=== PATIENT | female | born 2000 | race Caucasian/White ===

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

== ENCOUNTER → 2021-04-08 06:54 | Outpatient (CLI) | payer BC, SELFPAY ==
[2021-04-08 17:52] LABS: SARS-CoV-2 RNA PCR Negative
== END ==
PROVIDERS: PCP Nurse Practitioner; Visit Provider Nurse Practitioner
DX: R68.89 Other general symptoms and signs (principal); Z20.822 Contact with and (suspected) exposure to COVID-19
CPT/HCPCS: C9803; U0003; U0005

== ENCOUNTER → 2022-06-05 12:32 | Outpatient (CLI) | payer OTHER, BC, SELFPAY ==
--- NOTE | ~2022-06-05 | US_ITS ---
EXAMINATION:US venous doppler LE LT INDICATION:Right leg pain TECHNIQUE: Multiple grayscale, color flow and Doppler images of the right lower extremity deep venous systems were obtained and reviewed. COMPARISON:No prior studies for comparison. FINDINGS: The common femoral, superficial femoral and popliteal veins demonstrate normal respiratory variation, augmentation and compressibility. Color flow is also seen within the posterior tibial, pe roneal, greater saphenous and profunda veins. Limited visualization of the distal femoral and calf ve ins. IMPRESSION: 1: No lower extremity deep venous thrombosis. Reviewed, dictated and finalized at location A.
== END ==
PROVIDERS: PCP Nurse Practitioner Family; Visit Provider Nurse Practitioner Family
DX: I82.402 Acute embolism and thrombosis of unspecified deep veins of left lower extremity (principal)
CPT/HCPCS: 93971

== ENCOUNTER → 2022-07-01 08:40 | Outpatient (CLI) | payer OTHER, SELFPAY ==
--- NOTE | ~2022-07-01 | MR_ITS ---
EXAMINATION: MR knee LT wo con DATE: 07/01/2022 09:49 INDICATION: Anterior left knee pain. No history of trauma. TECHNIQUE: Magnetic resonance imaging (MRI) of the left knee was performed without intravenous contra st. Sequences included axial PD-weighted FS FSE, coronal PD-weighted FSE and PD-weighted FS FSE, sagi ttal PD-weighted FSE, and sagittal T2-weighted FS FSE. COMPARISON: X-ray 06/13/2022, images only. FINDINGS: Medial compartment: Mild diffuse thinning of cartilage. Intact meniscus Lateral compartment: Intact meniscus and cartilage. Patellofemoral compartment: Intact cartilage and retinacula. Ligaments and tendons: Intact. Fluid: No abnormal fluid collection. Osseous/other: No suspicious focal or diffuse marrow signal IMPRESSION: Mild diffuse cartilage thinning in the medial compartment. Otherwise normal left knee MR findings. Reviewed, dictated and finalized at location K. IMPRESSION: Mild diffuse cartilage thinning in the medial compartment. Otherwise normal lef t knee MR findings.
== END ==
PROVIDERS: PCP Family Medicine; Visit Provider Nurse Practitioner Family
DX: M25.562 Pain in left knee (principal)
CPT/HCPCS: 73721

== ENCOUNTER 2022-08-03 06:36 | Outpatient (RCR) | payer OTHER, BC, SELFPAY | END 2022-10-17 13:04 | disposition home or self-care (01) | LOC: ANHPT 06:36 | PROVIDERS: PCP Family Medicine; Visit Provider Nurse Practitioner Family | DX: M25.562 Pain in left knee (principal) | CPT/HCPCS: 99199 ==

== ENCOUNTER 2022-11-01 13:34 | Emergency (ER) | payer OTHER, BC, SELFPAY ==
--- NOTE | ~2022-11-01 | US_ITS ---
EXAMINATION: US OB <=14 wk fetus w TV INDICATION: left adnexal pain TECHNIQUE: Sonography of the pelvis was performed by transabdominal and transvaginal techniques. COMPARISON: None. RESULT: Uterus: Orientation: Anteverted. 7.8 x 4.1 x 5.4 cm. Myometrium: homogeneous echogenicity. Gestation: - Intrauterine gestational sac: Single present. - Yolk sac: Present, not directly measured. - Embryo: Single present. - [place] rump length: 0.5 cm, corresponding gestational age 6 weeks, 1 days. -Gestational heart rate: present 130 bpm. -Subgestational hematoma: Absent . Right ovary: 2.7 x 2.2 x 2.3 cm. Normal sonographic appearance with physiologic follicles. . . Left ovary: 2.0 x 1.5 x 1.0 cm. Normal sonographic appearance with physiologic follicles. . . Pelvis free fluid: None. IMPRESSION: Single, live intrauterine gestation. Estimated Gestational Age: 6 weeks, 1 days by crown rump length. OSCAR by ultrasound 06/26/2023. Reviewed, dictated and finalized at location K. ANALYST IMPRESSION: Single, live intrauterine gestation. Estimated Gestational Age: 6 weeks, 1 days by crown rump length. OSCAR by ultras ound 06/26/2023.
[2022-11-01 13:37] VITALS: BP 135/61; PULSE 90; RESP 14; TEMP 36.8; O2SAT 100
[2022-11-01 14:13] LABS: Basophils Absolute Auto 0.1 K/mm3 (0.0-0.1); Basophils Percent Auto 0.7 % (0.2-1.2); Eosinophils Absolute Auto 0.1 K/mm3 (0-0.3); Eosinophils Percent Auto 1.2 % (0-4.4); Hematocrit 44.4 % (37.0-47.0); Hemoglobin 14.7 g/dL (12.0-15.0); Immature Granulocyte Absolute 0.04 K/mm3 (0.00-0.031); Immature Granulocyte Percent A 0.4 % (0-0.5); Lymphocytes Percent Auto 21.8 % (18.3-44.2); Mean Corpuscular HGB Conc 33.1 g/dl (32-36); Mean Corpuscular Hemoglobin 30.3 pg (26-34); Mean Corpuscular Volume 91.5 fl (80-100); Mean Platelet Volume 10.4 fl (7.4-10.4); Monocytes Absolute Auto 0.6 K/mm3 (0.1-0.6); Monocytes Percent Auto 6.7 % (2.6-8.5); Neutrophils Absolute Auto 6.4 K/mm3 (1.3-6.7); Neutrophils Percent Auto 69.2 % (45.5-73.1); Platelet Count Result 291 k/mm3 (150-375); Red Blood Count 4.85 M/mm3 (4.2-5.4); Red Cell Distribution Width 12.7 % (11.5-14.5); White Blood Count 9.2 K/mm3 (4.5-10.0)
[2022-11-01 14:23] LABS: Alanine Aminotransferase 37 U/L (6-35); Albumin Level 4.9 g/dL (3.5-5.1); Alkaline Phosphatase 98 U/L (38-126); Anion Gap 11 mmol/L (8-16); Aspartate Amino Transferase 37 U/L (14-36); Bilirubin,Total 0.8 mg/dL (0.2-1.3); Blood Urea Nitrogen 6 mg/dL (7-17); Calcium 9.7 mg/dL (8.4-10.2); Carbon Dioxide 23 mmol/L (22-30); Chloride 103 mmol/L (98-107); Estimated CRCL calculation 146 ml/min; Estimated Glomerular Filt Rate > 60; Glucose 94 mg/dL (65-110); Lipase 41 U/L (23-300); Potassium 3.8 mmol/L (3.4-5.0); Sodium 137 mmol/L (137-145)
[2022-11-01 14:34] LABS: Appearance Urine Clear (Clear); Bilirubin Urine 1+ (Negative); Blood Urine Trace-lysed (Negative); Color Urine Yellow (Yellow); Glucose Urine UA Negative (Negative); Ketones Urine 3+ mg/dL (Negative); Leukocyte Esterase Ur 1+ LEU/UL (Negative); Nitrate Urine Negative (Negative); Protein Urine Negative (Negative); Specific Grav Ur >= 1.030 (1.001-1.035); Urobilinogen Urine 0.2 mg/dL (<2.0)
[2022-11-01 14:44] LABS: Mucus Urine Few /lpf; Squamous Epithelial Cell Urine Moderate /hpf (Few)
[2022-11-01 14:46] LABS: Add Urine Microscopic? YES
[2022-11-01 16:23] VITALS: BP 138/69; PULSE 67; RESP 15; O2SAT 100
[2022-11-01] MEDS: ONDANSETRON INJ 4 MG/2 ML VIAL IV PUSH (16:40)
[2022-11-01] MEDS: SODIUM CHLORIDE 0.9% IV 1,000 ML 999 ML IV CONT (16:40)
[2022-11-01] MEDS: MORPHINE SULFATE (*CRX) 4 MG/ML INJ IV PUSH (16:41)
[2022-11-01 17:20] VITALS: BP 144/83; PULSE 65; RESP 15; O2SAT 100
--- NOTE | 2022-11-01 18:54 | ED.GENADULT ---
HPI - General Adult General Chief complaint: Nausea/Vomiting/Diarrhea Stated complaint: 5 weeks , vomitting Time Seen by Provider: 11/01/22 16:07 History of Present Illness HPI narrative: Patient is a 22-year-old female who presents ER with nausea and vomiting as well as lower abdominal cramping. Has been trying to quell her vomiting with Unisom and vitamin B without success. No urinary frequency urgency or dysuria. No vaginal bleeding or vaginal discharge. LMP 09/28/2022. She has not had her first visit with her OB yet. She is a G1, P0. Related Data Home Medications Medication Instructions Recorded Confirmed norelgestromin 150 mcg-e.estradiol 1 patch transdermal WEEKLY 12/15/20 06/05/22 35 mcg/24 hr weekly transderm patch (Xulanpriyank) Allergies Allergy/AdvReac Type Severity Reaction Status Date / Time No Known Allergies Allergy Unknown Verified 06/14/22 08:13 Review of Systems Review of Systems: All systems reviewed & are unremarkable except as noted in HPI and below Constitutional: Constitutional: Denies chills, Denies fatigue and Denies fever(s) Respiratory: Respiratory: Denies cough, Denies dyspnea and Denies wheezing Gastrointestinal: Gastrointestinal: Reports abdominal pain, Denies nausea and Denies vomiting Genitourinary: Genitourinary: Denies abnormal vaginal bleeding and Denies flank pain PMFSH Past Medical History Medical History Anxiety Fracture lt ankle Left knee pain Medial meniscus tear Surgical History Surgical History History of orthopedic surgery lt ankle History of tonsillectomy History of wisdom tooth extraction Family History Family History Mother Skin cancer Thyroid disease Father Depression Anxiety Hypertension Sibling Anxiety Depression Grandparent Lung cancer Brain cancer Social History Social History Smoking status: Current every day smoker Tobacco type: e-cigarettes/vaping Alcohol intake: current Drinks per week: 2 Substance use: never Substance use type: does not use Living arrangements: with family Occupation/Education: occupation 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 HEAD: Normocephalic, atraumatic. ENT: Mucous membranes moist. NECK: Supple. CHEST: Clear to auscultation. No respiratory distress. HEART: Regular rate and rhythm. Normal peripheral pulses. ABDOMEN: Soft, nontender, nondistended. EXTREMITIES: Normal range of motion. No edema. SKIN: Warm, dry, no rash. NEURO: Alert and oriented x3. PSYCH: Normal mood and affect. Course Course Emergency Course: Patient resting comfortably. Improved with IV fluid and Zofran. Discussed results and need for follow-up with her primary OB. Patient verbalized understanding. We will treat for possible UTI that could be causing lower abdominal cramping given abnormal UA. Vital Signs Vital signs: Vital Signs Temperature 98.2 F 11/01/22 13:37 Pulse Rate 90 11/01/22 13:37 Respiratory Rate 14 11/01/22 13:37 Blood Pressure 135/61 11/01/22 13:37 Pulse Oximetry 100 11/01/22 13:37 Oxygen Delivery Room Air 11/01/22 13:37 Temperature 98.2 F 11/01/22 13:37 Pulse Rate 65 11/01/22 17:20 Respiratory Rate 15 11/01/22 17:20 Blood Pressure 144/83 H 11/01/22 17:20 Pulse Oximetry 100 11/01/22 17:20 Oxygen Delivery Room Air 11/01/22 13:37 Medical Decision Making Vital Signs Vital Signs: Vital Signs Temperature 98.2 F 11/01/22 13:37 Pulse Rate 90 11/01/22 13:37 Respiratory Rate 14 11/01/22 13:37 Blood Pressure 135/61 11/01/22 13:37 Puls
[2022-11-01 18:55] VITALS: BP 111/70; PULSE 61; RESP 15; O2SAT 100
== END 2022-11-01 19:31 | disposition home or self-care (01) ==
PROVIDERS: Emergency Provider Emergency Medicine; PCP Family Medicine
DX: O21.0 Mild hyperemesis gravidarum (principal); Z3A.01 Less than 8 weeks gestation of pregnancy; O23.41 Unspecified infection of urinary tract in pregnancy, first trimester; N39.0 Urinary tract infection, site not specified
CPT/HCPCS: 36415; 76801; 76817; 80053; 81001; 81025; 83690; 85025; 96361; 96374; 96375; 99284; J2270; J2405; J7030

== ENCOUNTER 2025-01-21 10:00 | Emergency (ER) | payer BC, SELFPAY ==
--- NOTE | ~2025-01-21 | US_ITS ---
Pelvic ultrasound. Clinical History: First trimester , pain Technique: Realtime transabdominal and transvaginal scanning of the pelvis was performed. Color flow Doppler and Doppler spectral analysis were performed. Findings: The uterus is anteverted, and contains an intrauterine gestational sac. [place]-rump length o f 1.2 cm corresponds to an estimated gestational age of 7 weeks 3 days. heart rate is 165 bpm. The right ovary measures 3.4 x 2.1 x 2.8 cm. No significant right ovarian or adnexal mass is seen. The left ovary measures 1.7 x 1.9 x 1.0 cm. No significant left ovarian or adnexal mass is seen. There is no evidence of free fluid in the cul de sac. Impression: Live intrauterine gestation, with estimated gestational age of 7 weeks 3 days. heart rate is 16 5 bpm. Reviewed, dictated and finalized at [facility]. Impression: Live intrauterine gestation, with estimated gestational age of 7 weeks 3 days. heart rate is 165 bpm.
[2025-01-21 10:01] VITALS: BP 126/90; PULSE 62; RESP 18; TEMP 36.6; O2SAT 100
--- OUTSIDE RECORDS SUMMARY | 2025-01-21 10:43 | XMS_ITS | Clinical Summary ---
Author Organization [facility] [employer] Address [address] [place] [id number] Care Team Providers Care Dump Attendant Name Role Phone Unavailable Primary Care Provider Unavailabl e Allergies No known active allergies Medications No known medications Active Problems Problem Noted Date Diagnosed Date Retained orthopedic hardware 08/03/2015 Resolved Problems Problem Noted Date Diagnosed Date Resolved Date Bimalleolar ankle fracture 03/01/2015 0 04/08/2020 Closed left ankle fracture 02/19/2015 0 04/08/2020 Family History Medical History Relation Name Comments No Known Problems Father Cancer Maternal Grandfather Cancer Maternal Grandmother Skin Cancer Mother Cancer Paternal Grandfather Cancer Paternal Grandmother Healthy Sister Relation Name Status Comments Father Alive Maternal Grandfather Maternal Grandmother Mother Alive Paternal Grandfather Paternal Grandmother Sister Alive Social History Tobacco Use Types Packs/Day Years Used Date Smoking Tobacco: Never Alcohol Use Standard Drinks/Week Comments Not Currently 0 (1 standard drink = 0.6 oz pur e alcohol) Comments Unknown Sex and Gender Information Value Date Recorded Sex Assigned at Not on file Legal Sex Female 2:16 PM CDT Gender Identity Not on file Sexual Orientation Not on file Plan of Treatment Health Maintenance Due Date Last Done Comments CHLAMYDIA SCREENING (ANNUAL) 11-24 YEARS 2012 HPV VACCINES (1 - 3-dose series) 2016 DTAP/TDAP/TD VACCINES (1 - Tdap) 2020 HEPATITIS B VACCINES (1 of 3 - 19+ 3-dose series) 08/18 CERVICAL CANCER SCREENING 2022 HPV/Cotest (21-29) 2022 PAP SMEAR 2022 INFLUENZA VACCINE (#1) 2024 06/01/2020 [place] [id number]
--- OUTSIDE RECORDS SUMMARY | 2025-01-21 10:43 | XMS_ITS | Data Portability ---
Author Organization [facility] Address [address] [place] [address] [place] [address] Care Team Providers Care Filtrose Crusher Name Role Phone HA VELASQUEZ Primary Care Provider Assessment No assessment recorded. Plan of Treatment Reminders Order Date Submit Date Provider Last Modified By Organization Details Last Modified Time Details Appointments U/S OB SNEAK PEAK 2024 08:30A M ULTRASOUND Not available Not available Not available OB SCREEN 2024 09:00A M Allyssa BOYCE MD Not available Not available Not available Lab pregnan cy test, urine [address] [facility], [address], [address], [place], [address], 07/11/2023 17:51:13 pregnan cy test, urine 2022 023 [email or web address] [facility], [address], [place], [address], 11/28/2022 17:02:22 Referral None recorde d. Procedures None recorde d. Surgeries None recorde d. Imaging US, breast, unilate ral - right 2022 023 GABRIEL [facility], [address], [place], [address], 01/20/2024 05:01:15 US, obstetr ic, transva ginal 2022 023 [email or web address] [facility], [address], [place], [address], 11/28/2022 22:03:47 Medication Orders Vienva 0.1 mg-20 mcg tablet 2022 023 [id number], [address], [place], [place], [id number], 07/11/2023 17:51:12 Xulane 150 mcg-35 mcg/24 hr transde rmal patch 2019 020 [email or web address] [facility] #[id number], [address], [place], [place], [id number], 11/28/2022 16:43:32 Patient TargetsNo targets recorded. Patient InstructionsNo instructions recorded. Reason for Referral None Reported. Results Created Date Observation Date Name Description Value Unit Range Abnormal Flag Note LastModifiedBy Organization Detail LastModifiedTime 11/29/1911/28/2022 BHCG, QUANT ITATI VE B-HCG 25.4 mIU/m L This assay was perfo rmed using [employer] n reage nts and test kits. Value s obtai tiffany with other assay metho ds or kits canno t be used inter castañeda eably . Refer ence Range s: Non-p regna nt, preme nopau sanket women : 0.0-5 .3 mIU/m L Postm enopa usal women : 0.0-7 .0 mIU/m L Tracie l Pregn jason: Gesta griffin l Age bHCG Conc. - mIU/m L 3 Weeks 5.8 - 71.7 4 Weeks 9.5 - 750 5 Weeks 217-7 138 6 Weeks 158 - 31,79 5 7 Weeks 3,697 - 162,5 63 8 Weeks 32,06 5 - 149,5 71 9 Weeks 63,80 3 - 151,4 10 10 Weeks 46,50 9 - 186,9 77 12 Weeks 27,83 2 - 210,6 12 14 Weeks 13,95 0 - 62,53 0 15 Weeks 12,03 9 - 70,97 1 16 Weeks 9,040 - 56,45 1 17 Weeks 8,175 - 55,86 8 18 Weeks 8,099 - 58,17 6 Not Available [facility] (Lab) [address] , [place], [address], 11/29/2022 03:40:28 11/29/19 23 11/28/2022 pregn jason test, urine HCG positi ve Not Available [facility] [address], [place], [address], 11/28/2022 17:01:53 12/01/19 23 11/30/2022 BHCG, QUANT ITATI VE B-HCG 22.3 mIU/m L This assay was perfo rmed using [employer] reage nts and test kits. Value s obtai tiffany with other assay metho ds or kits canno t be used inter castañeda eably . Refer ence Range s: Non-p regna nt, preme nopau sanket women : 0.0-5 .3 mIU/m L Postm enopa usal women : 0.0-7 .0 mIU/m L Tracie l Pregn jason: Gesta griffin l Age bHCG Conc. - mIU/m L 3 Weeks 5.8 - 71.7 4 Weeks 9.5 - 750 5 Weeks 217-7 138 6 Weeks 158 - 31,79 5 7 Weeks 3,697 - 162,5 63 8 Weeks 32,06 5 - 149,5 71 9 Weeks 63,80 3 - 151,4 10 10 Weeks 46,50 9 - 186,9 77 12 Weeks 27,83 2 - 210,6 12 14 Weeks 13,95 0 - 62,53 0 15 Weeks 12,03 9 - 70,97 1 16 Weeks 9,040 - 56,45 1 17 Weeks 8,175 - 55,86 8 18 Weeks 8,099 - 58,17 6 Not Available [facility] (Lab) [address] , [place], [address], 12/01/2022 03:24:59 12/05/19 23 12/04/2022 BHCG, QUANT ITATI VE B-HCG 15.7 mIU/m L This assay was perfo rmed using [employer] reage nts and test kits. Value s obtai tiffany with other assay metho ds or kits canno t be used inter [facility] . Refer ence Range s: Non-p regna nt, preme nopau sanket women : 0.0-5 .3 mIU/m L Postm enopa usal women : 0.0-7 .0 mIU/m L Tracie l Pregn jason: Gesta griffin l Age bHCG Conc. - mIU/m L 3 Weeks 5.8 - 71.7 4 Weeks 9.5 - 750 5 Weeks 217-7 138 6 Weeks 158 - 31,79 5 7 Weeks 3,697 - 162,5 63 8 Weeks 32,06 5 - 149,5 71 9 Weeks 63,80 3 - 151,4 10 10 Weeks 46,50 9 - 186,9 77 12 Weeks 27,83 2 - 210,6 12 14 Weeks 13,95 0 - 62,53 0 15 Weeks 12,03 9 - 70,97 1 16 Weeks 9,040 - 56,45 1 17 Weeks 8,175 - 55,86 8 18 Weeks 8,099 - 58,17 6 Not Available [facility] (Lab) [address] [facility], [place], [address], 12/05/2022 03:38:11 12/15/19 23 12/14/2022 BHCG, QUANT ITATI VE B-HCG 5.8 mIU/m L This assay was perfo rmed using [employer] reage nts and test kits. Value s obtai tiffany with other assay metho ds or kits canno t be used inter [facility] . Refer ence Range s: Non-p regna nt, preme nopau sanket women : 0.0-5 .3 mIU/m L Postm enopa usal women : 0.0-7 .0 mIU/m L Tracie l Pregn jason: Gesta griffin l Age bHCG Conc. - mIU/m L 3 Weeks 5.8 - 71.7 4 Weeks 9.5 - 750 5 Weeks 217-7 138 6 Weeks 158 - 31,79 5 7 Weeks 3,697 - 162,5 63 8 Weeks 32,06 5 - 149,5 71 9 Weeks 63,80 3 - 151,4 10 10 Weeks 46,50 9 - 186,9 77 12 Weeks 27,83 2 - 210,6 12 14 Weeks 13,95 0 - 62,53 0 15 Weeks 12,03 9 - 70,97 1 16 Weeks 9,040 - 56,45 1 17 Weeks 8,175 - 55,86 8 18 Weeks 8,099 - 58,17 6 Not Available [facility] (Lab) [address], [place], [address], 12/15/2022 02:39:32 07/11/20 23 07/11/2023 IMAGE GUIDE D PAP, REFLE X HPV IF ASCUS ONLY image guided Pap, reflex HPV ASCUS only SEE RESULT S BELOW CASE REPOR T: Cytol ogy Gynec ologi june Repor t Case: [id number] Autho suniat g Provi germaine: Shwetha Hensley NP Colle cted: 07/11 1648 Order ing Locat ion: [place] [facility] Recei best: 07/12 0856 First Scree n: Selene Dunn, CT Speci men: Scree eddie Pap - Image d, Cervi x STATE MENT OF ADEQU ACY: Satis facto ry for evalu ation Trans forma tion zone compo nent prese nt FINAL DIAGN OSIS: Negat myesha for Intra epith elial Lesio n or Erik vargas (NIL) . Shift in salvador sugge stive of bacte rial vagin osis. Elect ivana gilman d by Selene Dunn, CT on 07/17 at 10:13 AM ----- ----- ----- ----- ----- ----- ----- ----- ----- ----- ----- ----- ----- ----- ----- ----- ----- ---- COMME NT: This speci men was revie wed by a Cytot echno logis t and/o r Patho logis t (as indic ated in this repor t) after evalu ation using the Thinp rep Imagi ng Syste m. CLINI JUNE INFOR MATIO N: Menst rual Statu s: LMP (if appli cable ): Clini june Histo ry/Pr eviou s Pap: Type of Neopl paul (if appli cable ): Signi fican t Clini june Findi ngs: Other Histo ry: Hormo sudhakar (if appli cable ): PAP EDUCA GRIFFIN L NOTE: The Pap Test is a scree eddie test with an inher ent false negat myesha rate. Liqui d-bas ed sampl ing may decre ase, but will not elimi ronald, false negat myesha resul ts. A negat myesha resul t does not precl ude the prese nce and/o r devel opmen t of disea se, since the prese nce of abnor mal cells in the sampl e depen ds on the locat ion of the lesio n and sampl ing techn ique. Josephine nued regul ar scree eddie is the best metho d of cance r preve ntion . If repor dada cytol ogic findi ng do not corre late with physi june and/o r histo rical findi ngs, furth er inves tigat ion is recom yasmeen d, as clini allison warra nted. Not Available [facility] (Lab) [address], [place], [address], 07/17/2023 11:15:53 07/11/20 23 07/11/2023 pregn jasno test, urine HCG negati ve Not Available [facility] [address], [place], [address], 07/11/2023 17:50:03 11/29/19 23 11/28/2022 US, obste tric, trans vagin al No observ ation record ed. [email or web address] [facility] [address], [place], [address], 11/28/2022 17:58:25 11/29/1911/28/2022 US, obste tric, trans vagin al No observ ation record ed. [email or web address] Manuela [address], [place], [address], 11/30/2022 11:10:30 Result Notes None recorded. Problems Name Problem SNOMED Code Status Onset Date Resolution Date Notes Provider Name and Address Organization Details Recorded Time SNOMED CT Concept Completed 201703/15/2021 Encntr for routine child health exam w/o abnormal findings ;Recorde d Elsewher e: No Locat ion: [facility] S ource: EHR Fingerprint Technician juan: N Practi ce ID: 0001 Pradeep lable Time: 02:15:00 PM Melissa grier [facility] 16:33:31 Educatio n Completed 201803/15/2021 Encounte r for other general counseli ng and advice on contrace ption;Re corded Elsewher e: No Locat ion: [facility] S ource: EHR Fingerprint Technician juan: N Practi ce ID: 0001 Pradeep lable Time: 02:30:00 PM Melissa grier [facility] 16:33:33 Uses combined oral contrace ption [id number] Completed 201803/15/2021 Encounte r for surveill ance of contrace ptive pills;Re corded Elsewher e: No Locat ion: [facility] S ource: EHR Fingerprint Technician juan: N Practi ce ID: 0001 Pradeep lable Time: 09:00:00 AM Melissa grier [facility] 16:33:[address] Concept Completed 201703/15/2021 Encntr for leak patcher exam (general ) (routine ) w/o abn findings ;Practic e ID: [id number] Melissa Roy [facility] 16:33:32 Problem Notes None recorded. Procedures Surgical History Date Name Laterality Status Provider Name and Address Organization Details Recorded Time 07/11/20 23 Date of Last Pap Smear completed Dahlai Arauz [facility] 07/11/2024 11:54:49 11/03/19 23 termination of completed [facility] 11/28/2022 16:45:49 09/17/19 21 extraction of wisdom tooth completed [facility] 11/28/2022 16:45:26 09/17/19 15 procedure on foot completed [facility] 11/28/2022 16:45:14 09/17/19 10 Tonsillectomy completed [facility] 11/28/2022 16:45:37 Imaging Results Imaging Date Name Status LastModified by Organization Details LastModified Time 11/28/2022 US, obstetric, transvaginal completed [email or web address] [facility] [address], [place], [address], 11/28/2022 17:58:25 11/28/2022 US, obstetric, transvaginal completed [email or web address] Manuela [address] [facility], [place], [address], 11/30/2022 11:10:30 Procedure Notes None recorded. Medical Equipment None Reported. Allergies No known drug allergies Medications Name Sig Start Date Stop Date Status Note LastModified by Organization Details LastModified Time Prescript ion - New 11/28 completed Not Available Not Available Not Available amoxicill in 500 mg capsule TAKE 1 CAPSULE BY MOUTH EVERY 8 HOURS UNTIL ALL TAKEN 03/15 completed Not Available Not Available Not Available promethaz ine-DM 6.25 mg-15 mg/5 mL oral syrup TAKE 5 ML BY MOUTH EVERY 4 HOURS NEEDED 07/11 completed Not Available Not Available Not Available ibuprofen 800 mg tablet TAKE 1 TABLET BY MOUTH EVERY 6 HOURS NEEDED FOR PAIN 03/16 completed Not Available Not Available Not Available Loestrin Fe 10/06 (28-Day) 1 mg-20 mcg (21)/75 mg (7) tablet take 1 tablet by oral route every day 09/22 completed Prescrib marilin Hernandez e: No Locat ion: Nicholas yost [facility] toussaint By: funmilayo Estrada er DateTime : 09/15/20 19 03:20:25 PM Not Available Not Available Not Available topiramat e 25 mg tablet TK 1 T PO Q MOOKIE AT DINNER 11/28 completed Not Available Not Available Not Available phentermi ne 37.5 mg tablet TAKE 1 TABLET BY MOUTH EVERY DAY active Not Available Not Available No t Available oxycodone -acetamin ophen 5 mg-325 mg tablet TAKE 1 TABLET BY MOUTH EVERY 4 TO 6 HOURS NEEDED FOR PAIN 11/28 completed Not Available Not Available Not Available cephalexi n 500 mg capsule TAKE 1 CAPSULE BY MOUTH EVERY 12 HOURS 11/28 completed Not Available Not Available Not Available fluoromet holone 0.1 % eye drops,jeanie pension SHAKE LIQUID AND INSTILL 1 DROP IN RIGHT EYE FOUR TIMES DAILY FOR 10 DAYS active Not Available Not Available No t Available sertralin e 25 mg tablet TAKE 1 TABLET BY MOUTH DAILY 07/11 completed Not Available Not Available Not Available methylpre dnisolone 4 mg tablets in a dose pack TAKE 6 TABLETS BY MOUTH THE FIRST DAY AND THE REMAININ G DIRECTED 07/11 completed Not Available Not Available Not Available fluticaso ne propionat e 50 mcg/actua tion nasal spray,jeanie pension SHAKE LIQUID AND USE 1 SPRAY IN EACH NOSTRIL DAILY 03/16 completed Not Available Not Available Not Available sertralin e 50 mg tablet TAKE 1 TABLET BY MOUTH DAILY active Not Available Not Available No t Available naproxen 500 mg tablet TAKE 1 TABLET BY MOUTH TWICE DAILY 11/28 completed Not Available Not Available Not Available amoxicill in 875 mg-potass ium clavulana te 125 mg tablet TAKE 1 TABLET BY MOUTH TWICE DAILY 11/28 completed Not Available Not Available Not Available Reglan 5 mg tablet Take 1 tablet 4 times a day by oral route as needed. 2024 active Not Available Not Available Not Avai lable oxycodone 5 mg tablet TAKE 1 TABLET BY MOUTH EVERY 4 HOURS NEEDED FOR PAIN active Not Available Not Available No t Available neomycin 3.5 mg/g-poly myxin B 10,000 unit/g-de xameth 0.1 % eye oint APPLY THIN LAYER TO BOTH EYELIDS AT BEDTIME FOR 1 WEEK 07/11 completed Not Available Not Available Not Available Vyvanse 50 mg capsule 03/16 completed Not Available Not Available Not Available cholecalc iferol (vitamin D3) 1,250 mcg (50,000 unit) capsule TAKE ONE CAPSULE BY MOUTH EVERY WEEK 11/28 completed Not Available Not Available Not Available Dialyvite Vitamin D3 Max 1,250 mcg (50,000 unit) tablet TAKE 1 TABLET BY MOUTH EVERY WEEK active Not Available Not Available No t Available Vienva 0.1 mg-20 mcg tablet TAKE 1 TABLET BY MOUTH DAILY active Not Available Not Available No t Available Zafemy 150 mcg-35 mcg/24 hr transderm al patch apply 1 patch by transder mal route every week changing every 7 days for 3 weeks, then 1 week patch free 11/28 completed Not Available Not Available Not Available Paxlovid 300 mg (150 mg x 2)-100 mg tablets in a dose pack TAKE 3 TABLETS (ONE PACKET) BY MOUTH TWICE A DAY FOR 5 DAYS 07/11 completed Not Available Not Available Not Available Vitals Date Recorded Body height Body mass index (BMI) [Percentile] Per age and sex Body mass index (BMI) Body weight Systolic blood pressure Diastolic blood pressure Provider Name and Address Organization Details Last Updated DateTime 1 170.18 cm 1 % 1.4 kg/m2 4082.33 g 109 mm[Hg] 69 mm[Hg] Melissa Roy [facility] 1 10:13:11 Date Recorded Body height Body mass index (BMI) Body mass index (BMI) [Percentile] Per age and sex Body weight Systolic blood pressure Diastolic blood pressure Provider Name and Address Organization Details Last Updated DateTime 0 170.18 cm 33.7 kg/m2 97 % 65215.3 6 g 121 mm[Hg] 80 mm[Hg] Annabel Figueroa [facility] 0 12:00:37 Date Recorded Body height Body mass index (BMI) Body weight Systolic blood pressure Diastolic blood pressure Provider Name and Address Organization Details Last Updated DateTime 11/28/2022 170.18 cm 32.6 kg/m2 71200.21 g 133 mm[Hg] 83 mm[Hg] Carina Torres [facility] 3 16:42:54 Date Recorded Body height Body mass index (BMI) Body weight Systolic blood pressure Diastolic blood pressure Provider Name and Address Organization Details Last Updated DateTime 07/11/2023 170.18 cm 34.2 kg/m2 93034.86 g 112 mm[Hg] 76 mm[Hg] Joana Makenna [facility] 3 17:20:16 Social History Question Answer Notes LastModified by Organizat ion Details LastModified Time Tobacco Smoking Status Never Smoker Melissa grier, [facility] 03/16/2021 10:13:21 Do You Have An Advance Directive? No [email or web address] Information n ot available 03/16/2021 What Is Your Level Of Alcohol Consumption? Occasional Information not available 03/16/2021 How Many Years Have You Consumed Alcohol? 2 [email or web address] Information not available 03/16/2021 Are You Blind Or Do You Have Difficulty Seeing? No [email or web address] Information n ot available 03/16/2021 What Is Your Level Of Caffeine Consumption? Moderate [email or web address] Information not available 03/16/2021 In The 14 Days Before Symptom Onset, Have You Had Close Contact With A Laboratory-confirm ed COVID-19 While That Case Was Ill? No [email or web address] Information n ot available 03/16/2021 In The 14 Days Before Symptom Onset, Have You Had Close Contact With A Person Who Is Under Investigation For COVID-19 While That Person Was Ill? No Information not available 03/16/2021 Have You Been To An Area Known To Be High Risk For COVID-19? No Information not available 03/16/2021 Are You Deaf Or Do You Have Serious Difficulty Hearing? Yes [email or web address] Information not available 03/16/2021 What Type Of Diet Are You Following? REGULAR Information n ot available 03/16/2021 What Is The Highest Grade Or Level Of School You Have Completed Or The Highest Degree You Have Received? 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 Yes [email or web address] Information not available 03/16/2021 Do You Use Protection During Sex? Usually [email or web address] Information not available 03/16/2021 Do You Use Your Seat Belt Or Car Seat Routinely? Yes [email or web address] Information not available 03/16/2021 Do You Have Smoke And Carbon Monoxide Detectors In Your Home? Yes [email or web address] Information not available 03/16/2021 How Much Tobacco Do You Smoke? No Information not available 03/16/2021 Do You Feel Stressed (tense, Restless, Nervous, Or Anxious, Or Unable To Sleep At Night)? [id number] [email or web address] Information not available 03/16/2021 Do You Use Any Illicit Or Recreational Drugs? No [email or web address] Information not available 03/16/2021 Do You Use Sunscreen Routinely? No [email or web address] Information not available 03/16/2021 Have You Used IV Drugs? No Information not available 03/16/2021 Sex: Unknown Functional Status Question Answer Note LastModified by Organizat ion Details LastModified Time Are you able to walk? YESWOREST [email or web address] Information not available 03/16/2021 What is your exercise level? Occasional Information not available 03/16/2021 Mental Status None recorded. Family History Relationship Description Onset Age of this Age Resolved Age Notes LastModified by Organization Details LastModified Time Father Hypercholest erolemia [email or web address] Not available 2019 11:57:59 Father Hypertensive disorder [email or web address] Not available 2019 11:58:19 Maternal Grandmother Hypercholest erolemia [email or web address] Not available 2019 11:57:59 Maternal Grandmother Hypertensive disorder [email or web address] Not available 2019 11:58:19 Maternal Grandfather Malignant tumor of colon [email or web address] Not available 2019 11:58:40 Maternal Grandfather Family history of malignant neoplasm of lung [email or web address] Not available 2020 10:04:25 Paternal Aunt Malignant tumor of colon [email or web address] Not available 2019 11:58:40 Medical History Condition Response Allergies (Food, seasonal, environmental ) N Other N Breast Cancer N Drug/Latex Allergies/Reactions N Blood Transfusion N Dermatologic Disorders N Lung Disease N Defects or Inherited Disease N Breast Problem N Gestational Diabetes N Hematologic disorders N Anesthesia Complications N History of STI N Deep Vein Thrombosis N Polycystic ovary syndrome N Anxiety Disorder N Autoimmune disease N Arthritis N Infertility N Polyps N Acid Reflux (GERD) N History of abnormal pap N Cancer N Stroke N Varicosities N Neurologic/Epilepsy N Endometriosis N High Cholesterol N Headaches Y Fibromyalgia N Kidney Disease N Heart Problems N Kidney or Bladder Problems N Thyroid Problems N GI Problems N Eating Disorder N Anemia N Art (IVF or FET) N Psychiatric Illness N Ovarian Cancer N Diabetes N Pulmonary (TB, Asthma) N Hepatitis/Liver Disease N No Past Medical History N Eczema N Urinary Tract Infection N Abuse/Domestic Violence N Asthma N Trauma/Violence N Depression/ depression N Heart Disease N Pre-Eclampsia N Hypertension N Osteoporosis N Thrombophilias N Gynecological History Statement/Question Response Date of LMP 05/23/2023 On BCP's at Conception? N N Was last menstrual period normal Y STIs/STDs N HPV Vaccine Y Duration of Flow (days) 4 Current Control Method BCPs Date of control 06/27/2018 Frequency of Cycle (Q days) 4 Sexually Active? Y BCPs Age of first menstrual cycle 15 Date of Last Pap Smear 07/11/2023 Sexual Problems? N LMP Approximate N Obstetrics History GPAL:G 1 P 0 0 1 0 Type Value Induced 1 Living 0 Total 1 Past Encounters Encounter ID Performer Location Encounter Start Date Encounter Closed Date Diagnosis/Indication Diagnosis SNOMED-CT Code Diagnosis ICD10 Code Diagnosis Note [id number] Simona Uribe CNM [place] [address] [place] [address] 02/23/2020 17:41:01 03/10/2020 10:57:26 [id number] GLEN Rizo [address] [address] 03/09/2020 11:54:11 03/09/2020 12:51:44 Contraception care management 090209081 Z30.9 Pt happy with patch. Cycles regular and light. We did discuss risks of increased BMI with the use of the patch including increased risk of clots and stroke alont with increased risk of unplanned preganncy. Pt verbalized understand ing. [id number] Simona Uribe CNM [facility] [address],[facility] [place] [address] 03/16/2021 10:03:59 03/16/2021 10:51:05 Contraception care management 831973623 Z30.9 Pt happy with patch. She is trying to get coverage sorted out with insurance. Samples given. Gynecologi c examination [id number] Z01.419 Take Calcium with Vitamin D 1200mg daily if not receiving in daily diet. It is strongly advised to have an annual flu shot and up can obtain at most pharmacies . If you have not had a TDap shot in the last 10 years you should obtain one as well. Discussed with patient & provided with informatio n regarding Gardisil vaccine to prevent the 4 strains for HPV that cause cervical cancer. Encourage safe sexual practices, to use condoms and limit partners if not already in a monogamous relationsh ip. Do monthly self breast exams. BRCA testing is now available for patients with strong genetic history of female cancer. If interested contact the office. Engage in daily exercise of low impact aerobic exercise 45-60 minutes 4-5 times weekly. Avoid tobacco, illicit drugs, and alcohol. This lifestyle behavior pattern will lead to less health conditions and longer life span. If BMI greater than 25 weight watchers or dietary consult advised. Pap smear is not recommende d prior to the age of 21. If you have any concerns, pelvic, or vaginal problems we can discuss testing. Patient received above instructio ns, and questions have been answered. If you have any questions please call or respond to this email. Patient was made aware of the patient portal and may obtain a paper copy of today's plan if desired. [id number] Simona Uribe CNM [place] [address] [address] 11/28/2022 16:14:33 11/29/2022 18:03:52 Elective termination of 07211924 Z33.2 EAB. UPT still positive. HCG to be drawn. Will await results. Pt will continue ocp. Bleeding precaution s given. Emotional support given. [id number] Chin Boyce MD [place] [address] [address] 11/28/2022 17:11:48 11/28/2022 17:48:57 Retained products of conception following induced termination of [id number] O04.89 Z3A.01 [id number] BRYAN Freed [place] [facility] [address],[facility] [place] [address] 07/11/2023 17:03:47 07/11/2023 18:05:08 Gynecologic examination [id number] Z01.419 WWEBC - OCPhappy with this method and would like to continuere commended taking at same time daily, not missing doses to help prevent BTB as well as prevention refills sent x 12 months, r/b/a reviewedpr imary pap collectedS TI testing declinedri t breast u/s order given, encouraged to decrease caffeineUT D with PCP for routine labsRTC in 1 yr or sooner if needed Take Calcium with Vitamin D daily if not receiving in daily diet.It is strongly advised to have an annual flu shot and up can obtain at most pharmacies . If you have not had a TDap shot in the last 10 years you should obtain one as well.Discu ssed with patient & provided with informatio n regarding Gardisil vaccine to prevent the 4 strains for HPV that cause cervical cancer if under age 26.Encoura ge safe sexual practices, to use condoms and limit partners if not already in a monogamous relationsh ip.Do monthly self breast exams.Enga ge in daily exercise of low impact aerobic exercise 45-60 minutes 4-5 times weekly. Avoid tobacco and illicit drugs as well as using moderation with alcohol intake less than 1-2 8 oz beverages daily. This lifestyle behavior pattern will lead to less health conditions and longer life span. If BMI greater than 25 dietary consult advised.Tio pacheco received above instructio ns, and questions have been answered. If you have any questions please call or respond to this email.Keily leon was made aware of the patient portal and may obtain a paper copy of today's plan if desired. Contracept ion care management [id number] Z30.9 Break-thro ugh bleeding [id number] N92.1 Tenderness of breast 552 88256 N64.4 Irregular periods [id number] N92.6 Health Concerns Section Related Observation LastModified by Organization Detai ls LastModified Time None Recorded Concern Status LastModified by Organization Details LastModified Time None Recorded Advance Directives Directive N: Payers Encounter Date Sequence Insurance Name Policy Number Policy Meehan Covered Member ID Meehan Member ID Guarantor Name 03/09/2020 1 [place] [id number] V Viktor Dunn [id number] Ev Jones 03/16/2021 1 [place] [id number] E Ev Dunn [id number] Ev Dunn 11/28/2022 1 [place] [id number] E Ev Dunn [id number] Ev Dunn 11/28/2022 1 [place] [id number] E Ev Dunn [id number] Ev Dunn 07/11/2023 1 [place] [id number] E Ev Dunn [id number] Ev Dunn Notes Date Note Type Note Provider Name and Address Organization Details Recorded Time 03/16/2021 text/html Annual GYNReport ed bypatient.Menstrual cycle:Normal menses Urinary symptoms:No hematuria; No incontinence Vulva:No genital lesion Vagina:Normal vaginal discharge Breast:No breast pain; No breast lump; No nipple discharge Sexual complaints:No sexual complaints; No pain during intercourse; Normal libido Menopausal Symptoms:No menopausal symptoms; Normal vaginal lubrication Psychological symptoms:No depression; No anxiety; No PMDD Simona grier [facility] 03/16/2021 10:48:54 11/28/2022 text/html Medication abort ion on 11-03. Heavy bleeding with clots x 10 days.Started ocp on the day started bleeding again.UPT still positive. Simona grier [facility] 12/15/2022 10:57:07 07/11/2023 text/html Annual GYNReport ed bypatient.Menstrual cycle:Normal menses Urinary symptoms:No hematuria; No incontinence Vulva:No genital lesion Vagina:Normal vaginal discharge Breast:No breast lump; No nipple discharge;Breast pain; right breast tenderness, comes and goes. Drinks caffeine daily Current Contraception:Satisf ied with current contraception; Oral contraceptives Sexual complaints:No sexual complaints; No pain during intercourse; Normal libido Menopausal Symptoms:No menopausal symptoms; Normal vaginal lubrication Psychological symptoms:No depression; No anxiety; No PMDD Preventive measures:Encourage self breast examination; Encourage regular exercise; Encourage no tobacco use; Encourage regular mammograms starting age 40Notes:Has had a few episodes of BTB in the past month, has missed a few pills denies hx of DVT/PE, HTN, Stroke/FL, cancer, liver disease, or migraine with aura BRYAN Freed [address], [place], [address], [facility] 07/11/2023 17:52:07 OBGyn Episode Ob Episode Information Episode Created Date Number of Fetuses Patient Bloodtype Patient rh Status Prepregnancy Weight lbs Domestic Partner Domestic Partner Phone Father Name Wiring Mechanic Status 11/29/19 23 1 CLOSED Fetus Data First Name Last Name Admitted to NICU Weight (g) Sex Living Outcome Pediatric Complications Fetus ID Race Codes Race Delivery Type , Induced [id number] Kolton Calculation Initial Kolton Date Initial Exam Date Initial Exam Provider Initial Ultrasound Date Last Menstrual Period Date Ultra Sound Weeks Gestation 0 Eighteen To Twenty Week Kolton Update Ultra Sound Date Fundal Height At Umbil Quickening Date Ultra Sound Latest Weeks Gestation Final Kolton Confirmed By Final Kolton Confirmed Date Final Kolton Date Ultra Sound Latest Days Gestation 0 0 Menstrual History Last Menstrual Date Menses Monthly On Bcp Conception Prior Menses Frequency Hcg Plus Date Menarche Onset Age Delivery Information Delivery Date Delivery Type Labor Anesthesia Weeks Gestation Incision Type Labor Labor Length Hrs Delivered By Post Complications Tubal Sterilization Discharge Date Comments 3 Discharge Information Feeding Method Contraceptive Method Maternal HG B and HCT Levels
--- OUTSIDE RECORDS SUMMARY | 2025-01-21 10:43 | XMS_ITS | Clinical Summary ---
Author Organization [facility] Address [address] [place] [address] Care Team Providers Care Bareback Rider Name Role Phone Krista Cheney MD Primary Care Provider Source Comments [facility],non-owned Affiliates and Associated Physician Practices is amultiple site organization consisting of ambulatory clinics and hospital sitesin [place], [place], [place] and [place]. This disclosure is being madepursuant to the Care Everywhere program and may not contain all information available regarding this patient. Last updated 18.[employer] Allergies No known active allergies Medications * Be aware that medications may not be up to date on this document. Alwaysverify current medications with the patient. naproxen (NAPROSYN) 500 MG tablet Take 1 Tab by mouth 2 times daily 60 Tab 0 03/02/2015 Active naproxen (NAPROSYN) 500 MG tablet Take 1 Tab by mouth 2 times daily 60 Tab 1 10/22/2015 Active Active Problems Problem Noted Date Diagnosed Date Retained orthopedic hardware 08/03/2015 Bimalleolar ankle fracture 03/01/2015 Closed left ankle fracture 02/19/2015 Resolved Problems Problem Noted Date Diagnosed Date Resolved Date Dislocation of left ankle joint 02/19/2015 02/19/2015 Immunizations Immunization Administration Dates Next Due INFLUENZA VACCINE, QUADR. (F LUZONE; FLULAVAL; FLUARIX; AFLURIA QUADRIVALENT; 6MO+), 0.5 ML (IIV4) 06/01/2020 Family History Medical History Relation Name Comments Anesthesia Reaction Mother difficul t intubation Relation Name Status Comments Mother Social History Tobacco Use Types Packs/Day Years Used Date Smoking Tobacco: Never Smokeless Tobacco: Never Comments No Sex and Gender Information Value Date Recorded Sex Assigned at Not on file Legal Sex Female 6:56 AM SLURRY MAN Gender Identity Not on file Sexual Orientation Not on file Last Filed Vital Signs Vital Sign Reading Time Taken Comments Blood Pressure 98/60 11/04/2015 8:24 AM SLURRY MAN Pulse 68 11/04/2015 8:24 AM SLURRY MAN Temperature 36.2 C (97.2 F) 11/04/2015 8:24 AM SLURRY MAN Respiratory Rate 18 11/04/2015 8:24 AM SLURRY MAN Oxygen Saturation 97% 10/22/2015 9:00 AM SLURRY MAN Inhaled Oxygen Concentration 100% 10/22/2015 8 :15 AM SLURRY MAN Weight 72.3 kg (159 lb 6.3 oz) 11/04/2015 8:24 A M SLURRY MAN Height 163.7 cm (5' 4.45 ) 11/04/2015 8:24 AM CS T Body Mass Index 26.98 11/04/2015 8:24 AM SLURRY MAN Plan of Treatment Health Maintenance Due Date Last Done Comments PAP SMEAR 2001 HIV SCREENING 2016 HPV VACCINE (1 - 3-dose series) 2016 CHLAMYDIA/GONORRHEA SCREENING 2017 MENINGOCOCCAL (Group B) VACCINE SHARED DECISION-MAKING (1 of 2 - Standard) 2017 HEPATITIS C SCREENING 09/02/2019 DTAP/TDAP/TD VACCINES (1 - Tdap) 2020 HEPATITIS B VACCINE (1 of 3 - 19+ 3-dose series) 2020 COVID-19 VACCINE (3 - 2023-2 5 season) 2024 08/07/2021, 07/15/2021 DEPRESSION SCREENING 09/17/2024 INFLUENZA VACCINE (Season Ended) 2025 06/01/2020, 11/03/2013 ZOSTER VACCINE (1 of 2) 2051 HIB VACCINE Aged Out No longer eligi ble based on patient's age to complete this topic MENINGOCOCCAL GROUPS A/C/Y/W VACCINE Aged Out No longer eligible b ased on patient's age to complete this topic PNEUMOCOCCAL VACCINE Aged Out No long er eligible based on patient's age to complete this topic Medical Devices Explanted Type Area Greeter Device Identifier Shelf Expiration Date Model / Serial / Lot Scrw Trip Canc 4.0mm X 40mm Implanted:Qty : 1 on 03/02/2015 by Nancy Lloyd MD at [facility] Explanted:Qty : 1 on 10/22/2015 by Nancy Lloyd MD at [facility] Left: Ankle [employer] [id number] / / Kwire W/Trcr Pt 1.25mm X 150mm Explanted:Qty : 1 on 10/22/2015 by Nancy Lloyd MD at [facility] Left: Ankle [employer] [id number] / / Insurance ANTHEM * Guarantor: PRIYANKA MCKEON Account Type Relation to Patient Date of Phone Billing Address Personal/Family [address] [place] [address] Care Teams Bareback Rider Relationship Specialty Start Date End Date Krista Cheney MD [address] [place] [address] PCP - General 01/16/22
--- OUTSIDE RECORDS SUMMARY | 2025-01-21 10:43 | XMS_ITS | Clinical Summary ---
Author Organization [facility] Children[facility] Address [address] [place] [address] Care Team Providers Care Rate Marker Name Role Phone Sal Neil MD Primary Care Provider Allergies No known active allergies Medications sertraline (ZOLOFT) 25 mg tablet Take 1 tablet (25 mg total) by mouth nightly 4 Active UNKNOWN TO PATIENT Take 1 tablet by mouth nightly control Active neomycin-polymy kira B-dexAMETHasone (MAXITROL) 3.5 mg/g-10,000 unit/g-0.1 % ointment Apply 1/2 in bead to operated eye(s) twice daily for 1 week. 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 Strabismus surgery to be scheduled. 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 Strabismus surgery to be scheduled. Diplopia 09/26/2023 Hyperopia of both eyes 09/26/2023 Assessment & Plan (10/05/2023 3:34 PM RELIGIOUS ASSISTANT): Over minus in current new spectacles. Discontinue glasses. 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 Never 02/08/2024 Q2: How many drinks containi ng alcohol do you have on a typical day when you are drinking? Patient does not drink Q3: How often do you have si x or more drinks on one occasion? Never 02/08/2024 Personal Safety Answer Date Recorded Have you ever been in or are you currently in a harmful physical or emotional relationship or is someone making you feel afraid or unsafe? Denies 07/17/2024 Comments No Sex and Gender Information Value Date Recorded Sex Assigned at Not on file Legal Sex Female 3:27 AM RELIGIOUS ASSISTANT Gender Identity Not on file Sexual Orientation Not on file Obstetrics History Last Filed Vital Signs Vital Sign Reading Time Taken Comments Blood Pressure 110/73 07/17/2024 2:05 PM CDT Pulse 75 07/17/2024 2:05 PM CDT Temperature 35.3 C (95.5 F) 07/17/2024 12:50 PM CDT Respiratory Rate 16 07/17/2024 2:05 PM CDT Oxygen Saturation 98% 07/17/2024 2:05 PM CDT Inhaled Oxygen Concentration - - Weight 91 kg (200 lb 9.9 oz) 07/17/2024 11:05 AM CDT Height 169 cm (5' 6.54 ) 07/17/2024 11:05 AM CDT Body Mass Index 31.86 07/17/2024 11:05 AM CDT Plan of Treatment Health Maintenance Due Date Last Done Comments Cervical Cancer Screening 2001 Depression Screening 2001 Hepatitis C Screening 2001 HPV Vaccines (2 - 2-dose series) 10/26/2013 04/25/2013 Meningococcal B Vaccine (1 of 2 - Standard) 2017 Regular Well Visit/Exam 18-64 2019 DTaP/Tdap/Td Vaccine (7 - Td or Tdap) 04/25/2023 04/25/2013, 06/21/2007, 07/23/2003, Additional history exists Covid-19 Vaccine ( season) 2024 08/07/2021, 07/15/2021 Influenza Vaccine (Season Ended) 2025 06/01/2020, 11/03/2013 Hepatitis B Screening Completed 08/11/2002 , 2001, 2001 Pneumococcal vaccine <65 Aged Out 002, 04/28/2002, 02/24/2002, Additional history exists No longer eligible based on patient's age to complete this topic Varicella Vaccines Completed 06/21/2007, 12/12/2002 Insurance [employer] [place] Advance Directives For more information, please contact: [phone] Documents on File Type Date Recorded Patient Trumpet Teacher Expl anation ADVANCE DIRECTIVE 07/17/2024 10:52 AM Pow er of Glassware Engraver-Medical Care Teams Rate Marker Relationship Specialty Start Date End Date Sal Neil MD [address] [place] [address] PCP - General Family Practice 02/08/24
--- OUTSIDE RECORDS SUMMARY | 2025-01-21 10:43 | XMS_ITS | Referral Summary ---
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 Strabismus surgery to be scheduled. 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 Strabismus surgery to be scheduled. Diplopia 09/26/2023 Hyperopia of both eyes 09/26/2023 Assessment & Plan (10/05/2023 3:34 PM ELECTRICAL TRANSMISSION ENGINEER): Over minus in current new spectacles. Discontinue glasses. Monofixation 09/26/2023 Family history of strabismus 09/26/2023 Social History Tobacco Use Types Packs/Day Years [...] on file Legal Sex Female 3:27 AM ELECTRICAL TRANSMISSION ENGINEER Gender Identity Not on file Sexual Orientation [...] 07/17/2024 11:05 AM CDT Plan of Treatment Not on file Insurance SSN Funding ID SSN Funding ID Advance Directives For more information, please contact: [phone] Documents on File Type Date Recorded Patient Junior Analyst Expl anation ADVANCE DIRECTIVE 07/17/2024 10:52 AM [facility] er of Leg Breaker-Medical Care Teams Database Support Relationship Specialty Start Date End Date Sal Neil MD [address] [place] [address] PCP - General Family Practice 02/08/24
[2025-01-21 10:44] VITALS: BP 110/50; PULSE 58; RESP 16; O2SAT 100
[2025-01-21 11:18] LABS: BEDSIDEPREGUCG Negative (Negative)
--- OUTSIDE RECORDS SUMMARY | 2025-01-21 11:53 | XMS_ITS | Referral Summary ---
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 Strabismus surgery to be scheduled. 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 Strabismus surgery to be scheduled. Diplopia 09/26/2023 Hyperopia of both eyes 09/26/2023 Assessment & Plan (10/05/2023 3:34 PM PRINCIPAL GIFTS OFFICER): Over minus in current new spectacles. Discontinue [...] on file Legal Sex Female 3:27 AM PRINCIPAL GIFTS OFFICER Gender Identity Not on file Sexual Orientation [...] Plan of Treatment Not on file [place] [employer] [place] Advance Directives For more information, please contact: [phone] Documents on File Type Date Recorded Patient Jack Spooler Tender Expl anation ADVANCE DIRECTIVE 07/17/2024 10:52 AM [facility] er of Information Security Risk Analyst-Medical Care Teams Debone Processing Supervisor Relationship Specialty Start Date End Date Sal Neil MD [address] [place] [address] PCP - General Family Practice 02/08/24
--- OUTSIDE RECORDS SUMMARY | 2025-01-21 11:53 | XMS_ITS | Clinical Summary ---
Author Organization [facility] Address [address] [place] [address] Care Team Providers Care Supervisor Wall Mirror Department Name Role Phone Krista Cheney MD Primary Care Provider [phone] Source Comments [facility],non-owned Affiliates and Associated Physician Practices is amultiple site organization consisting of ambulatory clinics and hospital sitesin [place], [place], [place] and [place]. This disclosure is being madepursuant to the Care Everywhere program and may not contain all information available regarding this patient. Last updated 18.[employer] Allergies No known active allergies Medications * [...] on file Legal Sex Female 6:56 AM COMPENSATION AND BENEFITS ADMINISTRATOR Gender Identity Not on file Sexual Orientation Not on file Last Filed Vital Signs Vital Sign Reading Time Taken Comments Blood Pressure 98/60 11/04/2015 8:24 AM COMPENSATION AND BENEFITS ADMINISTRATOR Pulse 68 11/04/2015 8:24 AM COMPENSATION AND BENEFITS ADMINISTRATOR Temperature 36.2 C (97.2 F) 11/04/2015 8:24 AM COMPENSATION AND BENEFITS ADMINISTRATOR Respiratory Rate 18 11/04/2015 8:24 AM COMPENSATION AND BENEFITS ADMINISTRATOR Oxygen Saturation 97% 10/22/2015 9:00 AM COMPENSATION AND BENEFITS ADMINISTRATOR Inhaled Oxygen Concentration 100% 10/22/2015 8 :15 AM COMPENSATION AND BENEFITS ADMINISTRATOR Weight 72.3 kg (159 lb 6.3 oz) 11/04/2015 8:24 A M COMPENSATION AND BENEFITS ADMINISTRATOR Height 163.7 cm (5' 4.45 ) 11/04/2015 8:24 AM CS T Body Mass Index 26.98 11/04/2015 8:24 AM COMPENSATION AND BENEFITS ADMINISTRATOR Plan of Treatment Health Maintenance Due Date [...] this topic Medical Devices Explanted Type Area Film Critic Device Identifier Shelf Expiration Date Model / Serial / Lot Scrw Trip Canc 4.0mm X 40mm Implanted:Qty : 1 on 03/02/2015 by Nancy Lloyd MD at [facility] Explanted:Qty : 1 on 10/22/2015 by Nancy Lloyd MD at [facility] Left: Ankle [employer] [id number] / / Kwire W/Trcr Pt 1.25mm X 150mm Explanted:Qty : 1 on 10/22/2015 by Nancy Lloyd MD at [facility] Left: Ankle [employer] [id number] / / Insurance ANTHEM * Guarantor: PRIYANKA MCKEON Account Type Relation to Patient Date of Phone Billing Address Personal/Family [address] [place] [address] Care Teams Supervisor Wall Mirror Department Relationship Specialty Start Date End Date Krista Cheney MD [address] [place] [address] PCP - General 01/16/22
--- OUTSIDE RECORDS SUMMARY | 2025-01-21 11:53 | XMS_ITS | Clinical Summary ---
Author Organization [facility] Children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 Strabismus surgery to be scheduled. 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 Strabismus surgery to be scheduled. Diplopia 09/26/2023 Hyperopia of both eyes 09/26/2023 Assessment & Plan (10/05/2023 3:34 PM DRILL PRESS HAND): Over minus in current new spectacles. Discontinue [...] on file Legal Sex Female 3:27 AM DRILL PRESS HAND Gender Identity Not on file Sexual Orientation [...] topic Varicella Vaccines Completed 06/21/2007, 12/12/2002 [place] [employer] [place] Advance Directives For more information, please contact: [phone] Documents on File Type Date Recorded Patient Flat Folding Machine Operator Expl anation ADVANCE DIRECTIVE 07/17/2024 10:52 AM Pow er of Candy Maker Helper-Medical Care Teams Automatic Beading Lathe Operator Relationship Specialty Start Date End Date Sal Neil MD [address] [place] [address] PCP - General Family Practice 02/08/24
--- OUTSIDE RECORDS SUMMARY | 2025-01-21 11:53 | XMS_ITS | Clinical Summary ---
Author Organization [facility] Address [address] [place] [address] Care Team Providers Care Wood Dowel Machine Operator Name Role Phone Unavailable Primary Care Provider [...] (#1) 2024 06/01/2020 [id number]
[2025-01-21] MEDS: ONDANSETRON INJ 4 MG/2 ML VIAL IV PUSH (12:04)
[2025-01-21] MEDS: DEXTROSE 5%/LACTATED RINGERS 1,000 ML 999 ML IV CONT (12:04)
[2025-01-21 12:10] LABS: Basophils Absolute Auto 0.1 K/mm3 (0.0-0.1); Basophils Percent Auto 0.5 % (0.2-1.2); Eosinophils Absolute Auto 0.1 K/mm3 (0-0.3); Eosinophils Percent Auto 0.8 % (0-4.4); Hematocrit 41.4 % (37.0-47.0); Hemoglobin 13.2 g/dL (12.0-15.0); Immature Granulocyte Absolute 0.06 K/mm3 (0.00-0.031); Immature Granulocyte Percent A 0.5 % (0-0.5); Lymphocytes Absolute Auto 2.68 K/mm3 (0.9-3.2); Lymphocytes Percent Auto 22.2 % (18.3-44.2); Mean Corpuscular HGB Conc 31.9 g/dl (32-36); Mean Corpuscular Hemoglobin 29.9 pg (26-34); Mean Corpuscular Volume 93.9 fl (80-100); Mean Platelet Volume 10.3 fl (7.4-10.4); Monocytes Absolute Auto 0.8 K/mm3 (0.1-0.6); Monocytes Percent Auto 6.5 % (2.6-8.5); Neutrophils Absolute Auto 8.4 K/mm3 (1.3-6.7); Neutrophils Percent Auto 69.5 % (45.5-73.1); Platelet Count Result 261 k/mm3 (150-375); Red Blood Count 4.41 M/mm3 (4.2-5.4); Red Cell Distribution Width 12.8 % (11.5-14.5); White Blood Count 12.1 K/mm3 (4.5-10.0)
[2025-01-21 12:21] LABS: Alanine Aminotransferase 17 U/L (6-35); Albumin Level 4.5 g/dL (3.5-5.1); Alkaline Phosphatase 92 U/L (38-126); Anion Gap 13 mmol/L (4-12); Aspartate Amino Transferase 21 U/L (14-36); Bilirubin,Total 0.8 mg/dL (0.2-1.3); Blood Urea Nitrogen 5 mg/dL (7-17); Calcium 9.6 mg/dL (8.4-10.2); Carbon Dioxide 23 mmol/L (22-30); Chloride 102 mmol/L (98-107); Estimated CRCL calculation 164 ml/min; Estimated Glomerular Filt Rate > 60; Glucose 92 mg/dL (65-110); Potassium 3.7 mmol/L (3.4-5.0); Sodium 138 mmol/L (137-145)
[2025-01-21 12:25] VITALS: BP 121/68; PULSE 71; RESP 16; O2SAT 100
[2025-01-21 12:26] LABS: Add Urine Microscopic? YES; Appearance Urine Clear (Clear); Bacteria Urine None Seen /hpf; Bilirubin Urine Negative (Negative); Blood Urine Negative (Negative); Color Urine Yellow (Yellow); Glucose Urine UA Negative (Negative); Ketones Urine 1+ mg/dL (Negative); Leukocyte Esterase Ur 1+ LEU/UL (Negative); Need Manual Microscopic Reviewed; Nitrate Urine Negative (Negative); Non Pathogenic Casts 0-2; Protein Urine Negative (Negative); RBC Urine 0-2 /hpf (0-2); Squamous Epithelial Cell Urine Occasional /hpf (Few); Urobilinogen Urine 0.2 mg/dL (<2.0); WBC Urine 0-5 /hpf (0-3); pH Urine 6.5 (5.0-9.0)
[2025-01-21 12:26] LABS: Prothrombin Time 13.8 Seconds (11.1-14.7)
[2025-01-21 12:27] LABS: Partial Thromboplastin Time 24.6 Seconds (22.3-36.8)
[2025-01-21 13:07] VITALS: BP 110/68; PULSE 65; RESP 18; O2SAT 100
--- NOTE | 2025-01-21 13:26 | ED_ITS ---
HPI - Abdominal Pain General Chief Complaint: Abdominal Pain Stated Complaint: 8 weeks , abd pain vomiting Time Seen by Provider: 01/21/25 10:57 History of Present Illness HPI narrative: 24-year-old female at approximately 8 weeks based on last menstrual period. This is her 1st . Patient is complaining of nausea vomiting for last several days and was given Reglan for this but has not been working. She states [employer] usually works for her. She has an OBGYN appointment tomorrow morning. Denies any vaginal bleeding or leakage of fluids. Endorses some occasional cramping sensations and her lower pelvis and taking Tylenol for this. No fever chills. No shortness of breath. Vomited today this morning but has not been nauseous or vomiting in the ER. Related Data Home Medications ?Medication ?Instructions ?Recorded ?Confirmed ?Last Taken ?Type levonorgestrel-ethinyl estradiol 1 tablet PO DAILY 10/18/23 10/18/23 Unknown History 0.1 mg-20 mcg tablet Allergies Allergy/AdvReac Type Severity Reaction Status Date / Time No Known Allergies Allergy Unknown Verified 03/13/24 15:56 Review of Systems 2 Review of Systems: As reviewed above in HPI [facility] Past Medical History Medical History Strabismus Vitamin D deficiency Depression Medial meniscus tear Anxiety Fracture lt ankle Surgical History Surgical History History of wisdom tooth extraction History of tonsillectomy History of orthopedic surgery lt ankle Family History Family History Mother Skin cancer Thyroid disease Father Depression Anxiety Hypertension Sibling Anxiety Depression Grandparent Lung cancer Brain cancer Social History Social History Smoking status: Current every day smoker Tobacco type: e-cigarettes/vaping Alcohol intake: current Drinks per week: 2 Substance use: never Substance use type: does not use Do You Feel Safe in your Home?: Yes Lack of Transportation: No Lack of Food: Never True Current Housing: I Have Housing Concerned About Future Housing: No Difficulty Paying Gas/Electric Bills: No Difficulty Paying for Meds: No Currently Unemployed: No Difficulty w/ Childcare or Family Care: No Living arrangements: with family Occupation/Education: occupation 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 Gender identity (if verbalized by the patient): Female Agree to blood products: Yes Exam 2 Narrative: GENERAL: [Well-appearing, well-nourished, and in no acute distress.] HEAD: [Normocephalic, atraumatic.] EYES: [PERRLA and EOMI.] ENT: Nares clear, no rhinorrhea or epistaxis. Mucous membranes moist. NECK: Supple. CHEST: [Clear to auscultation. No respiratory distress.] HEART: [Regular rate and rhythm]. No murmur heard. [Normal peripheral pulses.] ABDOMEN: [Soft, nondistended], [nontender], [No rigidity or guarding] EXTREMITIES: Normal range of motion. [No edema.] SKIN: Warm, dry, no rash. NEURO: [No focal deficits]. Alert and oriented [x3.] PSYCH: [Normal mood and affect.] Course Vital Signs Vital signs: Vital Signs Temperature 36.6 C 01/21/25 10:01 Pulse Rate 62 01/21/25 10:01 Respiratory Rate 18 01/21/25 10:01 Blood Pressure 126/90 01/21/25 10:01 Pulse Oximetry 100 01/21/25 10:01 Oxygen Delivery Room Air 01/21/25 10:01 Temperature 36.6 C 01/21/25 10:01 Pulse Rate 65 01/21/25 13:07 Respiratory Rate 18 01/21/25 13:07 Blood Pressure 110/68 01/21/25 13:07 Pulse Oximetry 100 01/21/25 13:07 Oxygen Delivery Room Air 01/21/25 10:01 MDM - Abdominal Pain MDM Narrative Medical decision making narrative: 24-year-old otherwise healthy female approximately 8 weeks based on last menstrual period presenting to the ER for evaluation of lower pelvic pain and vomiting. She has normal vital signs, this is her 1st , established with OBBETH Boyce with 1st appointment tomorrow morning. No ultrasound to confirm thus far. She states she got Reglan which did not help her nauseousness but states that [employer] usually works for her. IV was established she got blood work including CBC, CMP, urinalysis. Ultrasound of the pelvis with OB protocol was ordered to rule out ectopic or any other anomalies. She was given IV fluids and Zofran and re-evaluated. Patient is not nauseous and had and has not vomited since her arrival to the emergency department. She states she feels significantly better after fluids and Zofran. Her ultrasound shows a live 7 week 3 day , laboratory studies show a slight leukocytosis likely from vomiting, no other lab anomalies. Urine without infection. Given her improvement and close outpatient OBGYN follow-up she can be safely discharged with a prescription for Zofran at this time. Patient was encouraged to return with any emergent concerns. Medical Records Attestation: I reviewed the patient's medical records. Lab Data Attestation: I reviewed the patient's lab results. 01/21/25 12:00 01/21/25 12:00 Labs: Lab Results 01/21/25 01/21/25 01/21/25 Range/Units 11:16 11:58 12:00 WBC 12.1 H (4.5-10.0) K/mm3 RBC 4.41 (4.2-5.4) M/mm3 Hgb 13.2 (12.0-15.0) g/dL Hct 41.4 (37.0-47.0) % MCV 93.9 (80-100) fl MCH 29.9 (26-34) pg MCHC 31.9 L (32-36) g/dl RDW 12.8 (11.5-14.5) % Plt Count 261 (150-375) k/mm3 MPV 10.3 (7.4-10.4) fl Immature Gran % (Auto) 0.5 (0-0.5) % Neut % (Auto) 69.5 (45.5-73.1) % Lymph % (Auto) 22.2 (18.3-44.2) % [place] % (Auto) 6.5 (2.6-8.5) % Eos % (Auto) 0.8 (0-4.4) % Baso % (Auto) 0.5 (0.2-1.2) % Lymph # (Auto) 2.68 (0.9-3.2) K/mm3 [place] # (Auto) 0.8 H (0.1-0.6) K/mm3 Eos # (Auto) 0.1 (0-0.3) K/mm3 Baso # (Auto) 0.1 (0.0-0.1) K/mm3 Abs Immat Gran (auto) 0.06 H (0.00-0.031) K/mm3 Absolute Neuts (auto) 8.4 H (1.3-6.7) K/mm3 Absolute Nucleated RBC 0.000 (0.0-0.012) K/mm3 Nucleated RBC % 0.0 (0.0-0.2) % PT 13.8 (11.1-14.7) Seconds INR 1.0 APTT 24.6 (22.3-36.8) Seconds Sodium 138 (137-145) mmol/L Potassium 3.7 (3.4-5.0) mmol/L Chloride 102 (98-107) mmol/L Carbon Dioxide 23 (22-30) mmol/L Anion Gap 13 H (4-12) mmol/L BUN 5 L (7-17) mg/dL Creatinine 0.52 L (0.7-1.0) mg/dL Estim Creat Clear Calc 164 ml/min Estimated GFR > 60 (59 - ) Glucose 92 (65-110) mg/dL Calcium 9.6 (8.4-10.2) mg/dL Total Bilirubin 0.8 (0.2-1.3) mg/dL AST 21 (14-36) U/L ALT 17 (6-35) U/L Alkaline Phosphatase 92 (38-126) U/L Total Protein 7.0 (6.3-8.2) g/dL Albumin 4.5 (3.5-5.1) g/dL Beta HCG, Quant 229309.00 mIU/ML Urine Color Yellow (Yellow) Urine Appearance Clear (Clear) Urine pH 6.5 (5.0-9.0) Ur Specific [place] 1.010 (1.001-1.035) Urine Protein Negative (Negative) mg/dL Urine Glucose (UA) Negative (Negative) mg/dL Urine Ketones 1+ H (Negative) mg/dL Ur Blood (Man) Negative (Negative) Urine Nitrate Negative (Negative) Urine Bilirubin Negative (Negative) Urine Urobilinogen 0.2 (<2.0) mg/dL Add Ur Microanalysis Reviewed Leukocyte Esterase Rfl 1+ H (Negative) CASSANDRA/UL Urine RBC 0-2 (0-2) /hpf Urine WBC 0-5 (0-3) /hpf Ur Squamous Epith Cells Occasional (Few) /hpf Urine Bacteria None seen /hpf Urine Casts 0-2 POC Urine HCG, Qual Negative (Negative) Imaging Data Attestation: I personally reviewed and interpreted this imaging study as follows: My impression: Impressions Obstetrics Ultrasound 01/21/25 12:13 Impression: Live intrauterine gestation, with estimated gestational age of 7 weeks 3 days. heart rate is 165 bpm. Radiologist's impression: ITS Impressions Obstetrics Ultrasound 01/21/25 12:13 Impression: Live intrauterine gestation, with estimated gestational age of 7 weeks 3 days. heart rate is 165 bpm. Discharge Plan Discharge Clinical Impression: Nausea and vomiting during Patient Disposition: Home Condition: Stable Instructions: Antibiotic Form, Nausea and Vomiting in (ED) Additional Instructions: Your ultrasound laboratory studies are all reassuring. We will send you home with Zofran as needed for nausea control. Take Tylenol for any aches and pains follow-up with your OBGYN tomorrow. Return with any emergent concerns. Patient Language: Kittitian Prescriptions: New ondansetron 4 mg tablet,disintegrating 4 mg PO Q8H PRN (Reason: nausea and vomiting) Qty: 10 0RF No Action levonorgestrel-ethinyl estrad 0.1-20 mg-mcg tablet 1 tablet PO DAILY cholecalciferol (vitamin D3) 1,250 mcg (50,000 unit) tablet 1,250 mcg PO WEEKLY Qty: 12 1RF sertraline 50 mg tablet 50 mg PO DAILY Qty: 90 3RF Follow-up/Referrals: Sabra Neil MD [Primary Care Provider] - Time of Disposition: 13:21
[2025-01-21 13:30] VITALS: BP 110/68; PULSE 78; RESP 16; O2SAT 100
== END 2025-01-21 13:31 | disposition home or self-care (01) ==
PROVIDERS: Emergency Provider Student in an Organized Health Care Education/Training Program; PCP Family Medicine
DX: O21.9 Vomiting of pregnancy, unspecified (principal); O99.281 Endocrine, nutritional and metabolic diseases complicating pregnancy, first trimester; E55.9 Vitamin D deficiency, unspecified; O99.341 Other mental disorders complicating pregnancy, first trimester; F41.9 Anxiety disorder, unspecified; F32.A Depression, unspecified; O99.331 Smoking (tobacco) complicating pregnancy, first trimester; F17.290 Nicotine dependence, other tobacco product, uncomplicated; Z3A.01 Less than 8 weeks gestation of pregnancy
CPT/HCPCS: 36415; 76801; 76817; 80053; 81001; 81025; 84702; 85025; 85610; 85730; 87086; 96374; 99284; J2405; J7121

== ENCOUNTER 2025-06-11 07:59 | Outpatient (RCR) | payer BC, SELFPAY ==
[2025-06-11 09:21] VITALS: BP 114/63; PULSE 93
== END 2025-09-05 11:37 | disposition other institution (70) ==
LOC: ANHOBOP 07:59
PROVIDERS: PCP Family Medicine; Visit Provider Obstetrics & Gynecology
DX: O36.8120 Decreased fetal movements, second trimester, not applicable or unspecified (principal); Z3A.27 27 weeks gestation of pregnancy
CPT/HCPCS: 59025

== ENCOUNTER 2025-06-19 20:22 | Observation (INO) | payer BC, SELFPAY ==
[2025-06-19 20:29] VITALS: TEMP 36.7
[2025-06-19 20:46] VITALS: BP 117/62; PULSE 116
[2025-06-19 21:01] VITALS: BP 126/63; PULSE 104
[2025-06-19 21:15] VITALS: BMI 35.1
--- NOTE | 2025-06-19 21:15 | OBADM ---
This patient, Priyanka Dunn, admitted to the OB room Labor/Delivery/Recovery 118 for observation. Patient/family oriented to hospital policies and general routines including ID bracelet, bed and alarms, visiting hours, pain management, procedures, bathroom and other care routines, personal items, smoking policy, room service/diet, and visiting hours. Patient/Family are encouraged to report perceived risks to care and to ask questions if they do not understand what they are told or what they should do.
[2025-06-19 21:16] VITALS: BP 114/64; PULSE 117
--- NOTE | 2025-06-19 21:34 | PC.NURSE ---
Pt discharged home undelivered in stable condition per order from Dr. Boyce. Discharge instructions explained and given to pt, pt instructed to follow up early this coming week with Dr. Boyce, pt stated understanding, all questions and concerns answered. Pt ambulated out of department with all belongings, Family and S.O @ pt side.
--- NOTE | 2025-07-15 21:41 | PM.OBTRLD ---
OB - Triage/Final Diagnosis Visit Information Comments/Additional reasons for admission: I have assessed the risk for this patient, Priyanka Dunn, and determined that she would benefit from observation care. Final Diagnosis (1) Nausea and vomiting: Code(s): R11.2 - Nausea with vomiting, unspecified Status: Acute
== END 2025-06-19 21:35 | disposition home or self-care (01) ==
PROVIDERS: Admitting Provider Obstetrics & Gynecology; PCP Family Medicine; Visit Provider Obstetrics & Gynecology
DX: O21.9 Vomiting of pregnancy, unspecified (principal)
CPT/HCPCS: G0378; G0379

== ENCOUNTER 2025-06-22 09:12 | Observation (INO) | payer BC, SELFPAY ==
--- NOTE | ~2025-06-22 | US_ITS ---
EXAMINATION: US OB limited DATE: 06/22/2025 10:52 INDICATION: Spotting during early third trimester . TECHNIQUE: Real-time ultrasound of the pelvis was performed. The interpreting radiologist was not present for the study. COMPARISON: None. FINDINGS: There is a single living fetus in vertex presentation. The placenta is posterior and not low-lying. No evident subchorionic hematoma. heart rate is 130 beats per minute (bpm). The amniotic fluid volume is subjectively normal. IMPRESSION: 1. Single living fetus in vertex presentation with heart rate of 130 bpm. 2. Normal appearing posterior placenta which is not low-lying. Reviewed, dictated and finalized at location A. IMPRESSION: 1. Single living fetus in vertex presentation with heart rate of 130 bpm . 2. Normal appearing posterior placenta which is not low-lying.
[2025-06-22 09:30] VITALS: BP 110/67; PULSE 89
--- NOTE | 2025-06-22 09:57 | PC.NURSE ---
Dr Boyce notified of Bleeding after intercourse, rare contraction, and reassuring FHt's at 29 weeks. Orders received.
--- OUTSIDE RECORDS SUMMARY | 2025-06-22 10:00 | XMS_ITS | Clinical Summary ---
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 Strabismus surgery to be scheduled. 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 Strabismus surgery to be scheduled. Diplopia 09/26/2023 Hyperopia of both eyes 09/26/2023 Assessment & Plan (10/05/2023 3:34 PM HOSPITAL NURSE): Over minus in current new spectacles. Discontinue [...] on file Legal Sex Female 3:27 AM HOSPITAL NURSE Gender Identity Not on file Sexual Orientation [...] 11:05 AM CDT Height 169 cm (5' 6.54) 07/17/2024 11:05 AM CDT Body Mass Index [...] Additional history exists Covid-19 Vaccine ( season) 2025 08/07/2021, 07/15/2021 Influenza Vaccine (#1) 2025 06/01/2020, 2013 Hepatitis B Screening Completed 08/11/2002 , 2001, 2001 Pneumococcal vaccine <65 Aged Out 002, 04/28/2002, 02/24/2002, Additional history exists No longer eligible based on patient's age to complete this topic Varicella Vaccines Completed 06/21/2007, 12/12/2002 Insurance [place] BLUE ACCESS CHOICE IN Advance Directives For more information, please contact: [phone] Documents on File Type Date Recorded Patient Bread Stacker Expl anation ADVANCE DIRECTIVE 07/17/2024 10:52 AM Pow er of 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
--- OUTSIDE RECORDS SUMMARY | 2025-06-22 10:00 | XMS_ITS | Clinical Summary ---
Author Organization [facility] Address [address] [place] [address] Care Team Providers Care Automatic Screwmaker Name Role Phone Krista Cheney MD Primary Care Provider Source Comments [facility],non-owned Affiliates and Associated Physician Practices is amultiple site organization consisting of ambulatory clinics and hospital sitesin [place], [place], [place] and [place]. This disclosure is being madepursuant to the Care Everywhere program and may not contain all information available regarding this patient. Last updated [email or web address] Allergies No known active allergies Medications * [...] on file Legal Sex Female 6:56 AM [employer]GRAM[employer] INTER[employer] Gender Identity Not on file Sexual Orientation Not on file Last Filed Vital Signs Vital Sign Reading Time Taken Comments Blood Pressure 98/60 11/04/2015 8:24 AM [employer] Pulse 68 11/04/2015 8:24 AM [employer] Temperature 36.2 C (97.2 F) 11/04/2015 8:24 AM [employer] Respiratory Rate 18 11/04/2015 8:24 AM [employer] Oxygen Saturation 97% 10/22/2015 9:00 AM [employer] Inhaled Oxygen Concentration 100% 10/22/2015 8 :15 AM [employer] Weight 72.3 kg (159 lb 6.3 oz) 11/04/2015 8:24 A M [employer] Height 163.7 cm (5' 4.45) 11/04/2015 8:24 AM CS T Body Mass Index 26.98 11/04/2015 8:24 AM [employer] Plan of Treatment Health Maintenance Due Date Last Done Comments HIV SCREENING 2016 HPV VACCINE (1 - 3-dose series) 2016 CHLAMYDIA/GONORRHEA SCREENING 2017 MENINGOCOCCAL (Group B) VACCINE SHARED DECISION-MAKING (1 of 2 - Standard) 2017 HEPATITIS C SCREENING 09/02/2019 DTAP/TDAP/TD VACCINES (1 - Tdap) 2020 HEPATITIS B VACCINE (1 of 3 - 19+ 3-dose series) 2020 DEPRESSION SCREENING 09/17/2024 COVID-19 VACCINE (3 - 2024-2 6 season) 2025 08/07/2021, 07/15/2021 INFLUENZA VACCINE (#1) 2025 0, 11/03/2013 ZOSTER VACCINE (1 of 2) 2051 HIB VACCINE Aged Out No longer eligi ble based on patient's age to complete this topic MENINGOCOCCAL GROUPS A/C/Y/W VACCINE Aged Out No longer eligible b ased on patient's age to complete this topic PNEUMOCOCCAL VACCINE Aged Out No long er eligible based on patient's age to complete this topic Medical Devices Explanted Type Area Planner Intern Device Identifier Shelf Expiration Date Model / Serial / Lot Scrw Trip Canc 4.0mm X 40mm Implanted:Qty : 1 on 03/02/2015 by Nancy Lloyd MD at [facility] Explanted:Qty : 1 on 10/22/2015 by Nancy Lloyd MD at [facility] Left: Ankle [employer] [id number] / / Kwire W/Trcr Pt 1.25mm X 150mm Explanted:Qty : 1 on 10/22/2015 by Nancy Lloyd MD at [facility] Left: Ankle [employer] [id number] / / Insurance ANTHEM * Guarantor: PRIYANKA MCKEON Account Type Relation to Patient Date of Phone Billing Address Personal/Family [address] [place] [address] Care Teams Automatic Screwmaker Relationship Specialty Start Date End Date Krista Cheney MD [address] [place] [address] PCP - General 01/16/22
--- OUTSIDE RECORDS SUMMARY | 2025-06-22 10:00 | XMS_ITS | Clinical Summary ---
Author Organization [facility] Address [address] [place] [id number] Care Team Providers Care Laboratory Secretary Name Role Phone Unavailable Primary Care Provider [...] 2022 PAP SMEAR 2022 INFLUENZA VACCINE (#1) 2025 06/01/2020 Insurance [employer] OPEN ACCESS
[2025-06-22 10:03] LABS: Add Urine Microscopic? YES; Appearance Urine Turbid (Clear); Glucose Urine UA Negative (Negative); Leukocyte Esterase Ur 2+ LEU/UL (Negative); Nitrate Urine Negative (Negative); Specific Grav Ur 1.018 (1.001-1.035)
[2025-06-22 11:13] VITALS: BMI 35.1
--- NOTE | 2025-06-22 11:13 | OBADM ---
This patient, Priyanka Dunn, admitted to the OB room OB Post 116 for observation. Patient/family oriented to hospital policies and general routines including ID bracelet, bed and alarms, visiting hours, pain management, procedures, bathroom and other care routines, personal items, smoking policy, room service/diet, and visiting hours. Patient/Family are encouraged to report perceived risks to care and to ask questions if they do not understand what they are told or what they should do.
--- NOTE | 2025-06-22 12:07 | PC.NURSE ---
Dr Boyce notified of US results, UA results and reassuring tracing. Orders received.
--- NOTE | 2025-07-15 21:53 | PM.OBTRLD ---
OB - Triage/Final Diagnosis Visit Information Comments/Additional reasons for admission: I have assessed the risk for this patient, Priyanka Dunn, and determined that she would benefit from observation care. Evaluation Laboratory results: Laboratory Tests 06/22/25 09:44 Urine Color Yellow Urine Appearance Turbid H Urine pH 6.0 Ur Specific [place] 1.018 Urine Protein Trace Urine Glucose (UA) Negative Urine Ketones Trace H Ur Blood (Man) 3+ H Urine Nitrate Negative Urine Bilirubin Negative Urine Urobilinogen 1.0 Ur Leukocyte Esterase 2+ H Urine RBC 0-2 Urine WBC 21-50 H Ur Squamous Epith Cells Moderate Urine Bacteria 4+ H Urine Casts 3-5 Final Diagnosis (1) Vaginal bleeding during : Code(s): O46.90 - Antepartum hemorrhage, unspecified, unspecified trimester Status: Acute
== END 2025-06-22 12:28 | disposition home or self-care (01) ==
PROVIDERS: Admitting Provider Obstetrics & Gynecology; PCP Family Medicine; Visit Provider Obstetrics & Gynecology
DX: O46.90 Antepartum hemorrhage, unspecified, unspecified trimester (principal)
CPT/HCPCS: 76815; 81001; G0378; G0379

== ENCOUNTER 2025-07-13 19:29 | Observation (INO) | payer BC, SELFPAY ==
[2025-07-13] VITALS (43 sets, daily range): BP systolic 96–126; BP diastolic 59–93; PULSE 64–99; TEMP 36.7–36.8; O2SAT 97–100; BMI 34.1
--- NOTE | ~2025-07-13 | US_ITS ---
EXAMINATION: US OB BPP wo non-stress DATE: 07/14/2025 07:17 CDT INDICATION: Lower abdomen pain. Decreased movements. TECHNIQUE: Real-time transabdominal obstetric ultrasound. FINDINGS: No prior studies for comparison. There is a single living fetus in vertex presentation. The placenta is posterior left without placenta previa. cardiac activity and movement is noted with a heart rate of 131 beats per minute. Biophysical profile: breathin of 2 movement: 2 of 2 tone: 2 of 2 Amniotic flud pocket: 2 of 2 Total score: 8 of 8 IMPRESSION: 1. Single living intrauterine in vertex presentation. 2: Total biophysical profile score of 8/8. Reviewed, dictated and finalized at location B.
--- NOTE | ~2025-07-13 | US_ITS ---
US renal BI 07/13/2025 21:46 Procedure: Realtime transabdominal ultrasound of the kidneys and bladder. Indication: Pelvic pain Comparison: No prior studies for comparison. Findings: Renal echotexture is normal bilaterally without hydronephrosis, contour deforming mass or renal calculus. The right kidney measures 13.1 cm and left kidney measures 11.5 cm. Bladder within normal limits. Impression: 1: Unremarkable renal ultrasound. No stones, masses or hydronephrosis. Reviewed, dictated and finalized at location B. Impression: 1: Unremarkable renal ultrasound. No stones, masses or hydronephrosis.
--- NOTE | 2025-07-13 19:29 | PC.NURSE ---
Pt arrives to unit with lower pelvic pain 10 out of 10.
[2025-07-13 20:02] LABS: Add Urine Microscopic? YES; Appearance Urine Turbid (Clear); Glucose Urine UA Trace mg/dL (Negative); Leukocyte Esterase Ur 2+ LEU/UL (Negative); Nitrate Urine Negative (Negative); Non Pathogenic Casts 0-2; Specific Grav Ur 1.030 (1.001-1.035)
--- NOTE | 2025-07-13 20:22 | PC.NURSE ---
Called Dr. Boyce, update on pt, pelvic pain 10 out of 10, history of UTI, decreased movement, and tracing. Orders received for BPP, renal ultrasound of kidneys and ureters, norco 10 mg, rocephin 1 gram, and D5 1/2NS at 150 ml/hr.
[2025-07-13] MEDS: HYDROcodone/acetaminophen (*CRX) 10-325 MG TABLET 1 TAB PO (20:45)
[2025-07-13] MEDS: DEXTROSE 5%/0.45% SOD CHL 1,000 ML 150 ML IV CONT (21:33)
[2025-07-13] MEDS: cefTRIAXone 1 GM in SODIUM CHLORIDE 0.9% IV 50 ML 100 ML IVPB (21:35)
[2025-07-13] MEDS: CALCIUM CARBONATE (TUMS) 500 MG (200 MG ELEMENTAL) PO (22:07)
--- NOTE | 2025-07-13 23:09 | PC.NURSE ---
Called Dr. Boyce, update on pt, pelvic pain 3 out of 10, ultrasound and BPP results, pt feeling movement, and pt preference to discharge home. Orders received to discharge pt with prescription for macrobid 100 mg twice a day for seven days, instructions to keep next scheduled appointment, and when to return to the unit.
--- NOTE | 2025-07-13 23:37 | PC.NURSE ---
Pt discharged with prescription for macrobid 100 mg twice a day for seven days, instructions to keep next scheduled appointment, and when to return to the unit, pt verbalizes understanding.
--- NOTE | 2025-08-06 07:50 | P.PNOB_ITS ---
OB - Triage/Final Diagnosis Visit Information Comments/Additional reasons for admission: I have assessed the risk for this patient, Priyanka Dunn, and determined that she would benefit from observation care. Evaluation Laboratory results: Laboratory Tests 07/13/25 19:45 Urine Color Dark yellow Urine Appearance Turbid H Urine pH 5.5 Ur Specific Temple 1.030 Urine Protein 1+ H Urine Glucose (UA) Trace H Urine Ketones Trace H Ur Blood (Man) 3+ H Urine Nitrate Negative Urine Bilirubin Negative Urine Urobilinogen 1.0 Leukocyte Esterase Rfl 2+ H Urine RBC >100 H Urine WBC 51-100 H Ur Squamous Epith Cells Many H Calcium Oxalate Crystal Present Urine Bacteria 4+ H Urine Casts 0-2 Final Diagnosis (1) Abdominal pain: Code(s): R10.9 - Unspecified abdominal pain Status: Acute
== END 2025-07-13 23:37 | disposition home or self-care (01) ==
PROVIDERS: Admitting Provider Obstetrics & Gynecology; PCP Family Medicine; Visit Provider Obstetrics & Gynecology
DX: O26.893 Other specified pregnancy related conditions, third trimester (principal); R10.9 Unspecified abdominal pain; Z3A.32 32 weeks gestation of pregnancy
CPT/HCPCS: 76770; 76819; 81001; 96361; 96365; A9270; G0378; G0379; J0696

== ENCOUNTER 2025-08-05 11:37 | Observation (INO) | payer BC, SELFPAY ==
[2025-08-05] VITALS (15 sets, daily range): BP systolic 104–108; BP diastolic 57–70; PULSE 73–109; TEMP 36.9; O2SAT 98–100; BMI 35.9
--- NOTE | ~2025-08-05 | US_ITS ---
EXAM/PROCEDURE: US OB BPP wo non-stress HISTORY: placenta check, bleeding COMPARISON: None available. TECHNIQUE: Directed biophysical profile score performed FINDINGS: A single viable intrauterine gestation is present with heart rate of 137 bpm Presentation: Vertex Placenta: Maternal left with inferior tip not well seen. Amniotic fluid volume subjectively normal. Single pocket measurement 8.7 cm. EGA by dates 35 weeks 5 days EDC by dates: September 04, 2025 BIOPHYSICAL PROFILE SCORE 8/8. IMPRESSION: Directed exam demonstrating a single viable intrauterine gestation with biophysical profile score of 8/8 and heart rate of 137 bpm. Reviewed, dictated and finalized at location A. [employer]
--- NOTE | ~2025-08-05 | US_ITS ---
EXAM/PROCEDURE: US OB transvaginal HISTORY: PLACENTA CHECK COMPARISON: Directed ultrasound performed earlier same day. TECHNIQUE: Directed exam performed for evaluating placental position. FINDINGS: Single intrauterine gestation again identified. Presentation: Vertex. The placenta is positioned maternal left with no gross previa or abruption. Visualized portions of the cervix appears closed. The cervix measures approximately 2.4 cm in length. The inferior tip of the placenta is not confidently visualized but no placental tissue is seen in close proximity to the internal os. IMPRESSION: No evidence of placenta previa; the inferior tip of the placenta is well removed from the internal os. The cervix is closed and measures approximately 2.4 centers in length. Reviewed, dictated and finalized at location A. [employer] IMPRESSION: No evidence of placenta previa; the inferior tip of the placenta is well remove d from the internal os. The cervix is closed and measures approximately 2.4 rambo ters in length.
--- NOTE | 2025-08-05 11:37 | OBADM ---
This patient, Priyanka Dunn, admitted to the OB room OB Post 115 for observation. Patient/family oriented to hospital policies and general routines including ID bracelet, bed and alarms, visiting hours, pain management, procedures, bathroom and other care routines, personal items, smoking policy, room service/diet, and visiting hours. Patient/Family are encouraged to report perceived risks to care and to ask questions if they do not understand what they are told or what they should do.
--- NOTE | 2025-08-05 12:00 | PC.NURSE ---
Pt reports having 2 small clots yesterday the size of rice according to the pt. Today has been mostly just pink when she wipes. Pt also states that she has been leaking and its clear in color.
[2025-08-05 12:38] LABS: OBXCEM ROM Plus Negative (Negative)
--- NOTE | 2025-08-05 14:14 | PC.NURSE ---
Dr. Boyce called for ultrasound requesting transvaginal ultrasound to see the rest of the placenta. Order received from Dr. Boyce with the okay to do transvaginal.
--- NOTE | 2025-08-05 15:15 | PC.NURSE ---
Dr. Boyce on the unit. reviewing report and tracing. MD to the room to speak with the pt. okay with pt being discharged and following up in the office tomorrow or Sunday.
--- OUTSIDE RECORDS SUMMARY | 2025-08-05 17:04 | XMS_ITS | Continuity of Care Document ---
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 Discussed plan. Not available 06/18/2025 15:51:24 Plan of Treatment Reminders Order Date Submit Date Provider Last Modified By Organization Details Last Modified Time Details Appointments OB ROUTINE 2024 04:30P Fritz BOYCE MD Not available Not available Not available Lab None recorded . Referral None recorded . Procedures None recorded . Surgeries None recorded . Imaging None recorded . Medication Orders None recorded . Patient TargetsNo targets recorded. Patient InstructionsNo instructions recorded. Reason for Referral None Reported. Results Created Date Observation Date Name Description Value Unit Range Abnormal Flag Note LastModifiedBy Organization Detail LastModifiedTime 03/05/2003/05/2025 [UNIT Y] ANEUP LOIDY NIPT fraction 13.1% normal Not Available [facility] [address], [place], [address], 03/05/2025 13:46:16 03/05/20 25 03/05/2025 [UNIT Y] ANEUP LOIDY NIPT 22Q11.2 microdeletio n LOW RISK <1 in 10,000 normal Not Available [facility] [address], [place], [address], 03/05/2025 13:46:16 03/05/20 25 03/05/2025 [UNIT Y] ANEUP LOIDY NIPT sex chromosome aneuploidy NOT DETECT ED normal Not Available [facility] [address], [place], [address], 03/05/2025 13:46:16 03/05/20 25 03/05/2025 [UNIT Y] ANEUP LOIDY NIPT monosomy X LOW RISK <1 in 10,000 normal Not Available [facility] [address], [place], [address], 03/05/2025 13:46:16 03/05/20 25 03/05/2025 [UNIT Y] ANEUP LOIDY NIPT trisomy 13 LOW RISK <1 in 10,000 normal Not Available [facility] [address], [place], [address], 03/05/2025 13:46:16 03/05/20 25 03/05/2025 [UNIT Y] ANEUP LOIDY NIPT trisomy 18 LOW RISK <1 in 10,000 normal Not Available [facility] [address], [place], [address], 03/05/2025 13:46:16 03/05/20 25 03/05/2025 [UNIT Y] ANEUP LOIDY NIPT trisomy 21 LOW RISK <1 in 10,000 normal Not Available [facility] [address], [place], [address], 03/05/2025 13:46:16 03/05/20 25 03/05/2025 [UNIT Y] ANEUP LOIDY NIPT sex MALE normal Not Available [facility] [address], [place], [address], 03/05/2025 13:46:16 03/05/20 25 03/05/2025 [UNIT Y] ANEUP LOIDY NIPT gestation SINGLE TON normal Not Available [facility] [address], [place], [address], 03/05/2025 13:46:16 03/05/20 25 03/05/2025 [UNIT Y] JO FALUKNERRamiro for detailed report, see pdf See PDF normal Not Available [facility] [address], [place], [address], 03/05/2025 13:46:16 03/06/20 25 03/06/2025 [UNIT Y] SHIKHA Cheung sickle cell disease/beta -thalassemia /hemoglobino pathies carrier screen NEGATI VE normal Not Available [facility] [address], [place], [address], 03/06/2025 20:16:21 03/06/20 25 03/06/2025 [UNIT Y] SHIKHA Cheung alpha-thalas semia carrier screen NEGATI VE normal Not Available [facility] [address], [place], [address], 03/06/2025 20:16:21 03/06/20 25 03/06/2025 [UNIT Y] SHIKHA Cheung cystic fibrosis carrier screen NEGATI VE normal Not Available [facility] [address], [place], [address], 03/06/2025 20:16:21 03/06/20 25 03/06/2025 [UNIT Y] SHIKHA Cheung spinal muscular atrophy carrier screen NEGATI VE 2 SMN1 copies , SNP not presen t normal Not Available [facility] [address], [place], [address], 03/06/2025 20:16:21 03/06/20 25 03/06/2025 [UNIT Y] SHIKHA Cheung for detailed report, see pdf See PDF normal Not Available [facility] [address], [place], [address], 03/06/2025 20:16:21 02/26/2002/25/2025 CBC W/DIF F WBC 13.3 10'3/ uL 3.5-10 .5 high Not Available [facility] (Lab) [address] [facility], [place], [address], 02/26/2025 10:19:46 02/26/20 25 02/25/2025 CBC W/DIF F RBC 4.33 10'6/ uL (based on docume nted legal sex) 3.80-5 .20 Not Available [facility] (Lab) [address] [facility], [place], [address], 02/26/2025 10:19:46 02/26/2002/25/2025 CBC W/DIF F HGB 13.5 g/dL (based on docume nted legal sex) 11.6-1 5.4 Not Available [facility] (Lab) [address] [facility] [address] [facility], [place], [address], 02/26/2025 10:19:46 02/26/2002/25/2025 CBC W/DIF F HCT 41.0 % (based on docume nted legal sex) 34.0-4 5.0 Not Available [facility] (Lab) [address] [facility] [address] [facility], [place], [address], 02/26/2025 10:19:46 02/26/2002/25/2025 CBC W/DIF F MCV 94.7 fL 80.0-9 9.0 Not Available [facility] (Lab) [address] [facility] [address] [facility], [place], [address], 02/26/2025 10:19:46 02/26/2002/25/2025 CBC W/DIF F MCH 31.2 pg 27.0-3 4.0 Not Available [facility] (Lab) [address] [facility] [address] [facility], [place], [address], 02/26/2025 10:19:46 02/26/2002/25/2025 CBC W/DIF F MCHC 32.9 g/dL 32.0-3 5.5 Not Available [facility] (Lab) [address] [facility] [address], [place], [address], 02/26/2025 10:19:46 02/26/2002/25/2025 CBC W/DIF F RDW 13.2 % 11.0-1 5.0 Not Available [facility] (Lab) [address] [facility] [address], [place], [address], 02/26/2025 10:19:46 02/26/20 25 02/25/2025 CBC W/DIF F plt 295 10'3/ uL 150-40 0 Not Available [facility] (Lab) [address] [facility] [address] [facility], [place], [address], 02/26/2025 10:19:46 02/26/20 25 02/25/2025 CBC W/DIF F MPV 11.2 fL 8.8-12 .1 Not Available [facility] (Lab) [address] [facility], [place], [address], 02/26/2025 10:19:46 02/26/20 25 02/25/2025 CBC W/DIF F NRBC's 0.0 % 0.0 Not Available [facility] (Lab) [address] [facility] [address], [place], [address], 02/26/2025 10:19:46 02/26/2002/25/2025 CBC W/DIF F absolute NRBCs 0.0 10'3/ uL no refere nce range establ ished Not Available [facility] (Lab) [address] [facility] [address] [facility], [place], [address], 02/26/2025 10:19:46 02/26/2002/25/2025 CBC W/DIF F neutrophils 68.0 % 34.0-7 3.0 Not Available [facility] (Lab) [address] [facility] [address], [place], [address], 02/26/2025 10:19:46 02/26/20 25 02/25/2025 CBC W/DIF F lymphocytes 21.2 % 15.0-5 0.0 Not Available [facility] (Lab) [address] [facility] [address], [place], [address], 02/26/2025 10:19:46 02/26/20 25 02/25/2025 CBC W/DIF F monocytes 7.4 % 1.0-15 .0 Not Available [facility] (Lab) [address] [facility] [address], [place], [address], 02/26/2025 10:19:46 02/26/20 25 02/25/2025 CBC W/DIF F eosinophils 2.1 % 0.0-8. 0 Not Available [facility] (Lab) [address] [facility] [address], [place], [address], 02/26/2025 10:19:46 02/26/20 25 02/25/2025 CBC W/DIF F basophils 0.6 % 0.0-2. 0 Not Available [facility] (Lab) [address] [facility], [place], [address], 02/26/2025 10:19:46 02/26/2002/25/2025 CBC W/DIF F immature granulocytes 0.7 % no define d refere nce range Immat ure Granu locyt es (IG) repre sents autom ated enume ratio n of Metam yeloc ytes, Myelo cytes and Promy elocy asmina when IG is < 5%. Blast s are not inclu ded in IG and repor dada separ ately if prese nt. Not Available [facility] (Lab) [address] [facility], [place], [address], 02/26/2025 10:19:46 02/26/20 25 02/25/2025 CBC W/DIF F absolute neutrophils 9.1 10'3/ uL 1.5-8. 0 high Not Available [facility] (Lab) [address] [facility], [place], [address], 02/26/2025 10:19:46 02/26/20 25 02/25/2025 CBC W/DIF F absolute lymphocytes 2.8 10'3/ uL 1.0-4. 0 Not Available [facility] (Lab) [address] [facility] [address], [place], [address], 02/26/2025 10:19:46 02/26/20 25 02/25/2025 CBC W/DIF F absolute monocytes 1.0 10'3/ uL 0.2-1. 0 Not Available [facility] (Lab) [address] [facility] [address], [place], [address], 02/26/2025 10:19:46 02/26/20 25 02/25/2025 CBC W/DIF F absolute eosinophils 0.3 10'3/ uL 0.0-0. 6 Not Available [facility] (Lab) [address] [facility] [address], [place], [address], 02/26/2025 10:19:46 02/26/2002/25/2025 CBC W/DIF F absolute basophils 0.1 10'3/ uL 0.0-0. 3 Not Available [facility] (Lab) [address] [facility], [place], [address], 02/26/2025 10:19:46 02/26/20 25 02/25/2025 CBC W/DIF F absolute immature granulocytes 0.1 10'3/ uL 0.00-0 .10 Refer ence range s for nonbi nary/ inter sex or unspe cifie d gende r patie nts have not been estab lishe d. Pleas e refer to the follo wing table for range s estab lishe d for cisge nder patie nts and evalu ate in the clini june craig xt of the indiv idual patie nt: https ://brenda beaulieu book. nm.or g/gen derx Not Available [facility] (Lab) [address] [facility], [place], [address], 02/26/2025 10:19:46 02/26/2002/25/2025 HEPAT ITIS C ANTIB WESLEY SCREE N, REFLE X TO CONFI RMATI ON hepatitis C antibody Non-re active non-re active Antib odies to HCV Not Detec dada, does not exclu de the possi bilit y of expos ure to HCV. Not Available [facility] (Lab) [address] [facility] [address] [facility], [place], [address], 02/26/2025 10:19:46 02/26/2002/25/2025 HIV 1/2 ANTIG EN/AN TIBOD Y, REFLE X CONFI RMATI ON HIV antigen/anti body Nonrea ctive nonrea ctive HIV-1 antig en and HIV-1 /HIV- 2 antib odies were not detec dada. No labor atory evide nce of HIV infec tion. Not Available [facility] (Lab) [address] [facility], [place], [address], 02/26/2025 10:19:47 02/26/2002/25/2025 HEPAT ITIS B SURFA CE ANTIG EN hepatitis B surface antigen Non-re active non-re active This assay was perfo rmed using [employer] ratio n reage nts and test kits. Value s obtai tiffany with other assay metho ds or kits canno t be used inter castañeda eably . Not Available [facility] (Lab) [address] [facility], [place], [address], 02/26/2025 10:19:47 02/26/2002/25/2025 TYPE/ RH/SC REEN ABO/Rh type O POS Not Available [facility] (Lab) [address], [place], [address], 02/26/2025 10:19:47 02/26/2002/25/2025 TYPE/ RH/SC REEN antibody screen NEG Not Available [facility] (Lab) [address], [place], [address], 02/26/2025 10:19:47 02/26/2002/25/2025 TYPE/ RH/SC REEN exp date 2024 23:59 Not Available [facility] (Lab) [address] [facility], [place], [address], 02/26/2025 10:19:47 02/26/20 25 02/25/2025 RUBEL LA IGG ANTIB WESLEY, QUANT rubella antibodies, IgG Non-Re active reacti ve abnormal Not Available [facility] (Lab) [address] [facility], [place], [address], 02/26/2025 10:19:48 02/26/20 25 02/25/2025 RUBEL LA IGG ANTIB WES[place], QUANT rubella antibodies, IgG quant <10.0 IU/mL >=10 low Non-r eacti ve (Non- Immun e) <10 IU/mL React myesha (Immu ne) > or = 10 IU/mL Not Available [facility] (Lab) [address] [facility], [place], [address], 02/26/2025 10:19:48 02/26/2002/25/2025 HEMOG LOBIN A1C hemoglobin A1C 5.1 % 4.0-5. 6 The Ameri can [employer] samina [employer] iatio n recom mends that a prima ry goal of thera py shoul d be a HBA1C of < 7% and that physi cians shoul d reeva luate the treat ment regim en in patie nts with HBA1C value s consi stent ly > 8%. <5.7% Tracie l 5.7 - 6.4% Incre ased risk for diabe samina >=6.5 % Diagn ostic of diabe samina <7.0% Goal of thera py >8.0% Actio n sugge sted Not Available [facility] (Lab) [address], [place], [address], 02/26/2025 10:19:48 02/26/20 25 02/25/2025 RPR SCREE N, REFLE X TITER /CONF IRMAT ION RPR qualitative Nonrea ctive nonrea ctive Not Available [facility] (Lab) [address] [place], [address], 02/26/2025 10:19:48 02/26/2002/25/2025 CULTU RE: URINE result report SEE RESULT S BELOW Test: Cultu re: Urine Speci men Sourc e: Urine Voide d Speci men Type: Urine Speci men Date: 2024 1743 Resul t Date: 20245 Resul t Statu s: Final resul t Abnor mal: No Resul ting Lab: [facility] [address] [facility] [address] Tel: CULTU RE ----- ----- ----- --- Cultu re resul t (>=3 organ isms prese nt) indic ates possi ble conta minat ion. Repea t cultu re if sympt oms indic ate. Not Available [facility] (Lab) [address] [facility] [address], [place], [address], 02/27/2025 00:29:16 06/18/20 25 06/18/2025 HEMAT OCRIT (HCT) HCT 33.7 % (based on docume nted legal sex) 34.0-4 5.0 low Not Available [facility] (Lab) [address] [place], [address], 06/19/2025 10:20:54 06/18/20 25 06/18/2025 HEMOG LOBIN (HGB) HGB 10.6 g/dL (based on docume nted legal sex) 11.6-1 5.4 low Not Available [facility] (Lab) [address] [place], [address], 06/19/2025 10:20:55 06/18/20 25 06/18/2025 GTT - GESTA GRIFFIN Flor Cheung, ACOG OB glucose, 1 hour screen 91 mg/dL 70-135 Not Available [facility] (Lab) [address] [place], [address], 06/19/2025 10:20:55 06/18/20 25 06/18/2025 HIV 1/2 ANTIG EN/AN TIBOD Y, REFLE X CONFI RMATI ON HIV antigen/anti body Nonrea ctive nonrea ctive HIV-1 antig en and HIV-1 /HIV- 2 antib odies were not detec dada. No labor atory evide nce of HIV infec tion. Not Available [facility] (Lab) [address] [facility] [address], [place], [address], 06/19/2025 10:20:56 06/18/20 25 06/18/2025 RPR SCREE N, REFLE X TITER /CONF IRMAT ION RPR qualitative Nonrea ctive nonrea ctive Not Available [facility] (Lab) [address] [facility] [address], [place], [address], 06/19/2025 10:20:57 02/26/20 25 02/25/2025 US, obste tric, nucha l trans lucen cy No observ ation record ed. [email or web address] [place] [address], [place], [address], 02/25/2025 18:30:50 02/26/20 25 02/25/2025 US, obste tric, nucha l trans lucen cy No observ ation record ed. [email or web address] Manuel[address], [place], [address], 02/28/2025 22:26:06 04/23/20 25 04/23/2025 US, obste tric, 2nd or 3rd trime ster No observ ation record ed. [email or web address] [place] [address], [place], [address], 04/23/2025 18:34:49 04/23/20 25 04/23/2025 US, obste tric, follo w-up No observ ation record ed. GABRIEL [address], [place], [address], 04/27/2025 11:09:16 06/11/2006/11/2025 non-s tress test No observ ation record ed. [address] [facility], [place], [address], 06/18/2025 09:08:39 06/19/2006/19/2025 non-s tress test No observ ation record ed. [address] [facility], [place], [address], 06/23/2025 12:42:23 06/22/2006/22/2025 US, obste tric, limit ed No observ ation record ed. [address] [address], [place], [address], 06/23/2025 12:42:00 07/14/2007/13/2025 US, renal No observ ation record ed. [address] [facility], [place], [address], 07/15/2025 15:49:07 07/14/2007/13/2025 US, obste tric, bioph ysica l profi le No observ ation record ed. [address] [address], [place], [address], 07/15/2025 15:49:28 07/20/2007/20/2025 US, obste tric, follo w-up No observ ation record ed. [email or web address] [place] [address], [place], [address], 07/20/2025 18:49:37 07/20/20 25 07/20/2025 US, obste tric, follo w-up No observ ation record ed. madeleine Roy [address], [place], [address], 07/21/2025 09:57:43 11/19/20 25 08/05/2025 imagi ng/di agnos tic resul t No observ ation record ed. [address], [place], [address], 08/05/2025 14:21:36 08/05/20 25 08/05/2025 imagi ng/di agnos tic resul t No observ ation record ed. [address], [place], [address], 08/05/2025 15:57:31 08/05/20 25 10/05/2024 imagi ng/di agnos tic resul t No observ ation record ed. [address], [place], [address], 08/05/2025 17:19:53 Result Notes None recorded. Problems Name Problem SNOMED Code Status Onset Date Resolution Date Notes Provider Name and Address Organization Details Recorded Time SNOMED CT Concept Completed 201703/15/2021 Encntr for routine child health exam w/o abnormal findings ;Recorde d Elsewher e: No Locat ion: [facility] S ource: EHR Pharmacy Aide juan: Jonatan Schafer ce ID: [id number] Pradeep lable Time: 02:15:00 PM Melissa grier [facility] 16:33:[address] Concept Completed 201703/15/2021 Encntr for medical management specialist exam (general ) (routine ) w/o abn findings ;Practic e ID: [id number] Melissa grier [facility] 16:33:32 Uses combined oral contrace ption [id number] Completed 201803/15/2021 Encounte r for surveill ance of contrace ptive pills;Re corded Elsewher e: No [facility]: E[facility] Pharm[facility] Aide juan: Jonatan Schafer ce ID: [email or web address] Pradeep lable Time: 09:00:00 AM Melissa grier [facility] 16:33:29 Procedur e by method Completed 201803/15/2021 Encounbenjamín r for other general counseli ng and advice on contrace ption;Re corded Elsewher e: No Locat ion: Nicholas yost [facility] S ource: EHR Pharmacy Aide juan: N Practi ce ID: 0001 Pradeep lable Time: 02:30:00 PM Melissa Roy null, [facility] 16:33:33 Pregnanc y [id number] Active 2024 Linn Uriah grier, [facility] 5 16:32:48 Mixed anxiety and depressi ve disorder [id number] Active 2024 sertrali ne changed to 100mg Chin Boyce MD [address], [place], [address], [facility] 5 16:52:38 Rubella non-immu ne [id number] Active 2024 PP MMR Liz Hardin [facility], [facility] 5 15:19:23 Problem Notes None recorded. Procedures Surgical History Date Name Laterality Status Provider Name and Address Organization Details Recorded Time 07/11/20 23 Date of Last Pap Smear completed Dahlia Arauz [facility] 07/11/2024 11:54:49 11/03/19 23 termination of completed Carina Torres [facility] 11/28/2022 16:45:49 09/17/19 21 extraction of wisdom tooth completed Carina Torres [facility] 11/28/2022 16:45:26 09/17/19 15 procedure on foot completed Carina Torres [facility] 11/28/2022 16:45:14 09/17/19 10 Tonsillectomy completed Carina Torres [facility] 11/28/2022 16:45:37 Imaging Results None recorded. Procedure Notes None recorded. Medical Equipment None [...] oral route every day 09/22 completed Prescrib ed Elsewher e: No Locat ion: [facility] M odify By: funmilayo martinez DateTime : 09/15/20 03:20:25 PM Not Available Not Available Not Available ondansetr on HCl 4 mg tablet TAKE 1 TABLET BY MOUTH EVERY 4 TO 6 HOURS NEEDED 04/23 completed Not Available Not Available Not Available sertralin e 100 mg tablet TAKE 1 TABLET BY MOUTH EVERY DAY active Not Available Not Available No t Available topiramat e 25 mg tablet TK 1 T PO Q MOOKIE AT DINNER 11/28 completed Not Available Not Available Not Available phentermi ne 37.5 mg tablet TAKE 1 TABLET BY MOUTH EVERY DAY 01/22 completed Not Available Not Available Not Available oxycodone -acetamin ophen 5 mg-325 mg tablet TAKE 1 TABLET BY MOUTH EVERY 4 TO 6 HOURS NEEDED FOR PAIN 11/28 completed Not Available Not Available Not Available metoclopr amide 5 mg tablet TAKE 1 TABLET BY MOUTH FOUR TIMES DAILY NEEDED 01/22 completed Not Available Not Available Not Available cephalexi n 500 mg capsule TAKE 1 CAPSULE BY MOUTH EVERY 12 HOURS 11/28 completed Not Available Not Available Not Available fluoromet holone 0.1 % eye drops,jeanie pension SHAKE LIQUID AND INSTILL 1 DROP IN RIGHT EYE FOUR TIMES DAILY FOR 10 DAYS 01/22 completed Not Available Not Available Not Available promethaz ine 25 mg tablet TAKE 1 TABLET BY MOUTH EVERY 4 HOURS 05/21 completed Not Available Not Available Not Available sertralin e 25 mg tablet TAKE 1 TABLET BY MOUTH DAILY 07/11 completed Not Available Not Available Not Available methylpre dnisolone 4 mg tablets in a dose pack TAKE 6 TABLETS BY MOUTH THE FIRST DAY AND THE REMAININ G DIRECTED 07/11 completed Not Available Not Available Not Available ondansetr on 4 mg disintegr ating tablet DISSOLVE 1 TABLET ON THE TONGUE EVERY 6 TO 8 HOURS NEEDED 07/03 completed Not Available Not Available Not Available fluticaso ne propionat e 50 mcg/actua tion nasal spray,jeanie pension SHAKE LIQUID AND USE 1 SPRAY IN EACH NOSTRIL DAILY 03/16 completed Not Available Not Available Not Available sertralin e 50 mg tablet TAKE 1 TABLET BY MOUTH DAILY 04/23 completed Not Available Not Available Not Available naproxen 500 mg tablet TAKE 1 TABLET BY MOUTH TWICE DAILY 11/28 completed Not Available Not Available Not Available amoxicill in 875 mg-potass ium clavulana te 125 mg tablet TAKE 1 TABLET BY MOUTH TWICE DAILY 11/28 completed Not Available Not Available Not Available oxycodone 5 mg tablet TAKE 1 TABLET BY MOUTH EVERY 4 HOURS NEEDED FOR PAIN 01/22 completed Not Available Not Available Not Available neomycin 3.5 mg/g-poly myxin B 10,000 unit/g-de xameth 0.1 % eye oint APPLY THIN LAYER TO BOTH EYELIDS AT BEDTIME FOR 1 WEEK 07/11 completed Not Available Not Available Not Available nitrofura ntoin monohydra te/macroc rystals 100 mg capsule TAKE 1 CAPSULE BY MOUTH EVERY 12 HOURS FOR 7 DAYS active Not Available Not Available No t Available active Not Available Not Avai lable Not Available Vyvanse 50 mg capsule 03/16 completed Not Available Not Available Not Available cholecalc iferol (vitamin D3) 1,250 mcg (50,000 unit) capsule TAKE ONE CAPSULE BY MOUTH EVERY WEEK 11/28 completed Not Available Not Available Not Available Dialyvite Vitamin D3 Max 1,250 mcg (50,000 unit) tablet TAKE 1 TABLET BY MOUTH EVERY WEEK 01/22 completed Not Available Not Available Not Available Vienva 0.1 mg-20 mcg tablet TAKE 1 TABLET BY MOUTH DAILY 01/22 completed Not Available Not Available Not Available Zafemy 150 mcg-35 mcg/24 hr transderm [...] Available Not Available Vitals Date Recorded Body weight Systolic And Diastolic Provider Name and Address Organization Details Last Updated DateTime 06/18/2025 58026.50922 g 104/71 mm[Hg] Linn Kruse [facility] 06/18/2025 15:57:10 Social History Question Answer Notes LastModified by Organizat ion Details LastModified Time Tobacco Smoking Status Never Smoker Melissa grier, [facility] 03/16/2021 10:13:21 Do You Have An Advance Directive? No [email or web address] Information n ot available 03/16/2021 How Many Years Have You Consumed Alcohol? 2 [email or web address] Information not available 03/16/2021 Are You Blind Or Do You Have Difficulty Seeing? No Information n ot available 03/16/2021 What Is Your Level Of Caffeine Consumption? Moderate Information not available 03/16/2021 How Much Tobacco Do You Chew? None Information not available 01/22/2025 In The 14 Days Before Symptom Onset, Have You Had Close Contact With A Laboratory-confirm ed COVID-19 While That Case Was Ill? No [email or web address] Information n ot available 03/16/2021 In The [...] Do You Have Serious Difficulty Hearing? Yes [email or web address] Information not available 03/16/2021 What Type Of Diet Are You Following? REGULAR [email or web address] Information n ot available 03/16/2021 What Is The Highest Grade Or Level Of School You Have Completed Or The Highest Degree You Have Received? KL01476-5 [email or web address] Information not available 03/16/2021 Are There Any Guns Present In Your Home? Yes [email or web address] Information not available 03/16/2021 Do You Use Protection During Sex? No Information not available 01/22/2025 Do You Use Your Seat Belt Or Car Seat Routinely? Yes [email or web address] Information not available 03/16/2021 Do You Have Smoke And Carbon Monoxide Detectors In Your Home? Yes [email or web address] Information not available 03/16/2021 At What Age Did You Start Smoking Tobacco? 21 Information not available 01/22/2025 How Much Tobacco Do You Smoke? No [email or web address] Information not available 03/16/2021 Do You Use Sunscreen Routinely? No [email or web address] Information not available 03/16/2021 How Many Years Have You Smoked Tobacco? 2 Information not available 01/22/2025 Have You Used IV Drugs? No [email or web address] Information not available 03/16/2021 Sex: Unknown Functional Status Question Answer Note LastModified by Organizat ion Details LastModified Time Do you use any illicit or recreational drugs? No [email or web address] Information not available 03/16/2021 What is your level of alcohol consumption? None Information not available 01/22/2025 Are you able to walk independently without assistance or assistive devices? 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 Occasional Information not available 03/16/2021 Mental Status Question Answer Note LastModified by Organization D etails LastModified Time Do you feel stressed (tense, restless, nervous, or anxious, or unable to sleep at night)? [id number] Information not available 01/22/2025 Family History Relationship Description Onset Age of this Age Resolved Age Notes LastModified by Organization Details LastModified Time Father Hypercholest juanolemia [email or web address] Not available 2019 11:57:59 Father Hypertensive disorder [email or web address] Not available 2019 11:58:19 Maternal Grandmother Hypercholest erolemia [email or web address] Not available 2019 11:57:59 Maternal Grandmother Hypertensive disorder jgumber Not available 2019 11:58:19 Maternal Grandfather Malignant neoplasm of colon jgumber Not available 2019 11:58:40 Maternal Grandfather Family history of malignant neoplasm of lung [email or web address] Not available 11/2024 16:54:24 Paternal Aunt Malignant neoplasm of colon jgumber Not available 2019 11:58:40 [...] N Thrombophilias N Gynecological History Statement/Question Response Flow Moderate Date of LMP 11/21/2024 On BCP's at Conception? N N Was last menstrual period normal Y STIs/STDs N HPV Vaccine Y Duration of Flow (days) 4 Current Control Method Date of control 06/27/2018 Are cycles usually normal Y Frequency of Cycle (Q days) 28 Sexually Active? Y BCPs Menses Monthly Y Age of first menstrual cycle 15 Date of Last Pap Smear 07/11/2023 Sexual Problems? N LMP Definite N Obstetrics History GPAL:G 2 P 0 0 1 0 Type Value Induced 1 Living 0 Total 2 Past Encounters Encounter ID Performer Location Encounter Start Date Encounter Closed Date Diagnosis/Indication Diagnosis SNOMED-CT Code Diagnosis ICD10 Code Diagnosis IMO Codes Diagnosis Note [id number] Chin Boyce MD [facility] [address] [address] 05/21/2025 15:25:35 05/21/2025 17:17:01 care status 505916617 Z34.82 [id number] Chin Boyce MD [facility] [address],[facility] [place] [address] 06/18/2025 14:04:18 06/18/2025 16:17:06 care status 817832892 Z34.83 [id number] Health Concerns Section Related Observation LastModified by Organization Detai ls LastModified Time None Recorded Concern Status LastModified by Organization Details LastModified Time None Recorded Payers Encounter Date Sequence Insurance Name Policy Number Policy Meehan Covered Member ID Meehan Member ID Guarantor Name 06/18/2025 1 [place] [id number] Ev Dunn [id number] Ev Dunn Notes Date Note Type Note Provider Name and Address Organization Details Recorded Time 06/18/2025 text/html Generic HPI TemplateReported by Patient Chin Boyce MD [address], [place], [address], [facility] 06/18/2025 16:16:23 OBGyn Episode Ob Episode Information Episode Created Date Number of Fetuses Patient Bloodtype Patient rh Status Prepregnancy Weight lbs Domestic Partner Domestic Partner Phone Father Name Urban Anthropologist Status 02/26/20 25 1 O Positive [address] OPEN Fetus Data First Name Last Name Admitted to NICU Weight (g) Sex Living Outcome Pediatric Complications Fetus ID Race Codes Race Delivery Type [id number] Problems Problem Notes Problem Name Start Date End Date Resolution Snomed Code Not e Mixed anxiety and depressive disorder 02/25/2025 [id number] sertrali ne changed to 100mg Rubella non-immune 03/03/2025 [id number] PP MMR Kolton Calculation Initial Kolton Date Initial Exam Date Initial Exam Provider Initial Ultrasound Date Last Menstrual Period Date Ultra Sound Weeks Gestation 02/25/2025 01/22/2025 11/21/2024 7 Eighteen To Twenty Week Kolton Update Ultra Sound Date Fundal Height At Umbil Quickening Date Ultra Sound Latest Weeks Gestation Final Kolton Confirmed By Final Kolton Confirmed Date Final Kolton Date Ultra Sound Latest Days Gestation 04/23/20 25 20 [email or web address] 02/25/2025 09/04/20 25 5 Pre- Flowsheet Flowsheet Date 02/25/2025 Craven Score Blood Edema Fundus Height Fundus Units Glucose Ketones Leukocytes Nitrite Labor Signs Protein Cervic Dilation Cervic Effacement Cervic Station Type Weight in lbs Pre/Post Dialysis Refused Weight 197.968858914339 BP Diastolic BP Location Tested BP Systolic BP Type 81 L arm 125 sitting Fetus Heart Rate Present Fetus Movement A No Comments this patient is a 24year-old pirmiparous female at 12 weeks' gestation who presents for initial care. She has a history of term vaginal births. Her medical, surgical, obstetric history is unremarkable. She is vaccinated. She was given precautions recommendations for . We talked about vaccines in . Talked about care in detail. She is having genetic testing. She had a normal 12 week ultrasound. To begin routine care. Flowsheet Date 03/26/2025 Craven Score Blood Edema Fundus Height Fundus Units Glucose Ketones Leukocytes Nitrite Labor Signs Protein Cervic Dilation Cervic Effacement Cervic Station Type Weight in lbs Pre/Post Dialysis Refused 198.990132814294 BP Diastolic BP Location Tested BP Systolic BP Type 70 L arm 104 Fetus Heart Rate Present A 144 Present Fetus Movement Comments no complaints, no problems, routine care, no contractions, no vaginal bleeding, no loss of fluid, no cramping Flowsheet Date 04/23/2025 Craven Score Blood Edema Fundus Height Fundus Units Glucose Ketones Leukocytes Nitrite Labor Signs Protein Cervic Dilation Cervic Effacement Cervic Station Type Weight in lbs Pre/Post Dialysis Refused BP Diastolic BP Location Tested BP Systolic BP Type Fetus Heart Rate Present Fetus Movement Comments Flowsheet Date 04/23/2025 Craven Score Blood Edema Fundus Height Fundus Units Glucose Ketones Leukocytes Nitrite Labor Signs Protein Cervic Dilation Cervic Effacement Cervic Station Type Weight in lbs Pre/Post Dialysis Refused 204.166564391552 BP Diastolic BP Location Tested BP Systolic BP Type 71 L arm 106 sitting Fetus Heart Rate Present A 143 Fetus Movement A No Comments no complaints, no problems, routine care, no contractions, no vaginal bleeding, no loss of fluid, no cramping Flowsheet Date 05/21/2025 Craven Score Blood Edema Fundus Height Fundus Units Glucose Ketones Leukocytes Nitrite Labor Signs Protein Cervic Dilation Cervic Effacement Cervic Station Type Weight in lbs Pre/Post Dialysis Refused 210.473806757813 BP Diastolic BP Location Tested BP Systolic BP Type 74 L arm 112 sitting Fetus Heart Rate Present A 145 Present Fetus Movement A Yes Comments no complaints, no problems, routine care, no contractions, no vaginal bleeding, no loss of fluid, no cramping Flowsheet Date 06/18/2025 Craven Score Blood Edema Fundus Height Fundus Units Glucose Ketones Leukocytes Nitrite Labor Signs Protein Cervic Dilation Cervic Effacement Cervic Station Type Weight in lbs Pre/Post Dialysis Refused 217.678840267378 BP Diastolic BP Location Tested BP Systolic BP Type 71 L arm 104 sitting Fetus Heart Rate Present A 139 Present Fetus Movement A Yes Comments no complaints, no problems, routine care, no contractions, no vaginal bleeding, no loss of fluid, no cramping Flowsheet Date 07/03/2025 Craven Score Blood Edema Fundus Height Fundus Units Glucose Ketones Leukocytes Nitrite Labor Signs Protein Cervic Dilation Cervic Effacement Cervic Station 33 cm Type Weight in lbs Pre/Post Dialysis Refused Weight 223.413209591584 BP Diastolic BP Location Tested BP Systolic BP Type 67 L arm 108 sitting Fetus Heart Rate Present A 140 Fetus Movement A Yes Comments dr vidhya whittington, plan epid ural, circumcision +FM, reviewed kick counts rx for tdap flu and rsv precautions and education f/u 2 week Flowsheet Date 07/20/2025 Craven Score Blood Edema Fundus Height Fundus Units Glucose Ketones Leukocytes Nitrite Labor Signs Protein Cervic Dilation Cervic Effacement Cervic Station Type Weight in lbs Pre/Post Dialysis Refused BP Diastolic BP Location Tested BP Systolic BP Type Fetus Heart Rate Present Fetus Movement Comments Flowsheet Date 07/20/2025 Craven Score Blood Edema Fundus Height Fundus Units Glucose Ketones Leukocytes Nitrite Labor Signs Protein Cervic Dilation Cervic Effacement Cervic Station Type Weight in lbs Pre/Post Dialysis Refused 226.608088229249 BP Diastolic BP Location Tested BP Systolic BP Type 83 L arm 132 sitting Fetus Heart Rate Present A 145 Fetus Movement A Yes Comments no complaints, no problems, routine care, no contractions, no vaginal bleeding, no loss of fluid, no cramping Menstrual History Last Menstrual Date Menses Monthly On Bcp Conception Prior Menses Frequency Hcg Plus Date Menarche Onset Age 0311/21/2024 Delivery Information Delivery Date Delivery Type Labor Anesthesia Weeks Gestation Incision Type Labor Labor Length Hrs Delivered By Post Complications Tubal Sterilization Discharge Date Comments Discharge Information Feeding Method Contraceptive Method Maternal HG B and HCT Levels
--- OUTSIDE RECORDS SUMMARY | 2025-08-05 17:04 | XMS_ITS | Continuity of Care Document ---
Author Organization [facility] [place] Address [address] [place] [address] Care Team Providers Care Hosiery Bagger Name Role Phone HA VELASQUEZ Primary Care Provider [phone] Assessment Encounter Date Assessment Date Assessment LastModified by Organization Details LastModified Time 05/21/2025 05/21/2025 Patient is ___weeks . Discussed plan. Not available 05/21/2025 15:55:41 Plan of Treatment Reminders Order Date Submit [...] [facility] [address], [place], [address], 03/05/2025 13:46:16 03/05/20 25 03/05/2025 [UNIT Y] ANEUP LOIDY NIPT 22Q11.2 microdeletio n LOW RISK <1 in 10,000 normal Not Available [facility] [address], [place], [address], 03/05/2025 13:46:16 03/05/20 25 03/05/2025 [UNIT Y] ANEUP LOIDY NIPT sex chromosome aneuploidy NOT DETECT ED normal Not Available [facility] [address], [place], [address], 03/05/2025 13:46:16 03/05/20 25 03/05/2025 [UNIT Y] ANEUP LOIDY NIPT monosomy X LOW RISK <1 in 10,000 normal Not Available [facility] [address], [place], [address], 03/05/2025 13:46:16 03/05/20 25 03/05/2025 [UNIT Y] ANEUP LOIDY NIPT trisomy 13 LOW RISK <1 in 10,000 normal Not Available [facility] [address], [place], [address], 03/05/2025 13:46:16 03/05/20 25 03/05/2025 [UNIT Y] ANEUP LOIDY NIPT trisomy 18 LOW RISK <1 in 10,000 normal Not Available [facility] [address], [place], [address], 03/05/2025 13:46:16 03/05/20 25 03/05/2025 [UNIT Y] ANEUP LOIDY NIPT trisomy 21 LOW RISK <1 in 10,000 normal Not Available [facility] [address], [place], [address], 03/05/2025 13:46:16 03/05/20 25 03/05/2025 [UNIT Y] ANEUP LOIDY NIPT sex MALE normal Not Available [facility] [address], [place], [address], 03/05/2025 13:46:16 03/05/20 25 03/05/2025 [UNIT Y] ANEUP LOIDY NIPT gestation SINGLE TON normal Not Available [facility] [address], [place], [address], 03/05/2025 13:46:16 03/05/20 25 03/05/2025 [UNIT Y] JO FAULKNERRamiro for detailed report, see pdf See PDF normal Not Available [facility] [address], [place], [address], 03/05/2025 13:46:16 03/06/20 25 03/06/2025 [UNIT Y] SHIKHA Cheung sickle cell disease/beta -thalassemia /hemoglobino pathies carrier screen NEGATI VE normal Not Available [facility] [address], [place], [address], 03/06/2025 20:16:21 03/06/20 25 03/06/2025 [UNIT Y] SHIKHA Cheung alpha-thalas semia carrier screen NEGATI VE normal Not Available [facility] [address], [place], [address], 03/06/2025 20:16:21 03/06/20 25 03/06/2025 [UNIT Y] SHIKHA Cheung cystic fibrosis carrier screen NEGATI VE normal Not Available [facility] [address], [place], [address], 03/06/2025 20:16:21 03/06/20 25 03/06/2025 [UNIT Y] SHIKHA Cheung spinal muscular atrophy carrier screen NEGATI VE 2 SMN1 copies , SNP not presen t normal Not Available [facility] [address], [place], [address], 03/06/2025 20:16:21 03/06/20 25 03/06/2025 [UNIT Y] SHIKHA Cheung for detailed report, see pdf See PDF normal Not Available [facility] [address], [place], [address], 03/06/2025 20:16:21 02/26/2002/25/2025 CBC W/DIF F WBC 13.3 10'3/ uL 3.5-10 .5 high Not Available [facility] (Lab) [address], [place], [address], 02/26/2025 10:19:46 02/26/20 25 02/25/2025 CBC W/DIF F RBC 4.33 10'6/ uL (based on docume nted legal sex) 3.80-5 .20 Not Available [facility] (Lab) [address], [place], [address], 02/26/2025 10:19:46 02/26/2002/25/2025 CBC W/DIF F HGB 13.5 g/dL (based on docume nted legal sex) 11.6-1 5.4 Not Available [facility] (Lab) [address], [place], [address], 02/26/2025 10:19:46 02/26/2002/25/2025 CBC W/DIF F HCT 41.0 % (based on docume nted legal sex) 34.0-4 5.0 Not Available [facility] (Lab) [address], [place], [address], 02/26/2025 10:19:46 02/26/2002/25/2025 CBC W/DIF F MCV 94.7 fL 80.0-9 9.0 Not Available [facility] (Lab) [address], [place], [address], 02/26/2025 10:19:46 02/26/2002/25/2025 CBC W/DIF F MCH 31.2 pg 27.0-3 4.0 Not Available [facility] (Lab) [address], [place], [address], 02/26/2025 10:19:46 02/26/2002/25/2025 CBC W/DIF F MCHC 32.9 g/dL 32.0-3 5.5 Not Available [facility] (Lab) [address] [facility], [place], [address], 02/26/2025 10:19:46 02/26/2002/25/2025 CBC W/DIF F RDW 13.2 % 11.0-1 5.0 Not Available [facility] (Lab) [address], [place], [address], 02/26/2025 10:19:46 02/26/20 25 02/25/2025 CBC W/DIF F plt 295 10'3/ uL 150-40 0 Not Available [facility] (Lab) [address], [place], [address], 02/26/2025 10:19:46 02/26/20 25 02/25/2025 CBC W/DIF F MPV 11.2 fL 8.8-12 .1 Not Available [facility] (Lab) [address], [place], [address], 02/26/2025 10:19:46 02/26/20 25 02/25/2025 CBC W/DIF F NRBC's 0.0 % 0.0 Not Available [facility] (Lab) [address], [place], [address], 02/26/2025 10:19:46 02/26/2002/25/2025 CBC W/DIF F absolute NRBCs 0.0 10'3/ uL no refere nce range establ ished Not Available [facility] (Lab) [address], [place], [address], 02/26/2025 10:19:46 02/26/2002/25/2025 CBC W/DIF F neutrophils 68.0 % 34.0-7 3.0 Not Available [facility] (Lab) [address], [place], [address], 02/26/2025 10:19:46 02/26/20 25 02/25/2025 CBC W/DIF F lymphocytes 21.2 % 15.0-5 0.0 Not Available [facility] (Lab) [address], [place], [address], 02/26/2025 10:19:46 02/26/20 25 02/25/2025 CBC W/DIF F monocytes 7.4 % 1.0-15 .0 Not Available [facility] (Lab) [address], [place], [address], 02/26/2025 10:19:46 02/26/20 25 02/25/2025 CBC W/DIF F eosinophils 2.1 % 0.0-8. 0 Not Available [facility] (Lab) [address], [place], [address], 02/26/2025 10:19:46 02/26/20 25 02/25/2025 CBC W/DIF F basophils 0.6 % 0.0-2. 0 Not Available [facility] (Lab) [address], [place], [address], 02/26/2025 10:19:46 02/26/2002/25/2025 CBC W/DIF F immature granulocytes 0.7 % no define d refere nce range Immat ure Granu locyt es (IG) repre sents autom ated enume ratio n of Metam yeloc ytes, Myelo cytes and Promy elocy samina when IG is < 5%. Blast s are not inclu ded in IG and repor dada separ ately if prese nt. Not Available [facility] (Lab) [address], [place], [address], 02/26/2025 10:19:46 02/26/20 25 02/25/2025 CBC W/DIF F absolute neutrophils 9.1 10'3/ uL 1.5-8. 0 high Not Available [facility] (Lab) [address], [place], [address], 02/26/2025 10:19:46 02/26/20 25 02/25/2025 CBC W/DIF F absolute lymphocytes 2.8 10'3/ uL 1.0-4. 0 Not Available [facility] (Lab) [address] [facility], [place], [address], 02/26/2025 10:19:46 02/26/20 25 02/25/2025 CBC W/DIF F absolute monocytes 1.0 10'3/ uL 0.2-1. 0 Not Available [facility] (Lab) [address] [facility], [place], [address], 02/26/2025 10:19:46 02/26/20 25 02/25/2025 CBC W/DIF F absolute eosinophils 0.3 10'3/ uL 0.0-0. 6 Not Available [facility] (Lab) [address] [facility], [place], [address], 02/26/2025 10:19:46 02/26/2002/25/2025 CBC W/DIF F absolute basophils 0.1 10'3/ uL 0.0-0. 3 Not Available [facility] (Lab) [address], [place], [address], 02/26/2025 10:19:46 02/26/20 25 02/25/2025 CBC W/DIF [...] beaulieu book. nm.or g/gen derx Not Available [facility] (Lab) [address], [place], [address], 02/26/2025 10:19:46 02/26/2002/25/2025 HEPAT ITIS C ANTIB WESLEY SCREE N, REFLE X TO CONFI RMATI ON hepatitis C antibody Non-re active non-re active Antib odies to HCV Not Detec dada, does not exclu de the possi bilit y of expos ure to HCV. Not Available [facility] (Lab) [address], [place], [address], 02/26/2025 10:19:46 02/26/2002/25/2025 HIV 1/2 ANTIG EN/AN TIBOD Y, REFLE X CONFI RMATI ON HIV antigen/anti body Nonrea ctive nonrea ctive HIV-1 antig en and HIV-1 /HIV- 2 antib odies were not detec dada. No labor atory evide nce of HIV infec tion. Not Available [facility] (Lab) [address], [place], [address], 02/26/2025 10:19:47 02/26/2002/25/2025 HEPAT ITIS B SURFA CE ANTIG EN hepatitis B surface antigen Non-re active non-re active This assay was perfo rmed using [employer] ratio n reage nts and test kits. Value s obtai tiffany with other assay metho ds or kits canno t be used inter castañeda eably . Not Available [facility] (Lab) [address], [place], [address], 02/26/2025 10:19:47 02/26/2002/25/2025 TYPE/ RH/SC REEN ABO/Rh type O POS Not Available [facility] (Lab) [address], [place], [address], 02/26/2025 10:19:47 02/26/2002/25/2025 TYPE/ RH/SC REEN antibody screen NEG Not Available [facility] (Lab) [address], [place], [address], 02/26/2025 10:19:47 02/26/2002/25/2025 TYPE/ RH/SC REEN exp date 2024 23:59 Not Available [facility] (Lab) [address], [place], [address], 02/26/2025 10:19:47 02/26/20 25 02/25/2025 RUBEL LA IGG ANTIB WESLEY, QUANT rubella antibodies, IgG Non-Re active reacti ve abnormal Not Available [facility] (Lab) [address], [place], [address], 02/26/2025 10:19:48 02/26/20 25 02/25/2025 RUBEL LA IGG ANTIB WESLEY, QUANT rubella antibodies, IgG quant <10.0 IU/mL >=10 low Non-r eacti ve (Non- Immun e) <10 IU/mL React myesha (Immu ne) > or = 10 IU/mL Not Available [facility] (Lab) [address], [place], [address], 02/26/2025 10:19:48 02/26/2002/25/2025 HEMOG LOBIN A1C hemoglobin [...] >8.0% Actio n sugge sted Not Available [facility] (Lab) [address], [place], [address], 02/26/2025 10:19:48 02/26/20 25 02/25/2025 RPR SCREE N, REFLE X TITER /CONF IRMAT ION RPR qualitative Nonrea ctive nonrea ctive Not Available [facility] (Lab) [address] [facility], [place], [address], 02/26/2025 10:19:48 02/26/2002/25/2025 CULTU RE: URINE result report SEE RESULT S BELOW Test: Cultu re: Urine Speci men Sourc e: Urine Voide d Speci men Type: Urine Speci men Date: 2024 1743 Resul t Date: 2024 2325 Resul t Statu s: Final resul t Abnor mal: No Resul ting Lab: [facility] [address] [facility] [address] Tel: CULTU RE ----- ----- ----- --- Cultu re resul t (>=3 organ isms prese nt) indic ates possi ble conta minat ion. Repea t cultu re if sympt oms indic ate. Not Available [facility] (Lab) [address] [facility], [place], [address], 02/27/2025 00:29:16 02/26/20 25 02/25/2025 US, obste tric, nucha l trans lucen cy No observ ation record ed. [email or web address] [place] [address] [address], [place], [address], 02/25/2025 18:30:50 02/26/20 25 02/25/2025 US, obste tric, nucha l trans lucen cy No observ ation record ed. [email or web address] Manuela [address], [place], [address], 02/28/2025 22:26:06 04/23/20 25 04/23/2025 US, obste tric, 2nd or 3rd trime ster No observ ation record ed. [facility] [address], [place], [address], 04/23/2025 18:34:49 04/23/20 25 04/23/2025 US, obste tric, follo w-up No observ ation record ed. GABRIEL [address], [place], [address], 04/27/2025 11:09:16 06/11/2006/11/2025 non-s tress test No observ ation record ed. [email or web address] [facility], [place], [address], 06/18/2025 09:08:39 06/19/2006/19/2025 non-s tress test No observ ation record ed. [address] [address], [place], [address], 06/23/2025 12:42:23 06/22/2006/22/2025 US, obste tric, limit ed No observ ation record ed. [address] [address], [place], [address], 06/23/2025 12:42:00 07/14/2007/13/2025 US, renal No observ ation record ed. [address] [address], [place], [address], 07/15/2025 15:49:07 07/14/2007/13/2025 US, obste tric, bioph ysica l profi le No observ ation record ed. [address] [address], [place], [address], 07/15/2025 15:49:28 07/20/20 25 07/20/2025 US, obste tric, follo w-up No observ ation record ed. [email or web address] [place] [address], [place], [address], 07/20/2025 18:49:37 07/20/20 25 07/20/2025 US, obste tric, follo w-up No observ ation record ed. [email or web address] [address], [place], [address], 07/21/2025 09:57:43 08/05/20 25 08/05/2025 imagi ng/di agnos tic resul t No observ ation record ed. [address], [place], [address], 08/05/2025 14:21:36 08/05/20 25 08/05/2025 imagi ng/di agnos tic resul t No observ ation record ed. [address], [place], [address], 08/05/2025 15:57:31 08/05/20 25 10/05/2024 imagi ng/di agnos tic resul t No observ ation record ed. [address] [facility], [place], [address], 08/05/2025 17:19:53 Result Notes None recorded. 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 16:33:[address] Concept Completed 201703/15/2021 Encntr for hydrographic surveyor exam (general ) (routine ) w/o abn findings ;Practic e ID: 0001 Melissa grier [facility] 16:33:32 Uses combined oral contrace ption [id number] Completed 201803/15/2021 Encounte r for surveill ance of contrace ptive pills;Re corded Elsewher e: No Locat ion: [facility] S ource: EHR Payroll And Benefits Assistant juan: N Sebastianti ce ID: 0001 Pradeep lable Time: 09:00:00 AM Melissa Roy marvel, [facility] 16:33:29 Procedur e by method Completed 201803/15/2021 Encounte r for other general counseli ng and advice on contrace ption;Re corded Elsewher e: No Locat ion: Laynethongmary yost [facility] S ource: EHR Payroll And Benefits Assistant juan: N Sebastianti ce ID: 0001 Pradeep lable Time: 02:30:00 PM Melissa grier, [facility] 16:33:33 Pregnanc y 62654402 Active 2024 Linn Kruse [facility], [facility] 5 16:32:48 Mixed anxiety and depressi ve disorder 644245935 Active 2024 sertrali ne changed to 100mg Chin Boyce MD [address], [place], [address], [facility] 5 16:52:38 Rubella non-immu ne 516925556 Active 2024 PP MMR Liz Hardin [facility], [facility] 5 15:19:23 Problem Notes None recorded. Procedures Surgical History Date Name Laterality Status Provider Name and Address Organization Details Recorded Time 07/11/20 23 Date of Last Pap Smear completed Dahlia Arauz [facility] 07/11/2024 11:54:49 11/03/19 23 termination of completed Carina Torres [facility] 11/28/2022 16:45:49 09/17/19 21 extraction of wisdom tooth completed Carina Torres [facility] 11/28/2022 16:45:26 09/17/19 15 procedure on foot completed Carina Torres [facility] 11/28/2022 16:45:14 09/17/19 10 Tonsillectomy completed Carina [facility] 11/28/2022 16:45:37 Imaging Results None recorded. [...] Prescrib ed Elsewher e: No Locat ion: [facility] M odify By: funmilayo martinez DateTime : [...] Available Vitals Date Recorded Body height Body weight Systolic And Diastolic Provider Name and Address Organization Details Last Updated DateTime 05/21/2025 170.18 cm 87906.3977 g 112/74 mm[Hg] Linn Kruse [facility] 05/21/2025 15:56:14 Social History Question Answer Notes LastModified by Organizat ion Details LastModified Time Tobacco Smoking Status Never Smoker Melissa Melendezmayda grier, [facility] 03/16/2021 10:13:21 Do You Have An Advance Directive? No Information n ot available 03/16/2021 How Many Years Have You Consumed Alcohol? 2 Information not available 03/16/2021 Are You Blind Or Do You Have Difficulty Seeing? No [email or web address] Information n ot available 03/16/2021 What Is Your Level Of Caffeine Consumption? Moderate [email or web address] Information not available 03/16/2021 How Much Tobacco Do You Chew? None Information not available 01/22/2025 In The 14 Days Before Symptom Onset, Have You Had Close Contact With A Laboratory-confirm ed COVID-19 While That Case Was Ill? No [email or web address] Information n ot available 03/16/2021 In The 14 Days Before Symptom Onset, Have You Had Close Contact With A Person Who Is Under Investigation For COVID-19 While That Person Was Ill? No Information not available 03/16/2021 Have You Been To An Area Known To Be High Risk For COVID-19? No [email or web address] Information not available 03/16/2021 Are You Deaf Or Do You Have Serious Difficulty Hearing? Yes [email or web address] Information not available 03/16/2021 What Type Of Diet Are You Following? REGULAR [email or web address] Information n ot available 03/16/2021 What Is The Highest Grade Or Level Of School You Have Completed Or The Highest Degree You Have Received? [id number] [email or web address] Information not available 03/16/2021 Are There Any Guns Present In Your Home? Yes [email or web address] Information not available 03/16/2021 Do You Use Protection During Sex? No Information not available 01/22/2025 Do You Use Your Seat Belt Or Car Seat Routinely? Yes [email or web address] Information not available 03/16/2021 Do You Have Smoke And Carbon Monoxide Detectors In Your Home? Yes [email or web address] Information not available 03/16/2021 At What Age Did You Start Smoking Tobacco? 21 Information not available 01/22/2025 How Much Tobacco Do You Smoke? No [email or web address] Information not available 03/16/2021 Do You Use Sunscreen Routinely? No Information not available 03/16/2021 How Many Years Have You Smoked Tobacco? 2 Information not available 01/22/2025 Have You Used IV Drugs? No Information not available 03/16/2021 Sex: Unknown Functional Status Question Answer Note LastModified by Organizat ion Details LastModified Time Do you use any illicit or recreational drugs? No [email or web address] Information not available 03/16/2021 What is your level of alcohol consumption? None Information not available 01/22/2025 Are you able to walk independently without assistance or assistive devices? 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 Occasional [email or web address] Information not available 03/16/2021 Mental Status Question Answer Note LastModified by Organization D etails LastModified Time Do you feel stressed (tense, restless, nervous, or anxious, or unable to sleep at night)? [id number] Information not available 01/22/2025 Family History Relationship Description Onset Age of this Age Resolved Age Notes LastModified by Organization Details LastModified Time Father Hyperchdonna [email or web address] Not available 2019 11:57:59 Father Hypertensive disorder [...] N Drug/Latex Allergies/Reactions N Blood Transfusion N Lung Disease N Dermatologic Disorders N Defects or Inherited Disease N Breast Problem N Gestational Diabetes N Hematologic disorders N Anesthesia Complications N History of STI N Deep Vein Thrombosis N Polycystic ovary syndrome N Anxiety Disorder N Autoimmune disease N Arthritis N Polyps N Infertility N History of abnormal pap N Acid Reflux (GERD) N Cancer N Varicosities N Stroke N Neurologic/Epilepsy N Endometriosis N High Cholesterol N Fibromyalgia N Headaches Y Kidney Disease N Heart Problems N Kidney [...] ICD10 Code Diagnosis IMO Codes Diagnosis Note [id number] Chin Boyce MD [place] [address] [address] 04/23/2025 15:08:03 04/23/2025 17:04:07 Ultrasound scan - obstetric 571254996 Z36.3 Z3A.20 36048 [id number] Chin Boyce MD [place] [address],[place] [address] 04/23/2025 15:08:47 04/23/2025 17:29:12 care status 358062787 Z34.82 [id number] Chin Boyce MD [place] [address],[place] [address] 05/21/2025 15:25:35 05/21/2025 17:17:01 care status 387848841 Z34.82 [id number] Health Concerns Section Related Observation LastModified by Organization Detai ls LastModified Time None Recorded Concern Status LastModified by Organization Details LastModified Time None Recorded Payers Encounter Date Sequence Insurance Name Policy Number Policy Meehan Covered Member ID Meehan Member ID Guarantor Name 05/21/2025 1 [place] [id number] Ev Dunn [id number] Ev Dunn Notes Date Note Type Note Provider Name and Address Organization Details Recorded Time 05/21/2025 text/html Generic HPI TemplateReported by Patient Chin Boyce MD [address], [place], [address], [facility] 05/21/2025 16:32:43 OBGyn Episode Ob Episode Information Episode Created Date Number of Fetuses Patient Bloodtype Patient rh Status Prepregnancy Weight lbs Domestic Partner Domestic Partner Phone Father Name Mining Engineer Status 02/26/20 25 1 O Positive [address] OPEN Fetus Data First Name Last Name Admitted to NICU Weight (g) Sex Living Outcome Pediatric Complications Fetus ID Race Codes Race Delivery Type [id number] Problems Problem Notes Problem Name Start Date End Date Resolution Snomed Code Not e Mixed anxiety and depressive disorder 02/25/2025 [id number] sertrali ne changed to 100mg Rubella non-immune 03/03/2025 430006650 PP MMR [place] Calculation Initial [place] Date [...] Weight in lbs Pre/Post Dialysis Refused Weight 197.601270625254 BP Diastolic BP Location Tested BP Systolic [...] Type Weight in lbs Pre/Post Dialysis Refused 198.841244947328 BP Diastolic BP Location Tested BP Systolic [...] Type Weight in lbs Pre/Post Dialysis Refused 204.970854819287 BP Diastolic BP Location Tested BP Systolic [...] Type Weight in lbs Pre/Post Dialysis Refused 210.356386986891 BP Diastolic BP Location Tested BP Systolic [...] Type Weight in lbs Pre/Post Dialysis Refused 217.718579728975 BP Diastolic BP Location Tested BP Systolic [...] Weight in lbs Pre/Post Dialysis Refused Weight 223.876107343409 BP Diastolic BP Location Tested BP Systolic BP Type 67 L arm 108 sitting Fetus Heart Rate Present A 140 Fetus Movement A Yes Comments dr kee as pedi, plan epid ural, circumcision +FM, reviewed kick [...] Type Weight in lbs Pre/Post Dialysis Refused 226.641290004096 BP Diastolic BP Location Tested BP Systolic [...]
--- OUTSIDE RECORDS SUMMARY | 2025-08-05 17:04 | XMS_ITS | Data Portability ---
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 Discussed plan. Not available 05/21/2025 15:55:41 06/18/2025 06/18/2025 Patient is ___weeks . Discussed plan. Not available 06/18/2025 15:51:24 07/03/2025 07/03/2025 Patient is __33_weeks . Discussed plan. [email or web address] Not available 07/03/2025 16:45:07 07/20/2025 07/20/2025 Patient is ___weeks . Discussed plan. Not available 07/20/2025 18:04:39 Plan of Treatment Reminders Order Date Submit Date Provider Last Modified By Organization Details Last Modified Time Details Appointments OB ROUTINE 2024 04:30P Fritz BOYCE MD Not available Not available Not available Lab None recorded . Referral None recorded . Procedures None recorded . Surgeries None recorded . Imaging US, obstetri c, follow-u p 2024 025 [email or web address] [address], [address], [place], [address], 07/21/2025 08:21:14 Medication Orders None recorded . Patient TargetsNo targets recorded. Patient InstructionsNo instructions recorded. Reason for Referral None Reported. Results Created Date Observation Date Name Description Value Unit Range Abnormal Flag Note LastModifiedBy Organization Detail LastModifiedTime 06/18/2006/18/2025 HEMAT OCRIT (HCT) HCT 33.7 % (based on docume nted legal sex) 34.0-4 5.0 low Not Available [facility] (Lab) [address], [place], [address], 06/19/2025 10:20:54 06/18/20 25 06/18/2025 HEMOG LOBIN (HGB) HGB 10.6 g/dL (based on docume nted legal sex) 11.6-1 5.4 low Not Available [facility] (Lab) [address] [place], [address], 06/19/2025 10:20:55 06/18/20 25 06/18/2025 GTT - GESTA GRIFFIN L FRANCIS Cheung, ACOG OB glucose, 1 hour screen 91 mg/dL 70-135 Not Available [facility] (Lab) [address] [place], [address], 06/19/2025 10:20:55 06/18/20 25 06/18/2025 HIV 1/2 ANTIG EN/AN TIBOD Y, REFLE X CONFI RMATI ON HIV antigen/anti body Nonrea ctive nonrea ctive HIV-1 antig en and HIV-1 /HIV- 2 antib odies were not detec dada. No labor atory evide nce of HIV infec tion. Not Available [facility] (Lab) [address] [place], [address], 06/19/2025 10:20:56 06/18/20 25 06/18/2025 RPR SCREE N, REFLE X TITER /CONF IRMAT ION RPR qualitative Nonrea ctive nonrea ctive Not Available [facility] (Lab) [address] [place], [address], 06/19/2025 10:20:57 04/23/20 25 04/23/2025 US, obste tric, 2nd or 3rd trime ster No observ ation record ed. [facility] [address], [place], [address], 04/23/2025 18:34:49 04/23/2004/23/2025 US, obste tric, follo w-up No observ ation record ed. GABRIEL Manuela [address], [place], [address], 04/27/2025 11:09:16 06/11/2006/11/2025 non-s tress test No observ ation record ed. [address] [facility], [place], [address], 06/18/2025 09:08:39 06/19/2006/19/2025 non-s tress test No observ ation record ed. [address] [facility], [place], [address], 06/23/2025 12:42:23 06/22/2006/22/2025 US, obste tric, limit ed No observ ation record ed. [address] [facility], [place], [address], 06/23/2025 12:42:00 07/14/2007/13/2025 US, renal No observ ation record ed. [address], [place], [address], 07/15/2025 15:49:07 07/14/2007/13/2025 US, obste tric, bioph ysica l profi le No observ ation record ed. [address], [place], [address], 07/15/2025 15:49:28 07/20/20 25 07/20/2025 US, obste tric, follo w-up No observ ation record ed. [email or web address] [facility] [address], [place], [address], 07/20/2025 18:49:37 07/20/20 25 07/20/2025 US, obste tric, follo w-up No observ ation record ed. [email or web address] Manuela [address], [place], [address], 07/21/2025 09:57:43 08/05/20 25 08/05/2025 imagi ng/di agnos tic resul t No observ ation record ed. [address], [place], [address], 08/05/2025 14:21:36 08/05/20 25 08/05/2025 imagi ng/di agnos tic resul t No observ ation record ed. [address], [place], [address], 08/05/2025 15:57:31 08/05/20 25 10/05/2024 imagi ng/di agnos tic resul t No observ ation record ed. [address] [facility], [place], [address], 08/05/2025 17:19:53 Result Notes None recorded. Problems Name Problem SNOMED Code Status Onset Date Resolution Date Notes Provider Name and Address Organization Details Recorded Time SNOMED CT Concept Completed 201703/15/2021 Encntr for routine child health exam w/o abnormal findings ;Recorde d Elsewher e: No [facility] S ource: EHR Stapler Hand juan: N Practi ce ID: 0001 Pradeep lable Time: 02:15:00 PM Melissa Roy [facility] [place] - [facility] 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 16:33:32 Uses combined oral contrace ption [id number] Completed 201803/15/2021 Encounte r for surveill ance of contrace ptive pills;Re corded Elsewher e: No Locat ion: [facility] S ource: EHR Stapler Hand juan: N Practi ce ID: 0001 Pradeep lable Time: 09:00:00 AM Melissa grier, [facility] 16:33:29 Procedur e by method Completed 201803/15/2021 Encounte r for other general counseli ng and advice on contrace ption;Re corded Elsewher e: No Locat ion: [facility] S ource: EHR Stapler Hand juan: N Sebastianti ce ID: 0001 Pradeep lable Time: 02:30:00 PM Melissa grier, [facility] 1 16:33:33 Pregnanc y 32560931 Active 2024 Linn Kruse [facility], [facility] 5 16:32:48 Mixed anxiety and depressi ve disorder 054611058 Active 2024 sertrali ne changed to 100mg Chin Boyce MD [address], [place], [address], [facility] 5 16:52:38 Rubella non-immu ne 646886230 Active 2024 PP MMR Liz Hardin [facility], [facility] 5 15:19:23 Problem Notes None recorded. Procedures Surgical History Date Name Laterality Status Provider Name and Address Organization Details Recorded Time 07/11/20 Date of Last Pap Smear completed Dahlia Arauz [facility] 07/11/2024 11:54:49 02/17/20 23 termination of completed [facility] 11/28/2022 16:45:49 09/17/19 21 extraction of wisdom tooth completed [facility] 11/28/2022 16:45:26 09/17/19 15 procedure on foot completed [facility] 11/28/2022 16:45:14 09/17/19 10 Tonsillectomy completed [facility] 11/28/2022 16:45:37 Imaging Results None recorded. [...] ed Elsewher e: No Locat ion: [facility] M odify By: funmilayo martinez DateTime : [...] Details Last Updated DateTime 05/21/2025 170.18 cm 57983.3977 g 112/74 mm[Hg] Linn [facility] 05/21/2025 15:56:14 Date Recorded Body weight Systolic And Diastolic Provider Name and Address Organization Details Last Updated DateTime 06/18/2025 28132.05418 g 104/71 mm[Hg] Linn [facility] 06/18/2025 15:57:10 Date Recorded Body height Body mass index (BMI) Body weight Systolic And Diastolic Provider Name and Address Organization Details Last Updated DateTime 07/03/2025 170.18 cm 34.9 kg/m2 703790.1 g 108/67 mm[Hg] Linn Kruse [facility] 07/03/2025 16:32:49 Date Recorded Body weight Systolic And Diastolic Provider Name and Address Organization Details Last Updated DateTime 07/20/2025 631043.22371 g 132/83 mm[Hg] Linn Kruse [facility] 07/20/2025 18:05:06 Social History Question Answer Notes LastModified by Organizat ion Details LastModified Time Tobacco Smoking Status Never Smoker Melissa Roy marvel, [facility] 03/16/2021 10:13:21 Do You Have An Advance Directive? No [email or web address] Information n ot available 03/16/2021 How Many Years Have You Consumed Alcohol? 2 [email or web address] Information not available 03/16/2021 Are You Blind Or Do You Have Difficulty Seeing? No [email or web address] Information n ot available 03/16/2021 What Is Your Level Of Caffeine Consumption? Moderate [email or web address] Information not available 03/16/2021 How Much Tobacco Do You Chew? None Information not available 01/22/2025 In The 14 Days Before Symptom Onset, Have You Had Close Contact With A Laboratory-confirm ed COVID-19 While That Case Was Ill? No Information n ot available 03/16/2021 In The 14 Days Before Symptom Onset, Have You Had Close Contact With A Person Who Is Under Investigation For COVID-19 While That Person Was Ill? No Information not available 03/16/2021 Have You Been To An Area Known To Be High Risk For COVID-19? No [email or web address] Information not available 03/16/2021 Are You Deaf Or Do You Have Serious Difficulty Hearing? Yes [email or web address] Information not available 03/16/2021 What Type Of Diet Are You Following? REGULAR [email or web address] Information n ot available 03/16/2021 What Is The Highest Grade Or Level Of School You Have Completed Or The Highest Degree You Have Received? TT24349-2 [email or web address] Information not available 03/16/2021 Are There Any Guns Present In Your Home? Yes [email or web address] Information not available 03/16/2021 Do You Use Protection During Sex? No Information not available 01/22/2025 Do You Use Your Seat Belt Or Car Seat Routinely? Yes [email or web address] Information not available 03/16/2021 Do You Have Smoke And Carbon Monoxide Detectors In Your Home? Yes [email or web address] Information not available 03/16/2021 At What Age Did You Start Smoking Tobacco? 21 Information not available 01/22/2025 How Much Tobacco Do You Smoke? No [email or web address] Information not available 03/16/2021 Do You Use Sunscreen Routinely? No [email or web address] Information not available 03/16/2021 How Many Years Have You Smoked Tobacco? 2 Information not available 01/22/2025 Have You Used IV Drugs? No [email or web address] Information not available 03/16/2021 Sex: Unknown Functional Status Question Answer Note LastModified by Organizat ion Details LastModified Time Do you use any illicit or recreational drugs? No Information not available 03/16/2021 What is your level of alcohol consumption? None Information not available 01/22/2025 Are you able to walk independently without assistance or assistive devices? 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 Occasional [email or web address] Information not available 03/16/2021 Mental Status Question Answer Note LastModified by Organization D etails LastModified Time Do you feel stressed (tense, restless, nervous, or anxious, or unable to sleep at night)? [id number] Information not available 01/22/2025 Family History Relationship [...] ICD10 Code Diagnosis IMO Codes Diagnosis Note [id number] GLEN Rizo [address],[facility] [place] [address] 02/23/2020 17:41:01 03/10/2020 10:57:26 9120 GLEN Rizo [address],[facility] [place] [address] 03/09/2020 11:54:11 03/09/2020 12:51:44 Contraception care management 104272877 Z30.9 Pt happy with patch. Cycles regular and light. We did discuss risks of increased BMI with the use of the patch including increased risk of clots and stroke alont with increased risk of unplanned preganncy. Pt verbalized understand ing. [id number] Simona Uribe CNM [facility] [address] [address] 03/16/2021 10:03:59 03/16/2021 10:51:05 Contraception care management 992199152 Z30.9 Pt happy with patch. She is trying to get coverage sorted out with insurance. Samples given. Gynecologi c examination 33424845 Z01.419 Take Calcium with Vitamin D 1200mg [...] paper copy of today's plan if desired. [id number] Simona Uribe CNM [facility] [address] [address] 11/28/2022 16:14:33 11/29/2022 18:03:52 Elective termination of 72916870 Z33.2 EAB. UPT still positive. HCG to be drawn. Will await results. Pt will continue ocp. Bleeding precaution s given. Emotional support given. [id number] Chin Boyce MD [facility] [address] [address] 11/28/2022 17:11:48 11/28/2022 17:48:57 Retained products of conception following induced termination of 387969180 O04.89 Z3A.01 [id number] BRYAN Freed [facility] [address] [address] 07/11/2023 17:03:47 07/11/2023 18:05:08 Gynecologic examination 45202263 Z01.419 WWEBC - OCPhappy with this method and would like to continuere commended taking at same time daily, not missing doses to help prevent BTB as well as prevention refills sent x 12 months, r/b/a reviewedpr imary pap collectedS TI testing declinedri ght breast u/s order given, encouraged to decrease [...] plan if desired. Contracept ion care management 059705742 Z30.9 Break-thro ugh bleeding 62815906 N92.1 Tenderness of breast 552 09049 N64.4 Irregular periods 042132 07 N92.6 [id number] MD Jacquelyn Sapp [address],[place] [address] 01/22/2025 09:21:03 01/22/2025 09:59:29 Uterine size for dates discrepancy 533629363 O26.841 Z3A.01 5372298 [id number] MD Jacquelyn Sapp [address] [address] 01/22/2025 09:21:26 01/22/2025 10:57:42 Amenorrhea 31743649 N91.2 62092 this patient is an 24-year-ol d female with amenorrhea . She has a positive test and ultrasound shows a viable intrauteri ne . We talked about early care. Talked about precaution s in that included comments about diet, exercise, over-the-c ounter medication s.. We talked about vaccines. Talked about genetic screening. Talked about her ultrasound today and your ultrasound at 12 weeks. She will begin routine care. We spent 20 minutes face-to-fa ce. More than 50% was counseling . [id number] MD Jacquelyn Sapp [address],[place] [address] 02/25/2025 15:06:33 02/25/2025 16:17:01 screening 737186316 Z36.82 Z3A.12 846320 [id number] MD Jacquelyn Sapp [address],[place] [address] 02/25/2025 15:08:08 02/25/2025 17:02:59 Nausea 225443162 R11.0 42317 Mixed anxi ety and depressive disorder 103555604 F41.9 F32.A 392481 care status 24 9375918 Z34.82 34265528 [id number] MD Jacquelyn Sapp [address],[place] [address] 03/26/2025 16:54:21 03/26/2025 17:54:15 care status 872579009 Z34.82 59659754 [id number] MD Jacquelyn Sapp [address],[place] [address] 04/23/2025 15:08:03 04/23/2025 17:04:07 Ultrasound scan - obstetric 020354915 Z36.3 Z3A.20 19537 [id number] MD Jacquelyn Sapp [address],[place] [address] 04/23/2025 15:08:47 04/23/2025 17:29:12 care status 934479866 Z34.82 08781372 [id number] MD Jacquelyn Sapp [address],[place] [address] 05/21/2025 15:25:35 05/21/2025 17:17:01 care status 394407964 Z34.82 18943814 [id number] MD Jacquelyn Sapp [address],[place] [address] 06/18/2025 14:04:18 06/18/2025 16:17:06 care status 642787742 Z34.83 41922886 [id number] Audrey Matamoros [facility] [address],[place] [address] 07/03/2025 16:18:57 07/03/2025 16:46:16 Gestation period, 33 weeks 68082394 Z3A.33 1231468 [id number] MD Jacquelyn Sapp [address],[place] [address] 07/20/2025 16:53:33 07/21/2025 08:21:13 Uterine size for dates discrepancy 500959333 O26.843 Z3A.33 1619572 [id number] MD Jacquelyn Sapp [address],[place] [address] 07/20/2025 16:54:47 07/21/2025 08:19:34 Health Concerns Section Related Observation LastModified by Organization Detai ls LastModified Time None Recorded Concern Status LastModified by Organization Details LastModified Time None Recorded Advance Directives Directive N: Payers Insurance Date Sequence Insurance Name Policy Number Policy Meehan Covered Member ID Meehan Member ID Guarantor Name 07/03/2025 PAYMENT PLAN Ev Dunn 07/01/2025 PAYMENT PLAN Ev Dunn 07/03/2023 1 [place] Viktor Dunn [id number] Evernestine Dunn 07/03/2023 1 [place] [id number] Viktor Dunn [id number] Ev Dunn 11/09/2023 1 [place] [facility] - DOS PRIOR TO 2025 (MEDICAID REPLACEMENT - HMO) [id number] E Ev Dunn [id number] Ev Dunn 07/11/2024 1 [place] [id number] E Ev Dunn [id number] Ev Dunn 08/05/2025 1 [place] [id number] Ev Dunn [id number] Ev Dunn Notes Date Note Type Note Provider Name and Address Organization Details Recorded Time 05/21/2025 text/html Generic HPI TemplateReported by Patient Chin Boyce MD [address], [place], [address], [facility] 05/21/2025 16:32:43 06/18/2025 text/html Generic HPI TemplateReported by Patient Chin Boyce MD [address], [place], [address], [facility] 06/18/2025 16:16:23 07/03/2025 text/html Generic HPI TemplateReported by Patient Audrey Matamoros CNM [address], [place], [address], [facility] 07/03/2025 16:45:22 07/20/2025 text/html Generic HPI TemplateReported by Patient Chin Boyce MD [address], [place], [address], [facility] 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 Apprentice Status 11/29/19 23 1 CLOSED Fetus Data First Name Last Name Admitted to NICU Weight (g) Sex Living Outcome Pediatric Complications Fetus ID Race Codes Race Delivery Type , Induced 22115 Kolton Calculation Initial Kolton Date Initial Exam [...] Method Maternal HG B and HCT Levels Ob Episode Information Episode Created Date Number of Fetuses Patient Bloodtype Patient rh Status Prepregnancy Weight lbs Domestic Partner Domestic Partner Phone Father Name Elevator Repairer Apprentice Status 02/26/20 25 1 O Positive [address] [place] OPEN Fetus Data First Name Last Name Admitted to NICU Weight (g) Sex Living Outcome Pediatric Complications Fetus ID Race Codes Race Delivery Type [id number] Problems Problem Notes Problem Name Start Date End Date Resolution Snomed Code Not e Mixed anxiety and depressive disorder 02/25/2025 494505121 sertrali ne changed to 100mg Rubella non-immune 03/03/2025 264729594 PP MMR Kolton Calculation Initial Kolton Date [...] Weight in lbs Pre/Post Dialysis Refused Weight 197.510722027192 BP Diastolic BP Location Tested BP Systolic [...] Type Weight in lbs Pre/Post Dialysis Refused 198.362716122405 BP Diastolic BP Location Tested BP Systolic [...] Type Weight in lbs Pre/Post Dialysis Refused 204.766639023940 BP Diastolic BP Location Tested BP Systolic [...] Type Weight in lbs Pre/Post Dialysis Refused 210.307095136674 BP Diastolic BP Location Tested BP Systolic [...] Type Weight in lbs Pre/Post Dialysis Refused 217.483043163680 BP Diastolic BP Location Tested BP Systolic [...] Weight in lbs Pre/Post Dialysis Refused Weight 223.275557767580 BP Diastolic BP Location Tested BP Systolic [...] Type Weight in lbs Pre/Post Dialysis Refused 226.497505594847 BP Diastolic BP Location Tested BP Systolic [...]
--- OUTSIDE RECORDS SUMMARY | 2025-08-05 17:04 | XMS_ITS | Continuity of Care Document ---
Author Organization [facility] [place] Address [address] [place] [address] Care Team Providers Care Operations Supervisor 2Nd Shift Name Role Phone HA VELASQUEZ Primary Care Provider Assessment Encounter Date Assessment Date Assessment LastModified by Organization Details LastModified Time 07/03/2025 07/03/2025 Patient is __33_weeks . Discussed plan. Not available 07/03/2025 16:45:07 Plan of Treatment Reminders Order Date Submit Date Provider Last Modified By Organization Details Last Modified Time Details Appointments OB ROUTINE 2024 04:30P Firtz BOYCE MD Not available Not available Not [...] [facility] [address], [place], [address], 03/05/2025 13:46:16 03/05/20 25 03/05/2025 [UNIT Y] ANEUP LOIDY NIPT 22Q11.2 microdeletio n LOW RISK <1 in 10,000 normal Not Available [facility] [address], [place], [address], 03/05/2025 13:46:16 03/05/20 25 03/05/2025 [UNIT Y] ANEUP LOIDY NIPT sex chromosome aneuploidy NOT DETECT ED normal Not Available [facility] [address], [place], [address], 03/05/2025 13:46:16 03/05/20 25 03/05/2025 [UNIT Y] ANEUP LOIDY NIPT monosomy X LOW RISK <1 in 10,000 normal Not Available [facility] [address], [place], [address], 03/05/2025 13:46:16 03/05/20 25 03/05/2025 [UNIT Y] ANEUP LOIDY NIPT trisomy 13 LOW RISK <1 in 10,000 normal Not Available [facility] [address], [place], [address], 03/05/2025 13:46:16 03/05/20 25 03/05/2025 [UNIT Y] ANEUP LOIDY NIPT trisomy 18 LOW RISK <1 in 10,000 normal Not Available [facility] [address], [place], [address], 03/05/2025 13:46:16 03/05/20 25 03/05/2025 [UNIT Y] ANEUP LOIDY NIPT trisomy 21 LOW RISK <1 in 10,000 normal Not Available [facility] [address], [place], [address], 03/05/2025 13:46:16 03/05/20 25 03/05/2025 [UNIT Y] ANEUP LOIDY NIPT sex MALE normal Not Available [facility] [address], [place], [address], 03/05/2025 13:46:16 03/05/20 25 03/05/2025 [UNIT Y] ANEUP LOIDY NIPT gestation SINGLE TON normal Not Available [facility] [address], [place], [address], 03/05/2025 13:46:16 03/05/20 25 03/05/2025 [UNIT Y] OJ FAULKNERT for detailed report, see pdf See PDF normal Not Available [facility] [address], [place], [address], 03/05/2025 13:46:16 03/06/20 25 03/06/2025 [UNIT Y] SHIKHA Cheung sickle cell disease/beta -thalassemia /hemoglobino pathies carrier screen NEGATI VE normal Not Available [facility] [address], [place], [address], 03/06/2025 20:16:21 03/06/20 25 03/06/2025 [UNIT Y] SHIKHA Cheung alpha-thalas semia carrier screen NEGATI VE normal Not Available [facility] [address], [place], [address], 03/06/2025 20:16:21 03/06/20 25 03/06/2025 [UNIT Y] SHIKHA Cheung cystic fibrosis carrier screen NEGATI VE normal Not Available [facility] [address], [place], [address], 03/06/2025 20:16:21 03/06/20 25 03/06/2025 [UNIT Y] SHIKHA Cheung spinal muscular atrophy carrier screen NEGATI VE 2 SMN1 copies , SNP not presen t normal Not Available [facility] [address], [place], [address], 03/06/2025 20:16:21 03/06/20 25 03/06/2025 [UNIT Y] SHIKHA Cheung for detailed report, see pdf See PDF normal Not Available [facility] [address], [place], [address], 03/06/2025 20:16:21 02/26/2002/25/2025 CBC W/DIF F WBC 13.3 10'3/ uL 3.5-10 .5 high Not Available [facility] (Lab) [address], [place], [address], 02/26/2025 10:19:46 02/26/20 25 02/25/2025 CBC W/DIF F RBC 4.33 10'6/ uL (based on docume nted legal sex) 3.80-5 .20 Not Available [facility] (Lab) [address] [facility], [place], [address], 02/26/2025 10:19:46 02/26/20 25 02/25/2025 CBC W/DIF F HGB 13.5 g/dL (based on docume nted legal sex) 11.6-1 5.4 Not Available [facility] (Lab) [address] [facility], [place], [address], 02/26/2025 10:19:46 02/26/20 25 02/25/2025 CBC W/DIF F HCT 41.0 % (based on docume nted legal sex) 34.0-4 5.0 Not Available [facility] (Lab) [address], [place], [address], 02/26/2025 10:19:46 02/26/2002/25/2025 CBC W/DIF F MCV 94.7 fL 80.0-9 9.0 Not Available [facility] (Lab) [address] [facility], [place], [address], 02/26/2025 10:19:46 02/26/20 25 02/25/2025 CBC W/DIF F MCH 31.2 pg 27.0-3 4.0 Not Available [facility] (Lab) [address] [facility], [place], [address], 02/26/2025 10:19:46 02/26/20 25 02/25/2025 CBC W/DIF F MCHC 32.9 g/dL 32.0-3 5.5 Not Available [facility] (Lab) [address] [facility], [place], [address], 02/26/2025 10:19:46 02/26/2002/25/2025 CBC W/DIF F RDW 13.2 % 11.0-1 5.0 Not Available [facility] (Lab) [address] [facility], [place], [address], 02/26/2025 10:19:46 02/26/20 25 02/25/2025 CBC W/DIF F plt 295 10'3/ uL 150-40 0 Not Available [facility] (Lab) [address] [facility], [place], [address], 02/26/2025 10:19:46 02/26/20 25 02/25/2025 CBC W/DIF F MPV 11.2 fL 8.8-12 .1 Not Available [facility] (Lab) [address] [facility], [place], [address], 02/26/2025 10:19:46 02/26/20 25 02/25/2025 CBC W/DIF F NRBC's 0.0 % 0.0 Not Available [facility] (Lab) [address] [facility], [place], [address], 02/26/2025 10:19:46 02/26/2002/25/2025 CBC W/DIF F absolute NRBCs 0.0 10'3/ uL no refere nce range establ ished Not Available [facility] (Lab) [address] [facility], [place], [address], 02/26/2025 10:19:46 02/26/20 25 02/25/2025 CBC W/DIF F neutrophils 68.0 % 34.0-7 3.0 Not Available [facility] (Lab) [address] [facility], [place], [address], 02/26/2025 10:19:46 02/26/20 25 02/25/2025 CBC W/DIF F lymphocytes 21.2 % 15.0-5 0.0 Not Available [facility] ([facility]) [address] [facility], [place], [address], 02/26/2025 10:19:46 02/26/20 25 02/25/2025 CBC W/DIF F monocytes 7.4 % 1.0-15 .0 Not Available [facility] (Lab) [address] [facility], [place], [address], 02/26/2025 10:19:46 02/26/20 25 02/25/2025 CBC W/DIF F eosinophils 2.1 % 0.0-8. 0 Not Available [facility] (Lab) [address] [facility], [place], [address], 02/26/2025 10:19:46 02/26/20 25 02/25/2025 CBC W/DIF F basophils 0.6 % 0.0-2. 0 Not Available [facility] (Lab) [address] [facility], [place], [address], 02/26/2025 10:19:46 02/26/2002/25/2025 CBC W/DIF F immature granulocytes 0.7 % no define d refere nce range Immat ure Granu locyt es (IG) repre sents autom ated enume ratio n of Metam yeloc ytes, Myelo cytes and Promy elocy samina when IG is < 5%. Blast s are not inclu ded in IG and repor dada separ ately if prese nt. Not Available [facility] (Lab) [address] [facility], [place], [address], 02/26/2025 10:19:46 02/26/20 25 02/25/2025 CBC W/DIF F absolute neutrophils 9.1 10'3/ uL 1.5-8. 0 high Not Available [facility] ([facility]) [address] [facility], [place], [address], 02/26/2025 10:19:46 02/26/20 25 02/25/2025 CBC W/DIF F absolute lymphocytes 2.8 10'3/ uL 1.0-4. 0 Not Available [facility] ([facility]) [address] [facility], [place], [address], 02/26/2025 10:19:46 02/26/20 25 02/25/2025 CBC W/DIF F absolute monocytes 1.0 10'3/ uL 0.2-1. 0 Not Available [facility] ([facility]) [address] [facility], [place], [address], 02/26/2025 10:19:46 02/26/20 25 02/25/2025 CBC W/DIF F absolute eosinophils 0.3 10'3/ uL 0.0-0. 6 Not Available [facility] ([facility]) [address] [facility], [place], [address], 02/26/2025 10:19:46 02/26/20 25 02/25/2025 CBC W/DIF F absolute basophils 0.1 10'3/ uL 0.0-0. 3 Not Available [facility] ([facility]) [address] [facility], [place], [address], 02/26/2025 10:19:46 02/26/20 25 02/25/2025 CBC W/DIF [...] beaulieu book. nm.or g/gen derx Not Available [facility] ([facility]) [address] [facility], [place], [address], 02/26/2025 10:19:46 02/26/2002/25/2025 HEPAT ITIS C ANTIB WESLEY SCREE N, REFLE X TO CONFI RMATI ON hepatitis C antibody Non-re active non-re active Antib odies to HCV Not Detec dada, does not exclu de the possi bilit y of expos ure to HCV. Not Available [facility] (Lab) [address] [facility], [place], [address], 02/26/2025 10:19:46 02/26/2002/25/2025 HIV 1/2 ANTIG EN/AN TIBOD Y, REFLE X CONFI RMATI ON HIV antigen/anti body Nonrea ctive nonrea ctive HIV-1 antig en and HIV-1 /HIV- 2 antib odies were not detec dada. No labor atory evide nce of HIV infec tion. Not Available [facility] (Lab) [address] [facility], [place], [address], 02/26/2025 10:19:47 02/26/2002/25/2025 HEPAT ITIS B SURFA CE ANTIG EN hepatitis B surface antigen Non-re active non-re active This assay was perfo rmed using [employer] ratio n reage nts and test kits. Value s obtai tiffany with other assay metho ds or kits canno t be used inter castañeda eably . Not Available [facility] (Lab) [address] [facility], [place], [address], 02/26/2025 10:19:47 02/26/2002/25/2025 TYPE/ RH/SC REEN ABO/Rh type O POS Not Available [facility] (Lab) [address] [facility], [place], [address], 02/26/2025 10:19:47 02/26/2002/25/2025 TYPE/ RH/SC REEN antibody screen NEG Not Available [facility] (Lab) [address] [facility], [place], [address], 02/26/2025 10:19:47 02/26/2002/25/2025 TYPE/ RH/SC REEN exp date 2024 23:59 Not Available [facility] (Lab) [address] [facility], [place], [address], 02/26/2025 10:19:47 02/26/20 25 02/25/2025 RUBEL LA IGG ANTIB WESLEY, QUANT rubella antibodies, IgG Non-Re active reacti ve abnormal Not Available [facility] (Lab) [address], [place], [address], 02/26/2025 10:19:48 02/26/20 25 02/25/2025 RUBEL LA IGG ANTIB WESLEY, QUANT rubella antibodies, IgG quant <10.0 IU/mL >=10 low Non-r eacti ve (Non- Immun e) <10 IU/mL React myesha (Immu ne) > or = 10 IU/mL Not Available [facility] (Lab) [address] [facility], [place], [address], 02/26/2025 10:19:48 02/26/20 25 02/25/2025 HEMOG LOBIN A1C hemoglobin A1C 5.1 % 4.0-5. 6 The [employer]i can [employer] i[employer] n recom mends that a [...] >8.0% Actio n sugge sted Not Available [facility] (Lab) [address], [place], [address], 02/26/2025 10:19:48 02/26/20 25 02/25/2025 RPR SCREE N, REFLE X TITER /CONF IRMAT ION RPR qualitative Nonrea ctive nonrea ctive Not Available [facility] (Lab) [address] [place], [address], 02/26/2025 10:19:48 02/26/2002/25/2025 CULTU RE: URINE result report SEE RESULT S BELOW Test: Cultu re: Urine Speci men Sourc e: Urine Voide d Speci men Type: Urine Speci men Date: 2024 1743 Resul t Date: 20245 Resul t Statu s: Final resul t Abnor mal: No Resul ting Lab: [facility] [address] [facility] [address] Tel: CULTU RE ----- ----- ----- --- Cultu re resul t (>=3 organ isms prese nt) indic ates possi ble conta minat ion. Repea t cultu re if sympt oms indic ate. Not Available [facility] ([facility]) [address] [facility], [place], [address], 02/27/2025 00:29:16 06/18/20 25 06/18/2025 HEMAT OCRIT (HCT) HCT 33.7 % (based on docume nted legal sex) 34.0-4 5.0 low Not Available [facility] ([facility]) [address] [facility], [place], [address], 06/19/2025 10:20:54 06/18/20 25 06/18/2025 HEMOG LOBIN (HGB) HGB 10.6 g/dL (based on docume nted legal sex) 11.6-1 5.4 low Not Available [facility] (Lab) [address] [place], [address], 06/19/2025 10:20:55 06/18/20 25 06/18/2025 GTT - GESTA GRIFFIN Flor Cheung, ACOG OB glucose, 1 hour screen 91 mg/dL 70-135 Not Available [facility] (Lab) [address] [place], [address], 06/19/2025 10:20:55 06/18/20 25 06/18/2025 HIV 1/2 ANTIG EN/AN TIBOD Y, REFLE X CONFI RMATI ON HIV antigen/anti body Nonrea ctive nonrea ctive HIV-1 antig en and HIV-1 /HIV- 2 antib odies were not detec dada. No labor atory evide nce of HIV infec tion. Not Available [facility] ([facility]) [address] [facility], [place], [address], 06/19/2025 10:20:56 06/18/20 25 06/18/2025 RPR SCREE N, REFLE X TITER /CONF IRMAT ION RPR qualitative Nonrea ctive nonrea ctive Not Available [facility] ([facility]) [address] [facility], [place], [address], 06/19/2025 10:20:57 02/26/20 25 02/25/2025 US, obste tric, nucha l trans lucen cy No observ ation record ed. [email or web address] [place] [address], [place], [address], 02/25/2025 18:30:50 02/26/20 25 02/25/2025 US, obste tric, nucha l trans lucen cy No observ ation record ed. [email or web address] Manuela [address], [place], [address], 02/28/2025 22:26:06 04/23/20 25 04/23/2025 US, obste tric, 2nd or 3rd trime ster No observ ation record ed. [email or web address] [place] [address], [place], [address], 04/23/2025 18:34:49 04/23/20 25 04/23/2025 US, obste tric, follo w-up No observ ation record ed. GABRIEL Manuela [address], [place], [address], 04/27/2025 11:09:16 06/11/2006/11/2025 non-s tress test No observ ation record ed. [address], [place], [address], 06/18/2025 09:08:39 06/19/2006/19/2025 non-s tress test No observ ation record ed. [address] [facility], [place], [address], 06/23/2025 12:42:23 06/22/2006/22/2025 US, obste tric, limit ed No observ ation record ed. [address] [facility], [place], [address], 06/23/2025 12:42:00 07/14/2007/13/2025 US, renal No observ ation record ed. [address] [facility], [place], [address], 07/15/2025 15:49:07 07/14/2007/13/2025 US, obste tric, bioph ysica l profi le No observ ation record ed. [address] [address], [place], [address], 07/15/2025 15:49:28 07/20/2007/20/2025 US, obste tric, follo w-up No observ ation record ed. [email or web address] [place] [address], [place], [address], 07/20/2025 18:49:37 07/20/20 25 07/20/2025 US, obste tric, follo w-up No observ ation record ed. madeleine Roy [address], [place], [address], 07/21/2025 09:57:43 08/05/20 25 08/05/2025 imagi ng/di agnos tic resul t No observ ation record ed. [address], [place], [address], 08/05/2025 14:21:36 08/05/20 25 08/05/2025 imagi ng/di agnos tic resul t No observ ation record ed. [address], [place], [address], 08/05/2025 15:57:31 08/05/20 25 10/05/2024 imagi ng/di agnos tic resul t No observ ation record ed. [address], [place], [address], 08/05/2025 17:19:53 Result Notes None recorded. Problems Name Problem SNOMED Code Status Onset Date Resolution Date Notes Provider Name and Address Organization Details Recorded Time SNOMED CT Concept Completed 201703/15/2021 Encntr for routine child health exam w/o abnormal findings ;Recorde d Elsewher e: No Locat ion: [facility] S ource: [employer] Manager juan: Jonatan Schafer ce ID: 0001 Pradeep lable Time: 02:15:00 PM Melissa grier [facility] 16:33:[address] Concept Completed 201703/15/2021 Encntr for finished metal repairer exam (general ) (routine ) w/o abn findings ;Practic e ID: 0001 Melissa grier [facility] 16:33:32 Uses combined oral contrace ption 316083550 Completed 201803/15/2021 Encounte r for surveill ance of contrace ptive pills;Re corded Elsewher e: No [facility]: [employer] Manager juan: Jonatan Schafer ce ID: 0001 Pradeep lable Time: 09:00:00 AM Melissa grier [facility] 16:33:29 Procedur e by method Completed 201803/15/2021 Nicolasa r for other general counseli ng and advice on contrace ption;Re corded Elsewher e: No Locat ion: [facility] S ource: [employer] Outlets Manager juan: N Practi ce ID: 0001 Pradeep lable Time: 02:30:00 PM Melissa Roy marvel, [facility] 16:33:33 Pregnanc y 52288762 Active 2024 [facility], [facility] 5 16:32:48 Mixed anxiety and depressi ve disorder 994411457 Active 2024 sertrali ne changed to 100mg Chin Boyce MD [address], [place], [address], [facility] 5 16:52:38 Rubella non-immu ne 750382623 Active 2024 PP MMR [facility], [facility] 5 15:19:23 Problem Notes None recorded. Procedures Surgical History Date Name Laterality Status Provider Name and Address Organization Details Recorded Time 07/11/20 23 Date of Last Pap Smear completed Dahlia Arauz [facility] 07/11/2024 11:54:49 11/03/19 23 termination of completed Carina Torres [facility] 11/28/2022 16:45:49 09/17/19 21 extraction of wisdom tooth completed Carina Torres [facility] 11/28/2022 16:45:26 09/17/19 15 procedure on foot completed Carina Torres [facility] 11/28/2022 16:45:14 09/17/19 10 Tonsillectomy completed Carina Torres [facility] 11/28/2022 16:45:37 Imaging Results None recorded. [...] Prescrib ed Elsewher e: No Locat ion: [facility] M odify By: funmilayo martinez DateTime : [...] Updated DateTime 07/03/2025 170.18 cm 34.9 kg/m2 202050.1 g 108/67 mm[Hg] Linn Kruse [facility] 07/03/2025 16:32:49 Social History Question Answer Notes LastModified by Organizat ion Details LastModified Time Tobacco Smoking Status Never Smoker Melissa grier, [facility] 03/16/2021 10:13:21 Do You Have An Advance Directive? No [email or web address] Information n ot available 03/16/2021 How Many Years Have You Consumed Alcohol? 2 Information not available 03/16/2021 Are You Blind Or Do You Have Difficulty Seeing? No [email or web address] Information n ot available 03/16/2021 What Is Your Level Of Caffeine Consumption? Moderate Information not available 03/16/2021 How Much Tobacco Do You Chew? None Information not available 01/22/2025 In The 14 Days Before Symptom Onset, Have You Had Close Contact With A Laboratory-confirm ed COVID-19 While That Case Was Ill? No [email or web address] Information n ot available 03/16/2021 In The 14 Days Before Symptom Onset, Have You Had Close Contact With A Person Who Is Under Investigation For COVID-19 While That Person Was Ill? No [email or web address] Information not available 03/16/2021 Have You Been To An Area Known To Be High Risk For COVID-19? No Information not available 03/16/2021 Are You Deaf Or Do You Have Serious Difficulty Hearing? Yes Information not available 03/16/2021 What Type Of Diet Are You Following? REGULAR [email or web address] Information n ot available 03/16/2021 What Is The Highest Grade Or Level Of School You Have Completed Or The Highest Degree You Have Received? [id number] [email or web address] Information not available 03/16/2021 Are There Any Guns Present In Your Home? Yes [email or web address] Information not available 03/16/2021 Do You Use Protection During Sex? No Information not available 01/22/2025 Do You Use Your Seat Belt Or Car Seat Routinely? Yes Information not available 03/16/2021 Do You Have Smoke And Carbon Monoxide Detectors In Your Home? Yes Information not available 03/16/2021 At What Age Did You Start Smoking Tobacco? 21 Information not available 01/22/2025 How Much Tobacco Do You Smoke? No [email or web address] Information not available 03/16/2021 Do You Use Sunscreen Routinely? No [email or web address] Information not available 03/16/2021 How Many Years Have You Smoked Tobacco? 2 Information not available 01/22/2025 Have You Used IV Drugs? No [email or web address] Information not available 03/16/2021 Sex: Unknown Functional Status Question Answer Note LastModified by Organizat ion Details LastModified Time Do you use any illicit or recreational drugs? No [email or web address] Information not available 03/16/2021 What is your level of alcohol consumption? None Information not available 01/22/2025 Are you able to walk independently without assistance or assistive devices? 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 Occasional [email or web address] Information not available 03/16/2021 Mental Status Question Answer Note LastModified by Organization D etails LastModified Time Do you feel stressed (tense, restless, nervous, or anxious, or unable to sleep at night)? [id number] Information not available 01/22/2025 Family History Relationship Description Onset Age of this Age Resolved Age Notes LastModified by Organization Details LastModified Time Father Luis [email or web address] Not available 2019 11:57:59 Father Hypertensive disorder [email or web address] Not available 2019 11:58:19 Maternal Grandmother Hyperchdonna [email or web address] Not available 2019 11:57:59 Maternal Grandmother Hypertensive [...] ICD10 Code Diagnosis IMO Codes Diagnosis Note [id number] Chin Boyce MD [place] [address],[facility] [place] [address] 06/18/2025 14:04:18 06/18/2025 16:17:06 care status [id number] Z34.83 [id number] Audrey Matamoros CNM [place] [address],[facility] [place] [address] 07/03/2025 16:18:57 07/03/2025 16:46:16 Gestation period, 33 weeks [id number] Z3A.33 [id number] Health Concerns Section Related Observation LastModified by Organization Detai ls LastModified Time None Recorded Concern Status LastModified by Organization Details LastModified Time None Recorded Payers Encounter Date Sequence Insurance Name Policy Number Policy Meehan Covered Member ID Meehan Member ID Guarantor Name 07/03/2025 1 [place] [id number] Ev Dunn [id number] Ev Dunn Notes Date Note Type Note Provider Name and Address Organization Details Recorded Time 07/03/2025 text/html Generic HPI TemplateReported by Patient Audrey Matamoros CNM [address], [place], [address], [facility] 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 Status 02/26/20 25 1 O Positive [address] OPEN Fetus Data First Name Last Name Admitted to NICU Weight (g) Sex Living Outcome Pediatric Complications Fetus ID Race Codes Race Delivery Type [id number] Problems Problem Notes Problem Name Start Date End Date Resolution Snomed Code Not e Mixed anxiety and depressive disorder 02/25/2025 [id number] sertrali ne changed to 100mg Rubella non-immune 03/03/2025 423319208 PP MMR [place] Calculation Initial [place] Date [...] Weight in lbs Pre/Post Dialysis Refused Weight 197.530371872990 BP Diastolic BP Location Tested BP Systolic [...] Type Weight in lbs Pre/Post Dialysis Refused 198.286332772161 BP Diastolic BP Location Tested BP Systolic [...] Type Weight in lbs Pre/Post Dialysis Refused 204.848789843646 BP Diastolic BP Location Tested BP Systolic [...] Type Weight in lbs Pre/Post Dialysis Refused 210.589409900611 BP Diastolic BP Location Tested BP Systolic [...] Type Weight in lbs Pre/Post Dialysis Refused 217.184929040666 BP Diastolic BP Location Tested BP Systolic [...] Weight in lbs Pre/Post Dialysis Refused Weight 223.413872791747 BP Diastolic BP Location Tested BP Systolic [...] Type Weight in lbs Pre/Post Dialysis Refused 226.731432410941 BP Diastolic BP Location Tested BP Systolic [...]
--- OUTSIDE RECORDS SUMMARY | 2025-08-05 17:05 | XMS_ITS | Continuity of Care Document ---
Author Organization [facility] Louise Address [address] [place] [address] [place] [address] Care Team Providers Care Lining Folder Name Role Phone HA VELASQUEZ Primary Care [...] US, obstetri c, follow-u p 2024 025 [id number] Louise, [address], [address], [place], [address], 07/21/2025 08:21:14 Medication Orders None recorded . Patient TargetsNo targets recorded. Patient InstructionsNo instructions recorded. Reason for Referral None Reported. Results Created Date Observation Date Name Description Value Unit Range Abnormal Flag Note LastModifiedBy Organization Detail LastModifiedTime 03/05/2003/05/2025 [UNIT Y] ANEUP LOIDY NIPT fraction 13.1% normal Not Available [address], [place], [address], 03/05/2025 13:46:16 03/05/20 25 03/05/2025 [UNIT Y] ANEUP LOIDY NIPT 22Q11.2 microdeletio n LOW RISK <1 in 10,000 normal Not Available [address], [place], [address], 03/05/2025 13:46:16 03/05/20 25 03/05/2025 [UNIT Y] ANEUP LOIDY NIPT sex chromosome aneuploidy NOT DETECT ED normal Not Available [facility] [address], [place], [address], 03/05/2025 13:46:16 03/05/20 25 03/05/2025 [UNIT Y] ANEUP LOIDY NIPT monosomy X LOW RISK <1 in 10,000 normal Not Available [facility] [address], [place], [address], 03/05/2025 13:46:16 03/05/20 25 03/05/2025 [UNIT Y] ANEUP LOIDY NIPT trisomy 13 LOW RISK <1 in 10,000 normal Not Available [facility] [address], [place], [address], 03/05/2025 13:46:16 03/05/20 25 03/05/2025 [UNIT Y] ANEUP LOIDY NIPT trisomy 18 LOW RISK <1 in 10,000 normal Not Available [facility] [address], [place], [address], 03/05/2025 13:46:16 03/05/20 25 03/05/2025 [UNIT Y] ANEUP LOIDY NIPT trisomy 21 LOW RISK <1 in 10,000 normal Not Available [facility] [address], [place], [address], 03/05/2025 13:46:16 03/05/20 25 03/05/2025 [UNIT Y] ANEUP LOIDY NIPT sex MALE normal Not Available [facility] [address], [place], [address], 03/05/2025 13:46:16 03/05/20 25 03/05/2025 [UNIT Y] ANEUP LOIDY NIPT gestation SINGLE TON normal Not Available [facility] [address], [place], [address], 03/05/2025 13:46:16 03/05/20 25 03/05/2025 [UNIT Y] ANEUP LOIDY NIPT for detailed report, see pdf See PDF normal Not Available [facility] [address], [place], [address], 03/05/2025 13:46:16 03/06/20 25 03/06/2025 [UNIT Y] SHIKHA Cheung sickle cell disease/beta -thalassemia /hemoglobino pathies carrier screen NEGATI VE normal Not Available [facility] [address], [place], [address], 03/06/2025 20:16:21 03/06/20 25 03/06/2025 [UNIT Y] SHIKHA Cheung alpha-thalas semia carrier screen NEGATI VE normal Not Available [facility] [address], [place], [address], 03/06/2025 20:16:21 03/06/20 25 03/06/2025 [UNIT Y] SHIKHA Cheung cystic fibrosis carrier screen NEGATI VE normal Not Available [facility] [address], [place], [address], 03/06/2025 20:16:21 03/06/20 25 03/06/2025 [UNIT Y] SHIKHA Cheung spinal muscular atrophy carrier screen NEGATI VE 2 SMN1 copies , SNP not presen t normal Not Available [facility] [address], [place], [address], 03/06/2025 20:16:21 03/06/20 25 03/06/2025 [UNIT Y] SHIKHA Cheung for detailed report, see pdf See PDF normal Not Available [facility] [address], [place], [address], 03/06/2025 20:16:21 02/26/20 25 02/25/2025 CBC W/DIF F WBC 13.3 10'3/ uL 3.5-10 .5 high Not Available [facility] (Lab) [address] [facility], [place], [address], 02/26/2025 10:19:46 02/26/20 25 02/25/2025 CBC W/DIF F RBC 4.33 10'6/ uL (based on docume nted legal sex) 3.80-5 .20 Not Available [facility] (Lab) [address] [facility], [place], [address], 02/26/2025 10:19:46 02/26/20 25 02/25/2025 CBC W/DIF F HGB 13.5 g/dL (based on docume nted legal sex) 11.6-1 5.4 Not Available [facility] (Lab) [address] [facility], [place], [address], 02/26/2025 10:19:46 02/26/20 25 02/25/2025 CBC W/DIF F HCT 41.0 % (based on docume nted legal sex) 34.0-4 5.0 Not Available [facility] (Lab) [address] [facility], [place], [address], 02/26/2025 10:19:46 02/26/2002/25/2025 CBC W/DIF F MCV 94.7 fL 80.0-9 9.0 Not Available [facility] (Lab) [address] [facility], [place], [address], 02/26/2025 10:19:46 02/26/20 25 02/25/2025 CBC W/DIF F MCH 31.2 pg 27.0-3 4.0 Not Available [facility] (Lab) [address] [facility], [place], [address], 02/26/2025 10:19:46 02/26/20 25 02/25/2025 CBC W/DIF F MCHC 32.9 g/dL 32.0-3 5.5 Not Available [facility] (Lab) [address], [place], [address], 02/26/2025 10:19:46 02/26/20 25 02/25/2025 CBC W/DIF F RDW 13.2 % 11.0-1 5.0 Not Available [facility] (Lab) [address], [place], [address], 02/26/2025 10:19:46 02/26/20 25 02/25/2025 CBC W/DIF F plt 295 10'3/ uL 150-40 0 Not Available [facility] (Lab) [address], [place], [address], 02/26/2025 10:19:46 02/26/20 25 02/25/2025 CBC W/DIF F MPV 11.2 fL 8.8-12 .1 Not Available [facility] (Lab) [address], [place], [address], 02/26/2025 10:19:46 02/26/20 25 02/25/2025 CBC W/DIF F NRBC's 0.0 % 0.0 Not Available [facility] (Lab) [address], [place], [address], 02/26/2025 10:19:46 02/26/20 25 02/25/2025 CBC W/DIF F absolute NRBCs 0.0 10'3/ uL no refere nce range establ ished Not Available [facility] (Lab) [address], [place], [address], 02/26/2025 10:19:46 02/26/20 25 02/25/2025 CBC W/DIF F neutrophils 68.0 % 34.0-7 3.0 Not Available [facility] (Lab) [address], [place], [address], 02/26/2025 10:19:46 02/26/20 25 02/25/2025 CBC W/DIF F lymphocytes 21.2 % 15.0-5 0.0 Not Available [facility] (Lab) [address] [facility], [place], [address], 02/26/2025 10:19:46 02/26/20 25 02/25/2025 CBC W/DIF F monocytes 7.4 % 1.0-15 .0 Not Available [facility] (Lab) [address], [place], [address], 02/26/2025 10:19:46 02/26/20 25 02/25/2025 CBC W/DIF F eosinophils 2.1 % 0.0-8. 0 Not Available [facility] (Lab) [address], [place], [address], 02/26/2025 10:19:46 02/26/20 25 02/25/2025 CBC W/DIF F basophils 0.6 % 0.0-2. 0 Not Available [facility] (Lab) [address], [place], [address], 02/26/2025 10:19:46 02/26/20 25 02/25/2025 CBC W/DIF F immature granulocytes 0.7 % no define d refere nce range Immat ure Granu locyt es (IG) repre sents autom ated enume ratio n of Metam yeloc ytes, Myelo cytes and Promy elocy samina when IG is < 5%. Blast s are not inclu ded in IG and repor dada separ ately if prese nt. Not Available [facility] (Lab) [address], [place], [address], 02/26/2025 10:19:46 02/26/20 25 02/25/2025 CBC W/DIF F absolute neutrophils 9.1 10'3/ uL 1.5-8. 0 high Not Available [facility] (Lab) [address], [place], [address], 02/26/2025 10:19:46 02/26/20 25 02/25/2025 CBC W/DIF F absolute lymphocytes 2.8 10'3/ uL 1.0-4. 0 Not Available [facility] (Lab) [address], [place], [address], 02/26/2025 10:19:46 02/26/20 25 02/25/2025 CBC W/DIF F absolute monocytes 1.0 10'3/ uL 0.2-1. 0 Not Available [facility] (Lab) [address] [facility], [place], [address], 02/26/2025 10:19:46 02/26/20 25 02/25/2025 CBC W/DIF F absolute eosinophils 0.3 10'3/ uL 0.0-0. 6 Not Available [facility] (Lab) [address] [facility], [place], [address], 02/26/2025 10:19:46 02/26/20 25 02/25/2025 CBC W/DIF F absolute basophils 0.1 10'3/ uL 0.0-0. 3 Not Available [facility] (Lab) [address] [facility], [place], [address], 02/26/2025 10:19:46 02/26/20 25 02/25/2025 CBC W/DIF [...] beaulieu book. nm.or g/gen derx Not Available [facility] (Lab) [address], [place], [address], 02/26/2025 10:19:46 02/26/20 25 02/25/2025 HEPAT ITIS C ANTIB WESLEY SCREE N, REFLE X TO CONFI RMATI ON hepatitis C antibody Non-re active non-re active Antib odies to HCV Not Detec dada, does not exclu de the possi bilit y of expos ure to HCV. Not Available [facility] (Lab) [address], [place], [address], 02/26/2025 10:19:46 02/26/2002/25/2025 HIV 1/2 ANTIG EN/AN TIBOD Y, REFLE X CONFI RMATI ON HIV antigen/anti body Nonrea ctive nonrea ctive HIV-1 antig en and HIV-1 /HIV- 2 antib odies were not detec dada. No labor atory evide nce of HIV infec tion. Not Available [facility] (Lab) [address], [place], [address], 02/26/2025 10:19:47 02/26/2002/25/2025 HEPAT ITIS B SURFA CE ANTIG EN hepatitis B surface antigen Non-re active non-re active This assay was perfo rmed using [employer] ratio n reage nts and test kits. Value s obtai tiffany with other assay metho ds or kits canno t be used inter castañeda eably . Not Available [facility] (Lab) [address], [place], [address], 02/26/2025 10:19:47 02/26/2002/25/2025 TYPE/ RH/SC REEN ABO/Rh type O POS Not Available [facility] (Lab) [address], [place], [address], 02/26/2025 10:19:47 02/26/20 25 02/25/2025 TYPE/ RH/SC REEN antibody screen NEG Not Available [facility] (Lab) [address], [place], [address], 02/26/2025 10:19:47 02/26/20 25 02/25/2025 TYPE/ RH/SC REEN exp date 2024 23:59 Not Available [facility] (Lab) [address] [facility], [place], [address], 02/26/2025 10:19:47 02/26/20 25 02/25/2025 RUBEL LA IGG ANTIB WESLEY, QUANT rubella antibodies, IgG Non-Re active reacti ve abnormal Not Available [facility] (Lab) [address] [facility], [place], [address], 02/26/2025 10:19:48 02/26/20 25 02/25/2025 RUBEL LA IGG ANTIB WESLEY, QUANT rubella antibodies, IgG quant <10.0 IU/mL >=10 low Non-r eacti ve (Non- Immun e) <10 IU/mL React myesha (Immu ne) > or = 10 IU/mL Not Available [facility] (Lab) [address] [facility], [place], [address], 02/26/2025 10:19:48 02/26/20 25 02/25/2025 HEMOG LOBIN A1C hemoglobin A1C 5.1 % 4.0-5. 6 The Ameri can Diabe samina [employer] iatio n recom mends that a prima ry goal of thera py esthelaul d be a HBA1C of < 7% and that physi cians shoul d reeva luate the treat ment regim en in patie nts with HBA1C value s consi stent ly > 8%. <5.7% Tracie l 5.7 - 6.4% Incre ased risk for diabe samina >=6.5 % Diagn ostic of diabe samina <7.0% Goal of thera py >8.0% Actio n sugge sted Not Available [facility] (Lab) [address], [place], [address], 02/26/2025 10:19:48 02/26/20 25 02/25/2025 RPR SCREE N, REFLE X TITER /CONF IRMAT ION RPR qualitative Nonrea ctive nonrea ctive Not Available [facility] (Lab) [address] [place], [address], 02/26/2025 10:19:48 02/26/2002/25/2025 CULTU RE: URINE result report SEE RESULT S BELOW Test: Cultu re: Urine Speci men Sourc e: Urine Voide d Speci men Type: Urine Speci men Date: 2024 1743 Resul t Date: 20245 Resul t Statu s: Final resul t Abnor mal: No Resul ting Lab: [facility] [address] [facility] [address] Tel: CULTU RE ----- ----- ----- --- Cultu re resul t (>=3 organ isms prese nt) indic ates possi ble conta minat ion. Repea t cultu re if sympt oms indic ate. Not Available [facility] (Lab) [address] [facility], [place], [address], 02/27/2025 00:29:16 06/18/20 25 06/18/2025 HEMAT OCRIT (HCT) HCT 33.7 % (based on docume nted legal sex) 34.0-4 5.0 low Not Available [facility] (Lab) [address] [place], [address], 06/19/2025 10:20:54 06/18/20 25 06/18/2025 HEMOG LOBIN (HGB) HGB 10.6 g/dL (based on docume nted legal sex) 11.6-1 5.4 low Not Available [facility] (Lab) [address] [place], [address], 06/19/2025 10:20:55 06/18/20 25 06/18/2025 GTT - GESTA GRIFFIN L SCREE N, ACOG OB glucose, 1 hour screen 91 mg/dL 70-135 Not Available [facility] (Lab) [address] [facility] [place], [address], 06/19/2025 10:20:55 06/18/20 25 06/18/2025 HIV 1/2 ANTIG EN/AN TIBOD Y, REFLE X CONFI RMATI ON HIV antigen/anti body Nonrea ctive nonrea ctive HIV-1 antig en and HIV-1 /HIV- 2 antib odies were not detec dada. No labor atory evide nce of HIV infec tion. Not Available [facility] (Lab) [address] [facility] [facility], [place], [address], 06/19/2025 10:20:56 06/18/20 25 06/18/2025 RPR SCREE N, REFLE X TITER /CONF IRMAT ION RPR qualitative Nonrea ctive nonrea ctive Not Available [facility] (Lab) [address] [facility] [facility], [place], [address], 06/19/2025 10:20:57 02/26/20 25 02/25/2025 US, obste tric, nucha l trans lucen cy No observ ation record ed. [email or web address], [place], [address], 02/25/2025 18:30:50 02/26/20 25 02/25/2025 US, obste tric, nucha l trans lucen cy No observ ation record ed. [email or web address] Manuela [address], [place], [address], 02/28/2025 22:26:06 04/23/20 25 04/23/2025 US, obste tric, 2nd or 3rd trime ster No observ ation record ed. [facility] [address], [place], [address], 04/23/2025 18:34:49 04/23/20 25 04/23/2025 US, obste tric, follo w-up No observ ation record ed. GABRIEL Manuela [address], [place], [address], 04/27/2025 11:09:16 06/11/2006/11/2025 non-s tress test No observ ation record ed. [address] [facility], [place], [address], 06/18/2025 09:08:39 06/19/2006/19/2025 non-s tress test No observ ation record ed. [address] [facility], [place], [address], 06/23/2025 12:42:23 06/22/2006/22/2025 US, obste tric, limit ed No observ ation record ed. [address] [facility], [place], [address], 06/23/2025 12:42:00 07/14/2007/13/2025 US, renal No observ ation record ed. [address] [facility], [place], [address], 07/15/2025 15:49:07 07/14/2007/13/2025 US, obste tric, bioph ysica l profi le No observ ation record ed. [address] [facility], [place], [address], 07/15/2025 15:49:28 07/20/2007/20/2025 US, obste tric, follo w-up No observ ation record ed. [email or web address] Louise [address], [place], [address], 07/20/2025 18:49:37 07/20/20 25 07/20/2025 US, obste tric, follo w-up No observ ation record ed. [email or web address] Manuela [address], [place], [address], 07/21/2025 09:57:43 08/05/20 25 08/05/2025 imagi ng/di agnos tic resul t No observ ation record ed. [address] [facility], [place], [address], 08/05/2025 14:21:36 08/05/20 25 08/05/2025 imagi ng/di agnos tic resul t No observ ation record ed. [address], [place], [address], 08/05/2025 15:57:31 08/05/20 25 10/05/2024 imagi ng/di agnos tic resul t No observ ation record ed. [address] [facility], [place], [address], 08/05/2025 17:19:53 Result Notes None recorded. Problems Name Problem SNOMED Code Status Onset Date Resolution Date Notes Provider Name and Address Organization Details Recorded Time SNOMED CT Concept Completed 201703/15/2021 Encntr for routine child health exam w/o abnormal findings ;Recorde d Elsewher e: No Locat ion: [facility] S ource: EHR Wash Driller Helper juan: N Sebastianti ce ID: 0001 Pradeep lable Time: 02:15:00 PM Melissa grier [facility] 16:33:[address] Concept Completed 201703/15/2021 Encntr for wood type finisher exam (general ) (routine ) w/o abn findings ;Practic e ID: 0001 Melissa grier [facility] 16:33:32 Uses combined oral contrace ption [id number] Completed 201803/15/2021 Encounte r for surveill ance of contrace ptive pills;Re corded Elsewher e: No Locat ion: [facility] S ource: EHR Wash Driller Helper juan: N Practi ce ID: 0001 Pradeep lable Time: 09:00:00 AM Melissa grier, [facility] 16:33:29 Procedur e by method Completed 201803/15/2021 Encounbenjamín r for other general counseli ng and advice on contrace ption;Re corded Elsewher e: No Locat ion: [facility] S ource: EHR Wash Driller Helper juan: N Practi ce ID: 0001 Pradeep lable Time: 02:30:00 PM Melissa Roy null, [facility] 16:33:33 Pregnanc y [id number] Active 2024 Linn Kruse [facility], [facility] 5 16:32:48 Mixed anxiety and depressi ve disorder 539313547 Active 2024 sertrali ne changed to 100mg Chin Boyce MD [address], [place], [address], [facility] 5 16:52:38 Rubella non-immu ne 623894534 Active 2024 PP MMR Liz Hardin [facility], [facility] 5 15:19:23 Problem Notes None recorded. Procedures Surgical History Date Name Laterality Status Provider Name and Address Organization Details Recorded Time 07/11/20 23 Date of Last Pap Smear completed Dahlia Arauz [facility] 07/11/2024 11:54:49 11/03/19 23 termination of completed Carina Torres [facility] 11/28/2022 16:45:49 09/17/19 21 extraction of wisdom tooth completed Carinamateo Torres [facility] 11/28/2022 16:45:26 09/17/19 15 procedure on foot completed Carina Torres [facility] 11/28/2022 16:45:14 09/17/19 10 Tonsillectomy completed Carina Torres [facility] 11/28/2022 16:45:37 Imaging Results None recorded. [...] Prescrib ed Elsewher e: No Locat ion: [facility] M odify By: funmilayo martinez DateTime : [...] Address Organization Details Last Updated DateTime 07/20/2025 388957.15403 g 132/83 mm[Hg] Linn Kruse [facility] 07/20/2025 18:05:06 Social History Question Answer Notes LastModified by Organizat ion Details LastModified Time Tobacco Smoking Status Never Smoker Melissa grier, [facility] 03/16/2021 10:13:21 Do You Have An Advance Directive? No [email or web address] Information n ot available 03/16/2021 How Many Years Have You Consumed Alcohol? 2 Information not available 03/16/2021 Are You Blind Or Do You Have Difficulty Seeing? No [email or web address] Information n ot available 03/16/2021 What Is Your Level Of Caffeine Consumption? Moderate [email or web address] Information not available 03/16/2021 How Much Tobacco [...] COVID-19 While That Person Was Ill? No [email or web address] Information not available 03/16/2021 Have You Been To An Area Known To Be High Risk For COVID-19? No [email or web address] Information not available 03/16/2021 Are You Deaf Or Do You Have Serious Difficulty Hearing? Yes [email or web address] Information not available 03/16/2021 What Type Of Diet Are You Following? REGULAR [email or web address] Information n ot available 03/16/2021 What Is The Highest Grade Or Level Of School You Have Completed Or The Highest Degree You Have Received? [id number] Information not available 03/16/2021 Are There Any Guns Present In Your Home? Yes [email or web address] Information not available 03/16/2021 Do You Use Protection During Sex? No Information not available 01/22/2025 Do You Use Your Seat Belt Or Car Seat Routinely? Yes [email or web address] Information not available 03/16/2021 Do You Have Smoke And Carbon Monoxide Detectors In Your Home? Yes [email or web address] Information not available 03/16/2021 At What Age Did You Start Smoking Tobacco? 21 Information not available 01/22/2025 How Much Tobacco Do You Smoke? No [email or web address] Information not available 03/16/2021 Do You Use Sunscreen Routinely? No Information not available 03/16/2021 How Many Years Have You Smoked Tobacco? 2 Information not available 01/22/2025 Have You Used IV Drugs? No [email or web address] Information not available 03/16/2021 Sex: Unknown Functional Status Question Answer Note LastModified by Organizat ion Details LastModified Time Do you use any illicit or recreational drugs? No [email or web address] Information not available 03/16/2021 What is your level of alcohol consumption? None Information not available 01/22/2025 Are you able to walk independently without assistance or assistive devices? 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 Occasional Information not available 03/16/2021 Mental Status Question Answer Note LastModified by Organization D etails LastModified Time Do you feel stressed (tense, restless, nervous, or anxious, or unable to sleep at night)? [id number] Information not available 01/22/2025 Family History Relationship Description Onset Age of this Age Resolved Age Notes LastModified by Organization Details LastModified Time Father Luis [email or web address] Not available 2019 11:57:59 Father Hypertensive disorder [email or web address] Not available 2019 11:58:19 Maternal Grandmother Hypercholest laura [email or web address] Not available 2019 11:57:59 Maternal Grandmother Hypertensive disorder [email or web address] Not available 2019 11:58:19 Maternal Grandfather Malignant neoplasm of colon [email or web address] Not available 2019 11:58:40 Maternal Grandfather Family history of malignant neoplasm of lung [email or web address] Not available 11/2024 16:54:24 Paternal Aunt Malignant neoplasm of colon [email or web address] Not available 2019 11:58:40 Medical History Condition Response Allergies (Food, seasonal, environmental ) N Other N Drug/Latex Allergies/Reactions N Breast Cancer N Blood Transfusion N Lung Disease N [...] N Kidney Disease N Heart Problems N Thyroid Problems N Kidney or Bladder Problems N GI Problems N Eating Disorder [...] ICD10 Code Diagnosis IMO Codes Diagnosis Note [id number] Audrey Matamoros CNM Louise [address],[place] [address] 07/03/2025 16:18:57 07/03/2025 16:46:16 Gestation period, 33 weeks [id number] Z3A.33 [id number] Chin Boyce MD Louise [address],[place] [address] 07/20/2025 16:53:33 07/21/2025 08:21:13 Uterine size for dates discrepancy [id number] O26.843 Z3A.33 [id number] Chin Boyce MD Louise [address],[place] [address] 07/20/2025 16:54:47 07/21/2025 08:19:34 Health Concerns Section Related Observation LastModified by Organization Detai ls LastModified Time None Recorded Concern Status LastModified by Organization Details LastModified Time None Recorded Payers Encounter Date Sequence Insurance Name Policy Number Policy Meehan Covered Member ID Meehan Member ID Guarantor Name 07/20/2025 1 [employer] [id number] Ev Dunn [id number] Ev Dunn Notes Date Note Type Note Provider Name and Address Organization Details Recorded Time 07/20/2025 text/html Generic HPI TemplateReported by Patient Chin Boyce MD [address], [place], [address], [facility] 07/20/2025 18:13:09 OBGyn Episode Ob Episode Information Episode Created Date Number of Fetuses Patient Bloodtype Patient rh Status Prepregnancy Weight lbs Domestic Partner Domestic Partner Phone Father Name Seamer Operator Status 02/26/20 25 1 O Positive [address] OPEN Fetus Data First Name Last Name Admitted to NICU Weight (g) Sex Living Outcome Pediatric Complications Fetus ID Race Codes Race Delivery Type [id number] Problems Problem Notes Problem Name Start Date End Date Resolution [place] Code Not e Mixed anxiety and depressive disorder 02/25/2025 [id number] sertrali ne changed to 100mg Rubella non-immune 03/03/2025 [id number] PP MMR [place] Calculation Initial [place] Date [...] Weight in lbs Pre/Post Dialysis Refused Weight 197.492798232130 BP Diastolic BP Location Tested BP Systolic [...] Type Weight in lbs Pre/Post Dialysis Refused 198.976711245297 BP Diastolic BP Location Tested BP Systolic [...] Type Weight in lbs Pre/Post Dialysis Refused 204.642190515976 BP Diastolic BP Location Tested BP Systolic [...] Type Weight in lbs Pre/Post Dialysis Refused 210.066817010322 BP Diastolic BP Location Tested BP Systolic [...] Type Weight in lbs Pre/Post Dialysis Refused 217.517448195967 BP Diastolic BP Location Tested BP Systolic [...] Weight in lbs Pre/Post Dialysis Refused Weight 223.683622250397 BP Diastolic BP Location Tested BP Systolic [...] Type Weight in lbs Pre/Post Dialysis Refused 226.270888595456 BP Diastolic BP Location Tested BP Systolic [...]
--- NOTE | 2025-08-26 10:40 | PM.OBTRLD ---
OB - Triage/Final Diagnosis Visit Information Comments/Additional reasons for admission: I have assessed the risk for this patient, Priyanka Dunn, and determined that she would benefit from observation care. Evaluation Laboratory results: Laboratory Tests 08/05/25 12:36 Membranes Rupture Rom plus negative Final Diagnosis (1) Antepartum hemorrhage from placenta previa in third trimester: Code(s): O44.13 - Complete placenta previa with hemorrhage, third trimester Status: Acute
== END 2025-08-05 15:24 | disposition home or self-care (01) ==
PROVIDERS: Admitting Provider Obstetrics & Gynecology; PCP Family Medicine; Visit Provider Obstetrics & Gynecology
DX: O44.13 Complete placenta previa with hemorrhage, third trimester (principal); Z3A.35 35 weeks gestation of pregnancy
CPT/HCPCS: 59025; 76817; 76819; 84112; G0378; G0379

== ENCOUNTER 2025-08-07 21:52 | Outpatient (CLI) | payer BC, MEDICAID, SELFPAY ==
--- NOTE | 2025-08-07 21:52 | PC.NURSE ---
Pt arrives to OB unit with c/o leaking. Pt denied feeling contractions or additional leaking fluid.
--- NOTE | 2025-08-07 22:28 | PC.NURSE ---
ROM plus, SVE 2/thick/-3
--- NOTE | 2025-08-07 22:38 | PC.NURSE ---
Dr. Boyce notified of pts reactive heart tracing, negative ROM plus results. Discharge orders received.
[2025-08-07 22:40] VITALS: PULSE 97
--- OUTSIDE RECORDS SUMMARY | 2025-08-07 22:43 | XMS_ITS | Continuity of Care Document ---
Author Organization [facility] [place] Address [address] [place] [address] Care Team Providers Care Forest Technology Professor Name Role Phone HA VELASQUEZ Primary Care Provider [phone] Assessment Encounter Date Assessment Date Assessment LastModified by Organization Details LastModified Time 07/20/2025 07/20/2025 Patient is ___weeks . Discussed plan. Not available 07/20/2025 18:04:39 Plan of Treatment Reminders Order Date Submit Date Provider Last Modified By Organization Details Last Modified Time Details Appointments OB ROUTINE 2024 03:15P Fritz BOYCE MD Not available Not available Not available OB ROUTINE 2024 03:15P Fritz BOYCE MD Not available Not available Not available OB ROUTINE 2024 03:15P Fritz BOYCE MD Not available Not available [...] NIPT fraction 13.1% normal Not Available [facility] [address], [place], [address], 03/05/2025 13:46:16 03/05/20 25 03/05/2025 [UNIT Y] ANEUP LOIDY NIPT 22Q11.2 microdeletio n LOW RISK <1 in 10,000 normal Not Available [facility] [address], [place], [address], 03/05/2025 13:46:16 03/05/20 25 03/05/2025 [UNIT Y] ANEUP LOIDY NIPT sex chromosome aneuploidy NOT DETECT ED normal Not Available [facility] [address], [place], [address], 03/05/2025 13:46:16 03/05/20 25 03/05/2025 [UNIT Y] ANEUP LOIDY NIPT monosomy X LOW RISK <1 in 10,000 normal Not Available [facility] [address], [place], [address], 03/05/2025 13:46:16 03/05/20 25 03/05/2025 [UNIT Y] ANEUP LOIDY NIPT trisomy 13 LOW RISK <1 in 10,000 normal Not Available [facility] [address], [place], [address], 03/05/2025 13:46:16 03/05/20 25 03/05/2025 [UNIT Y] ANEUP LOIDY NIPT trisomy 18 LOW RISK <1 in 10,000 normal Not Available [facility] [address], [place], [address], 03/05/2025 13:46:16 03/05/20 25 03/05/2025 [UNIT Y] ANEUP LOIDY NIPT trisomy 21 LOW RISK <1 in 10,000 normal Not Available [facility] [address], [place], [address], 03/05/2025 13:46:16 03/05/20 25 03/05/2025 [UNIT Y] ANEUP LOIDY NIPT sex MALE normal Not Available [facility] [address], [place], [address], 03/05/2025 13:46:16 03/05/20 25 03/05/2025 [UNIT Y] ANEUP LOIDY NIPT gestation SINGLE TON normal Not Available [facility] [address], [place], [address], 03/05/2025 13:46:16 03/05/20 25 03/05/2025 [UNIT Y] ANEUP LOIDY NIPT for detailed report, see pdf See PDF normal Not Available [facility] [address], [place], [address], 03/05/2025 13:46:16 03/06/20 25 03/06/2025 [UNIT Y] SHIKHA Cheung sickle cell disease/beta -thalassemia /hemoglobino pathies carrier screen NEGATI VE normal Not Available [facility] [address], [place], [address], 03/06/2025 20:16:21 03/06/20 25 03/06/2025 [UNIT Y] SHIKHA Cheung alpha-thalas semia carrier screen NEGATI VE normal Not Available [facility] [address], [place], [address], 03/06/2025 20:16:21 03/06/20 25 03/06/2025 [UNIT Y] SHIKHA Cheung cystic fibrosis carrier screen NEGATI VE normal Not Available [facility] [address], [place], [address], 03/06/2025 20:16:21 03/06/20 25 03/06/2025 [UNIT Y] SHIKHA Cheung spinal muscular atrophy carrier screen NEGATI VE 2 SMN1 copies , SNP not presen t normal Not Available [facility] [address], [place], [address], 03/06/2025 20:16:21 03/06/20 25 03/06/2025 [UNIT Y] SHIKHA Cheung for detailed report, see pdf See PDF normal Not Available [facility] [address], [place], [address], 03/06/2025 20:16:21 02/26/20 25 02/25/2025 CBC W/DIF F WBC 13.3 10'3/ uL 3.5-10 .5 high Not Available [facility] (Lab) [address], [place], [address], 02/26/2025 10:19:46 02/26/20 25 02/25/2025 CBC W/DIF F RBC 4.33 10'6/ uL (based on docume nted legal sex) 3.80-5 .20 Not Available [facility] (Lab) [address], [place], [address], 02/26/2025 10:19:46 02/26/20 25 02/25/2025 CBC W/DIF F HGB 13.5 g/dL (based on docume nted legal sex) 11.6-1 5.4 Not Available [facility] (Lab) [address], [place], [address], 02/26/2025 10:19:46 02/26/20 25 02/25/2025 CBC W/DIF F HCT 41.0 % (based on docume nted legal sex) 34.0-4 5.0 Not Available [facility] (Lab) [address], [place], [address], 02/26/2025 10:19:46 02/26/20 25 02/25/2025 CBC W/DIF F MCV 94.7 fL 80.0-9 9.0 Not Available [facility] (Lab) [address] [place], [address], 02/26/2025 10:19:46 02/26/20 25 02/25/2025 CBC W/DIF F MCH 31.2 pg 27.0-3 4.0 Not Available [facility] (Lab) [address] [place], [address], 02/26/2025 10:19:46 02/26/20 25 02/25/2025 CBC W/DIF F MCHC 32.9 g/dL 32.0-3 5.5 Not Available [facility] (Lab) [address] [facility], [place], [address], 02/26/2025 10:19:46 02/26/20 25 02/25/2025 CBC W/DIF F RDW 13.2 % 11.0-1 5.0 Not Available [facility] (Lab) [address] [facility], [place], [address], 02/26/2025 10:19:46 02/26/20 25 02/25/2025 CBC W/DIF F plt 295 10'3/ uL 150-40 0 Not Available [facility] (Lab) [address] [facility], [place], [address], 02/26/2025 10:19:46 02/26/20 25 02/25/2025 CBC W/DIF F MPV 11.2 fL 8.8-12 .1 Not Available [facility] (Lab) [address] [facility], [place], [address], 02/26/2025 10:19:46 02/26/20 25 02/25/2025 CBC W/DIF F NRBC's 0.0 % 0.0 Not Available [facility] (Lab) [address] [facility], [place], [address], 02/26/2025 10:19:46 02/26/20 25 02/25/2025 CBC W/DIF F absolute NRBCs 0.0 10'3/ uL no refere nce range establ ished Not Available [facility] (Lab) [address] [facility], [place], [address], 02/26/2025 10:19:46 02/26/20 25 02/25/2025 CBC W/DIF F neutrophils 68.0 % 34.0-7 3.0 Not Available [facility] (Lab) [address] [facility], [place], [address], 02/26/2025 10:19:46 02/26/20 25 02/25/2025 CBC W/DIF F lymphocytes 21.2 % 15.0-5 0.0 Not Available [facility] (Lab) [address] [facility], [place], [address], 02/26/2025 10:19:46 02/26/20 25 02/25/2025 CBC W/DIF F monocytes 7.4 % 1.0-15 .0 Not Available [facility] (Lab) [address] [facility], [place], [address], 02/26/2025 10:19:46 02/26/20 25 02/25/2025 CBC W/DIF F eosinophils 2.1 % 0.0-8. 0 Not Available [facility] (Lab) [address] [facility], [place], [address], 02/26/2025 10:19:46 02/26/20 25 02/25/2025 CBC W/DIF F basophils 0.6 % 0.0-2. 0 Not Available [facility] (Lab) [address] [facility], [place], [address], 02/26/2025 10:19:46 02/26/2002/25/2025 CBC W/DIF F immature granulocytes 0.7 % no define d refere nce range Immat ure Granu locyt es (IG) repre sents autom ated enume ratio n of Metam yeloc ytes, Myelo cytes and Promy elocy samina when IG is < 5%. Blast s are not inclu ded in IG and repor dada separ ately if prese nt. Not Available [facility] (Lab) [address] [facility], [place], [address], 02/26/2025 10:19:46 02/26/20 25 02/25/2025 CBC W/DIF F absolute neutrophils 9.1 10'3/ uL 1.5-8. 0 high Not Available [facility] (Lab) [address] [facility], [place], [address], 02/26/2025 10:19:46 02/26/2002/25/2025 CBC W/DIF F absolute lymphocytes 2.8 10'3/ uL 1.0-4. 0 Not Available [facility] (Lab) [address] [facility], [place], [address], 02/26/2025 10:19:46 02/26/2002/25/2025 CBC W/DIF F absolute monocytes 1.0 10'3/ uL 0.2-1. 0 Not Available [facility] (Lab) [address] [facility], [place], [address], 02/26/2025 10:19:46 02/26/2002/25/2025 CBC W/DIF F absolute eosinophils 0.3 10'3/ uL 0.0-0. 6 Not Available [facility] (Lab) [address] [facility], [place], [address], 02/26/2025 10:19:46 02/26/2002/25/2025 CBC W/DIF F absolute basophils 0.1 10'3/ uL 0.0-0. 3 Not Available [facility] (Lab) [address] [place], [address], 02/26/2025 10:19:46 02/26/2002/25/2025 CBC W/DIF F absolute immature granulocytes 0.1 10'3/ uL 0.00-0 .10 Refer ence range s for nonbi nary/ inter sex or unspe cifie d gende r patie nts have not been estab lishe d. Pleas e refer to the [facility] table for range s estab lishe d for cisge nder patie nts and evalu ate in the clini june craig xt of the indiv idual patie nt: https ://brenda beaulieu book. nm.or g/gen derx Not Available [facility] (Lab) [address] [facility], [place], [address], 02/26/2025 10:19:46 02/26/20 25 02/25/2025 HEPAT ITIS C ANTIB WESLEY SCREE N, REFLE X TO CONFI RMATI ON hepatitis C antibody Non-re active non-re active Antib odies to HCV Not Detec dada, does not exclu de the possi bilit y of expos ure to HCV. Not Available [facility] (Lab) [address] [facility], [place], [address], 02/26/2025 10:19:46 02/26/20 25 02/25/2025 HIV 1/2 ANTIG EN/AN TIBOD Y, REFLE X CONFI RMATI ON HIV antigen/anti body Nonrea ctive nonrea ctive HIV-1 antig en and HIV-1 /HIV- 2 antib odies were not detec dada. No labor atory evide nce of HIV infec tion. Not Available [facility] (Lab) [address] [facility], [place], [address], 02/26/2025 10:19:47 02/26/20 25 02/25/2025 HEPAT ITIS B SURFA CE ANTIG EN hepatitis B surface antigen Non-re active non-re active This assay was perfo rmed using [employer] ratio n reage nts and test kits. Value s obtai tiffany with other assay metho ds or kits canno t be used inter castañeda eably . Not Available [facility] (Lab) [address] [facility], [place], [address], 02/26/2025 10:19:47 02/26/20 25 02/25/2025 TYPE/ RH/SC REEN ABO/Rh type O POS Not Available [facility] (Lab) [address] [facility], [place], [address], 02/26/2025 10:19:47 02/26/20 25 02/25/2025 TYPE/ RH/SC REEN antibody screen NEG Not Available [facility] (Lab) [address] [facility], [place], [address], 02/26/2025 10:19:47 02/26/2002/25/2025 TYPE/ RH/SC REEN exp date 2024 23:59 Not Available [facility] (Lab) [address] [facility], [place], [address], 02/26/2025 10:19:47 02/26/20 25 02/25/2025 RUBEL LA IGG ANTIB WESLEY, QUANT rubella antibodies, IgG Non-Re active reacti ve abnormal Not Available [facility] (Lab) [address] [facility], [place], [address], 02/26/2025 10:19:48 02/26/20 25 02/25/2025 RUBEL LA IGG ANTIB WESLEY, QUANT rubella antibodies, IgG quant <10.0 IU/mL >=10 low Non-r eacti ve (Non- Immun e) <10 IU/mL React myesha (Immu ne) > or = 10 IU/mL Not Available [facility] (Lab) [address] [facility], [place], [address], 02/26/2025 10:19:48 02/26/2002/25/2025 HEMOG LOBIN A1C hemoglobin A1C 5.1 % 4.0-5. 6 The Ameri can Diabe samina [employer] iatio n recom mends that a prima ry goal of thera py dirk angel be a HBA1C of < 7% and that physi cians shoul d reeva luate the treat ment regim en in patie nts with HBA1C value s consi stent ly > 8%. <5.7% Tracie l 5.7 - 6.4% Incre ased risk for diabe samina >=6.5 % Diagn ostic of diabe samina <7.0% Goal of thera py >8.0% Actio n sugge sted Not Available [facility] (Lab) [address] [facility], [place], [address], 02/26/2025 10:19:48 02/26/20 25 02/25/2025 RPR SCREE N, REFLE X TITER /CONF IRMAT ION RPR qualitative Nonrea ctive nonrea ctive Not Available [facility] (Lab) [address] [facility], [place], [address], 02/26/2025 10:19:48 02/26/20 25 02/25/2025 CULTU RE: URINE result report SEE RESULT S BELOW Test: Cultu re: Urine Speci men Sourc e: Urine Voide d Speci men Type: Urine Speci men Date: 2024 1743 Resul t Date: 2024 2325 Resul t Statu s: Final resul t Abnor mal: No Resul ting Lab: [facility] [address] [facility] [address] Tel: CULTU RE ----- ----- ----- --- Cultu re resul t (>=3 organ isms prese nt) indic ates possi ble conta minat ion. Repea t cultu re if sympt oms indic ate. Not Available [facility] (Lab) [address] [facility], [place], [address], 02/27/2025 00:29:16 06/18/20 25 06/18/2025 HEMAT OCRIT (HCT) HCT 33.7 % (based on docume nted legal sex) 34.0-4 5.0 low Not Available [facility] (Lab) [address] [facility], [place], [address], 06/19/2025 10:20:54 06/18/20 25 06/18/2025 HEMOG LOBIN (HGB) HGB 10.6 g/dL (based on docume nted legal sex) 11.6-1 5.4 low Not Available [facility] (Lab) [address] [facility], [place], [address], 06/19/2025 10:20:55 06/18/20 25 06/18/2025 GTT - GESTA GRIFFIN L SCREE N, ACOG OB glucose, 1 hour screen 91 mg/dL 70-[address] [facility] (Lab) [address] [facility], [place], [address], 06/19/2025 10:20:55 06/18/20 25 06/18/2025 HIV 1/2 ANTIG EN/AN TIBOD Y, REFLE X CONFI RMATI ON HIV antigen/anti body Nonrea ctive nonrea ctive HIV-1 antig en and HIV-1 /HIV- 2 antib odies were not detec dada. No labor atory evide nce of HIV infec tion. Not Available [facility] (Lab) [address] [facility], [place], [address], 06/19/2025 10:20:56 06/18/20 25 06/18/2025 RPR SCREE N, REFLE X TITER /CONF IRMAT ION RPR qualitative Nonrea ctive nonrea ctive Not Available [facility] (Lab) [address] [facility], [place], [address], 06/19/2025 10:20:57 02/26/20 25 02/25/2025 US, obste tric, nucha l trans lucen cy No observ ation record ed. [email or web address] [place] [address], [place], [address], 02/25/2025 18:30:50 02/26/20 25 02/25/2025 US, obste tric, nucha l trans lucen cy No observ ation record ed. [email or web address] Manuela [address], [place], [address], 02/28/2025 22:26:06 04/23/20 25 04/23/2025 US, obste tric, 2nd or 3rd trime ster No observ ation record ed. [facility] [address], [place], [address], 04/23/2025 18:34:49 04/23/20 25 04/23/2025 US, obste tric, follo w-up No observ ation record ed. GABRIEL Manuela [address], [place], [address], 04/27/2025 11:09:16 06/11/20 25 06/11/2025 non-s tress test No observ ation record ed. [address] [facility], [place], [address], 06/18/2025 09:08:39 06/19/2006/19/2025 non-s tress test No observ ation record ed. [address] [address], [place], [address], 06/23/2025 12:42:23 06/22/20 25 06/22/2025 US, obste tric, limit ed No observ ation record ed. [address] [address], [place], [address], 06/23/2025 12:42:00 07/14/2007/13/2025 US, renal No observ ation record ed. [address] [address], [place], [address], 07/15/2025 15:49:07 07/14/20 25 07/13/2025 US, obste tric, bioph ysica l profi le No observ ation record ed. [address] [address], [place], [address], 07/15/2025 15:49:28 07/20/20 25 07/20/2025 US, obste tric, follo w-up No observ ation record ed. [email or web address] [place] [address], [place], [address], 07/20/2025 18:49:37 07/20/20 25 07/20/2025 US, obste tric, follo w-up No observ ation record ed. [email or web address] [address], [place], [address], 07/21/2025 09:57:43 08/05/20 25 08/05/2025 US, obste tric, follo w-up No observ ation record ed. [id number] [facility] [address], [place], [address], 08/06/2025 13:11:50 08/05/20 25 08/05/2025 US, obste tric, trans vagin al No observ ation record ed. [email or web address] [facility] [address] [facility] [address], [place], [address], 08/06/2025 14:04:51 08/05/20 25 10/05/2024 non-s tress test No observ ation record ed. [email or web address] [id number] [facility] [address], [place], [address], 08/07/2025 11:33:13 Result Notes None recorded. Problems Name Problem SNOMED Code Status Onset Date Resolution Date Notes Provider Name and Address Organization Details Recorded Time SNOMED CT Concept Completed 201703/15/2021 Encntr for routine child health exam w/o abnormal findings ;Recorde d Elsewher e: No Locat ion: [facility] S ource: EHR Electrostatic Powder Coating Technician juan: N Practi ce ID: [id number] Pradeep lable Time: 02:15:00 PM Melissa grier [facility] 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 16:33:32 Uses combined oral contrace ption [id number] Completed 201803/15/2021 Encounte r for surveill ance of contrace ptive pills;Re corded Elsewher e: No Locat ion: [facility] S ource: EHR Electrostatic Powder Coating Technician juan: N Practi ce ID: [id number] Pradeep lable Time: 09:00:00 AM Melissa grier, [facility] 16:33:29 Procedur e by method Completed 201803/15/2021 Encounte r for other general counseli ng and advice on contrace ption;Re corded Elsewher e: No Locat ion: [facility] S ource: EHR Electrostatic Powder Coating Technician juan: N Practi ce ID: 0001 Pradeep lable Time: 02:30:00 PM Melissa grier, [facility] 16:33:33 Pregnanc y [id number] Active 2024 Linn Kruse [facility], [facility] 5 16:32:48 Mixed anxiety and depressi ve disorder 826441971 Active 2024 sertrali ne changed to 100mg Chin Boyce MD [address], [place], [address], [facility] 5 16:52:38 Rubella non-immu ne 570448418 Active 2024 PP MMR Liz Hardin [facility], [facility] 5 15:19:23 Problem Notes None recorded. Procedures Surgical History Date Name Laterality Status Provider Name and Address Organization Details Recorded Time 07/11/20 23 Date of Last Pap Smear completed Dahlia Arauz [facility] 07/11/2024 11:54:49 11/03/19 23 termination of completed Carina Torres [facility] 11/28/2022 16:45:49 09/17/19 21 extraction of wisdom tooth completed Carina Torres [facility] 11/28/2022 16:45:26 09/17/19 15 procedure on foot completed Carina Torres [facility] 11/28/2022 16:45:14 09/17/19 10 Tonsillectomy completed Carina Torres [facility] 11/28/2022 16:45:37 Imaging Results None recorded. [...] route every day 09/22 completed Prescrib ed Pablitoher e: No Locat ion: [facility] M odify By: funmilayo martinez DateTime [...] Address Organization Details Last Updated DateTime 07/20/2025 286361.41640 g 132/83 mm[Hg] Linn Kruse [facility] 07/20/2025 18:05:06 Social History Question Answer Notes LastModified by Organizat ion Details LastModified Time Tobacco Smoking Status Never Smoker Melissa grier, [facility] 03/16/2021 10:13:21 Do You Have An Advance Directive? No [email or web address] Information n ot available 03/16/2021 How Many Years Have You Consumed Alcohol? 2 [email or web address] Information not available 03/16/2021 Are You Blind Or Do You Have Difficulty Seeing? No [email or web address] Information n ot available 03/16/2021 What Is Your Level Of Caffeine Consumption? Moderate [email or web address] Information not available 03/16/2021 How Much Tobacco Do You Chew? None Information not available 01/22/2025 In The 14 Days Before Symptom Onset, Have You Had Close Contact With A Laboratory-confirm ed COVID-19 While That Case Was Ill? No [email or web address] Information n ot available 03/16/2021 In The 14 Days Before Symptom Onset, Have You Had Close Contact With A Person Who Is Under Investigation For COVID-19 While That Person Was Ill? No [email or web address] Information not available 03/16/2021 Have You Been To An Area Known To Be High Risk For COVID-19? No Information not available 03/16/2021 Are You Deaf Or Do You Have Serious Difficulty Hearing? Yes Information not available 03/16/2021 What Type Of Diet Are You Following? REGULAR [email or web address] Information n ot available 03/16/2021 What Is The Highest Grade Or Level Of School You Have Completed Or The Highest Degree You Have Received? [id number] [email or web address] Information not available 03/16/2021 Are There Any Guns Present In Your Home? Yes [email or web address] Information not available 03/16/2021 Do You Use Protection During Sex? No Information not available 01/22/2025 Do You Use Your Seat Belt Or Car Seat Routinely? Yes [email or web address] Information not available 03/16/2021 Do You Have Smoke And Carbon Monoxide Detectors In Your Home? Yes Information not available 03/16/2021 At What Age Did You Start Smoking Tobacco? 21 Information not available 01/22/2025 How Much Tobacco Do You Smoke? No [email or web address] Information not available 03/16/2021 Do You Use Sunscreen Routinely? No [email or web address] Information not available 03/16/2021 How Many Years Have You Smoked Tobacco? 2 Information not available 01/22/2025 Have You Used IV Drugs? No [email or web address] Information not available 03/16/2021 Sex: Unknown Functional Status Question Answer Note LastModified by Organizat ion Details LastModified Time Do you use any illicit or recreational drugs? No Information not available 03/16/2021 What is your level of alcohol consumption? None Information not available 01/22/2025 Are you able to walk independently without assistance or assistive devices? 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 Occasional [email or web address] Information not available 03/16/2021 Mental Status Question Answer Note LastModified by Organization D etails LastModified Time Do you feel stressed (tense, restless, nervous, or anxious, or unable to sleep at night)? [id number] Information not available 01/22/2025 Family History Relationship [...] ) N Other N Drug/Latex Allergies/Reactions N Blood Transfusion N Breast Cancer N Dermatologic Disorders N Lung Disease N Defects or Inherited Disease N Breast Problem N Gestational Diabetes N Hematologic disorders N Anesthesia Complications N History of STI N Deep Vein Thrombosis N Polycystic ovary syndrome N Anxiety Disorder N Autoimmune disease N Arthritis N Polyps N Infertility N Acid Reflux (GERD) N History of abnormal pap N Cancer N Varicosities N Stroke N Neurologic/Epilepsy N Endometriosis N High Cholesterol N Fibromyalgia N Headaches Y Kidney Disease N Heart Problems N Thyroid [...] ICD10 Code Diagnosis IMO Codes Diagnosis Note [id number] [facility] [address] [address] 07/03/2025 16:18:57 07/03/2025 16:46:16 Gestation period, 33 weeks [id number] Z3A.33 [id number] Chin Boyce MD [place] [address],[place] [address] 07/20/2025 16:53:33 07/21/2025 08:21:13 Uterine size for dates discrepancy [id number] O26.843 Z3A.33 [id number] Chin Boyce MD [facility] [address],[place] [address] 07/20/2025 16:54:47 07/21/2025 08:19:34 Health Concerns Section Related Observation LastModified by Organization Detai ls LastModified Time None Recorded Concern Status LastModified by Organization Details LastModified Time None Recorded Payers Encounter Date Sequence Insurance Name Policy Number Policy Meehan Covered Member ID Meehan Member ID Guarantor Name 07/20/2025 1 [employer] [id number] Ev Dunn [id number] Ev Dunn Notes Date Note Type Note Provider Name and Address Organization Details Recorded Time 07/20/2025 text/html Generic HPI TemplateReported by Patient Chin Boyce MD [address], [place], [address], [facility] 07/20/2025 18:13:09 OBGyn Episode Ob Episode Information Episode Created Date Number of Fetuses Patient Bloodtype Patient rh Status Prepregnancy Weight lbs Domestic Partner Domestic Partner Phone Father Name Facilities Engineer Status 02/26/20 25 1 O Positive [address] OPEN Fetus Data First Name Last Name Admitted to NICU Weight (g) Sex Living Outcome Pediatric Complications Fetus ID Race Codes Race Delivery Type [id number] Problems Problem Notes Problem Name Start Date End Date Resolution Snomed Code Not e Mixed anxiety and depressive disorder 02/25/2025 [id number] sertrali ne changed to 100mg Rubella non-immune 03/03/2025 [id number] PP MMR [place] Calculation Initial [place] Date Initial Exam Date Initial Exam Provider Initial Ultrasound Date Last Menstrual Period Date Ultra Sound Weeks Gestation 02/25/2025 01/22/2025 11/21/2024 7 Eighteen To Twenty Week Kloton Update Ultra Sound Date Fundal Height At Umbil Quickening Date Ultra Sound Latest Weeks Gestation Final [place] Confirmed By Final [place] Confirmed Date Final [place] Date Ultra Sound Latest Days Gestation 04/23/20 25 20 [email or web address] 02/25/2025 09/04/20 25 5 Pre-jamin Flowsheet Flowsheet Date 02/25/2025 Craven Score Blood Edema Fundus Height Fundus Units Glucose Ketones Leukocytes Nitrite Labor Signs Protein Cervic Dilation Cervic Effacement Cervic Station Type Weight in lbs Pre/Post Dialysis Refused Weight 197.906054971733 BP Diastolic BP Location Tested BP Systolic [...] Type Weight in lbs Pre/Post Dialysis Refused 198.571003768948 BP Diastolic BP Location Tested BP Systolic [...] Type Weight in lbs Pre/Post Dialysis Refused 204.563294994052 BP Diastolic BP Location Tested BP Systolic [...] Type Weight in lbs Pre/Post Dialysis Refused 210.000643118747 BP Diastolic BP Location Tested BP Systolic [...] Type Weight in lbs Pre/Post Dialysis Refused 217.067867737886 BP Diastolic BP Location Tested BP Systolic [...] Weight in lbs Pre/Post Dialysis Refused Weight 223.838618809493 BP Diastolic BP Location Tested BP Systolic [...] Type Weight in lbs Pre/Post Dialysis Refused 226.776905709931 BP Diastolic BP Location Tested BP Systolic BP Type 83 L arm 132 sitting Fetus Heart Rate Present A 145 Fetus Movement A Yes Comments no complaints, no problems, routine care, no contractions, no vaginal bleeding, no loss of fluid, no cramping Flowsheet Date 08/06/2025 Craven Score Blood Edema Fundus Height Fundus Units Glucose Ketones Leukocytes Nitrite Labor Signs Protein Cervic Dilation Cervic Effacement Cervic Station Type Weight in lbs Pre/Post Dialysis Refused 230.216246844330 BP Diastolic BP Location Tested BP Systolic BP Type 78 L arm 117 sitting Fetus Heart Rate Present A 154 Present Fetus Movement A Yes Comments no [...]
--- OUTSIDE RECORDS SUMMARY | 2025-08-07 22:43 | XMS_ITS | Continuity of Care Document ---
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 Name Role Phone VELASQUEZ HA Primary Care Provider [phone] Assessment Encounter Date Assessment Date Assessment LastModified [...] Not Available [facility] [address], [place], [address], 03/05/2025 13:46:16 03/05/20 25 03/05/2025 [UNIT Y] ANEUP LOIDY NIPT 22Q11.2 microdeletio n LOW RISK <1 in 10,000 normal Not Available [facility] [address], [place], [address], 03/05/2025 13:46:16 03/05/20 25 03/05/2025 [UNIT Y] ANEUP LOIDY NIPT sex chromosome aneuploidy NOT DETECT ED normal Not Available [facility] [address], [place], [address], 03/05/2025 13:46:16 03/05/20 25 03/05/2025 [UNIT Y] ANEUP LOIDY NIPT monosomy X LOW RISK <1 in 10,000 normal Not Available [facility] [address], [place], [address], 03/05/2025 13:46:16 03/05/20 25 03/05/2025 [UNIT Y] ANEUP LOIDY NIPT trisomy 13 LOW RISK <1 in 10,000 normal Not Available [facility] [address], [place], [address], 03/05/2025 13:46:16 03/05/20 25 03/05/2025 [UNIT Y] ANEUP LOIDY NIPT trisomy 18 LOW RISK <1 in 10,000 normal Not Available [facility] [address], [place], [address], 03/05/2025 13:46:16 03/05/20 25 03/05/2025 [UNIT Y] ANEUP LOIDY NIPT trisomy 21 LOW RISK <1 in 10,000 normal Not Available [facility] [address], [place], [address], 03/05/2025 13:46:16 03/05/20 25 03/05/2025 [UNIT Y] ANEUP LOIDY NIPT sex MALE normal Not Available [facility] [address], [place], [address], 03/05/2025 13:46:16 03/05/20 25 03/05/2025 [UNIT Y] ANEUP LOIDY NIPT gestation SINGLE TON normal Not Available [facility] [address], [place], [address], 03/05/2025 13:46:16 03/05/20 25 03/05/2025 [UNIT Y] ANEUP LOIDY NIPT for detailed report, see pdf See PDF normal Not Available [facility] [address], [place], [address], 03/05/2025 13:46:16 03/06/20 25 03/06/2025 [UNIT Y] SHIKHA Cheung sickle cell disease/beta -thalassemia /hemoglobino pathies carrier screen NEGATI VE normal Not Available [facility] [address], [place], [address], 03/06/2025 20:16:21 03/06/20 25 03/06/2025 [UNIT Y] SHIKHA Cheung alpha-thalas semia carrier screen NEGATI VE normal Not Available [facility] [address], [place], [address], 03/06/2025 20:16:21 03/06/20 25 03/06/2025 [UNIT Y] SHIKHA Cheung cystic fibrosis carrier screen NEGATI VE normal Not Available [facility] [address], [place], [address], 03/06/2025 20:16:21 03/06/20 25 03/06/2025 [UNIT Y] SHIKHA Cheung spinal muscular atrophy carrier screen NEGATI VE 2 SMN1 copies , SNP not presen t normal Not Available [facility] [address], [place], [address], 03/06/2025 20:16:21 03/06/20 25 03/06/2025 [UNIT Y] SHIKHA Cheung for detailed report, see pdf See PDF normal Not Available [facility] [address], [place], [address], 03/06/2025 20:16:21 02/26/20 25 02/25/2025 CBC W/DIF F WBC 13.3 10'3/ uL 3.5-10 .5 high Not Available [facility] (Lab) [address], [place], [address], 02/26/2025 10:19:46 02/26/20 25 02/25/2025 CBC W/DIF F RBC 4.33 10'6/ uL (based on docume nted legal sex) 3.80-5 .20 Not Available [facility] (Lab) [address], [place], [address], 02/26/2025 10:19:46 02/26/20 25 02/25/2025 CBC W/DIF F HGB 13.5 g/dL (based on docume nted legal sex) 11.6-1 5.4 Not Available [facility] (Lab) [address], [place], [address], 02/26/2025 10:19:46 02/26/20 25 02/25/2025 CBC W/DIF F HCT 41.0 % (based on docume nted legal sex) 34.0-4 5.0 Not Available [facility] (Lab) [address], [place], [address], 02/26/2025 10:19:46 02/26/20 25 02/25/2025 CBC W/DIF F MCV 94.7 fL 80.0-9 9.0 Not Available [facility] (Lab) [address] [place], [address], 02/26/2025 10:19:46 02/26/20 25 02/25/2025 CBC W/DIF F MCH 31.2 pg 27.0-3 4.0 Not Available [facility] (Lab) [address] [place], [address], 02/26/2025 10:19:46 02/26/20 25 02/25/2025 CBC W/DIF F MCHC 32.9 g/dL 32.0-3 5.5 Not Available [facility] (Lab) [address] [facility], [place], [address], 02/26/2025 10:19:46 02/26/20 25 02/25/2025 CBC W/DIF F RDW 13.2 % 11.0-1 5.0 Not Available [facility] (Lab) [address] [facility], [place], [address], 02/26/2025 10:19:46 02/26/20 25 02/25/2025 CBC W/DIF F plt 295 10'3/ uL 150-40 0 Not Available [facility] (Lab) [address] [facility], [place], [address], 02/26/2025 10:19:46 02/26/20 25 02/25/2025 CBC W/DIF F MPV 11.2 fL 8.8-12 .1 Not Available [facility] (Lab) [address] [facility], [place], [address], 02/26/2025 10:19:46 02/26/20 25 02/25/2025 CBC W/DIF F NRBC's 0.0 % 0.0 Not Available [facility] (Lab) [address] [facility], [place], [address], 02/26/2025 10:19:46 02/26/20 25 02/25/2025 CBC W/DIF F absolute NRBCs 0.0 10'3/ uL no refere nce range establ ished Not Available [facility] (Lab) [address] [facility] [address], [place], [address], 02/26/2025 10:19:46 02/26/20 25 02/25/2025 CBC W/DIF F neutrophils 68.0 % 34.0-7 3.0 Not Available [facility] (Lab) [address] [facility], [place], [address], 02/26/2025 10:19:46 02/26/20 25 02/25/2025 CBC W/DIF F lymphocytes 21.2 % 15.0-5 0.0 Not Available [facility] (Lab) [address] [facility], [place], [address], 02/26/2025 10:19:46 02/26/20 25 02/25/2025 CBC W/DIF F monocytes 7.4 % 1.0-15 .0 Not Available [facility] (Lab) [address] [facility], [place], [address], 02/26/2025 10:19:46 02/26/20 25 02/25/2025 CBC W/DIF F eosinophils 2.1 % 0.0-8. 0 Not Available [facility] (Lab) [address] [facility], [place], [address], 02/26/2025 10:19:46 02/26/20 25 02/25/2025 CBC W/DIF F basophils 0.6 % 0.0-2. 0 Not Available [facility] (Lab) [address] [facility], [place], [address], 02/26/2025 10:19:46 02/26/20 25 02/25/2025 CBC W/DIF [...] separ ately if prese nt. Not Available [facility] (Lab) [address] [facility], [place], [address], 02/26/2025 10:19:46 02/26/20 25 02/25/2025 CBC W/DIF F absolute neutrophils 9.1 10'3/ uL 1.5-8. 0 high Not Available [facility] (Lab) [address] [facility], [place], [address], 02/26/2025 10:19:46 02/26/2002/25/2025 CBC W/DIF F absolute lymphocytes 2.8 10'3/ uL 1.0-4. 0 Not Available [facility] (Lab) [address] [facility], [place], [address], 02/26/2025 10:19:46 02/26/2002/25/2025 CBC W/DIF F absolute monocytes 1.0 10'3/ uL 0.2-1. 0 Not Available [facility] (Lab) [address] [facility], [place], [address], 02/26/2025 10:19:46 02/26/20 25 02/25/2025 CBC W/DIF F absolute eosinophils 0.3 10'3/ uL 0.0-0. 6 Not Available [facility] (Lab) [address] [facility], [place], [address], 02/26/2025 10:19:46 02/26/2002/25/2025 CBC W/DIF F absolute basophils 0.1 10'3/ uL 0.0-0. 3 Not Available [facility] (Lab) [address] [place], [address], 02/26/2025 10:19:46 02/26/2002/25/2025 CBC W/DIF F absolute immature granulocytes 0.1 10'3/ uL 0.00-0 .10 Refer ence range s for nonbi nary/ inter sex or unspe cifie d gende r patie nts have not been estab lishe d. Pleas e [facility] for range s estab lishe d for cisge nder patie nts and evalu ate in the clini june craig xt of the indiv idual patie nt: https ://bernda beaulieu book. nm.or g/gen derx Not Available [facility] (Lab) [address] [facility], [place], [address], 02/26/2025 10:19:46 02/26/20 25 02/25/2025 HEPAT ITIS C ANTIB WESLEY SCREE N, REFLE X TO CONFI RMATI ON hepatitis C antibody Non-re active non-re active Antib odies to HCV Not Detec dada, does not exclu de the possi bilit y of expos ure to HCV. Not Available [facility] (Lab) [address] [facility], [place], [address], 02/26/2025 10:19:46 02/26/20 25 02/25/2025 HIV 1/2 ANTIG EN/AN TIBOD Y, REFLE X CONFI RMATI ON HIV antigen/anti body Nonrea ctive nonrea ctive HIV-1 antig en and HIV-1 /HIV- 2 antib odies were not detec dada. No labor atory evide nce of HIV infec tion. Not Available [facility] (Lab) [address] [facility] [address], [place], [address], 02/26/2025 10:19:47 02/26/2002/25/2025 HEPAT ITIS B SURFA CE ANTIG EN hepatitis B surface antigen Non-re active non-re active This assay was perfo rmed using [employer] ratio n reage nts and test kits. Value s obtai tiffany with other assay metho ds or kits canno t be used inter castañeda eably . Not Available [facility] (Lab) [address] [facility] [address], [place], [address], 02/26/2025 10:19:47 02/26/20 25 02/25/2025 TYPE/ RH/SC REEN ABO/Rh type O POS Not Available [facility] (Lab) [address], [place], [address], 02/26/2025 10:19:47 02/26/20 25 02/25/2025 TYPE/ RH/SC REEN antibody screen NEG Not Available [facility] (Lab) [address], [place], [address], 02/26/2025 10:19:47 02/26/2002/25/2025 TYPE/ RH/SC REEN exp date 2024 23:59 Not Available [facility] (Lab) [address] [facility], [place], [address], 02/26/2025 10:19:47 02/26/2002/25/2025 RUBEL LA IGG ANTIB WESLEY, QUANT rubella antibodies, IgG Non-Re active reacti ve abnormal Not Available [facility] (Lab) [address] [facility], [place], [address], 02/26/2025 10:19:48 02/26/20 25 02/25/2025 RUBEL LA IGG ANTIB WESLEY, QUANT rubella antibodies, IgG quant <10.0 IU/mL >=10 low Non-r eacti ve (Non- Immun e) <10 IU/mL React myesha (Immu ne) > or = 10 IU/mL Not Available [facility] (Lab) [address] [facility] [address], [place], [address], 02/26/2025 10:19:48 02/26/2002/25/2025 HEMOG LOBIN A1C hemoglobin [...] >8.0% Actio n sugge sted Not Available [facility] (Lab) [address] [facility] [address], [place], [address], 02/26/2025 10:19:48 06/11/20 25 02/25/2025 RPR SCREE N, REFLE X TITER /CONF IRMAT ION RPR qualitative Nonrea ctive nonrea ctive Not Available [facility] (Lab) [address] [facility] [address] [facility], [place], [address], 02/26/2025 10:19:48 02/26/20 25 02/25/2025 CULTU RE: URINE result report SEE RESULT S BELOW Test: Cultu re: Urine Speci men Sourc e: Urine Voide d Speci men Type: Urine Speci men Date: 2024 1743 Resul t Date: 2024 2325 Resul t Statu s: Final resul t Abnor mal: No Resul ting Lab: [facility] [address] [facility] [address] Tel: CULTU RE ----- ----- ----- --- Cultu re resul t (>=3 organ isms prese nt) indic ates possi ble conta minat ion. Repea t cultu re if sympt oms indic ate. Not Available [facility] (Lab) [address] [facility] [address] [facility], [place], [address], 02/27/2025 00:29:16 06/18/20 25 06/18/2025 HEMAT OCRIT (HCT) HCT 33.7 % (based on docume nted legal sex) 34.0-4 5.0 low Not Available [facility] (Lab) [address] [facility] [address] [facility], [place], [address], 06/19/2025 10:20:54 06/18/20 25 06/18/2025 HEMOG LOBIN (HGB) HGB 10.6 g/dL (based on docume nted legal sex) 11.6-1 5.4 low Not Available [facility] (Lab) [address] [facility], [place], [address], 06/19/2025 10:20:55 06/18/20 25 06/18/2025 GTT - GESTA GRIFFIN L SCREE N, ACOG OB glucose, 1 hour screen 91 mg/dL 70-135 Not Available [facility] (Lab) [address], [place], [address], 06/19/2025 10:20:55 06/18/20 25 06/18/2025 HIV 1/2 ANTIG EN/AN TIBOD Y, REFLE X CONFI RMATI ON HIV antigen/anti body Nonrea ctive nonrea ctive HIV-1 antig en and HIV-1 /HIV- 2 antib odies were not detec dada. No labor atory evide nce of HIV infec tion. Not Available [facility] (Lab) [address] [facility], [place], [address], 06/19/2025 10:20:56 06/18/20 25 06/18/2025 RPR SCREE N, REFLE X TITER /CONF IRMAT ION RPR qualitative Nonrea ctive nonrea ctive Not Available [facility] (Lab) [address] [facility], [place], [address], 06/19/2025 10:20:57 02/26/20 25 02/25/2025 US, obste tric, nucha l trans lucen cy No observ ation record ed. [email or web address] [place] [address], [place], [address], 02/25/2025 18:30:50 02/26/20 25 02/25/2025 US, obste tric, nucha l trans lucen cy No observ ation record ed. [email or web address] [place] [address], [place], [address], 02/28/2025 22:26:06 04/23/20 25 04/23/2025 US, obste tric, 2nd or 3rd trime ster No observ ation record ed. [facility] [address], [place], [address], 04/23/2025 18:34:49 04/23/2004/23/2025 US, obste tric, follo w-up No observ ation record ed. GABRIEL [place] [address], [place], [address], 04/27/2025 11:09:16 06/11/2006/11/2025 non-s tress test No observ ation record ed. [address] [facility], [place], [address], 06/18/2025 09:08:39 06/19/2006/19/2025 non-s tress test No observ ation record ed. [address] [address], [place], [address], 06/23/2025 12:42:23 06/22/20 25 06/22/2025 US, obste tric, limit ed No observ ation record ed. [address] [address], [place], [address], 06/23/2025 12:42:00 07/14/2007/13/2025 US, renal No observ ation record ed. [address] [address], [place], [address], 07/15/2025 15:49:07 07/14/2007/13/2025 US, jair hayden, bioph ysica l profi le No observ ation record ed. [address] [facility], [place], [address], 07/15/2025 15:49:28 07/20/20 25 07/20/2025 US, obste tric, follo w-up No observ ation record ed. [email or web address] [place] [address], [place], [address], 07/20/2025 18:49:37 07/20/20 25 07/20/2025 US, obste tric, follo w-up No observ ation record ed. [email or web address] [place] [address], [place], [address], 07/21/2025 09:57:43 08/05/20 25 08/05/2025 US, obste tric, follo w-up No observ ation record ed. [email or web address] [place] [id number] [facility] [address], [place], [address], 08/06/2025 13:11:50 08/05/20 25 08/05/2025 US, obste tric, trans vagin al No observ ation record ed. [email or web address] [id number] [facility] [address], [place], [address], 08/06/2025 14:04:51 08/05/20 25 10/05/2024 non-s tress test No observ ation record ed. [email or web address] [address], [place], [address], 08/07/2025 11:33:13 Result Notes None recorded. Problems Name Problem SNOMED Code Status Onset Date Resolution Date Notes Provider Name and Address Organization Details Recorded Time SNOMED CT Concept Completed 201703/15/2021 Encntr for routine child health exam w/o abnormal findings ;Recorde d Elsewher e: No Locat ion: [facility] S ource: EHR Top Distribution Executive juan: N Practi ce ID: [email or web address] Pradeep lable Time: 02:15:00 PM Melissa grier [facility] 16:33:[address] Concept Completed 201703/15/[address] of [address] appraiser exam (general ) (routine ) w/o abn findings ;Practic e ID: [id number] Melissa grier [facility] 16:33:32 Uses combined oral contrace ption [id number] Completed 201803/15/2021 Encounte r for surveill ance of contrace ptive pills;Re corded Elsewher e: No Locat ion: [facility] S ource: [employer] Executive juan: N Practi ce ID: 0001 Pradeep lable Time: 09:00:00 AM Melissa grier, [facility] 16:33:29 Procedur e by method Completed 201803/15/2021 Encounte r for other general counseli ng and advice on contrace ption;Re corded Elsewher e: No Locat ion: [facility] S ource: [employer] Distribution Executive juan: N Practi ce ID: 0001 Pradeep lable Time: 02:30:00 PM Melissa grier, [facility] 16:33:33 Pregnanc y 68466843 Active 2024 Linn Kruse [facility], [facility] 5 16:32:48 Mixed anxiety and depressi ve disorder 084210804 Active 2024 sertrali ne changed to 100mg Chin Boyce MD [address], [place], [address], [facility] 5 16:52:38 Rubella non-immu ne 708456011 Active 2024 PP MMR Liz Hardin [facility], [facility] 5 15:19:23 Problem Notes None recorded. Procedures Surgical History Date Name Laterality Status Provider Name and Address Organization Details Recorded Time 07/11/20 23 Date of Last Pap Smear completed Dahlia Arauz [facility] 07/11/2024 11:54:49 11/03/19 23 termination of completed Carina Torres [facility] 11/28/2022 16:45:49 09/17/19 21 extraction of wisdom tooth completed Carina Torres [facility] 11/28/2022 16:45:26 09/17/19 15 procedure on foot completed Carina Torres [facility] 11/28/2022 16:45:14 09/17/19 10 Tonsillectomy completed Carina Torres [facility] 11/28/2022 16:45:37 Imaging Results None recorded. [...] Prescrib ed Elsewher e: No Locat ion: [facility] M odify By: [email or web address] martinez DateTime [...] Updated DateTime 07/03/2025 170.18 cm 34.9 kg/m2 898758.1 g 108/67 mm[Hg] Linn Kruse [facility] 07/03/2025 16:32:49 Social History Question Answer Notes LastModified by Organizat ion Details LastModified Time Tobacco Smoking Status Never Smoker Melissa grier, [facility] 03/16/2021 10:13:21 Do You Have An Advance Directive? No Information n ot available 03/16/2021 How Many Years Have You Consumed Alcohol? 2 [email or web address] Information not available 03/16/2021 Are You Blind Or Do You Have Difficulty Seeing? No [email or web address] Information n ot available 03/16/2021 What Is Your Level Of Caffeine Consumption? Moderate [email or web address] Information not available 03/16/2021 How Much Tobacco Do You Chew? None Information not available 01/22/2025 In The 14 Days Before Symptom Onset, Have You Had Close Contact With A Laboratory-confirm ed COVID-19 While That Case Was Ill? No [email or web address] Information n ot available 03/16/2021 In The 14 Days Before Symptom Onset, Have You Had Close Contact With A Person Who Is Under Investigation For COVID-19 While That Person Was Ill? No [email or web address] Information not available 03/16/2021 Have You Been To An Area Known To Be High Risk For COVID-19? No [email or web address] Information not available 03/16/2021 Are You Deaf Or Do You Have Serious Difficulty Hearing? Yes [email or web address] Information not available 03/16/2021 What Type Of Diet Are You Following? REGULAR [email or web address] Information n ot available 03/16/2021 What Is The Highest Grade Or Level Of School You Have Completed Or The Highest Degree You Have Received? NL87532-2 [email or web address] Information not available 03/16/2021 Are There Any Guns Present In Your Home? Yes [email or web address] Information not available 03/16/2021 Do You Use Protection During Sex? No Information not available 01/22/2025 Do You Use Your Seat Belt Or Car Seat Routinely? Yes [email or web address] Information not available 03/16/2021 Do You Have Smoke And Carbon Monoxide Detectors In Your Home? Yes [email or web address] Information not available 03/16/2021 At What Age Did You Start Smoking Tobacco? 21 Information not available 01/22/2025 How Much Tobacco Do You Smoke? No [email or web address] Information not available 03/16/2021 Do You Use Sunscreen Routinely? No [email or web address] Information not available 03/16/2021 How Many Years Have You Smoked Tobacco? 2 Information not available 01/22/2025 Have You Used IV Drugs? No Information not available 03/16/2021 Sex: Unknown Functional Status Question Answer Note LastModified by Organizat ion Details LastModified Time Do you use any illicit or recreational drugs? No [email or web address] Information not available 03/16/2021 What is your level of alcohol consumption? None Information not available 01/22/2025 Are you able to walk independently without assistance or assistive devices? 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 Occasional [email or web address] Information not available 03/16/2021 Mental Status Question Answer Note LastModified by Organization D etails LastModified Time Do you feel stressed (tense, restless, nervous, or anxious, or unable to sleep at night)? [id number] Information not available 01/22/2025 Family History Relationship [...] ICD10 Code Diagnosis IMO Codes Diagnosis Note [id number] Chin Boyce MD [place] [address] [address] 06/18/2025 14:04:18 06/18/2025 16:17:06 care status [id number] Z34.83 [id number] Audrey Matamoros CNM [place] [address] [address] 07/03/2025 16:18:57 07/03/2025 16:46:16 Gestation period, 33 weeks [id number] Z3A.33 [id number] Health Concerns Section Related Observation LastModified by Organization Detai ls LastModified Time None Recorded Concern Status LastModified by Organization Details LastModified Time None Recorded Payers Encounter Date Sequence Insurance Name Policy Number Policy Meehan Covered Member ID Meehan Member ID Guarantor Name 07/03/2025 1 [employer] [id number] Ev Dunn [id number] Ev Dunn Notes Date Note Type Note Provider Name and Address Organization Details Recorded Time 07/03/2025 text/html Generic HPI TemplateReported by Patient Audrey Matamoros CNM [address], [place], [address], [facility] 07/03/2025 16:45:22 OBGyn Episode Ob Episode Information Episode Created Date Number of Fetuses Patient Bloodtype Patient rh Status Prepregnancy Weight lbs Domestic Partner Domestic Partner Phone Father Name Yeast Distiller Status 02/26/20 25 1 O Positive [address] OPEN Fetus Data First Name Last Name Admitted to NICU Weight (g) Sex Living Outcome Pediatric Complications Fetus ID Race Codes Race Delivery Type [id number] Problems Problem Notes Problem Name Start Date End Date Resolution Snomed Code Not e Mixed anxiety and depressive disorder 02/25/2025 [id number] sertrali ne changed to 100mg Rubella non-immune 03/03/2025 823873921 PP MMR [place] Calculation Initial [place] Date [...] Weight in lbs Pre/Post Dialysis Refused Weight 197.305039231138 BP Diastolic BP Location Tested BP Systolic [...] Type Weight in lbs Pre/Post Dialysis Refused 198.980994885559 BP Diastolic BP Location Tested BP Systolic [...] Type Weight in lbs Pre/Post Dialysis Refused 204.794073531677 BP Diastolic BP Location Tested BP Systolic [...] Type Weight in lbs Pre/Post Dialysis Refused 210.164192882961 BP Diastolic BP Location Tested BP Systolic [...] Type Weight in lbs Pre/Post Dialysis Refused 217.045239629719 BP Diastolic BP Location Tested BP Systolic [...] Weight in lbs Pre/Post Dialysis Refused Weight 223.933248918388 BP Diastolic BP Location Tested BP Systolic [...] Type Weight in lbs Pre/Post Dialysis Refused 226.553332805902 BP Diastolic BP Location Tested BP Systolic [...] Type Weight in lbs Pre/Post Dialysis Refused 230.146934978717 BP Diastolic BP Location Tested BP Systolic [...]
--- OUTSIDE RECORDS SUMMARY | 2025-08-07 22:43 | XMS_ITS | Data Portability ---
Author Organization [facility] [place] Address [address] [place] [address] Care Team Providers Care Twist Maker Name Role Phone HA VELASQUEZ Primary Care Provider Assessment Encounter Date Assessment Date Assessment LastModified by Organization Details LastModified Time 06/18/2025 06/18/2025 Patient is ___weeks . Discussed plan. Not available 06/18/2025 15:51:24 07/03/2025 07/03/2025 Patient is __33_weeks . Discussed plan. Not available 07/03/2025 16:45:07 07/20/2025 07/20/2025 Patient is ___weeks . Discussed plan. Not available 07/20/2025 18:04:39 08/06/2025 08/06/2025 Patient is ___weeks . Discussed plan. Not available 08/06/2025 17:40:53 Plan of Treatment Reminders Order Date Submit [...] US, obstetri c, follow-u p 2024 025 [email or web address] [place], [address], [place], [address], 07/21/2025 08:21:14 Medication Orders None recorded . Patient TargetsNo targets recorded. Patient InstructionsNo instructions recorded. Reason for Referral None Reported. Results Created Date Observation Date Name Description Value Unit Range Abnormal Flag Note LastModifiedBy Organization Detail LastModifiedTime 06/18/2006/18/2025 HEMAT OCRIT (HCT) HCT 33.7 % (based on docume nted legal sex) 34.0-4 5.0 low Not Available [facility] (Lab) [address] [facility], [place], [address], 06/19/2025 10:20:54 06/18/20 25 06/18/2025 HEMOG LOBIN (HGB) HGB 10.6 g/dL (based on docume nted legal sex) 11.6-1 5.4 low Not Available [facility] (Lab) [address] [facility], [place], [address], 06/19/2025 10:20:55 06/18/20 25 06/18/2025 GTT - GESTA GRIFFIN L FRANCIS Cheung, ACOG OB glucose, 1 hour screen 91 mg/dL 70-135 Not Available [facility] (Lab) [address] [place], [address], 06/19/2025 10:20:55 06/18/20 25 06/18/2025 HIV 1/2 ANTIG EN/AN TIBOD Y, REFLE X CONFI RMATI ON HIV antigen/anti body Nonrea ctive nonrea ctive HIV-1 antig en and HIV-1 /HIV- 2 antib odies were not detec dada. No labor atory evide nce of HIV infec tion. Not Available [facility] (Lab) [address] [facility], [place], [address], 06/19/2025 10:20:56 06/18/20 25 06/18/2025 RPR SCREE N, REFLE X TITER /CONF IRMAT ION RPR qualitative Nonrea ctive nonrea ctive Not Available [facility] (Lab) [address], [place], [address], 06/19/2025 10:20:57 06/11/2006/11/2025 non-s tress test No observ ation record ed. [address] [facility], [place], [address], 06/18/2025 09:08:39 06/19/2006/19/2025 non-s tress test No observ ation record ed. [address] [address], [place], [address], 06/23/2025 12:42:23 06/22/2006/22/2025 US, obste tric, limit ed No observ ation record ed. [address] [address], [place], [address], 06/23/2025 12:42:00 07/14/20 25 07/13/2025 US, renal No observ ation record ed. [address] [address], [place], [address], 07/15/2025 15:49:07 07/14/20 25 07/13/2025 US, obste tric, bioph ysica l profi le No observ ation record ed. [address] [facility], [place], [address], 07/15/2025 15:49:28 07/20/20 25 07/20/2025 US, obste tric, follo w-up No observ ation record ed. [email or web address] [place] [address], [place], [address], 07/20/2025 18:49:37 07/20/20 25 07/20/2025 US, obste tric, follo w-up No observ ation record ed. [email or web address] [address], [place], [address], 07/21/2025 09:57:43 08/05/20 25 08/05/2025 US, obste tric, follo w-up No observ ation record ed. [email or web address] [facility] [address], [place], [address], 08/06/2025 13:11:50 08/05/20 25 08/05/2025 US, obste tric, trans vagin al No observ ation record ed. [email or web address] [facility] [address] [facility] [address], [place], [address], 08/06/2025 14:04:51 08/05/20 25 10/05/2024 non-s tress test No observ ation record ed. [email or web address] [place] [id number] [facility] [address], [place], [address], 08/07/2025 11:33:13 Result Notes None recorded. Problems Name Problem SNOMED Code Status Onset Date Resolution Date Notes Provider Name and Address Organization Details Recorded Time SNOMED CT Concept Completed 201703/15/2021 Encntr for routine child health exam w/o abnormal findings ;Recorde d Elsewher e: No Locat ion: [facility] S ource: EHR Installation Supervisor juan: N Practi ce ID: 0001 Pradeep lable Time: 02:15:00 PM Melissa grier [facility] 16:33:[address] Concept Completed 201703/15/2021 Encntr for abalone sheller exam (general ) (routine ) w/o abn findings ;Practic e ID: 0001 Melissa grier [facility] 16:33:32 Uses combined oral contrace ption [id number] Completed 201803/15/2021 Encounte r for surveill ance of contrace ptive pills;Re corded Elsewher e: No Locat ion: [facility] S ource: EHR Installation Supervisor juan: N Sebastianti ce ID: 0001 Pradeep lable Time: 09:00:00 AM Melissa grier, [facility] 16:33:29 Procedur e by method Completed 201803/15/2021 Encounte r for other general counseli ng and advice on contrace ption;Re corded Elsewher e: No Locat ion: Nicholas yost [facility] S ource: EHR Installation Supervisor juan: N Sebastianti ce ID: 0001 Pradeep lable Time: 02:30:00 PM Melissa grier, [facility] 16:33:33 Pregnanc y 55788643 Active 2024 Linn grier, [facility] 5 16:32:48 Mixed anxiety and depressi ve disorder 028152999 Active 2024 sertrali ne changed to 100mg Chin Boyce MD [address], [place], [address], [facility] 16:52:38 Rubella non-immu ne 259138496 Active 2024 PP MMR Liz Hardin [facility], [facility] 5 15:19:23 Problem Notes None recorded. Procedures Surgical History Date Name Laterality Status Provider Name and Address Organization Details Recorded Time 07/11/20 23 Date of Last Pap Smear completed Dahlia Arauz [facility] 07/11/2024 11:54:49 11/03/19 23 termination of completed Carina Torres [facility] 11/28/2022 16:45:49 09/17/19 21 extraction of wisdom tooth completed Carina Torres [facility] 11/28/2022 16:45:26 09/17/19 15 procedure on foot completed Carina Torres [facility] 11/28/2022 16:45:14 09/17/19 10 Tonsillectomy completed Carina Torres [facility] 11/28/2022 16:45:37 Imaging Results None recorded. [...] Prescrib ed Elsewher e: No Locat ion: [facility] M odify By: funmilayo martinez DateTime [...] Address Organization Details Last Updated DateTime 06/18/2025 61220.42468 g 104/71 mm[Hg] [facility] 06/18/2025 15:57:10 Date Recorded Body height Body mass index (BMI) Body weight Systolic And Diastolic Provider Name and Address Organization Details Last Updated DateTime 07/03/2025 170.18 cm 34.9 kg/m2 971640.1 g 108/67 mm[Hg] [facility] 07/03/2025 16:32:49 Date Recorded Body weight Systolic And Diastolic Provider Name and Address Organization Details Last Updated DateTime 07/20/2025 743587.58415 g 132/83 mm[Hg] [facility] 07/20/2025 18:05:06 Date Recorded Body weight Systolic And Diastolic Provider Name and Address Organization Details Last Updated DateTime 08/06/2025 332468.5896 g 117/78 mm[Hg] [facility] 08/06/2025 17:42:40 Social History Question Answer Notes LastModified by Organizat ion Details LastModified Time Tobacco Smoking Status Never Smoker Melissa Kirill [facility] 03/16/2021 10:13:21 Do You Have An Advance Directive? No Information n ot available 03/16/2021 How Many Years Have You Consumed Alcohol? 2 Information not available 03/16/2021 Are You Blind Or Do You Have Difficulty Seeing? No [email or web address] Information n ot available 03/16/2021 What Is Your Level Of Caffeine Consumption? Moderate [email or web address] Information not available 03/16/2021 How Much Tobacco [...] COVID-19 While That Person Was Ill? No [email or web address] Information not available 03/16/2021 Have You Been To An Area Known To Be High Risk For COVID-19? No [email or web address] Information not available 03/16/2021 Are You Deaf Or Do You Have Serious Difficulty Hearing? Yes [email or web address] Information not available 03/16/2021 What Type Of Diet Are You Following? REGULAR Information n ot available 03/16/2021 What Is The Highest Grade Or Level Of School You Have Completed Or The Highest Degree You Have Received? EW21039-0 [email or web address] Information not available 03/16/2021 Are There Any Guns Present In Your Home? Yes Information not available 03/16/2021 Do You Use Protection During Sex? No Information not available 01/22/2025 Do You Use Your Seat Belt Or Car Seat Routinely? Yes [email or web address] Information not available 03/16/2021 Do You Have Smoke And Carbon Monoxide Detectors In Your Home? Yes [email or web address] Information not available 03/16/2021 At What Age Did You Start Smoking Tobacco? 21 Information not available 01/22/2025 How Much Tobacco Do You Smoke? No [email or web address] Information not available 03/16/2021 Do You Use Sunscreen Routinely? No [email or web address] Information not available 03/16/2021 How Many Years Have You Smoked Tobacco? 2 Information not available 01/22/2025 Have You Used IV Drugs? No [email or web address] Information not available 03/16/2021 Sex: Unknown Functional Status Question Answer Note LastModified by Organizat ion Details LastModified Time Do you use any illicit or recreational drugs? No [email or web address] Information not available 03/16/2021 What is your level of alcohol consumption? None Information not available 01/22/2025 Are you able to walk independently without assistance or assistive devices? 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 Occasional [email or web address] Information not available 03/16/2021 Mental Status Question Answer Note LastModified by Organization D etails LastModified Time Do you feel stressed (tense, restless, nervous, or anxious, or unable to sleep at night)? [id number] Information not available 01/22/2025 Family History Relationship [...] Code Diagnosis IMO Codes Diagnosis Note [id number] Simona Uribe CNM [place] [address] [address] 02/23/2020 17:41:01 03/10/2020 10:57:26 9120 Simona Uribe CNM [place] [address],[place] [address] 03/09/2020 11:54:11 03/09/2020 12:51:44 Contraception care management 204229592 Z30.9 Pt happy with patch. Cycles regular and light. We did discuss risks of increased BMI with the use of the patch including increased risk of clots and stroke alont with increased risk of unplanned preganncy. Pt verbalized understand ing. [id number] Simona Uribe CNM [place] [address],[place] [address] 03/16/2021 10:03:59 03/16/2021 10:51:05 Contraception care management 984373531 Z30.9 Pt happy with patch. She is trying to get coverage sorted out with insurance. Samples given. Gynecologi c examination 95024648 Z01.419 Take Calcium with Vitamin D 1200mg [...] paper copy of today's plan if desired. [id number] Simona Uribe CNM [place] [address],[facility] [place] [address] 11/28/2022 16:14:33 11/29/2022 18:03:52 Elective termination of 77592984 Z33.2 EAB. UPT still positive. HCG to be drawn. Will await results. Pt will continue ocp. Bleeding precaution s given. Emotional support given. [id number] Chin Boyce MD [place] [address] [address] 11/28/2022 17:11:48 11/28/2022 17:48:57 Retained products of conception following induced termination of 465451665 O04.89 Z3A.01 154335 BRYAN Freed [place] [address] [address] 07/11/2023 17:03:47 07/11/2023 18:05:08 Gynecologic examination 83604572 Z01.419 WWEBC - OCPhappy with this method [...] questions please call or respond to this email.Keliy leon was made aware of the patient portal and may obtain a paper copy of today's plan if desired. Contracept ion care management 336742476 Z30.9 Break-thro ugh bleeding 70865085 N92.1 Tenderness of breast 552 36541 N64.4 Irregular periods 979025 07 N92.6 [id number] Chin Boyce MD [place] [address] [address] 01/22/2025 09:21:03 01/22/2025 09:59:29 Uterine size for dates discrepancy 728358651 O26.841 Z3A.01 1381320 [id number] Chin Boyce MD [place] [address],[place] [address] 01/22/2025 09:21:26 01/22/2025 10:57:42 Amenorrhea 46344615 N91.2 45855 this patient is an 24-year-ol d female [...] ce. More than 50% was counseling . [id number] MD Jacquelyn Sapp [address],[place] [address] 02/25/2025 15:06:33 02/25/2025 16:17:01 screening 497440987 Z36.82 Z3A.12 362958 [id number] MD Jacquelyn Sapp [address],[place] [address] 02/25/2025 15:08:08 02/25/2025 17:02:59 Nausea 472835809 R11.0 48809 Mixed anxi ety and depressive disorder 049607663 F41.9 F32.A 454272 care status 24 9391947 Z34.82 13987461 038496 Chin Boyce MD [place] [address],[place] [address] 03/26/2025 16:54:21 03/26/2025 17:54:15 care status 876753637 Z34.82 45704303 [id number] MD Jacquelyn Sapp [address],[place] [address] 04/23/2025 15:08:03 04/23/2025 17:04:07 Ultrasound scan - obstetric 948403927 Z36.3 Z3A.20 64030 [id number] Chin Boyce MD [place] [address],[place] [address] 04/23/2025 15:08:47 04/23/2025 17:29:12 care status 240776547 Z34.82 55902767 [id number] Chin Boyce MD [place] [address],[place] [address] 05/21/2025 15:25:35 05/21/2025 17:17:01 care status 470988297 Z34.82 54534627 [id number] Chin Boyce MD [place] [address],[place] [address] 06/18/2025 14:04:18 06/18/2025 16:17:06 care status 389218771 Z34.83 88651741 [id number] Audrey Matamoros [facility] [address],[place] [address] 07/03/2025 16:18:57 07/03/2025 16:46:16 Gestation period, 33 weeks 96973870 Z3A.33 4690688 [id number] Chin Boyce MD [place] [address],[place] [address] 07/20/2025 16:53:33 07/21/2025 08:21:13 Uterine size for dates discrepancy 121286598 O26.843 Z3A.33 9148064 [id number] MD Jacquelyn Sapp [address],[place] [address] 07/20/2025 16:54:47 07/21/2025 08:19:34 [id number] MD Jacquelyn Sapp [address],[place] [address] 08/06/2025 17:07:46 08/07/2025 17:42:36 care status 455572239 Z34.83 [id number] Health Concerns Section Related Observation LastModified by Organization Detai ls LastModified Time None Recorded Concern Status LastModified by Organization Details LastModified Time None Recorded Advance Directives Directive N: Payers Insurance Date Sequence Insurance Name Policy Number Policy Meehan Covered Member ID Meehan Member ID Guarantor Name 07/03/2025 PAYMENT PLAN Ev Dunn 07/01/2025 PAYMENT PLAN Ev Dunn 07/03/2023 1 [place] Viktor Dunn [id number] Ev Dunn 07/03/2023 1 [place] [id number] V Viktor Dunn [id number] Ev Dunn 11/09/2023 1 [place] [facility] - DOS PRIOR TO 2025 (MEDICAID REPLACEMENT - HMO) [id number] E Ev Dunn [id number] Ev Dunn 07/11/2024 1 [place] [id number] E Ev Dunn [id number] Ev Dunn 08/05/2025 1 [place] [id number] Ev Dunn [id number] Ev Dunn Notes Date Note Type Note Provider Name and Address Organization Details Recorded Time 06/18/2025 text/html Generic HPI TemplateReported by Patient Chin Boyce MD [address], [place], [address], [facility] 06/18/2025 16:16:23 07/03/2025 text/html Generic HPI TemplateReported by Patient Audrey Matamoros CNM [address], [place], [address], [facility] 07/03/2025 16:45:22 07/20/2025 text/html Generic HPI TemplateReported by Patient Chin Boyce MD [address], [place], [address], [facility] 07/20/2025 18:13:09 08/06/2025 text/html Generic HPI TemplateReported by Patient Chin Boyce MD [address], [place], [address], [facility] 08/07/2025 17:42:34 OBGyn Episode Ob Episode Information Episode Created Date Number of Fetuses Patient Bloodtype Patient rh Status Prepregnancy Weight lbs Domestic Partner Domestic Partner Phone Father Name Bargeman Status 11/29/19 23 1 CLOSED Fetus Data First Name Last Name Admitted to NICU Weight (g) Sex Living Outcome Pediatric Complications Fetus ID Race Codes Race Delivery Type , Induced [id number] Kolton Calculation Initial Kolton Date Initial Exam Date Initial Exam Provider Initial Ultrasound Date Last Menstrual Period Date Ultra Sound Weeks Gestation 0 Eighteen To Twenty Week Kolton Update Ultra Sound Date Fundal Height At Umbil Quickening Date Ultra Sound Latest Weeks Gestation Final Kloton Confirmed By Final Kolton Confirmed Date Final [...] Domestic Partner Domestic Partner Phone Father Name Bargeman Status 02/26/20 25 1 O Positive [address] OPEN Fetus Data First Name Last Name Admitted to NICU Weight (g) Sex Living Outcome Pediatric Complications Fetus ID Race Codes Race Delivery Type [id number] Problems Problem Notes Problem Name Start Date End Date Resolution Snomed Code Not e Mixed anxiety and depressive disorder 02/25/2025 757016765 sertrali ne changed to 100mg Rubella non-immune 03/03/2025 200060105 PP MMR Kolton Calculation Initial Kolton Date [...] Weight in lbs Pre/Post Dialysis Refused Weight 197.660453441551 BP Diastolic BP Location Tested BP Systolic [...] Type Weight in lbs Pre/Post Dialysis Refused 198.144819951312 BP Diastolic BP Location Tested BP Systolic [...] Type Weight in lbs Pre/Post Dialysis Refused 204.337774549187 BP Diastolic BP Location Tested BP Systolic [...] Type Weight in lbs Pre/Post Dialysis Refused 210.309104973815 BP Diastolic BP Location Tested BP Systolic [...] Type Weight in lbs Pre/Post Dialysis Refused 217.275951635715 BP Diastolic BP Location Tested BP Systolic [...] Weight in lbs Pre/Post Dialysis Refused Weight 223.982348229877 BP Diastolic BP Location Tested BP Systolic BP Type 67 L arm 108 sitting Fetus Heart Rate Present A 140 Fetus Movement A Yes Comments dr vidhya gardneri, plan epid ural, circumcision +FM, reviewed kick [...] Type Weight in lbs Pre/Post Dialysis Refused 226.959932001123 BP Diastolic BP Location Tested BP Systolic [...] Type Weight in lbs Pre/Post Dialysis Refused 230.954724390806 BP Diastolic BP Location Tested BP Systolic [...]
--- OUTSIDE RECORDS SUMMARY | 2025-08-07 22:43 | XMS_ITS | Continuity of Care Document ---
Author Organization [facility] Address [address] [place] [address] [place] [address] Care Team Providers Care Preparation Supervisor Canning Name Role Phone HA VELASQUEZ Primary Care Provider [phone] Assessment No assessment recorded. Plan of Treatment [...] US, obstetri c, follow-u p 2024 025 [email or web address] [facility], [address], [place], [address], 07/21/2025 08:21:14 Medication Orders None recorded . Patient TargetsNo targets recorded. Patient InstructionsNo instructions recorded. Reason for Referral None Reported. Results Created Date Observation Date Name Description Value Unit Range Abnormal Flag Note LastModifiedBy Organization Detail LastModifiedTime 03/05/2003/05/2025 [UNIT Y] ANEUP LOIDY NIPT fraction 13.1% normal Not Available [facility] [address], [place], [address], 03/05/2025 13:46:16 03/05/20 25 03/05/2025 [UNIT Y] ANEUP LOIDY NIPT 22Q11.2 microdeletio n LOW RISK <1 in 10,000 normal Not Available [facility] [address], [place], [address], 03/05/2025 13:46:16 03/05/20 25 03/05/2025 [UNIT Y] ANEUP LOIDY NIPT sex chromosome aneuploidy NOT DETECT ED normal Not Available [facility] [address], [place], [address], 03/05/2025 13:46:16 03/05/20 25 03/05/2025 [UNIT Y] ANEUP LOIDY NIPT monosomy X LOW RISK <1 in 10,000 normal Not Available [facility] [address], [place], [address], 03/05/2025 13:46:16 03/05/20 25 03/05/2025 [UNIT Y] ANEUP LOIDY NIPT trisomy 13 LOW RISK <1 in 10,000 normal Not Available [facility] [address], [place], [address], 03/05/2025 13:46:16 03/05/20 25 03/05/2025 [UNIT Y] ANEUP LOIDY NIPT trisomy 18 LOW RISK <1 in 10,000 normal Not Available [facility] [address], [place], [address], 03/05/2025 13:46:16 03/05/20 25 03/05/2025 [UNIT Y] ANEUP LOIDY NIPT trisomy 21 LOW RISK <1 in 10,000 normal Not Available [facility] [address], [place], [address], 03/05/2025 13:46:16 03/05/20 25 03/05/2025 [UNIT Y] ANEUP LOIDY NIPT sex MALE normal Not Available [facility] [address], [place], [address], 03/05/2025 13:46:16 03/05/20 25 03/05/2025 [UNIT Y] ANEUP LOIDY NIPT gestation SINGLE TON normal Not Available [facility] [address], [place], [address], 03/05/2025 13:46:16 03/05/20 25 03/05/2025 [UNIT Y] ANEUP LOIDY NIPT for detailed report, see pdf See PDF normal Not Available [facility] [address], [place], [address], 03/05/2025 13:46:16 03/06/20 25 03/06/2025 [UNIT Y] SHIKHA Cheung sickle cell disease/beta -thalassemia /hemoglobino pathies carrier screen NEGATI VE normal Not Available [facility] [address], [place], [address], 03/06/2025 20:16:21 03/06/20 25 03/06/2025 [UNIT Y] SHIKHA Cheung alpha-thalas semia carrier screen NEGATI VE normal Not Available [facility] [address], [place], [address], 03/06/2025 20:16:21 03/06/20 25 03/06/2025 [UNIT Y] SHIKHA Cheung cystic fibrosis carrier screen NEGATI VE normal Not Available [facility] [address], [place], [address], 03/06/2025 20:16:21 03/06/20 25 03/06/2025 [UNIT Y] SHIKHA Cheung spinal muscular atrophy carrier screen NEGATI VE 2 SMN1 copies , SNP not presen t normal Not Available [facility] [address], [place], [address], 03/06/2025 20:16:21 03/06/20 25 03/06/2025 [UNIT Y] SHIKHA BLANCO Jonatan for detailed report, see pdf See PDF normal Not Available [facility] [address], [place], [address], 03/06/2025 20:16:21 02/26/20 25 02/25/2025 CBC W/DIF F WBC 13.3 10'3/ uL 3.5-10 .5 high Not Available [facility] (Lab) [address], [place], [address], 02/26/2025 10:19:46 02/26/20 25 02/25/2025 CBC W/DIF F RBC 4.33 10'6/ uL (based on docume nted legal sex) 3.80-5 .20 Not Available [facility] (Lab) [address], [place], [address], 02/26/2025 10:19:46 02/26/20 25 02/25/2025 CBC W/DIF F HGB 13.5 g/dL (based on docume nted legal sex) 11.6-1 5.4 Not Available [facility] (Lab) [address], [place], [address], 02/26/2025 10:19:46 02/26/20 25 02/25/2025 CBC W/DIF F HCT 41.0 % (based on docume nted legal sex) 34.0-4 5.0 Not Available [facility] (Lab) [address], [place], [address], 02/26/2025 10:19:46 02/26/20 25 02/25/2025 CBC W/DIF F MCV 94.7 fL 80.0-9 9.0 Not Available [facility] (Lab) [address], [place], [address], 02/26/2025 10:19:46 02/26/20 25 02/25/2025 CBC W/DIF F MCH 31.2 pg 27.0-3 4.0 Not Available [facility] (Lab) [address], [place], [address], 02/26/2025 10:19:46 02/26/20 25 02/25/2025 CBC W/DIF F MCHC 32.9 g/dL 32.0-3 5.5 Not Available [facility] (Lab) [address], [place], [address], 02/26/2025 10:19:46 02/26/20 25 02/25/2025 CBC W/DIF F RDW 13.2 % 11.0-1 5.0 Not Available [facility] (Lab) [address], [place], [address], 02/26/2025 10:19:46 02/26/20 25 02/25/2025 CBC W/DIF F plt 295 10'3/ uL 150-40 0 Not Available [facility] (Lab) [address], [place], [address], 02/26/2025 10:19:46 02/26/20 25 02/25/2025 CBC W/DIF F MPV 11.2 fL 8.8-12 .1 Not Available [facility] (Lab) [address], [place], [address], 02/26/2025 10:19:46 02/26/20 25 02/25/2025 CBC W/DIF F NRBC's 0.0 % 0.0 Not Available [facility] (Lab) [address], [place], [address], 02/26/2025 10:19:46 02/26/20 25 02/25/2025 CBC W/DIF F absolute NRBCs 0.0 10'3/ uL no refere nce range establ ished Not Available [facility] (Lab) [address], [place], [address], 02/26/2025 10:19:46 02/26/20 02/25/2025 CBC W/DIF F neutrophils 68.0 % 34.0-7 3.0 Not Available [facility] (Lab) [address], [place], [address], 02/26/2025 10:19:46 02/26/20 25 02/25/2025 CBC W/DIF F lymphocytes 21.2 % 15.0-5 0.0 Not Available [facility] (Lab) [address], [place], [address], 02/26/2025 10:19:46 02/26/20 25 02/25/2025 CBC W/DIF F monocytes 7.4 % 1.0-15 .0 Not Available [facility] (Lab) [address], [place], [address], 02/26/2025 10:19:46 02/26/20 25 02/25/2025 CBC W/DIF F eosinophils 2.1 % 0.0-8. 0 Not Available [facility] (Lab) [address], [place], [address], 02/26/2025 10:19:46 02/26/2002/25/2025 CBC W/DIF F basophils 0.6 % 0.0-2. 0 Not Available [facility] (Lab) [address] [place], [address], 02/26/2025 10:19:46 02/26/2002/25/2025 CBC W/DIF F immature granulocytes 0.7 % no define d refere nce range Immat ure Granu locyt es (IG) repre sents autom ated enume ratio n of Metam yeloc ytes, Myelo cytes and Promy elocy samina when IG is < 5%. Blast s are not inclu ded in IG and repor dada separ ately if prese nt. Not Available [facility] (Lab) [address] [place], [address], 02/26/2025 10:19:46 02/26/2002/25/2025 CBC W/DIF F absolute neutrophils 9.1 10'3/ uL 1.5-8. 0 high Not Available [facility] (Lab) [address], [place], [address], 02/26/2025 10:19:46 02/26/20 25 02/25/2025 CBC W/DIF F absolute lymphocytes 2.8 10'3/ uL 1.0-4. 0 Not Available [facility] (Lab) [address], [place], [address], 02/26/2025 10:19:46 02/26/20 25 02/25/2025 CBC W/DIF F absolute monocytes 1.0 10'3/ uL 0.2-1. 0 Not Available [facility] (Lab) [address], [place], [address], 02/26/2025 10:19:46 02/26/20 25 02/25/2025 CBC W/DIF F absolute eosinophils 0.3 10'3/ uL 0.0-0. 6 Not Available [facility] (Lab) [address], [place], [address], 02/26/2025 10:19:46 02/26/20 25 02/25/2025 CBC W/DIF F absolute basophils 0.1 10'3/ uL 0.0-0. 3 Not Available [facility] (Lab) [address] [place], [address], 02/26/2025 10:19:46 02/26/20 25 02/25/2025 CBC W/DIF [...] beaulieu book. nm.or g/gen derx Not Available [facility] (Lab) [address], [place], [address], 02/26/2025 10:19:46 02/26/2002/25/2025 HEPAT ITIS C ANTIB WESLEY SCREE N, REFLE X TO CONFI RMATI ON hepatitis C antibody Non-re active non-re active Antib odies to HCV Not Detec dada, does not exclu de the possi bilit y of expos ure to HCV. Not Available [facility] (Lab) [address], [place], [address], 02/26/2025 10:19:46 02/26/2002/25/2025 HIV 1/2 ANTIG EN/AN TIBOD Y, REFLE X CONFI RMATI ON HIV antigen/anti body Nonrea ctive nonrea ctive HIV-1 antig en and HIV-1 /HIV- 2 antib odies were not detec dada. No labor atory evide nce of HIV infec tion. Not Available [facility] (Lab) [address], [place], [address], 02/26/2025 10:19:47 02/26/2002/25/2025 HEPAT ITIS B SURFA CE ANTIG EN hepatitis B surface antigen Non-re active non-re active This assay was perfo rmed using [employer] n reage nts and test kits. Value s obtai tiffany with other assay metho ds or kits canno t be used inter castañeda eably . Not Available [facility] (Lab) [address], [place], [address], 02/26/2025 10:19:47 02/26/2002/25/2025 TYPE/ RH/SC REEN ABO/Rh type O POS Not Available [facility] (Lab) [address], [place], [address], 02/26/2025 10:19:47 02/26/2002/25/2025 TYPE/ RH/SC REEN antibody screen NEG Not Available [facility] (Lab) [address], [place], [address], 02/26/2025 10:19:47 02/26/20 25 02/25/2025 TYPE/ RH/SC REEN exp date 2024 23:59 Not Available [facility] (Lab) [address], [place], [address], 02/26/2025 10:19:47 02/26/20 25 02/25/2025 RUBEL LA IGG ANTIB WESLEY, QUANT rubella antibodies, IgG Non-Re active reacti ve abnormal Not Available [facility] (Lab) [address], [place], [address], 02/26/2025 10:19:48 02/26/20 25 02/25/2025 RUBEL LA IGG ANTIB WESLEY, QUANT rubella antibodies, IgG quant <10.0 IU/mL >=10 low Non-r eacti ve (Non- Immun e) <10 IU/mL React myesha (Immu ne) > or = 10 IU/mL Not Available [facility] (Lab) [address], [place], [address], 02/26/2025 10:19:48 02/26/20 25 02/25/2025 HEMOG LOBIN A1C hemoglobin A1C 5.1 % 4.0-5. 6 The Ameri can Diabe samina Assoc iatio n recom mends that a prima ry goal of thera py dirk d be a HBA1C of < 7% and that physi cians shoul d reeva luate the treat ment regim en in patie nts with HBA1C value s consi stent ly > 8%. <5.7% Tracie l 5.7 - 6.4% Incre ased risk for diabe samina >=6.5 % Diagn ostic of diabe samina <7.0% Goal of thera py >8.0% Actio n sugge sted Not Available [facility] (Lab) [address], [place], [address], 02/26/2025 10:19:48 02/26/20 25 02/25/2025 RPR SCREE N, REFLE X TITER /CONF IRMAT ION RPR qualitative Nonrea ctive nonrea ctive Not Available [facility] (Lab) [address], [place], [address], 02/26/2025 10:19:48 02/26/20 25 02/25/2025 CULTU RE: URINE result report SEE RESULT S BELOW Test: Cultu re: Urine Speci men Sourc e: Urine Voide d Speci men Type: Urine Speci men Date: 2024 1743 Resul t Date: 2024 Resul t Statu s: Final resul t Abnor mal: No Resul ting Lab: [facility] [address] [facility] [address] Tel: CULTU RE ----- ----- ----- --- Cultu re resul t (>=3 organ isms prese nt) indic ates possi ble conta minat ion. Repea t cultu re if sympt oms indic ate. Not Available [facility] (Lab) [address], [place], [address], 02/27/2025 00:29:16 06/18/20 25 06/18/2025 HEMAT OCRIT (HCT) HCT 33.7 % (based on docume nted legal sex) 34.0-4 5.0 low Not Available [facility] (Lab) [address], [place], [address], 06/19/2025 10:20:54 06/18/20 25 06/18/2025 HEMOG LOBIN (HGB) HGB 10.6 g/dL (based on docume nted legal sex) 11.6-1 5.4 low Not Available [facility] (Lab) [address] [place], [address], 06/19/2025 10:20:55 06/18/2011 0706/18/2025 GTT - GESTA GRIFFIN L SCREE N, ACOG OB glucose, 1 hour screen 91 mg/dL 70-135 Not Available [facility] (Lab) [address], [place], [address], 06/19/2025 10:20:55 06/18/20 25 06/18/2025 HIV 1/2 ANTIG EN/AN TIBOD Y, REFLE X CONFI RMATI ON HIV antigen/anti body Nonrea ctive nonrea ctive HIV-1 antig en and HIV-1 /HIV- 2 antib odies were not detec dada. No labor atory evide nce of HIV infec tion. Not Available [facility] (Lab) [address], [place], [address], 06/19/2025 10:20:56 06/18/20 25 06/18/2025 RPR SCREE N, REFLE X TITER /CONF IRMAT ION RPR qualitative Nonrea ctive nonrea ctive Not Available [facility] (Lab) [address], [place], [address], 06/19/2025 10:20:57 02/26/20 25 02/25/2025 US, obste tric, nucha l trans lucen cy No observ ation record ed. [email or web address] [facility] [address], [place], [address], 02/25/2025 18:30:50 02/26/20 25 02/25/2025 US, obste tric, nucha l trans lucen cy No observ ation record ed. [email or web address] Manuela [address], [place], [address], 02/28/2025 22:26:06 04/23/20 25 04/23/2025 US, obste tric, 2nd or 3rd trime ster No observ ation record ed. [email or web address] [address], [place], [address], 04/23/2025 18:34:49 04/23/2004/23/2025 US, obste tric, follo w-up No observ ation record ed. GABRIEL Roy [address], [place], [address], 04/27/2025 11:09:16 06/11/2006/11/2025 non-s tress test No observ ation record ed. [address] [facility], [place], [address], 06/18/2025 09:08:39 06/19/2006/19/2025 non-s tress test No observ ation record ed. [address] [facility], [place], [address], 06/23/2025 12:42:23 06/22/2006/22/2025 US, obste tric, limit ed No observ ation record ed. [address] [facility], [place], [address], 06/23/2025 12:42:00 07/14/2007/13/2025 US, renal No observ ation record ed. [address] [facility], [place], [address], 07/15/2025 15:49:07 07/14/2007/13/2025 US, obste tric, bioph ysica l profi le No observ ation record ed. [address], [place], [address], 07/15/2025 15:49:28 07/20/2007/20/2025 US, obste tric, follo w-up No observ ation record ed. [email or web address] [facility] [address], [place], [address], 07/20/2025 18:49:37 07/20/2007/20/2025 US, obste tric, follo w-up No observ ation record ed. madeleine Manuela [address], [place], [address], 07/21/2025 09:57:43 08/05/20 25 08/05/2025 US, obste tric, follo w-up No observ ation record ed. [email or web address] [address] [facility], [place], [address], 08/06/2025 13:11:50 08/05/20 25 08/05/2025 US, obste tric, trans vagin al No observ ation record ed. [email or web address] [address] [facility], [place], [address], 08/06/2025 14:04:51 08/05/20 25 10/05/2024 non-s tress test No observ ation record ed. [email or web address] [place] [id number] [facility] [address], [place], [address], 08/07/2025 11:33:13 Result Notes None recorded. Problems Name Problem SNOMED Code Status Onset Date Resolution Date Notes Provider Name and Address Organization Details Recorded Time SNOMED CT Concept Completed 201703/15/2021 Encntr for routine child health exam w/o abnormal findings ;Recorde d Elsewher e: No Locat ion: [facility] S ource: EHR Compressor Technician juan: N Practi ce ID: [id number] Pradeep lable Time: 02:15:00 PM Melissa grier [facility] 16:33:[address] Concept Completed 201703/15/2021 Encntr for lead developer exam (general ) (routine ) w/o abn findings ;Practic e ID: [id number] Melissa grier [facility] 16:33:32 Uses combined oral contrace ption [id number] Completed 201803/15/2021 Encounte r for surveill ance of contrace ptive pills;Re corded Elsewher e: No Locat ion: [facility] S ource: EHR Compressor Technician juan: N Sebastianti ce ID: [email or web address] Pradeep lable Time: 09:00:00 AM Melissa grier, [facility] 16:33:29 Procedur e by method Completed 201803/15/2021 Encounte r for other general counseli ng and advice on contrace ption;Re corded Elsewher e: No Locat ion: [facility] S ource: EHR Compressor Technician juan: N Practi ce ID: 0001 Pradeep lable Time: 02:30:00 PM Melissa Roy [facility], [facility] 16:33:33 Pregnanc y [id number] Active 2024 Linn Kruse [facility], [facility] 5 16:32:48 Mixed anxiety and depressi ve disorder 995286264 Active 2024 sertrali ne changed to 100mg Chin Boyce MD [address], [place], [address], [facility] 5 16:52:38 Rubella non-immu ne 323082387 Active 2024 PP MMR Liz Hardin [facility], [facility] 5 15:19:23 Problem Notes None recorded. Procedures Surgical History Date Name Laterality Status Provider Name and Address Organization Details Recorded Time 07/11/20 Date of Last Pap Smear completed Dahlia Arauz [facility] 07/11/2024 11:54:49 11/03/19 23 termination of completed Carina Torres [facility] 11/28/2022 16:45:49 09/17/19 21 extraction of wisdom tooth completed Carina Torres [facility] 11/28/2022 16:45:26 09/17/19 15 procedure on foot completed Carina Torres [facility] 11/28/2022 16:45:14 09/17/19 10 Tonsillectomy completed Carina Brian [facility] 11/28/2022 16:45:37 Imaging Results None recorded. [...] route every day 09/22 completed Prescrib marilin Kenneyher e: No Locat ion: [facility] M odify By: [email or web address] Estrada er DateTime : 09/15/20 03:20:25 PM Not Available [...] Address Organization Details Last Updated DateTime 07/20/2025 085716.04934 g 132/83 mm[Hg] Linn Kruse [facility] 07/20/2025 18:05:06 Social History Question Answer Notes LastModified by Organizat ion Details LastModified Time Tobacco Smoking Status Never Smoker Melissa grier, [facility] 03/16/2021 10:13:21 Do You Have An Advance Directive? No [email or web address] Information n ot available 03/16/2021 How Many Years Have You Consumed Alcohol? 2 [email or web address] Information not available 03/16/2021 Are You Blind Or Do You Have Difficulty Seeing? No [email or web address] Information n ot available 03/16/2021 What Is Your Level Of Caffeine Consumption? Moderate Information not available 03/16/2021 How Much Tobacco Do You Chew? None Information not available 01/22/2025 In The 14 Days Before Symptom Onset, Have You Had Close Contact With A Laboratory-confirm ed COVID-19 While That Case Was Ill? No [email or web address] Information n ot available 03/16/2021 In The 14 Days Before Symptom Onset, Have You Had Close Contact With A Person Who Is Under Investigation For COVID-19 While That Person Was Ill? No [email or web address] Information not available 03/16/2021 Have You Been To An Area Known To Be High Risk For COVID-19? No Information not available 03/16/2021 Are You Deaf Or Do You Have Serious Difficulty Hearing? Yes [email or web address] Information not available 03/16/2021 What Type Of Diet Are You Following? REGULAR Information n ot available 03/16/2021 What Is The Highest Grade Or Level Of School You Have Completed Or The Highest Degree You Have Received? [id number] [email or web address] Information not available 03/16/2021 Are There Any Guns Present In Your Home? Yes [email or web address] Information not available 03/16/2021 Do You Use Protection During Sex? No Information not available 01/22/2025 Do You Use Your Seat Belt Or Car Seat Routinely? Yes Information not available 03/16/2021 Do You Have Smoke And Carbon Monoxide Detectors In Your Home? Yes [email or web address] Information not available 03/16/2021 At What Age Did You Start Smoking Tobacco? 21 Information not available 01/22/2025 How Much Tobacco Do You Smoke? No [email or web address] Information not available 03/16/2021 Do You Use Sunscreen Routinely? No [email or web address] Information not available 03/16/2021 How Many Years Have You Smoked Tobacco? 2 Information not available 01/22/2025 Have You Used IV Drugs? No [email or web address] Information not available 03/16/2021 Sex: Unknown Functional Status Question Answer Note LastModified by Organizat ion Details LastModified Time Do you use any illicit or recreational drugs? No [email or web address] Information not available 03/16/2021 What is your level of alcohol consumption? None Information not available 01/22/2025 Are you able to walk independently without assistance or assistive devices? 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 Occasional [email or web address] Information not available 03/16/2021 Mental Status Question Answer Note LastModified by Organization D etails LastModified Time Do you feel stressed (tense, restless, nervous, or anxious, or unable to sleep at night)? [id number] Information not available 01/22/2025 Family History Relationship [...] ICD10 Code Diagnosis IMO Codes Diagnosis Note [id number] [facility] [address],[place] [address] 07/03/2025 16:18:57 07/03/2025 16:46:16 Gestation period, 33 weeks 18372499 Z3A.33 [id number] Chin Boyce MD [facility] [address],[place] [address] 07/20/2025 16:53:33 07/21/2025 08:21:13 Uterine size for dates discrepancy [id number] O26.843 Z3A.33 [id number] Chin Boyce MD [facility] [address] [address] 07/20/2025 16:54:47 07/21/2025 08:19:34 Health Concerns Section Related Observation LastModified by Organization Detai ls LastModified Time None Recorded Concern Status LastModified by Organization Details LastModified Time None Recorded Payers Encounter Date Sequence Insurance Name Policy Number Policy Meehan Covered Member ID Meehan Member ID Guarantor Name 07/20/2025 1 [employer] [id number] Ev Dunn [id number] Ev Dunn Notes Date Note Type Note Provider Name and Address Organization Details Recorded Time 07/20/2025 text/html Generic HPI TemplateReported by Patient Chin Boyce MD [address], [place], [address], [facility] 07/20/2025 18:13:09 OBGyn Episode Ob Episode Information Episode Created Date Number of Fetuses Patient Bloodtype Patient rh Status Prepregnancy Weight lbs Domestic Partner Domestic Partner Phone Father Name [employer] Bone Roller Status 02/26/20 25 1 O Positive [address] OPEN Fetus Data First Name Last Name Admitted to NICU Weight (g) Sex Living Outcome Pediatric Complications Fetus ID Race Codes Race Delivery Type [id number] Problems Problem Notes Problem Name Start Date End Date Resolution Snomed Code Not e Mixed anxiety and depressive disorder 02/25/2025 [id number] sertrali ne changed to 100mg Rubella non-immune 03/03/2025 935059299 PP MMR [place] Calculation Initial [place] Date [...] Weight in lbs Pre/Post Dialysis Refused Weight 197.950314834999 BP Diastolic BP Location Tested BP Systolic [...] Type Weight in lbs Pre/Post Dialysis Refused 198.558499599733 BP Diastolic BP Location Tested BP Systolic [...] Type Weight in lbs Pre/Post Dialysis Refused 204.427467416233 BP Diastolic BP Location Tested BP Systolic [...] Type Weight in lbs Pre/Post Dialysis Refused [id number] BP Diastolic BP Location Tested BP Systolic [...] Type Weight in lbs Pre/Post Dialysis Refused [id number] BP Diastolic BP Location Tested BP Systolic [...] Weight in lbs Pre/Post Dialysis Refused Weight [id number] BP Diastolic BP Location Tested BP Systolic [...] Type Weight in lbs Pre/Post Dialysis Refused [id number] BP Diastolic BP Location Tested BP Systolic [...] Type Weight in lbs Pre/Post Dialysis Refused [phone] BP Diastolic BP Location Tested BP Systolic [...]
--- OUTSIDE RECORDS SUMMARY | 2025-08-07 22:43 | XMS_ITS | Continuity of Care Document ---
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 Discussed [...] Not Available [facility] [address], [place], [address], 03/05/2025 13:46:16 03/05/20 25 03/05/2025 [UNIT Y] ANEUP LOIDY NIPT 22Q11.2 microdeletio n LOW RISK <1 in 10,000 normal Not Available [facility] [address], [place], [address], 03/05/2025 13:46:16 03/05/20 25 03/05/2025 [UNIT Y] ANEUP LOIDY NIPT sex chromosome aneuploidy NOT DETECT ED normal Not Available [facility] [address], [place], [address], 03/05/2025 13:46:16 03/05/20 25 03/05/2025 [UNIT Y] ANEUP LOIDY NIPT monosomy X LOW RISK <1 in 10,000 normal Not Available [facility] [address], [place], [address], 03/05/2025 13:46:16 03/05/20 25 03/05/2025 [UNIT Y] ANEUP LOIDY NIPT trisomy 13 LOW RISK <1 in 10,000 normal Not Available [facility] [address], [place], [address], 03/05/2025 13:46:16 03/05/20 25 03/05/2025 [UNIT Y] ANEUP LOIDY NIPT trisomy 18 LOW RISK <1 in 10,000 normal Not Available [facility] [address], [place], [address], 03/05/2025 13:46:16 03/05/20 25 03/05/2025 [UNIT Y] ANEUP LOIDY NIPT trisomy 21 LOW RISK <1 in 10,000 normal Not Available [facility] [address], [place], [address], 03/05/2025 13:46:16 03/05/20 25 03/05/2025 [UNIT Y] ANEUP LOIDY NIPT sex MALE normal Not Available [facility] [address], [place], [address], 03/05/2025 13:46:16 03/05/20 25 03/05/2025 [UNIT Y] ANEUP LOIDY NIPT gestation SINGLE TON normal Not Available [facility] [address], [place], [address], 03/05/2025 13:46:16 03/05/20 25 03/05/2025 [UNIT Y] ANEUP LOIDY NIPT for detailed report, see pdf See PDF normal Not Available [facility] [address], [place], [address], 03/05/2025 13:46:16 03/06/20 25 03/06/2025 [UNIT Y] SHIKHA Cheung sickle cell disease/beta -thalassemia /hemoglobino pathies carrier screen NEGATI VE normal Not Available [facility] [address], [place], [address], 03/06/2025 20:16:21 03/06/20 25 03/06/2025 [UNIT Y] SHIKHA Cheung alpha-thalas semia carrier screen NEGATI VE normal Not Available [facility] [address], [place], [address], 03/06/2025 20:16:21 03/06/20 25 03/06/2025 [UNIT Y] SHIKHA Cheung cystic fibrosis carrier screen NEGATI VE normal Not Available [facility] [address], [place], [address], 03/06/2025 20:16:21 03/06/20 25 03/06/2025 [UNIT Y] SHIKHA Cheung spinal muscular atrophy carrier screen NEGATI VE 2 SMN1 copies , SNP not presen t normal Not Available [facility] [address], [place], [address], 03/06/2025 20:16:21 03/06/20 25 03/06/2025 [UNIT Y] SHIKHA Cheung for detailed report, see pdf See PDF normal Not Available [facility] [address], [place], [address], 03/06/2025 20:16:21 02/26/20 25 02/25/2025 CBC W/DIF F WBC 13.3 10'3/ uL 3.5-10 .5 high Not Available [facility] (Lab) [address], [place], [address], 02/26/2025 10:19:46 02/26/20 25 02/25/2025 CBC W/DIF F RBC 4.33 10'6/ uL (based on docume nted legal sex) 3.80-5 .20 Not Available [facility] (Lab) [address], [place], [address], 02/26/2025 10:19:46 02/26/20 25 02/25/2025 CBC W/DIF F HGB 13.5 g/dL (based on docume nted legal sex) 11.6-1 5.4 Not Available [facility] (Lab) [address], [place], [address], 02/26/2025 10:19:46 02/26/20 25 02/25/2025 CBC W/DIF F HCT 41.0 % (based on docume nted legal sex) 34.0-4 5.0 Not Available [facility] (Lab) [address], [place], [address], 02/26/2025 10:19:46 02/26/20 25 02/25/2025 CBC W/DIF F MCV 94.7 fL 80.0-9 9.0 Not Available [facility] (Lab) [address] [place], [address], 02/26/2025 10:19:46 02/26/20 25 02/25/2025 CBC W/DIF F MCH 31.2 pg 27.0-3 4.0 Not Available [facility] (Lab) [address] [place], [address], 02/26/2025 10:19:46 02/26/20 25 02/25/2025 CBC W/DIF F MCHC 32.9 g/dL 32.0-3 5.5 Not Available [facility] (Lab) [address] [facility], [place], [address], 02/26/2025 10:19:46 02/26/20 25 02/25/2025 CBC W/DIF F RDW 13.2 % 11.0-1 5.0 Not Available [facility] (Lab) [address] [facility], [place], [address], 02/26/2025 10:19:46 02/26/20 25 02/25/2025 CBC W/DIF F plt 295 10'3/ uL 150-40 0 Not Available [facility] (Lab) [address] [facility], [place], [address], 02/26/2025 10:19:46 02/26/20 25 02/25/2025 CBC W/DIF F MPV 11.2 fL 8.8-12 .1 Not Available [facility] (Lab) [address] [facility], [place], [address], 02/26/2025 10:19:46 02/26/20 25 02/25/2025 CBC W/DIF F NRBC's 0.0 % 0.0 Not Available [facility] (Lab) [address] [facility], [place], [address], 02/26/2025 10:19:46 02/26/20 25 02/25/2025 CBC W/DIF F absolute NRBCs 0.0 10'3/ uL no refere nce range establ ished Not Available [facility] (Lab) [address] [facility], [place], [address], 02/26/2025 10:19:46 02/26/20 25 02/25/2025 CBC W/DIF F neutrophils 68.0 % 34.0-7 3.0 Not Available [facility] (Lab) [address] [facility], [place], [address], 02/26/2025 10:19:46 02/26/20 25 02/25/2025 CBC W/DIF F lymphocytes 21.2 % 15.0-5 0.0 Not Available [facility] (Lab) [address] [facility], [place], [address], 02/26/2025 10:19:46 02/26/20 25 02/25/2025 CBC W/DIF F monocytes 7.4 % 1.0-15 .0 Not Available [facility] (Lab) [address] [facility], [place], [address], 02/26/2025 10:19:46 02/26/20 25 02/25/2025 CBC W/DIF F eosinophils 2.1 % 0.0-8. 0 Not Available [facility] (Lab) [address] [facility], [place], [address], 02/26/2025 10:19:46 02/26/20 25 02/25/2025 CBC W/DIF F basophils 0.6 % 0.0-2. 0 Not Available [facility] (Lab) [address] [facility], [place], [address], 02/26/2025 10:19:46 02/26/2002/25/2025 CBC W/DIF F immature granulocytes 0.7 % no define d refere nce range Immat ure Granu locyt es (IG) repre sents autom ated enume ratio n of Metam yeloc ytes, Myelo cytes and Promy elocy samina when IG is < 5%. Blast s are not inclu ded in IG and repor dada separ ately if prese nt. Not Available [facility] (Lab) [address] [facility], [place], [address], 02/26/2025 10:19:46 02/26/20 25 02/25/2025 CBC W/DIF F absolute neutrophils 9.1 10'3/ uL 1.5-8. 0 high Not Available [facility] (Lab) [address] [facility], [place], [address], 02/26/2025 10:19:46 02/26/2002/25/2025 CBC W/DIF F absolute lymphocytes 2.8 10'3/ uL 1.0-4. 0 Not Available [facility] (Lab) [address] [facility], [place], [address], 02/26/2025 10:19:46 02/26/2002/25/2025 CBC W/DIF F absolute monocytes 1.0 10'3/ uL 0.2-1. 0 Not Available [facility] (Lab) [address] [facility], [place], [address], 02/26/2025 10:19:46 02/26/2002/25/2025 CBC W/DIF F absolute eosinophils 0.3 10'3/ uL 0.0-0. 6 Not Available [facility] (Lab) [address] [facility], [place], [address], 02/26/2025 10:19:46 02/26/2002/25/2025 CBC W/DIF F absolute basophils 0.1 10'3/ uL 0.0-0. 3 Not Available [facility] (Lab) [address] [place], [address], 02/26/2025 10:19:46 02/26/2002/25/2025 CBC W/DIF F absolute immature granulocytes 0.1 10'3/ uL 0.00-0 .10 Refer ence range s for nonbi nary/ inter sex or unspe cifie d gende r patie nts have not been estab lishe d. Pleas e [facility] for range s estab lishe d for cisge nder patie nts and evalu ate in the clini june craig xt of the indiv idual patie nt: https ://brenda beaulieu book. nm.or g/gen derx Not Available [facility] (Lab) [address] [facility], [place], [address], 02/26/2025 10:19:46 02/26/20 25 02/25/2025 HEPAT ITIS C ANTIB WESLEY SCREE N, REFLE X TO CONFI RMATI ON hepatitis C antibody Non-re active non-re active Antib odies to HCV Not Detec dada, does not exclu de the possi bilit y of expos ure to HCV. Not Available [facility] (Lab) [address] [facility], [place], [address], 02/26/2025 10:19:46 02/26/20 25 02/25/2025 HIV 1/2 ANTIG EN/AN TIBOD Y, REFLE X CONFI RMATI ON HIV antigen/anti body Nonrea ctive nonrea ctive HIV-1 antig en and HIV-1 /HIV- 2 antib odies were not detec dada. No labor atory evide nce of HIV infec tion. Not Available [facility] (Lab) [address] [facility], [place], [address], 02/26/2025 10:19:47 02/26/20 25 02/25/2025 HEPAT ITIS B SURFA CE ANTIG EN hepatitis B surface antigen Non-re active non-re active This assay was perfo rmed using [employer] ratio n reage nts and test kits. Value s obtai tiffany with other assay metho ds or kits canno t be used inter castañeda eably . Not Available [facility] (Lab) [address] [facility], [place], [address], 02/26/2025 10:19:47 02/26/20 25 02/25/2025 TYPE/ RH/SC REEN ABO/Rh type O POS Not Available [facility] (Lab) [address] [facility], [place], [address], 02/26/2025 10:19:47 02/26/20 25 02/25/2025 TYPE/ RH/SC REEN antibody screen NEG Not Available [facility] (Lab) [address] [facility], [place], [address], 02/26/2025 10:19:47 02/26/2002/25/2025 TYPE/ RH/SC REEN exp date 2024 23:59 Not Available [facility] (Lab) [address] [facility], [place], [address], 02/26/2025 10:19:47 02/26/20 25 02/25/2025 RUBEL LA IGG ANTIB WESLEY, QUANT rubella antibodies, IgG Non-Re active reacti ve abnormal Not Available [facility] (Lab) [address] [facility], [place], [address], 02/26/2025 10:19:48 02/26/20 25 02/25/2025 RUBEL LA IGG ANTIB WESLEY, QUANT rubella antibodies, IgG quant <10.0 IU/mL >=10 low Non-r eacti ve (Non- Immun e) <10 IU/mL React myesha (Immu ne) > or = 10 IU/mL Not Available [facility] (Lab) [address] [facility], [place], [address], 02/26/2025 10:19:48 02/26/2002/25/2025 HEMOG LOBIN A1C hemoglobin [...] >8.0% Actio n sugge sted Not Available [facility] (Lab) [address] [facility], [place], [address], 02/26/2025 10:19:48 02/26/20 25 02/25/2025 RPR SCREE N, REFLE X TITER /CONF IRMAT ION RPR qualitative Nonrea ctive nonrea ctive Not Available [facility] (Lab) [address] [facility], [place], [address], 02/26/2025 10:19:48 02/26/20 25 02/25/2025 CULTU RE: URINE result report SEE RESULT S BELOW Test: Cultu re: Urine Speci men Sourc e: Urine Voide d Speci men Type: Urine Speci men Date: 2024 1743 Resul t Date: 2024 2325 Resul t Statu s: Final resul t Abnor mal: No Resul ting Lab: [facility] [address] [facility] [address] Tel: CULTU RE ----- ----- ----- --- Cultu re resul t (>=3 organ isms prese nt) indic ates possi ble conta minat ion. Repea t cultu re if sympt oms indic ate. Not Available [facility] (Lab) [address] [facility], [place], [address], 02/27/2025 00:29:16 06/18/20 25 06/18/2025 HEMAT OCRIT (HCT) HCT 33.7 % (based on docume nted legal sex) 34.0-4 5.0 low Not Available [facility] (Lab) [address] [facility], [place], [address], 06/19/2025 10:20:54 06/18/20 25 06/18/2025 HEMOG LOBIN (HGB) HGB 10.6 g/dL (based on docume nted legal sex) 11.6-1 5.4 low Not Available [facility] (Lab) [address] [facility], [place], [address], 06/19/2025 10:20:55 06/18/20 25 06/18/2025 GTT - GESTA GRIFFIN L SCREE N, ACOG OB glucose, 1 hour screen 91 mg/dL 70-135 Not Available [facility] (Lab) [address] [facility], [place], [address], 06/19/2025 10:20:55 06/18/20 25 06/18/2025 HIV 1/2 ANTIG EN/AN TIBOD Y, REFLE X CONFI RMATI ON HIV antigen/anti body Nonrea ctive nonrea ctive HIV-1 antig en and HIV-1 /HIV- 2 antib odies were not detec dada. No labor atory evide nce of HIV infec tion. Not Available [facility] (Lab) [address] [facility], [place], [address], 06/19/2025 10:20:56 06/18/20 25 06/18/2025 RPR SCREE N, REFLE X TITER /CONF IRMAT ION RPR qualitative Nonrea ctive nonrea ctive Not Available [facility] (Lab) [address] [facility], [place], [address], 06/19/2025 10:20:57 02/26/20 25 02/25/2025 US, obste tric, nucha l trans lucen cy No observ ation record ed. [email or web address] [place] [address], [place], [address], 02/25/2025 18:30:50 02/26/20 25 02/25/2025 US, obste tric, nucha l trans lucen cy No observ ation record ed. [email or web address] [facility] [address], [place], [address], 02/28/2025 22:26:06 04/23/20 25 04/23/2025 US, obste tric, 2nd or 3rd trime ster No observ ation record ed. [email or web address] [address], [place], [address], 04/23/2025 18:34:49 04/23/20 25 04/23/2025 US, obste tric, follo w-up No observ ation record ed. GABRIEL [address], [place], [address], 04/27/2025 11:09:16 06/11/20 25 06/11/2025 non-s tress test No observ ation record ed. [address] [facility], [place], [address], 06/18/2025 09:08:39 06/19/2006/19/2025 non-s tress test No observ ation record ed. [address] [address], [place], [address], 06/23/2025 12:42:23 06/22/20 25 06/22/2025 US, obste tric, limit ed No observ ation record ed. [address] [address], [place], [address], 06/23/2025 12:42:00 07/14/2007/13/2025 US, renal No observ ation record ed. [address] [address], [place], [address], 07/15/2025 15:49:07 07/14/20 25 07/13/2025 US, obste tric, bioph ysica l profi le No observ ation record ed. [address] [address], [place], [address], 07/15/2025 15:49:28 07/20/20 25 07/20/2025 US, obste tric, follo w-up No observ ation record ed. [email or web address] [place] [address], [place], [address], 07/20/2025 18:49:37 07/20/20 25 07/20/2025 US, obste tric, follo w-up No observ ation record ed. [email or web address] [address], [place], [address], 07/21/2025 09:57:43 08/05/20 25 08/05/2025 US, obste tric, follo w-up No observ ation record ed. [id number] [facility] [address], [place], [address], 08/06/2025 13:11:50 08/05/20 25 08/05/2025 US, obste tric, trans vagin al No observ ation record ed. [email or web address] [facility] [address] [facility] [address], [place], [address], 08/06/2025 14:04:51 08/05/20 25 10/05/2024 non-s tress test No observ ation record ed. [email or web address] [address] [facility] [address], [place], [address], 08/07/2025 11:33:13 Result Notes None recorded. Problems Name Problem SNOMED Code Status Onset Date Resolution Date Notes Provider Name and Address Organization Details Recorded Time SNOMED CT Concept Completed 201703/15/2021 Encntr for routine child health exam w/o abnormal findings ;Recorde d Elsewher e: No Locat ion: [facility] ource: EHR Platform Worker juan: N Practi ce ID: [email or web address] Pradeep lable Time: 02:15:00 PM Melissa grier [facility] 16:33:[address] Concept Completed 201703/15/2021 Encntr for patroller exam (general ) (routine ) w/o abn findings ;Practic e ID: [id number] Melissa grier [facility] 16:33:32 Uses combined oral contrace ption [id number] Completed 201803/15/2021 Encounte r for surveill ance of contrace ptive pills;Re corded Elsewher e: No Locat ion: [facility] ource: EHR Platform Worker juan: N Practi ce ID: [email or web address] Pradeep lable Time: 09:00:00 AM Melissa grier, [facility] 16:33:29 Procedur e by method Completed 201803/15/2021 Encounte r for other general counseli ng and advice on contrace ption;Re corded Elsewher e: No Locat ion: [facility] ource: EHR Platform Worker juan: N Practi ce ID: [email or web address] Pradeep lable Time: 02:30:00 PM Melissa grier, [facility] 16:33:33 Pregnanc y 11881871 Active 2024 Linn Kruse [facility], [facility] 5 16:32:48 Mixed anxiety and depressi ve disorder 759483408 Active 2024 sertrali ne changed to 100mg Chin Boyce MD [address], [place], [address], [facility] 5 16:52:38 Rubella non-immu ne 227776942 Active 2024 PP MMR Liz Hardin [facility], [facility] 5 15:19:23 Problem Notes None recorded. Procedures Surgical History Date Name Laterality Status Provider Name and Address Organization Details Recorded Time 07/11/20 23 Date of Last Pap Smear completed Dahlia Arauz [facility] 07/11/2024 11:54:49 11/03/19 23 termination of completed Carina Torres [facility] 11/28/2022 16:45:49 09/17/19 21 extraction of wisdom tooth completed Carina Torres [facility] 11/28/2022 16:45:26 09/17/19 15 procedure on foot completed Carina Torres [facility] 11/28/2022 16:45:14 09/17/19 10 Tonsillectomy completed Carina Torres [facility] 11/28/2022 16:45:37 Imaging Results None recorded. [...] Prescrib ed Pablitoher e: No Locat ion: [facility] odify By: [email or web address] martinez DateTime : [...] Address Organization Details Last Updated DateTime 08/06/2025 875892.4936 g 117/78 mm[Hg] Linn Kruse [facility] 08/06/2025 17:42:40 Social History Question Answer Notes LastModified by Organizat ion Details LastModified Time Tobacco Smoking Status Never Smoker Melissabrigette grier, [facility] 03/16/2021 10:13:21 Do You Have An Advance Directive? No Information n ot available 03/16/2021 How Many Years Have You Consumed Alcohol? 2 Information not available 03/16/2021 Are You Blind Or Do You Have Difficulty Seeing? No [email or web address] Information n ot available 03/16/2021 What Is Your Level Of Caffeine Consumption? Moderate [email or web address] Information not available 03/16/2021 How Much Tobacco Do You Chew? None Information not available 01/22/2025 In The 14 Days Before Symptom Onset, Have You Had Close Contact With A Laboratory-confirm ed COVID-19 While That Case Was Ill? No [email or web address] Information n ot available 03/16/2021 In The 14 Days Before Symptom Onset, Have You Had Close Contact With A Person Who Is Under Investigation For COVID-19 While That Person Was Ill? No [email or web address] Information not available 03/16/2021 Have You Been To An Area Known To Be High Risk For COVID-19? No [email or web address] Information not available 03/16/2021 Are You Deaf Or Do You Have Serious Difficulty Hearing? Yes [email or web address] Information not available 03/16/2021 What Type Of Diet Are You Following? REGULAR [email or web address] Information n ot available 03/16/2021 What Is The Highest Grade Or Level Of School You Have Completed Or The Highest Degree You Have Received? [id number] Information not available 03/16/2021 Are There Any Guns Present In Your Home? Yes [email or web address] Information not available 03/16/2021 Do You Use Protection During Sex? No Information not available 01/22/2025 Do You Use Your Seat Belt Or Car Seat Routinely? Yes [email or web address] Information not available 03/16/2021 Do You Have Smoke And Carbon Monoxide Detectors In Your Home? Yes Information not available 03/16/2021 At What Age Did You Start Smoking Tobacco? 21 Information not available 01/22/2025 How Much Tobacco Do You Smoke? No [email or web address] Information not available 03/16/2021 Do You Use Sunscreen Routinely? No [email or web address] Information not available 03/16/2021 How Many Years Have You Smoked Tobacco? 2 Information not available 01/22/2025 Have You Used IV Drugs? No [email or web address] Information not available 03/16/2021 Sex: Unknown Functional Status Question Answer Note LastModified by Organizat ion Details LastModified Time Do you use any illicit or recreational drugs? No [email or web address] Information not available 03/16/2021 What is your level of alcohol consumption? None Information not available 01/22/2025 Are you able to walk independently without assistance or assistive devices? 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 Occasional [email or web address] Information not available 03/16/2021 Mental Status Question Answer Note LastModified by Organization D etails LastModified Time Do you feel stressed (tense, restless, nervous, or anxious, or unable to sleep at night)? [id number] Information not available 01/22/2025 Family History Relationship [...] N Breast Cancer N Blood Transfusion N Dermatologic Disorders N [...] ICD10 Code Diagnosis IMO Codes Diagnosis Note [id number] Chin Boyce MD [place] [address] [address] 07/20/2025 16:53:33 07/21/2025 08:21:13 Uterine size for dates discrepancy [id number] O26.843 Z3A.33 [id number] Chin Boyce MD [place] [address],[place] [address] 07/20/2025 16:54:47 07/21/2025 08:19:34 [id number] Chin Boyce MD [place] [address],[place] [address] 08/06/2025 17:07:46 08/07/2025 17:42:36 care status [id number] Z34.83 [id number] Health Concerns Section Related Observation LastModified by Organization Detai ls LastModified Time None Recorded Concern Status LastModified by Organization Details LastModified Time None Recorded Payers Encounter Date Sequence Insurance Name Policy Number Policy Meehan Covered Member ID Meehan Member ID Guarantor Name 08/06/2025 1 [employer] [id number] Ev Dunn [id number] Ev Dunn Notes Date Note Type Note Provider Name and Address Organization Details Recorded Time 08/06/2025 text/html Generic HPI TemplateReported by Patient Chin Boyce MD [address], [place], [address], [facility] 08/07/2025 17:42:34 OBGyn Episode Ob Episode Information Episode Created Date Number of Fetuses Patient Bloodtype Patient rh Status Prepregnancy Weight lbs Domestic Partner Domestic Partner Phone Father Name Paleology Teacher Status 02/26/20 25 1 O Positive [address] OPEN Fetus Data First Name Last Name Admitted to NICU Weight (g) Sex Living Outcome Pediatric Complications Fetus ID Race Codes Race Delivery Type [id number] Problems Problem Notes Problem Name Start Date End Date Resolution Snomed Code Not e Mixed anxiety and depressive disorder 02/25/2025 [id number] sertrali ne changed to 100mg Rubella non-immune 03/03/2025 [id number] PP MMR [place] Calculation Initial [place] Date [...] Weight in lbs Pre/Post Dialysis Refused Weight 197.693287982386 BP Diastolic BP Location Tested BP Systolic [...] Type Weight in lbs Pre/Post Dialysis Refused 198.692168480619 BP Diastolic BP Location Tested BP Systolic [...] Type Weight in lbs Pre/Post Dialysis Refused 204.439832880267 BP Diastolic BP Location Tested BP Systolic [...] Type Weight in lbs Pre/Post Dialysis Refused 210.602917213586 BP Diastolic BP Location Tested BP Systolic [...] Type Weight in lbs Pre/Post Dialysis Refused [id number] BP Diastolic BP Location Tested BP Systolic [...] Weight in lbs Pre/Post Dialysis Refused Weight 223.562550999117 BP Diastolic BP Location Tested BP Systolic [...] Type Weight in lbs Pre/Post Dialysis Refused 226.030128950121 BP Diastolic BP Location Tested BP Systolic [...] Type Weight in lbs Pre/Post Dialysis Refused 230.683144280640 BP Diastolic BP Location Tested BP Systolic [...]
--- OUTSIDE RECORDS SUMMARY | 2025-08-07 22:43 | XMS_ITS | Clinical Summary ---
Author Organization [employer] [facility] Address [address] [place] [address] Care Team Providers Care Supply Service Worker Name Role Phone Krista Cheney MD Primary Care Provider Source Comments [facility],non-owned Affiliates and Associated Physician Practices is amultiple site organization consisting of ambulatory clinics and hospital sitesin [place], [place], [place] and [place]. This disclosure is being madepursuant to the Care Everywhere program and may not contain all information available regarding this patient. Last updated 18.[facility] Allergies No known active allergies Medications * [...] on file Legal Sex Female 6:56 AM CAGE OPERATOR Gender Identity Not on file Sexual Orientation Not on file Last Filed Vital Signs Vital Sign Reading Time Taken Comments Blood Pressure 98/60 11/04/2015 8:24 AM CAGE OPERATOR Pulse 68 11/04/2015 8:24 AM CAGE OPERATOR Temperature 36.2 C (97.2 F) 11/04/2015 8:24 AM CAGE OPERATOR Respiratory Rate 18 11/04/2015 8:24 AM CAGE OPERATOR Oxygen Saturation 97% 10/22/2015 9:00 AM CAGE OPERATOR Inhaled Oxygen Concentration 100% 10/22/2015 8 :15 AM CAGE OPERATOR Weight 72.3 kg (159 lb 6.3 oz) 11/04/2015 8:24 A M CAGE OPERATOR Height 163.7 cm (5' 4.45) 11/04/2015 8:24 AM CS T Body Mass Index 26.98 11/04/2015 8:24 AM CAGE OPERATOR Plan of Treatment Health Maintenance Due Date [...] this topic Medical Devices Explanted Type Area Biller Device Identifier Shelf Expiration Date Model / Serial / Lot Scrw Trip Canc 4.0mm X 40mm Implanted:Qty : 1 on 03/02/2015 by Nancy Lloyd MD at [facility] Explanted:Qty : 1 on 10/22/2015 by Nancy Lloyd MD at [facility] Left: Ankle [employer] [id number] / / Kwire W/Trcr Pt 1.25mm X 150mm Explanted:Qty : 1 on 10/22/2015 by Nancy Lloyd MD at [facility] Left: Ankle [employer] [id number] / / Insurance ANTHEM * Guarantor: PRIYANKA MCKEON Account Type Relation to Patient Date of Phone Billing Address Personal/Family [address] [place] [address] Care Teams Supply Service Worker Relationship Specialty Start Date End Date Krista Cheney MD [address] [place] [id number] PCP - General 01/16/22
--- OUTSIDE RECORDS SUMMARY | 2025-08-07 22:43 | XMS_ITS | Clinical Summary ---
Author Organization [facility] [employer] [place] Address [address] [place] [id number] Care Team Providers Care Soft Top Installer Name Role Phone Unavailable Primary Care Provider [...]
--- OUTSIDE RECORDS SUMMARY | 2025-08-07 22:43 | XMS_ITS | Continuity of Care Document ---
Author Organization [facility] [place] Address [address] [place] [address] Care Team Providers Care Ware Server Name Role Phone HA VELASQUEZ Primary Care [...] Not Available [facility] [address], [place], [address], 03/05/2025 13:46:16 03/05/20 25 03/05/2025 [UNIT Y] ANEUP LOIDY NIPT 22Q11.2 microdeletio n LOW RISK <1 in 10,000 normal Not Available [facility] [address], [place], [address], 03/05/2025 13:46:16 03/05/20 25 03/05/2025 [UNIT Y] ANEUP LOIDY NIPT sex chromosome aneuploidy NOT DETECT ED normal Not Available [facility] [address], [place], [address], 03/05/2025 13:46:16 03/05/20 25 03/05/2025 [UNIT Y] ANEUP LOIDY NIPT monosomy X LOW RISK <1 in 10,000 normal Not Available [facility] [address], [place], [address], 03/05/2025 13:46:16 03/05/20 25 03/05/2025 [UNIT Y] ANEUP LOIDY NIPT trisomy 13 LOW RISK <1 in 10,000 normal Not Available [facility] [address], [place], [address], 03/05/2025 13:46:16 03/05/20 25 03/05/2025 [UNIT Y] ANEUP LOIDY NIPT trisomy 18 LOW RISK <1 in 10,000 normal Not Available [facility] [address], [place], [address], 03/05/2025 13:46:16 03/05/20 25 03/05/2025 [UNIT Y] ANEUP LOIDY NIPT trisomy 21 LOW RISK <1 in 10,000 normal Not Available [facility] [address], [place], [address], 03/05/2025 13:46:16 03/05/20 25 03/05/2025 [UNIT Y] ANEUP LOIDY NIPT sex MALE normal Not Available [facility] [address], [place], [address], 03/05/2025 13:46:16 03/05/20 25 03/05/2025 [UNIT Y] ANEUP LOIDY NIPT gestation SINGLE TON normal Not Available [facility] [address], [place], [address], 03/05/2025 13:46:16 03/05/20 25 03/05/2025 [UNIT Y] ANEUP LOIDY NIPT for detailed report, see pdf See PDF normal Not Available [facility] [address], [place], [address], 03/05/2025 13:46:16 03/06/20 25 03/06/2025 [UNIT Y] SHIKHA Cheung sickle cell disease/beta -thalassemia /hemoglobino pathies carrier screen NEGATI VE normal Not Available [facility] [address], [place], [address], 03/06/2025 20:16:21 03/06/20 25 03/06/2025 [UNIT Y] SHIKHA Cheung alpha-thalas semia carrier screen NEGATI VE normal Not Available [facility] [address], [place], [address], 03/06/2025 20:16:21 03/06/20 25 03/06/2025 [UNIT Y] SHIKHA Cheung cystic fibrosis carrier screen NEGATI VE normal Not Available [facility] [address], [place], [address], 03/06/2025 20:16:21 03/06/20 25 03/06/2025 [UNIT Y] SHIKHA Cheung spinal muscular atrophy carrier screen NEGATI VE 2 SMN1 copies , SNP not presen t normal Not Available [facility] [address], [place], [address], 03/06/2025 20:16:21 03/06/20 25 03/06/2025 [UNIT Y] SHIKHA Cheung for detailed report, see pdf See PDF normal Not Available [facility] [address], [place], [address], 03/06/2025 20:16:21 02/26/20 25 02/25/2025 CBC W/DIF F WBC 13.3 10'3/ uL 3.5-10 .5 high Not Available [facility] (Lab) [address], [place], [address], 02/26/2025 10:19:46 02/26/20 25 02/25/2025 CBC W/DIF F RBC 4.33 10'6/ uL (based on docume nted legal sex) 3.80-5 .20 Not Available [facility] (Lab) [address], [place], [address], 02/26/2025 10:19:46 02/26/20 25 02/25/2025 CBC W/DIF F HGB 13.5 g/dL (based on docume nted legal sex) 11.6-1 5.4 Not Available [facility] (Lab) [address], [place], [address], 02/26/2025 10:19:46 02/26/20 25 02/25/2025 CBC W/DIF F HCT 41.0 % (based on docume nted legal sex) 34.0-4 5.0 Not Available [facility] (Lab) [address], [place], [address], 02/26/2025 10:19:46 02/26/20 25 02/25/2025 CBC W/DIF F MCV 94.7 fL 80.0-9 9.0 Not Available [facility] (Lab) [address] [place], [address], 02/26/2025 10:19:46 02/26/20 25 02/25/2025 CBC W/DIF F MCH 31.2 pg 27.0-3 4.0 Not Available [facility] (Lab) [address] [place], [address], 02/26/2025 10:19:46 02/26/20 25 02/25/2025 CBC W/DIF F MCHC 32.9 g/dL 32.0-3 5.5 Not Available [facility] (Lab) [address] [facility], [place], [address], 02/26/2025 10:19:46 02/26/20 25 02/25/2025 CBC W/DIF F RDW 13.2 % 11.0-1 5.0 Not Available [facility] (Lab) [address] [facility], [place], [address], 02/26/2025 10:19:46 02/26/20 25 02/25/2025 CBC W/DIF F plt 295 10'3/ uL 150-40 0 Not Available [facility] (Lab) [address] [facility], [place], [address], 02/26/2025 10:19:46 02/26/20 25 02/25/2025 CBC W/DIF F MPV 11.2 fL 8.8-12 .1 Not Available [facility] (Lab) [address] [facility], [place], [address], 02/26/2025 10:19:46 02/26/20 25 02/25/2025 CBC W/DIF F NRBC's 0.0 % 0.0 Not Available [facility] (Lab) [address] [facility], [place], [address], 02/26/2025 10:19:46 02/26/20 25 02/25/2025 CBC W/DIF F absolute NRBCs 0.0 10'3/ uL no refere nce range establ ished Not Available [facility] (Lab) [address] [facility], [place], [address], 02/26/2025 10:19:46 02/26/20 25 02/25/2025 CBC W/DIF F neutrophils 68.0 % 34.0-7 3.0 Not Available [facility] (Lab) [address] [facility], [place], [address], 02/26/2025 10:19:46 02/26/20 25 02/25/2025 CBC W/DIF F lymphocytes 21.2 % 15.0-5 0.0 Not Available [facility] (Lab) [address] [facility], [place], [address], 02/26/2025 10:19:46 02/26/20 25 02/25/2025 CBC W/DIF F monocytes 7.4 % 1.0-15 .0 Not Available [facility] (Lab) [address] [facility], [place], [address], 02/26/2025 10:19:46 02/26/20 25 02/25/2025 CBC W/DIF F eosinophils 2.1 % 0.0-8. 0 Not Available [facility] (Lab) [address] [facility], [place], [address], 02/26/2025 10:19:46 02/26/20 25 02/25/2025 CBC W/DIF F basophils 0.6 % 0.0-2. 0 Not Available [facility] (Lab) [address] [facility], [place], [address], 02/26/2025 10:19:46 02/26/2002/25/2025 CBC W/DIF F immature granulocytes 0.7 % no define d refere nce range Immat ure Granu locyt es (IG) repre sents autom ated enume ratio n of Metam yeloc ytes, Myelo cytes and Promy elocy samina when IG is < 5%. Blast s are not inclu ded in IG and repor dada separ ately if prese nt. Not Available [facility] (Lab) [address] [facility], [place], [address], 02/26/2025 10:19:46 02/26/20 25 02/25/2025 CBC W/DIF F absolute neutrophils 9.1 10'3/ uL 1.5-8. 0 high Not Available [facility] (Lab) [address] [facility], [place], [address], 02/26/2025 10:19:46 02/26/2002/25/2025 CBC W/DIF F absolute lymphocytes 2.8 10'3/ uL 1.0-4. 0 Not Available [facility] (Lab) [address] [facility], [place], [address], 02/26/2025 10:19:46 02/26/2002/25/2025 CBC W/DIF F absolute monocytes 1.0 10'3/ uL 0.2-1. 0 Not Available [facility] (Lab) [address] [facility], [place], [address], 02/26/2025 10:19:46 02/26/2002/25/2025 CBC W/DIF F absolute eosinophils 0.3 10'3/ uL 0.0-0. 6 Not Available [facility] (Lab) [address] [facility], [place], [address], 02/26/2025 10:19:46 02/26/2002/25/2025 CBC W/DIF F absolute basophils 0.1 10'3/ uL 0.0-0. 3 Not Available [facility] (Lab) [address] [place], [address], 02/26/2025 10:19:46 02/26/2002/25/2025 CBC W/DIF F absolute immature granulocytes 0.1 10'3/ uL 0.00-0 .10 Refer ence range s for nonbi nary/ inter sex or unspe cifie d gende r patie nts have not been estab lishe d. Pleas e refer [facility] for range s estab lishe d for cisge nder patie nts and evalu ate in the clini june craig xt of the indiv idual patie nt: https ://brenda beaulieu book. nm.or g/gen derx Not Available [facility] (Lab) [address] [facility], [place], [address], 02/26/2025 10:19:46 02/26/20 25 02/25/2025 HEPAT ITIS C ANTIB WESLEY SCREE N, REFLE X TO CONFI RMATI ON hepatitis C antibody Non-re active non-re active Antib odies to HCV Not Detec dada, does not exclu de the possi bilit y of expos ure to HCV. Not Available [facility] (Lab) [address] [facility], [place], [address], 02/26/2025 10:19:46 02/26/20 25 02/25/2025 HIV 1/2 ANTIG EN/AN TIBOD Y, REFLE X CONFI RMATI ON HIV antigen/anti body Nonrea ctive nonrea ctive HIV-1 antig en and HIV-1 /HIV- 2 antib odies were not detec dada. No labor atory evide nce of HIV infec tion. Not Available [facility] (Lab) [address] [facility], [place], [address], 02/26/2025 10:19:47 02/26/20 25 02/25/2025 HEPAT ITIS B SURFA CE ANTIG EN hepatitis B surface antigen Non-re active non-re active This assay was perfo rmed using [employer] ratio n reage nts and test kits. Value s obtai tiffany with other assay metho ds or kits canno t be used inter castañeda eably . Not Available [facility] (Lab) [address] [facility], [place], [address], 02/26/2025 10:19:47 02/26/20 25 02/25/2025 TYPE/ RH/SC REEN ABO/Rh type O POS Not Available [facility] (Lab) [address] [facility], [place], [address], 02/26/2025 10:19:47 02/26/20 25 02/25/2025 TYPE/ RH/SC REEN antibody screen NEG Not Available [facility] (Lab) [address] [facility], [place], [address], 02/26/2025 10:19:47 02/26/2002/25/2025 TYPE/ RH/SC REEN exp date 2024 23:59 Not Available [facility] (Lab) [address] [facility], [place], [address], 02/26/2025 10:19:47 02/26/20 25 02/25/2025 RUBEL LA IGG ANTIB WESLEY, QUANT rubella antibodies, IgG Non-Re active reacti ve abnormal Not Available [facility] (Lab) [address] [facility], [place], [address], 02/26/2025 10:19:48 02/26/20 25 02/25/2025 RUBEL LA IGG ANTIB WESLEY, QUANT rubella antibodies, IgG quant <10.0 IU/mL >=10 low Non-r eacti ve (Non- Immun e) <10 IU/mL React myesha (Immu ne) > or = 10 IU/mL Not Available [facility] (Lab) [address] [facility], [place], [address], 02/26/2025 10:19:48 02/26/2002/25/2025 HEMOG LOBIN A1C hemoglobin [...] >8.0% Actio n sugge sted Not Available [facility] (Lab) [address] [facility], [place], [address], 02/26/2025 10:19:48 02/26/20 25 02/25/2025 RPR SCREE N, REFLE X TITER /CONF IRMAT ION RPR qualitative Nonrea ctive nonrea ctive Not Available [facility] (Lab) [address] [facility], [place], [address], 02/26/2025 10:19:48 02/26/20 25 02/25/2025 CULTU RE: URINE result report SEE RESULT S BELOW Test: Cultu re: Urine Speci men Sourc e: Urine Voide d Speci men Type: Urine Speci men Date: 2024 1743 Resul t Date: 2024 2325 Resul t Statu s: Final resul t Abnor mal: No Resul ting Lab: [facility] [address] [facility] [address] Tel: CULTU RE ----- ----- ----- --- Cultu re resul t (>=3 organ isms prese nt) indic ates possi ble conta minat ion. Repea t cultu re if sympt oms indic ate. Not Available [facility] (Lab) [address] [facility], [place], [address], 02/27/2025 00:29:16 06/18/20 25 06/18/2025 HEMAT OCRIT (HCT) HCT 33.7 % (based on docume nted legal sex) 34.0-4 5.0 low Not Available [facility] (Lab) [address] [facility], [place], [address], 06/19/2025 10:20:54 06/18/20 25 06/18/2025 HEMOG LOBIN (HGB) HGB 10.6 g/dL (based on docume nted legal sex) 11.6-1 5.4 low Not Available [facility] (Lab) [address] [facility], [place], [address], 06/19/2025 10:20:55 06/18/20 25 06/18/2025 GTT - GESTA GRIFFIN L SCREE N, ACOG OB glucose, 1 hour screen 91 mg/dL 70-135 Not Available [facility] (Lab) [address] [facility], [place], [address], 06/19/2025 10:20:55 06/18/20 25 06/18/2025 HIV 1/2 ANTIG EN/AN TIBOD Y, REFLE X CONFI RMATI ON HIV antigen/anti body Nonrea ctive nonrea ctive HIV-1 antig en and HIV-1 /HIV- 2 antib odies were not detec dada. No labor atory evide nce of HIV infec tion. Not Available [facility] (Lab) [address] [facility], [place], [address], 06/19/2025 10:20:56 06/18/20 25 06/18/2025 RPR SCREE N, REFLE X TITER /CONF IRMAT ION RPR qualitative Nonrea ctive nonrea ctive Not Available [facility] (Lab) [address] [facility], [place], [address], 06/19/2025 10:20:57 02/26/20 25 02/25/2025 US, obste tric, nucha l trans lucen cy No observ ation record ed. [email or web address] [place] [address], [place], [address], 02/25/2025 18:30:50 02/26/20 25 02/25/2025 US, obste tric, nucha l trans lucen cy No observ ation record ed. [email or web address] [address], [place], [address], 02/28/2025 22:26:06 04/23/20 25 04/23/2025 US, obste tric, 2nd or 3rd trime ster No observ ation record ed. [facility] [address], [place], [address], 04/23/2025 18:34:49 04/23/20 25 04/23/2025 US, obste tric, follo w-up No observ ation record ed. GABRIEL [address], [place], [address], 04/27/2025 11:09:16 06/11/20 25 06/11/2025 non-s tress test No observ ation record ed. [address] [facility], [place], [address], 06/18/2025 09:08:39 06/19/2006/19/2025 non-s tress test No observ ation record ed. [address] [address], [place], [address], 06/23/2025 12:42:23 06/22/20 25 06/22/2025 US, obste tric, limit ed No observ ation record ed. [address] [address], [place], [address], 06/23/2025 12:42:00 07/14/2007/13/2025 US, renal No observ ation record ed. [address] [address], [place], [address], 07/15/2025 15:49:07 07/14/20 25 07/13/2025 US, obste tric, bioph ysica l profi le No observ ation record ed. [address] [address], [place], [address], 07/15/2025 15:49:28 07/20/20 25 07/20/2025 US, obste tric, follo w-up No observ ation record ed. [email or web address] [place] [address], [place], [address], 07/20/2025 18:49:37 07/20/20 25 07/20/2025 US, obste tric, follo w-up No observ ation record ed. [email or web address] [address], [place], [address], 07/21/2025 09:57:43 08/05/20 25 08/05/2025 US, obste tric, follo w-up No observ ation record ed. [email or web address] [id number] [facility] [address], [place], [address], 08/06/2025 13:11:50 08/05/20 25 08/05/2025 US, obste tric, trans vagin al No observ ation record ed. [email or web address] [facility] [address] [facility] [address], [place], [address], 08/06/2025 14:04:51 08/05/20 25 10/05/2024 non-s tress test No observ ation record ed. [id number] [facility] [address], [place], [address], 08/07/2025 11:33:13 Result Notes None recorded. Problems Name Problem SNOMED Code Status Onset Date Resolution Date Notes Provider Name and Address Organization Details Recorded Time SNOMED CT Concept Completed 201703/15/2021 Encntr for routine child health exam w/o abnormal findings ;Recorde d Elsewher e: No Locat ion: [facility] S ource: EHR Abrasive Wheel Molder juan: N Practi ce ID: 0001 Pradeep lable Time: 02:15:00 PM Melissa grier [facility] 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 16:33:32 Uses combined oral contrace ption [id number] Completed 201803/15/2021 Encounte r for surveill ance of contrace ptive pills;Re corded Elsewher e: No Locat ion: [facility] S ource: EHR Abrasive Wheel Molder juan: N Practi ce ID: 0001 Pradeep lable Time: 09:00:00 AM Melissa grier, [facility] 16:33:29 Procedur e by method Completed 201803/15/2021 Encounte r for other general counseli ng and advice on contrace ption;Re corded Elsewher e: No Locat ion: [facility] S ource: EHR Abrasive Wheel Molder juan: N Practi ce ID: 0001 Pradeep lable Time: 02:30:00 PM Melissa grier, [facility] 16:33:33 Pregnanc y 48717084 Active 2024 Linn Kruse [facility], [facility] 5 16:32:48 Mixed anxiety and depressi ve disorder 464901000 Active 2024 sertrali ne changed to 100mg Chin Boyce MD [address], [place], [address], [facility] 5 16:52:38 Rubella non-immu ne 961237964 Active 2024 PP MMR Liz Hardin [facility], [facility] 5 15:19:23 Problem Notes None recorded. Procedures Surgical History Date Name Laterality Status Provider Name and Address Organization Details Recorded Time 07/11/20 23 Date of Last Pap Smear completed Dahlia Arauz [facility] 07/11/2024 11:54:49 11/03/19 23 termination of completed Carina Torres [facility] 11/28/2022 16:45:49 09/17/19 21 extraction of wisdom tooth completed Carina Torres [facility] 11/28/2022 16:45:26 09/17/19 15 procedure on foot completed Carina Torres [facility] 11/28/2022 16:45:14 09/17/19 10 Tonsillectomy completed Carina Torres [facility] 11/28/2022 16:45:37 Imaging Results None [...] Prescrib ed Pablitoher e: No Locat ion: [facility] M odify By: [email or web address] martinez DateTime : [...] Address Organization Details Last Updated DateTime 06/18/2025 40993.35056 g 104/71 mm[Hg] Linn Kruse [facility] 06/18/2025 15:57:10 Social History Question Answer Notes LastModified by Organizat ion Details LastModified Time Tobacco Smoking Status Never Smoker Melissa grier, [facility] 03/16/2021 10:13:21 Do You Have An Advance Directive? No [email or web address] Information n ot available 03/16/2021 How Many Years Have You Consumed Alcohol? 2 [email or web address] Information not available 03/16/2021 Are You Blind Or Do You Have Difficulty Seeing? No [email or web address] Information n ot available 03/16/2021 What Is Your Level Of Caffeine Consumption? Moderate Information not available 03/16/2021 How Much Tobacco Do You Chew? None Information not available 01/22/2025 In The 14 Days Before Symptom Onset, Have You Had Close Contact With A Laboratory-confirm ed COVID-19 While That Case Was Ill? No [email or web address] Information n ot available 03/16/2021 In The 14 Days Before Symptom Onset, Have You Had Close Contact With A Person Who Is Under Investigation For COVID-19 While That Person Was Ill? No [email or web address] Information not available 03/16/2021 Have You Been To An Area Known To Be High Risk For COVID-19? No [email or web address] Information not available 03/16/2021 Are You Deaf Or Do You Have Serious Difficulty Hearing? Yes [email or web address] Information not available 03/16/2021 What Type Of Diet Are You Following? REGULAR [email or web address] Information n ot available 03/16/2021 What Is The Highest Grade Or Level Of School You Have Completed Or The Highest Degree You Have Received? [id number] Information not available 03/16/2021 Are There Any Guns Present In Your Home? Yes [email or web address] Information not available 03/16/2021 Do You Use Protection During Sex? No Information not available 01/22/2025 Do You Use Your Seat Belt Or Car Seat Routinely? Yes [email or web address] Information not available 03/16/2021 Do You Have Smoke And Carbon Monoxide Detectors In Your Home? Yes [email or web address] Information not available 03/16/2021 At What Age Did You Start Smoking Tobacco? 21 Information not available 01/22/2025 How Much Tobacco Do You Smoke? No [email or web address] Information not available 03/16/2021 Do You Use Sunscreen Routinely? No Information not available 03/16/2021 How Many Years Have You Smoked Tobacco? 2 Information not available 01/22/2025 Have You Used IV Drugs? No [email or web address] Information not available 03/16/2021 Sex: Unknown Functional Status Question Answer Note LastModified by Organizat ion Details LastModified Time Do you use any illicit or recreational drugs? No [email or web address] Information not available 03/16/2021 What is your level of alcohol consumption? None Information not available 01/22/2025 Are you able to walk independently without assistance or assistive devices? 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 Occasional [email or web address] Information not available 03/16/2021 Mental Status Question Answer Note LastModified by Organization D etails LastModified Time Do you feel stressed (tense, restless, nervous, or anxious, or unable to sleep at night)? [id number] Information not available 01/22/2025 Family History Relationship [...] ICD10 Code Diagnosis IMO Codes Diagnosis Note [id number] Chin Boyce MD [place] [address] [address] 05/21/2025 15:25:35 05/21/2025 17:17:01 care status [id number] Z34.82 [id number] Chin Boyce MD [place] [address] [address] 06/18/2025 14:04:18 06/18/2025 16:17:06 care status 477902246 Z34.83 [id number] Health Concerns Section Related Observation LastModified by Organization Detai ls LastModified Time None Recorded Concern Status LastModified by Organization Details LastModified Time None Recorded Payers Encounter Date Sequence Insurance Name Policy Number Policy Meehan Covered Member ID Meehan Member ID Guarantor Name 06/18/2025 1 [employer] [id number] Ev Dunn [id number] Ev Dunn Notes Date Note Type Note Provider Name and Address Organization Details Recorded Time 06/18/2025 text/html Generic HPI TemplateReported by Patient Chin Boyce MD [address], [place], [address], [facility] 06/18/2025 16:16:23 OBGyn Episode Ob Episode Information Episode Created Date Number of Fetuses Patient Bloodtype Patient rh Status Prepregnancy Weight lbs Domestic Partner Domestic Partner Phone Father Name General Technician Status 02/26/20 25 1 O Positive [address] OPEN Fetus Data First Name Last Name Admitted to NICU Weight (g) Sex Living Outcome Pediatric Complications Fetus ID Race Codes Race Delivery Type [id number] Problems Problem Notes Problem Name Start Date End Date Resolution Snomed Code Not e Mixed anxiety and depressive disorder 02/25/2025 [id number] sertrali ne changed to 100mg Rubella non-immune 03/03/2025 796312552 PP MMR [place] Calculation Initial [place] Date [...] Weight in lbs Pre/Post Dialysis Refused Weight 197.890127690178 BP Diastolic BP Location Tested BP Systolic [...] Type Weight in lbs Pre/Post Dialysis Refused 198.711645606218 BP Diastolic BP Location Tested BP Systolic [...] Type Weight in lbs Pre/Post Dialysis Refused 204.232328421366 BP Diastolic BP Location Tested BP Systolic [...] Type Weight in lbs Pre/Post Dialysis Refused 210.796354746819 BP Diastolic BP Location Tested BP Systolic [...] Type Weight in lbs Pre/Post Dialysis Refused 217.971071553683 BP Diastolic BP Location Tested BP Systolic [...] Weight in lbs Pre/Post Dialysis Refused Weight 223.137149733503 BP Diastolic BP Location Tested BP Systolic [...] Type Weight in lbs Pre/Post Dialysis Refused 226.206548499773 BP Diastolic BP Location Tested BP Systolic [...] Type Weight in lbs Pre/Post Dialysis Refused 230.293088866205 BP Diastolic BP Location Tested BP Systolic [...]
--- OUTSIDE RECORDS SUMMARY | 2025-08-07 22:43 | XMS_ITS | Clinical Summary ---
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 Strabismus surgery to be scheduled. 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 Strabismus surgery to be scheduled. Diplopia 09/26/2023 Hyperopia of both eyes 09/26/2023 Assessment & Plan (10/05/2023 3:34 PM TEMPLATE STORAGE CLERK): Over minus in current new spectacles. Discontinue [...] on file Legal Sex Female 3:27 AM TEMPLATE STORAGE CLERK Gender Identity Not on file Sexual Orientation [...] topic Varicella Vaccines Completed 06/21/2007, 12/12/2002 Insurance [employer] [facility] [employer] Advance Directives For more information, please contact: [phone] Documents on File Type Date Recorded Patient Special Agent Expl anation ADVANCE DIRECTIVE 07/17/2024 10:52 AM Pow er of [employer] Care Teams Manager Delivery Relationship Specialty Start Date End Date Sal Neil MD [address] [place] [address] PCP - General Family Practice 02/08/24
[2025-08-10 11:47] LABS: OBXCEM ROM Plus Negative (Negative)
== END 2025-08-07 22:50 | disposition home or self-care (01) ==
LOC: ANHOBOP 22:40 → ANHLDR 22:52
PROVIDERS: PCP Family Medicine; Visit Provider Obstetrics & Gynecology
DX: O42.90 Premature rupture of membranes, unspecified as to length of time between rupture and onset of labor, unspecified weeks of gestation (principal); Z3A.00 Weeks of gestation of pregnancy not specified
CPT/HCPCS: 59025; 84112; 99199

== ENCOUNTER 2025-08-18 20:51 | Observation (INO) | payer BC, SELFPAY ==
--- OUTSIDE RECORDS SUMMARY | 2025-08-17 03:00 | XMS_ITS | Continuity of Care Document ---
Author Organization [facility] Address [address] [facility] [place] [address] Phone Care Team Providers Care Lepidopterist Name Role Phone Emperatriz Jessica ARCHULETA Unavailable Unavailable Allergies, Adverse Reactions, Alerts Substance Reaction Status Criticality No Known Allergies Active No Inform ation Medications Medication Instructions Dosage Effective Dates (start - stop) Status Comments blood pressure kit-extra large cuff Check blood pressure twice daily. Record readings and bring to follow-up appt. - Active ibuprofen 600 mg tablet take 1 tablet by oral route 3 times every day with food as needed for back pain - Active Procedures Procedure Date OV [facility] Advance Directives Directive Yes / No Effective Date File Name Other Directive No N/A N/A WARNING:The information contained in this section is historical and is provided for information only and does not constitute a legal document or any assurance that the information is still accurate. Please verify the information with the james of the legal document before using it for clinical purposes. Encounters Encounter Description Practice Location Reason(s) For Visit Diagnoses Date Provider Providers Copied on Encounter OV [facility], [address], [place], [place], [id number], [place] tel:[phone] [facility] Establish care (chief complaint) Provider Progress Note (chief complaint) Hypertensi on check (chief complaint) Back pain (chief complaint) Dietary counseling and surveillanceExerc ise counselingSeizure disorderEncounter to establish careChronic midline low back pain without sciaticaElevated blood pressure reading without diagnosis of hypertensionCervi june cancer screeningSevere obesity (BMI >= 40) 5 Emperatriz Lopez. [address] [place] [address], [id number], [facility] n, [place], [id number] , [place]. tel: [phone] Family History Family Member Type Diagnosis Age At Onset Mother Problem (finding) Hypertension Mother Problem (finding) Diabetes mellitus Immunizations Vaccine Date Status Comments Hep A, ped/adol, 2 dose administered Sour ce: Other Registry Meningococcal MCV4O administered Source: Other Registry meningococcal B, OMV administered Source: Other Registry Hep A, ped/adol, 2 dose administered Sour ce: Other Registry Tdap administered Source: Other R egistry meningococcal B, OMV administered Source: Other Registry Influenza, injectable,alfonso valent, preservative free, pediatric administered Source: Ot er Registry Influenza, split virus, trivalent, PF adm inistered Source: Other Registry HPV, quadrivalent administered Source: Ot her Registry HPV, quadrivalent administered Source: Ot her Registry HPV, quadrivalent administered Source: Ot her Registry Tdap administered Source: Other R egistry Meningococcal MCV4O administered Source: Other Registry Influenza, split virus, trivalent, PF adm inistered Source: Other Registry varicella administered Source: Other R egistry MMR administered Source: Other R egistry IPV administered Source: Other R egistry varicella administered Source: Other R egistry MMR administered Source: Other R egistry Hib, unspecified formulation administered Source: Other Registry DTaP administered Source: Other R egistry Pneumococcal conjugate PCV administere d Source: Other Registry IPV administered Source: Other R egistry Hib, unspecified formulation administered Source: Other Registry Hep B, adolescent or pediatric administer ed Source: Other Registry DTaP administered Source: Other R egistry Pneumococcal conjugate PCV 13 administere d Source: Other Registry IPV administered Source: Other R egistry Hib, unspecified formulation administered Source: Other Registry DTaP administered Source: Other R egistry Pneumococcal conjugate PCV 13 administere d Source: Other Registry IPV administered Source: Other R egistry Hib, unspecified formulation administered Source: Other Registry Hep B, adolescent or pediatric administer ed Source: Other Registry DTaP administered Source: Other R egistry Hep B, adolescent or pediatric administer ed Source: Other Registry Payers Payer name Insurance type Covered republican ID Keeley hardwick(s) [employer] [facility] [place] [id number] Social History Type Description Quantity Date Captured Comments Alcohol Use Details No Caffeine Use Details Unknown Tobacco Use Status Smoking Status Current some day smoker Non-Smoking Tobacco Use Details : No Details Available : No Details Available Sex Female Gender Identity Female Vital Signs Date / Time: Height Weight BMI Pulse Rate Blood Pressure Temperature Respiratory Rate Body Surface Area Head Circumference Head Circ. Percentile Wt./Fady. Percentile BMI percentile Pulse Ox Inhaled Ox 9:38 AM 66.50 in 122.833 kg (270.80 lbs) 43.0 5 kg/m eter (2) 73 /min 134/93 mm[Hg] 98.10 F 18 /min 2.40 meter(2) 97 % Chief Complaint And Reason For Visit From encounter dated '08/17/2025 09:00'. Establish care (chief complaint) Provider Progress Note (chief complaint). Description: Pt, h/o seizures, in office today for new ptvisit to establish care, recent elevated bp at home 08/13/25 of 180/110 - asymptomatic. No h/o HTN.BP slightly elevated today. States she drinks green tea and heavy salt intake. LBP to mid without sciatic pain that she describes as achy, deep. No pain with touching area. x1 year. Pain emerges after standing for several hours. Denies loss of bowel or bladder. (+) stretching helps. Has not tried OTC analgesics, heat, or ice. Denies trauma/injury. H/O seizures - last in 2019. Was on Keppra - ran out and has not followed up with neuro.Mom - h/o DM, HTN Hypertension check (chief complaint) Back pain (chief complaint). Description: Location of pain is lower back. Reason For Referral Reason For Referral No Information Plan Of Treatment Date Type Action Status Goal BMP. Due on due Goal Unhealthy drug u se screening. Due on due Goal Chlamydia/GC, DN A Probe. Due on due Goal Tobacco screening. Due on De due Goal Dental Exam. Due on 025 due Goal Hepatitis C scre ening. Due on due Goal Pap Smear. Due on due Goal HIV Ab. Due on d ue Goal PHQ-9. Due on du e Goal Tobacco cessation counseling completed Referral Ordered: Gynecology (related to Cervical cancer screening) ordered Referral Ordered: Neurology (related to Seizure disorder) ordered Referral Ordered: Physical Therapy (related to Chronic midline low back pain without sciatica) ordered Referral Ordered: Weight Loss Program (related to Severe obesity (BMI >= 40)) ordered Appointment Priyanka Dunn BOOKED Future Order: Lab Order CBC With Differential/Platelet ([id number]), Sent on: Sent Future Order: Lab Order Comp. Me tabolic Panel (14) ([id number]), Sent on: Sent Future Order: Lab Order Hemoglob in A1c ([id number]), Sent on: Sent Future Order: Lab Order Lipid [place] ([id number]), Sent on: Sent Future Order: Lab Order TSH Rfx on Abnormal to Free T4 ([id number]), Sent on: Sent Future Order: Lab Order UA/M w/r flx Culture, Routine ([id number]), Sent on: Sent History Of Present Illness Encounter Date Complaint History Of Prese nt Illness Provider Progress Note Pt, h/o jaja saldaña, in office today for new pt visit to establish care, recent elevated bp at home 08/13/25 of 180/110 - asymptomatic. No h/o HTN. BP slightly elevated today. States she drinks green tea and heavy salt intake. LBP to mid without sciatic pain that she describes as achy, deep. No pain with touching area. x1 year. Pain emerges after standing for several hours. Denies loss of bowel or bladder. (+) stretching helps. Has not tried OTC analgesics, heat, or ice. Denies trauma/injury. H/O seizures - last in 2019. Was on Keppra - ran out and has not followed up with neuro.Mom - h/o DM, HTN Back pain Location of pain is lower back. Hypertension check Establish care Functional Status Date Functional Assessmen t No Information Instructions Date Instruction Additional Infor malika All women ages 21-65 should have Pap tests to screen for cervical cancer at least every 3 years depending on individual risk factors. Please schedule an appt for your Pap as discussed. Related to Cervical cancer screening Reduce/limit sodium and caffeine intakeDrink plenty of water to stay well-hydratedReturn in 2-3 weeks to recheck blood pressure or sooner if you develop blurred or double vision, chest pain, or new or worsening headaches. Related to Elevated blood pressure reading without diagnosis of hypertension Apply ice or heat to affected area initial interval 20-25 minutes per hour then three times a dayStay activeSlowly walk every 30 minutesConsider pool walkingTake Ibuprofen as ordered for pain - with foodReferral to PT Related to Chronic midline low back pain without sciatica Encourage to walk at least 10-15 minutes daily and increase time/distance as toleratedGOAL: Moderate-intensity aerobic exercise for 150 minutes every week AND muscle-strengthening activities involving all major muscle groups at least two days per weekExercise has many benefits. It can:-Burn calories, which helps people control their weight-Help control blood sugar levels in people with diabetes-Lower blood pressure, especially in people with high blood pressure-Lower stress and help with depression-Keep bones strong, so they don't get thin and break easily-Lower the chance of dying from heart disease Related to Exercise counseling Follow-up with neuro logy - referral today Related to Seizure disorder Eat a variety of nadine sh fruits/vegetables, lean meats, whole grains, 2 servings of dairy/day.3 meals/day, 1-2 snacks/day.Drink at least 64 ounces of water daily.Limit caffeine, sugary drinks and foods, avoid fried fatty foods.Eat healthy portions- refer to www.choosemyplate.gov for guidance. Related to Dietary counseling and surveillance Assessments Type Assessment Date assessment Dietary counseling and surveilla nce assessment Exercise counseling assessment Seizure disorder assessment Encounter to establish care assessment Chronic midline low back pain wi thout sciatica assessment Elevated blood press ure reading without diagnosis of hypertension assessment Cervical cancer screening assessment Severe obesity (BMI >= 40) Mental Status Date Cognitive Assessment Orientation - Whiting ed to time, place, person, situation. Patient Care Teams Name Effective Dates (start - stop) Status Members No Information
[2025-08-18] VITALS (7 sets, daily range): BP systolic 107–122; BP diastolic 60–80; PULSE 78–109; BMI 37.3
--- OUTSIDE RECORDS SUMMARY | 2025-08-18 20:58 | XMS_ITS | Continuity of Care Document ---
Author Organization [facility] [place] Address [address] [place] [address] Care Team Providers Care Firer Powerhouse Name Role Phone HA VELASQUEZ Primary Care [...] Abnormal Flag Note LastModifiedBy Organization Detail LastModifiedTime 03/05/20 25 03/05/2025 [UNIT Y] ANEUP LOIDY NIPT fraction 13.1% normal Not Available [facility] [address], [place], [address], 03/05/2025 13:46:16 03/05/20 25 03/05/2025 [UNIT Y] ANEUP LOIDY NIPT 22Q11.2 microdeletio n LOW RISK <1 in 10,000 normal Not Available [facility] [address], [place], [address], 03/05/2025 13:46:16 03/05/20 25 03/05/2025 [UNIT Y] ANEUP LOIDY NIPT sex chromosome aneuploidy NOT DETECT ED normal Not Available [facility] [address], [place], [address], 03/05/2025 13:46:16 03/05/20 25 03/05/2025 [UNIT Y] ANEUP LOIDY NIPT monosomy X LOW RISK <1 in 10,000 normal Not Available [facility] [address], [place], [address], 03/05/2025 13:46:16 03/05/20 25 03/05/2025 [UNIT Y] ANEUP LOIDY NIPT trisomy 13 LOW RISK <1 in 10,000 normal Not Available [facility] [address], [place], [address], 03/05/2025 13:46:16 03/05/20 25 03/05/2025 [UNIT Y] ANEUP LOIDY NIPT trisomy 18 LOW RISK <1 in 10,000 normal Not Available [facility] [address], [place], [address], 03/05/2025 13:46:16 03/05/20 25 03/05/2025 [UNIT Y] ANEUP LOIDY NIPT trisomy 21 LOW RISK <1 in 10,000 normal Not Available [facility] [address], [place], [address], 03/05/2025 13:46:16 03/05/20 25 03/05/2025 [UNIT Y] ANEUP LOIDY NIPT sex MALE normal Not Available [facility] [address], [place], [address], 03/05/2025 13:46:16 03/05/20 25 03/05/2025 [UNIT Y] ANEUP LOIDY NIPT gestation SINGLE TON normal Not Available [facility] [address], [place], [address], 03/05/2025 13:46:16 03/05/20 25 03/05/2025 [UNIT Y] ANEUP LOIDY NIPT for detailed report, see pdf See PDF normal Not Available [facility] [address], [place], [address], 03/05/2025 13:46:16 03/06/20 25 03/06/2025 [UNIT Y] SHIKHA Cheung sickle cell disease/beta -thalassemia /hemoglobino pathies carrier screen NEGATI VE normal Not Available [facility] [address], [place], [address], 03/06/2025 20:16:21 03/06/20 25 03/06/2025 [UNIT Y] SHIKHA Cheung alpha-thalas semia carrier screen NEGATI VE normal Not Available [facility] [address], [place], [address], 03/06/2025 20:16:21 03/06/20 25 03/06/2025 [UNIT Y] SHIKHA Cheung cystic fibrosis carrier screen NEGATI VE normal Not Available [facility] [address], [place], [address], 03/06/2025 20:16:21 03/06/20 25 03/06/2025 [UNIT Y] SHIKHA Cheung spinal muscular atrophy carrier screen NEGATI VE 2 SMN1 copies , SNP not presen t normal Not Available [facility] [address], [place], [address], 03/06/2025 20:16:21 03/06/20 25 03/06/2025 [UNIT Y] SHIKHA Cheung for detailed report, see pdf See PDF normal Not Available [facility] [address], [place], [address], 03/06/2025 20:16:21 02/26/20 25 02/25/2025 CBC W/DIF F WBC 13.3 10'3/ uL 3.5-10 .5 high Not Available [facility] (Lab) [address], [place], [address], 02/26/2025 10:19:46 02/26/20 25 02/25/2025 CBC W/DIF F RBC 4.33 10'6/ uL (based on docume nted legal sex) 3.80-5 .20 Not Available [facility] (Lab) [address], [place], [address], 02/26/2025 10:19:46 02/26/20 25 02/25/2025 CBC W/DIF F HGB 13.5 g/dL (based on docume nted legal sex) 11.6-1 5.4 Not Available [facility] (Lab) [address], [place], [address], 02/26/2025 10:19:46 02/26/20 25 02/25/2025 CBC W/DIF F HCT 41.0 % (based on docume nted legal sex) 34.0-4 5.0 Not Available [facility] (Lab) [address], [place], [address], 02/26/2025 10:19:46 02/26/20 25 02/25/2025 CBC W/DIF F MCV 94.7 fL 80.0-9 9.0 Not Available [facility] (Lab) [address] [facility], [place], [address], 02/26/2025 10:19:46 02/26/20 25 02/25/2025 CBC W/DIF F MCH 31.2 pg 27.0-3 4.0 Not Available [facility] (Lab) [address], [place], [address], 02/26/2025 10:19:46 02/26/20 25 02/25/2025 CBC W/DIF F MCHC 32.9 g/dL 32.0-3 5.5 Not Available [facility] (Lab) [address] [facility], [place], [address], 02/26/2025 10:19:46 02/26/20 25 02/25/2025 CBC W/DIF F RDW 13.2 % 11.0-1 5.0 Not Available [facility] (Lab) [address] [facility], [place], [address], 02/26/2025 10:19:46 02/26/20 25 02/25/2025 CBC W/DIF F plt 295 10'3/ uL 150-40 0 Not Available [facility] (Lab) [address] [facility], [place], [address], 02/26/2025 10:19:46 02/26/20 25 02/25/2025 CBC W/DIF F MPV 11.2 fL 8.8-12 .1 Not Available [facility] (Lab) [address] [facility], [place], [address], 02/26/2025 10:19:46 02/26/20 25 02/25/2025 CBC W/DIF F NRBC's 0.0 % 0.0 Not Available [facility] (Lab) [address] [facility], [place], [address], 02/26/2025 10:19:46 02/26/20 25 02/25/2025 CBC W/DIF F absolute NRBCs 0.0 10'3/ uL no refere nce range establ ished Not Available [facility] (Lab) [address] [facility], [place], [address], 02/26/2025 10:19:46 02/26/20 25 02/25/2025 CBC W/DIF F neutrophils 68.0 % 34.0-7 3.0 Not Available [facility] (Lab) [address] [facility], [place], [address], 02/26/2025 10:19:46 02/26/20 25 02/25/2025 CBC W/DIF F lymphocytes 21.2 % 15.0-5 0.0 Not Available [facility] (Lab) [address] [facility], [place], [address], 02/26/2025 10:19:46 02/26/20 25 02/25/2025 CBC W/DIF F monocytes 7.4 % 1.0-15 .0 Not Available [facility] (Lab) [address] [facility], [place], [address], 02/26/2025 10:19:46 02/26/20 25 02/25/2025 CBC W/DIF F eosinophils 2.1 % 0.0-8. 0 Not Available [facility] (Lab) [address] [facility], [place], [address], 02/26/2025 10:19:46 02/26/20 25 02/25/2025 CBC W/DIF F basophils 0.6 % 0.0-2. 0 Not Available [facility] (Lab) [address] [facility], [place], [address], 02/26/2025 10:19:46 02/26/20 25 02/25/2025 CBC W/DIF [...] separ ately if prese nt. Not Available [facility] (Lab) [address] [place], [address], 02/26/2025 10:19:46 02/26/20 25 02/25/2025 CBC W/DIF F absolute neutrophils 9.1 10'3/ uL 1.5-8. 0 high Not Available [facility] (Lab) [address] [facility], [place], [address], 02/26/2025 10:19:46 02/26/20 25 02/25/2025 CBC W/DIF F absolute lymphocytes 2.8 10'3/ uL 1.0-4. 0 Not Available [facility] (Lab) [address] [facility], [place], [address], 02/26/2025 10:19:46 02/26/20 25 02/25/2025 CBC W/DIF F absolute monocytes 1.0 10'3/ uL 0.2-1. 0 Not Available [facility] (Lab) [address] [facility], [place], [address], 02/26/2025 10:19:46 02/26/20 25 02/25/2025 CBC W/DIF F absolute eosinophils 0.3 10'3/ uL 0.0-0. 6 Not Available [facility] (Lab) [address] [facility], [place], [address], 02/26/2025 10:19:46 02/26/20 25 02/25/2025 CBC W/DIF F absolute basophils 0.1 10'3/ uL 0.0-0. 3 Not Available [facility] (Lab) [address] [facility], [place], [address], 02/26/2025 10:19:46 02/26/20 25 02/25/2025 CBC W/DIF F absolute immature granulocytes 0.1 10'3/ uL 0.00-0 .10 Refer ence range s for nonbi nary/ inter sex or unspe cifie d gende r patie nts have not been estab lishe d. Pleas e refer to the guidoo wing table for range s estab lishe d for cisge nder patie nts and evalu ate in the clini june craig xt of the indiv idual patie nt: https ://brenda beaulieu book. nm.or g/gen derx Not Available [facility] (Lab) [address] [facility], [place], [address], 02/26/2025 10:19:46 02/26/20 25 02/25/2025 HEPAT ITIS C ANTIB WESLEY SCREE N, REFLE X TO CONFI RMATI ON hepatitis C antibody Non-re active non-re active Antib odies to HCV Not Detec dada, does not exclu de the possi bilit y of expos ure to HCV. Not Available [facility] (Lab) [address], [place], [address], 02/26/2025 10:19:46 02/26/20 25 02/25/2025 HIV 1/2 ANTIG EN/AN TIBOD Y, REFLE X CONFI RMATI ON HIV antigen/anti body Nonrea ctive nonrea ctive HIV-1 antig en and HIV-1 /HIV- 2 antib odies were not detec dada. No labor atory evide nce of HIV infec tion. Not Available [facility] (Lab) [address], [place], [address], 02/26/2025 10:19:47 02/26/20 25 02/25/2025 HEPAT ITIS B SURFA CE ANTIG EN hepatitis B surface antigen Non-re active non-re active This assay was perfo rmed using [employer] ratio n reage nts and test kits. Value s obtai tiffany with other assay metho ds or kits canno t be used inter castañeda eably . Not Available [facility] (Lab) [address], [place], [address], 02/26/2025 10:19:47 02/26/20 25 02/25/2025 TYPE/ RH/SC REEN ABO/Rh type O POS Not Available [facility] (Lab) [address], [place], [address], 02/26/2025 10:19:47 02/26/20 25 02/25/2025 TYPE/ RH/SC REEN antibody screen NEG Not Available [facility] (Lab) [address], [place], [address], 02/26/2025 10:19:47 02/26/20 25 02/25/2025 TYPE/ RH/SC REEN exp date 2024 23:59 Not Available [facility] (Lab) [address] [facility], [place], [address], 02/26/2025 10:19:47 02/26/20 25 02/25/2025 RUBEL LA IGG ANTIB WESLEY, QUANT rubella antibodies, IgG Non-Re active reacti ve abnormal Not Available [facility] (Lab) [address] [facility], [place], [address], 02/26/2025 10:19:48 02/26/20 25 02/25/2025 RUBEL LA IGG ANTIB WESLEY, QUANT rubella antibodies, IgG quant <10.0 IU/mL >=10 low Non-r eacti ve (Non- Immun e) <10 IU/mL React ymesha (Immu ne) > or = 10 IU/mL Not Available [facility] (Lab) [address] [facility], [place], [address], 02/26/2025 10:19:48 02/26/2002/25/2025 HEMOG LOBIN A1C hemoglobin [...] >8.0% Actio n sugge sted Not Available [facility] (Lab) [address] [facility], [place], [address], 02/26/2025 10:19:48 02/26/20 25 02/25/2025 RPR SCREE N, REFLE X TITER /CONF IRMAT ION RPR qualitative Nonrea ctive nonrea ctive Not Available [facility] (Lab) [address] [facility], [place], [address], 02/26/2025 10:19:48 02/26/20 25 02/25/2025 CULTU RE: URINE result report SEE RESULT S BELOW Test: Cultu re: Urine Speci men Sourc e: Urine Voide d Speci men Type: Urine Speci men Date: 2024 1743 Resul t Date: 20245 Resul t Statu s: Final resul t Abnor mal: No Resul ting Lab: [facility] [address] [facility] [address] Tel: CULTU RE ----- ----- ----- --- Cultu re resul t (>=3 organ isms prese nt) indic ates possi ble conta minat ion. Repea t cultu re if sympt oms indic ate. Not Available [facility] (Lab) [address] [facility], [place], [address], 02/27/2025 00:29:16 06/18/2006/18/2025 HEMAT OCRIT (HCT) HCT 33.7 % (based on docume nted legal sex) 34.0-4 5.0 low Not Available [facility] (Lab) [address] [facility], [place], [address], 06/19/2025 10:20:54 06/18/20 25 06/18/2025 HEMOG LOBIN (HGB) HGB 10.6 g/dL (based on docume nted legal sex) 11.6-1 5.4 low Not Available [facility] (Lab) [address] [place], [address], 06/19/2025 10:20:55 06/18/20 25 06/18/2025 GTT - GESTA GRIFFIN Flor BLANCO N, ACOG OB glucose, 1 hour screen 91 mg/dL 70-135 Not Available [facility] (Lab) [address] [facility], [place], [address], 06/19/2025 10:20:55 06/18/20 25 06/18/2025 HIV 1/2 ANTIG EN/AN TIBOD Y, REFLE X CONFI RMATI ON HIV antigen/anti body Nonrea ctive nonrea ctive HIV-1 antig en and HIV-1 /HIV- 2 antib odies were not detec dada. No labor atory evide nce of HIV infec tion. Not Available [facility] (Lab) [address] [facility], [place], [address], 06/19/2025 10:20:56 06/18/20 25 06/18/2025 RPR SCREE N, REFLE X TITER /CONF IRMAT ION RPR qualitative Nonrea ctive nonrea ctive Not Available [facility] (Lab) [address] [facility], [place], [address], 06/19/2025 10:20:57 02/26/20 25 02/25/2025 US, obste tric, nucha l trans lucen cy No observ ation record ed. [address], [place], [address], 02/25/2025 18:30:50 02/26/20 25 02/25/2025 US, obste tric, nucha l trans lucen cy No observ ation record ed. [email or web address] Manuela [address], [place], [address], 02/28/2025 22:26:06 04/23/20 25 04/23/2025 US, obste tric, 2nd or 3rd trime ster No observ ation record ed. [facility] [address], [place], [address], 04/23/2025 18:34:49 04/23/20 25 04/23/2025 US, obste tric, follo w-up No observ ation record ed. GABRIEL Manuela [address], [place], [address], 04/27/2025 11:09:16 06/11/2006/11/2025 non-s tress test No observ ation record ed. [email or web address] [facility], [place], [address], 06/18/2025 09:08:39 06/19/2006/19/2025 non-s tress test No observ ation record ed. [address] [facility], [place], [address], 06/23/2025 12:42:23 06/22/2006/22/2025 US, obste tric, limit ed No observ ation record ed. [address] [address], [place], [address], 06/23/2025 12:42:00 07/14/2007/13/2025 US, renal No observ ation record ed. [address] [address], [place], [address], 07/15/2025 15:49:07 07/14/2007/13/2025 US, obste tric, bioph ysica l profi le No observ ation record ed. [address] [facility], [place], [address], 07/15/2025 15:49:28 07/20/20 25 07/20/2025 US, obste tric, follo w-up No observ ation record ed. [email or web address] [place] [address], [place], [address], 07/20/2025 18:49:37 07/20/20 25 07/20/2025 US, obste tric, follo w-up No observ ation record ed. [email or web address] Manuela [address], [place], [address], 07/21/2025 09:57:43 08/05/20 25 08/05/2025 US, obste tric, follo w-up No observ ation record ed. [email or web address] [place] [address] [address], [place], [address], 08/06/2025 13:11:50 08/05/20 25 08/05/2025 US, obste tric, trans vagin al No observ ation record ed. [email or web address] [facility] [address], [place], [address], 08/06/2025 14:04:51 08/05/20 25 10/05/2024 non-s tress test No observ ation record ed. [email or web address] [address] [facility] [address], [place], [address], 08/17/2025 10:57:27 08/18/20 25 08/18/2025 imagi ng/di agnos tic resul t No observ ation record ed. [email or web address] [facility] [address], [place], [address], 08/18/2025 17:13:30 Result Notes None recorded. Problems Name Problem SNOMED Code Status Onset Date Resolution Date Notes Provider Name and Address Organization Details Recorded Time SNOMED CT Concept Completed 201703/15/2021 Encntr for routine child health exam w/o abnormal findings ;Recorde d Elsewher e: No Locat ion: [facility] S ource: EHR Resident Advisor juan: N Practi ce ID: 0001 Pradeep lable Time: 02:15:00 PM Melissa grier [facility] 16:33:[address] Concept Completed 201703/15/2021 Encntr for cheese pancake roller exam (general ) (routine ) w/o abn findings ;Practic e ID: [id number] Melissa grier [facility] 06/29/202 1 16:33:32 Uses combined oral contrace ption [id number] Completed 201803/15/2021 Encounte r for surveill ance of contrace ptive pills;Re corded Elsewher e: No Locat ion: [facility] S ource: EHR Resident Advisor juan: N Practi ce ID: 0001 Pradeep lable Time: 09:00:00 AM Melissa Roy [facility] 1 16:33:29 Procedur e by method Completed 201803/15/2021 Encounte r for other general counseli ng and advice on contrace ption;Re corded Elsewher e: No Locat ion: [facility] S ource: EHR Resident Advisor juan: N Sebastianti ce ID: 0001 Pradeep lable Time: 02:30:00 PM Melissa Roy [facility], [facility] 1 16:33:33 Pregnanc y 69457605 Active 2024 Linn Kruse [facility], [facility] 5 16:32:48 Mixed anxiety and depressi ve disorder 660293619 Active 2024 sertrali ne changed to 100mg Chin Boyce MD [address], [place], [address], [facility] 5 16:52:38 Rubella non-immu ne 986323525 Active 2024 PP MMR Liz Hardin [facility], [facility] 5 15:19:23 Problem Notes None recorded. Procedures Surgical History Date Name Laterality Status Provider Name and Address Organization Details Recorded Time 07/11/20 Date of Last Pap Smear completed Dahlia Arauz [facility] 07/11/2024 11:54:49 11/03/19 termination of completed Carina Torres [facility] 11/28/2022 16:45:49 09/17/19 21 extraction of wisdom tooth completed Carinamateo Torres [facility] 11/28/2022 16:45:26 09/17/19 15 procedure on foot completed Carina [facility] 11/28/2022 16:45:14 09/17/19 10 Tonsillectomy completed [facility] 11/28/2022 16:45:37 Imaging Results None recorded. [...] Prescrib ed Elsewher e: No Locat ion: [facility] M odify By: funmilayo martinez DateTime : 09/15/20 19 03:20:25 PM Not [...] Address Organization Details Last Updated DateTime 08/06/2025 624376.0630 g 117/78 mm[Hg] Linn Kruse [facility] 08/06/2025 17:42:40 Social History Question Answer Notes LastModified by Organizat ion Details LastModified Time Tobacco Smoking Status Never Smoker Melissa Kirill grier, [facility] 03/16/2021 10:13:21 Do You Have An Advance Directive? No [email or web address] Information n ot available 03/16/2021 How Many Years Have You Consumed Alcohol? 2 [email or web address] Information not available 03/16/2021 Are You Blind Or Do You Have Difficulty Seeing? No Information n ot available 03/16/2021 What Is Your Level Of Caffeine Consumption? Moderate [email or web address] Information not available 03/16/2021 How Much Tobacco Do You Chew? None Information not available 01/22/2025 In The 14 Days Before Symptom Onset, Have You Had Close Contact With A Laboratory-confirm ed COVID-19 While That Case Was Ill? No [email or web address] Information n ot available 03/16/2021 In The 14 Days Before Symptom Onset, Have You Had Close Contact With A Person Who Is Under Investigation For COVID-19 While That Person Was Ill? No [email or web address] Information not available 03/16/2021 Have You Been To An Area Known To Be High Risk For COVID-19? No Information not available 03/16/2021 Are You Deaf Or Do You Have Serious Difficulty Hearing? Yes Information not available 03/16/2021 What Type Of Diet Are You Following? REGULAR [email or web address] Information n ot available 03/16/2021 What Is The Highest Grade Or Level Of School You Have Completed Or The Highest Degree You Have Received? [id number] [email or web address] Information not available 03/16/2021 Are There Any Guns Present In Your Home? Yes [email or web address] Information not available 03/16/2021 Do You Use Protection During Sex? No Information not available 01/22/2025 Do You Use Your Seat Belt Or Car Seat Routinely? Yes [email or web address] Information not available 03/16/2021 Do You Have Smoke And Carbon Monoxide Detectors In Your Home? Yes Information not available 03/16/2021 At What Age Did You Start Smoking Tobacco? 21 Information not available 01/22/2025 How Much Tobacco Do You Smoke? No [email or web address] Information not available 03/16/2021 Do You Use Sunscreen Routinely? No [email or web address] Information not available 03/16/2021 How Many Years Have You Smoked Tobacco? 2 Information not available 01/22/2025 Have You Used IV Drugs? No [email or web address] Information not available 03/16/2021 Sex: Unknown Functional Status Question Answer Note LastModified by Organizat ion Details LastModified Time Do you use any illicit or recreational drugs? No Information not available 03/16/2021 What is your level of alcohol consumption? None Information not available 01/22/2025 Are you able to walk independently without assistance or assistive devices? 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 Occasional [email or web address] Information not available 03/16/2021 Mental Status Question Answer Note LastModified by Organization D etails LastModified Time Do you feel stressed (tense, restless, nervous, or anxious, or unable to sleep at night)? [id number] Information not available 01/22/2025 Family History Relationship [...] ICD10 Code Diagnosis IMO Codes Diagnosis Note [id number] Chin Boyce MD [facility] [address],[place] [address] 07/20/2025 16:53:33 07/21/2025 08:21:13 Uterine size for dates discrepancy [id number] O26.843 Z3A.33 [id number] Chin Boyce MD [facility] [address],[place] [address] 07/20/2025 16:54:47 07/21/2025 08:19:34 [id number] Chin Boyce MD [facility] [address],[place] [address] 08/06/2025 17:07:46 08/08/2025 08:04:09 care status [id number] Z34.83 [id number] Health Concerns Section Related Observation LastModified by Organization Detai ls LastModified Time None Recorded Concern Status LastModified by Organization Details LastModified Time None Recorded Payers Encounter Date Sequence Insurance Name Policy Number Policy Meehan Covered Member ID Meehan Member ID Guarantor Name 08/06/2025 1 [place] [id number] Ev Dunn [id number] Balwinder Dunn Notes Date Note Type Note Provider Name and Address Organization Details Recorded Time 08/06/2025 text/html Generic HPI TemplateReported by Patient Chin Boyce MD [address], [place], [address], [facility] 08/07/2025 17:42:34 OBGyn Episode Ob Episode Information Episode Created Date Number of Fetuses Patient Bloodtype Patient rh Status Prepregnancy Weight lbs Domestic Partner Domestic Partner Phone Father Name Handy Man Status 02/26/20 25 1 O Positive [address] OPEN Fetus Data First Name Last Name Admitted to NICU Weight (g) Sex Living Outcome Pediatric Complications Fetus ID Race Codes Race Delivery Type [id number] Problems Problem Notes Problem Name Start Date End Date Resolution Snomed Code Not e Mixed anxiety and depressive disorder 02/25/2025 [id number] sertrali ne changed to 100mg Rubella non-immune 03/03/2025 459263502 PP MMR [place] Calculation Initial [place] Date [...] Weight in lbs Pre/Post Dialysis Refused Weight 197.375200772192 BP Diastolic BP Location Tested BP Systolic [...] Type Weight in lbs Pre/Post Dialysis Refused 198.567935497059 BP Diastolic BP Location Tested BP Systolic [...] Type Weight in lbs Pre/Post Dialysis Refused 204.999316237911 BP Diastolic BP Location Tested BP Systolic [...] Type Weight in lbs Pre/Post Dialysis Refused 210.103200637690 BP Diastolic BP Location Tested BP Systolic [...] Type Weight in lbs Pre/Post Dialysis Refused 217.976781666834 BP Diastolic BP Location Tested BP Systolic [...] Weight in lbs Pre/Post Dialysis Refused Weight 223.502084550590 BP Diastolic BP Location Tested BP Systolic [...] Type Weight in lbs Pre/Post Dialysis Refused 226.077556452032 BP Diastolic BP Location Tested BP Systolic [...] Type Weight in lbs Pre/Post Dialysis Refused 230.637282816859 BP Diastolic BP Location Tested BP Systolic BP Type 78 L arm 117 sitting Fetus Heart Rate Present A 154 Present Fetus Movement A Yes Comments no complaints, no problems, routine care, no contractions, no vaginal bleeding, no loss of fluid, no cramping Flowsheet Date 08/10/2025 Craven Score Blood Edema Fundus Height Fundus Units Glucose Ketones Leukocytes Nitrite Labor Signs Protein Cervic Dilation Cervic Effacement Cervic Station 3cm 50% -3 Type Weight in lbs Pre/Post Dialysis Refused [id number] BP Diastolic BP Location Tested BP Systolic BP Type 81 L arm 123 sitting Fetus Heart Rate Present A 140 Present Fetus Movement A Yes Comments no [...]
--- OUTSIDE RECORDS SUMMARY | 2025-08-18 20:58 | XMS_ITS | Clinical Summary ---
Author Organization [facility] [employer] [facility] Address [address] [place] [id number] Care Team Providers Care Radio Survey Worker Name Role Phone Unavailable Primary Care Provider [...]
--- OUTSIDE RECORDS SUMMARY | 2025-08-18 20:58 | XMS_ITS | Continuity of Care Document ---
Author Organization [facility] Address [address] [address] [place] [address] Care Team Providers Care Pricing Strategist Name Role Phone HA VELASQUEZ Primary Care Provider [phone] Assessment No assessment recorded. Plan of Treatment [...] US, obstetri c, follow-u p 2024 025 [email or web address] [address], [address], [place], [address], 07/21/2025 08:21:14 Medication Orders None recorded . Patient TargetsNo targets recorded. Patient InstructionsNo instructions recorded. Reason for Referral None Reported. Results Created Date Observation Date Name Description Value Unit Range Abnormal Flag Note LastModifiedBy Organization Detail LastModifiedTime 03/05/20 25 03/05/2025 [UNIT Y] ANEUP LOIDY NIPT fraction 13.1% normal Not Available [facility] [address], [place], [address], 03/05/2025 13:46:16 03/05/20 25 03/05/2025 [UNIT Y] ANEUP LOIDY NIPT 22Q11.2 microdeletio n LOW RISK <1 in 10,000 normal Not Available [facility] [address], [place], [address], 03/05/2025 13:46:16 03/05/20 25 03/05/2025 [UNIT Y] ANEUP LOIDY NIPT sex chromosome aneuploidy NOT DETECT ED normal Not Available [facility] [address], [place], [address], 03/05/2025 13:46:16 03/05/20 25 03/05/2025 [UNIT Y] ANEUP LOIDY NIPT monosomy X LOW RISK <1 in 10,000 normal Not Available [facility] [address], [place], [address], 03/05/2025 13:46:16 03/05/20 25 03/05/2025 [UNIT Y] ANEUP LOIDY NIPT trisomy 13 LOW RISK <1 in 10,000 normal Not Available [facility] [address], [place], [address], 03/05/2025 13:46:16 03/05/20 25 03/05/2025 [UNIT Y] ANEUP LOIDY NIPT trisomy 18 LOW RISK <1 in 10,000 normal Not Available [facility] [address], [place], [address], 03/05/2025 13:46:16 03/05/20 25 03/05/2025 [UNIT Y] ANEUP LOIDY NIPT trisomy 21 LOW RISK <1 in 10,000 normal Not Available [facility] [address], [place], [address], 03/05/2025 13:46:16 03/05/20 25 03/05/2025 [UNIT Y] ANEUP LOIDY NIPT sex MALE normal Not Available [facility] [address], [place], [address], 03/05/2025 13:46:16 03/05/20 25 03/05/2025 [UNIT Y] ANEUP LOIDY NIPT gestation SINGLE TON normal Not Available [facility] [address], [place], [address], 03/05/2025 13:46:16 03/05/20 25 03/05/2025 [UNIT Y] ANEUP LOIDY NIPT for detailed report, see pdf See PDF normal Not Available [facility] [address], [place], [address], 03/05/2025 13:46:16 03/06/20 25 03/06/2025 [UNIT Y] SHIKHA Cheung sickle cell disease/beta -thalassemia /hemoglobino pathies carrier screen NEGATI VE normal Not Available [facility] [address], [place], [address], 03/06/2025 20:16:21 03/06/20 25 03/06/2025 [UNIT Y] SHIKHA Cheung alpha-thalas semia carrier screen NEGATI VE normal Not Available [facility] [address], [place], [address], 03/06/2025 20:16:21 03/06/20 25 03/06/2025 [UNIT Y] SHIKHA Cheung cystic fibrosis carrier screen NEGATI VE normal Not Available [facility] [address], [place], [address], 03/06/2025 20:16:21 03/06/20 25 03/06/2025 [UNIT Y] SHIKHA Cheung spinal muscular atrophy carrier screen NEGATI VE 2 SMN1 copies , SNP not presen t normal Not Available [facility] [address], [place], [address], 03/06/2025 20:16:21 03/06/20 25 03/06/2025 [UNIT Y] SHIKHA Cheung for detailed report, see pdf See PDF normal Not Available [facility] [address], [place], [address], 03/06/2025 20:16:21 02/26/2002/25/2025 CBC W/DIF F WBC 13.3 10'3/ uL 3.5-10 .5 high Not Available [facility] (Lab) [address], [place], [address], 02/26/2025 10:19:46 02/26/20 25 02/25/2025 CBC W/DIF F RBC 4.33 10'6/ uL (based on docume nted legal sex) 3.80-5 .20 Not Available [facility] (Lab) [address], [place], [address], 02/26/2025 10:19:46 02/26/20 25 02/25/2025 CBC W/DIF F HGB 13.5 g/dL (based on docume nted legal sex) 11.6-1 5.4 Not Available [facility] (Lab) [address], [place], [address], 02/26/2025 10:19:46 02/26/20 25 02/25/2025 CBC W/DIF F HCT 41.0 % (based on docume nted legal sex) 34.0-4 5.0 Not Available [facility] (Lab) [address], [place], [address], 02/26/2025 10:19:46 02/26/2002/25/2025 CBC W/DIF F MCV 94.7 fL 80.0-9 9.0 Not Available [facility] (Lab) [address], [place], [address], 02/26/2025 10:19:46 02/26/20 25 02/25/2025 CBC W/DIF F MCH 31.2 pg 27.0-3 4.0 Not Available [facility] (Lab) [address] [place], [address], 02/26/2025 10:19:46 02/26/20 25 02/25/2025 CBC W/DIF F MCHC 32.9 g/dL 32.0-3 5.5 Not Available [facility] (Lab) [address] [facility], [place], [address], 02/26/2025 10:19:46 02/26/20 25 02/25/2025 CBC W/DIF F RDW 13.2 % 11.0-1 5.0 Not Available [facility] (Lab) [address] [facility], [place], [address], 02/26/2025 10:19:46 02/26/20 25 02/25/2025 CBC W/DIF F plt 295 10'3/ uL 150-40 0 Not Available [facility] (Lab) [address] [facility], [place], [address], 02/26/2025 10:19:46 02/26/20 25 02/25/2025 CBC W/DIF F MPV 11.2 fL 8.8-12 .1 Not Available [facility] (Lab) [address] [facility], [place], [address], 02/26/2025 10:19:46 02/26/20 25 02/25/2025 CBC W/DIF F NRBC's 0.0 % 0.0 Not Available [facility] (Lab) [address] [facility], [place], [address], 02/26/2025 10:19:46 02/26/20 25 02/25/2025 CBC W/DIF F absolute NRBCs 0.0 10'3/ uL no refere nce range establ ished Not Available [facility] (Lab) [address] [facility], [place], [address], 02/26/2025 10:19:46 02/26/20 25 02/25/2025 CBC W/DIF F neutrophils 68.0 % 34.0-7 3.0 Not Available [facility] (Lab) [address] [facility], [place], [address], 02/26/2025 10:19:46 02/26/20 25 02/25/2025 CBC W/DIF F lymphocytes 21.2 % 15.0-5 0.0 Not Available [facility] (Lab) [address] [facility], [place], [address], 02/26/2025 10:19:46 02/26/20 25 02/25/2025 CBC W/DIF F monocytes 7.4 % 1.0-15 .0 Not Available [facility] (Lab) [address] [facility], [place], [address], 02/26/2025 10:19:46 02/26/20 25 02/25/2025 CBC W/DIF F eosinophils 2.1 % 0.0-8. 0 Not Available [facility] (Lab) [address] [facility], [place], [address], 02/26/2025 10:19:46 02/26/20 25 02/25/2025 CBC W/DIF F basophils 0.6 % 0.0-2. 0 Not Available [facility] (Lab) [address] [facility], [place], [address], 02/26/2025 10:19:46 02/26/20 25 02/25/2025 CBC W/DIF [...] separ ately if prese nt. Not Available [facility] (Lab) [address] [facility], [place], [address], 02/26/2025 10:19:46 02/26/20 25 02/25/2025 CBC W/DIF F absolute neutrophils 9.1 10'3/ uL 1.5-8. 0 high Not Available [facility] (Lab) [address] [facility], [place], [address], 02/26/2025 10:19:46 02/26/2002/25/2025 CBC W/DIF F absolute lymphocytes 2.8 10'3/ uL 1.0-4. 0 Not Available [facility] (Lab) [address] [facility], [place], [address], 02/26/2025 10:19:46 02/26/2002/25/2025 CBC W/DIF F absolute monocytes 1.0 10'3/ uL 0.2-1. 0 Not Available [facility] (Lab) [address] [facility], [place], [address], 02/26/2025 10:19:46 02/26/20 25 02/25/2025 CBC W/DIF F absolute eosinophils 0.3 10'3/ uL 0.0-0. 6 Not Available [facility] (Lab) [address] [facility], [place], [address], 02/26/2025 10:19:46 02/26/2002/25/2025 CBC W/DIF F absolute basophils 0.1 10'3/ uL 0.0-0. 3 Not Available [facility] (Lab) [address] [facility], [place], [address], 02/26/2025 10:19:46 02/26/2002/25/2025 CBC W/DIF F absolute [...] beaulieu book. nm.or g/gen derx Not Available [facility] (Lab) [address], [place], [address], 02/26/2025 10:19:46 02/26/20 25 02/25/2025 HEPAT ITIS C ANTIB WESLEY SCREE N, REFLE X TO CONFI RMATI ON hepatitis C antibody Non-re active non-re active Antib odies to HCV Not Detec dada, does not exclu de the possi bilit y of expos ure to HCV. Not Available [facility] (Lab) [address], [place], [address], 02/26/2025 10:19:46 02/26/20 25 02/25/2025 HIV 1/2 ANTIG EN/AN TIBOD Y, REFLE X CONFI RMATI ON HIV antigen/anti body Nonrea ctive nonrea ctive HIV-1 antig en and HIV-1 /HIV- 2 antib odies were not detec dada. No labor atory evide nce of HIV infec tion. Not Available [facility] (Lab) [address], [place], [address], 02/26/2025 10:19:47 02/26/20 25 02/25/2025 HEPAT ITIS B SURFA CE ANTIG EN hepatitis B surface antigen Non-re active non-re active This assay was perfo rmed using [employer] ratio n reage nts and test kits. Value s obtai tiffany with other assay metho ds or kits canno t be used inter castañeda eably . Not Available [facility] (Lab) [address], [place], [address], 02/26/2025 10:19:47 02/26/20 25 02/25/2025 TYPE/ RH/SC REEN ABO/Rh type O POS Not Available [facility] (Lab) [address], [place], [address], 02/26/2025 10:19:47 02/26/20 25 02/25/2025 TYPE/ RH/SC REEN antibody screen NEG Not Available [facility] (Lab) [address], [place], [address], 02/26/2025 10:19:47 02/26/20 25 02/25/2025 TYPE/ RH/SC REEN exp date 2024 23:59 Not Available [facility] (Lab) [address] [facility], [place], [address], 02/26/2025 10:19:47 02/26/20 25 02/25/2025 RUBEL LA IGG ANTIB WESLEY, QUANT rubella antibodies, IgG Non-Re active reacti ve abnormal Not Available [facility] (Lab) [address] [facility], [place], [address], 02/26/2025 10:19:48 02/26/20 25 02/25/2025 RUBEL LA IGG ANTIB WESLEY, QUANT rubella antibodies, IgG quant <10.0 IU/mL >=10 low Non-r eacti ve (Non- Immun e) <10 IU/mL React myesha (Immu ne) > or = 10 IU/mL Not Available [facility] (Lab) [address] [facility], [place], [address], 02/26/2025 10:19:48 02/26/20 25 02/25/2025 HEMOG LOBIN A1C hemoglobin A1C 5.1 % 4.0-5. 6 The Ameri can [employer]abe samina [employer] iatio n recom mends that a prima ry goal of thera py dirk angel be a HBA1C of < 7% and that physi cians dirk d reeva luate the treat ment regim en in patie nts with HBA1C value s consi stent ly > 8%. <5.7% Tracie l 5.7 - 6.4% Incre ased risk for diabe samina >=6.5 % Diagn ostic of diabe samina <7.0% Goal of thera py >8.0% Actio n sugge sted Not Available [facility] (Lab) [address] [facility], [place], [address], 02/26/2025 10:19:48 02/26/20 25 02/25/2025 RPR SCREE N, REFLE X TITER /CONF IRMAT ION RPR qualitative Nonrea ctive nonrea ctive Not Available [facility] (Lab) [address] [facility], [place], [address], 02/26/2025 10:19:48 02/26/20 25 02/25/2025 CULTU RE: URINE result report SEE RESULT S BELOW Test: Cultu re: Urine Speci men Sourc e: Urine Voide d Speci men Type: Urine Speci men Date: 2024 1743 Resul t Date: 2024 2325 Resul t Statu s: Final resul t Abnor mal: No Resul ting Lab: [facility] [address] [facility] [address] Tel: CULTU RE ----- ----- ----- --- Cultu re resul t (>=3 organ isms prese nt) indic ates possi ble conta minat ion. Repea t cultu re if sympt oms indic ate. Not Available [facility] (Lab) [address] [facility], [place], [address], 02/27/2025 00:29:16 06/18/20 25 06/18/2025 HEMAT OCRIT (HCT) HCT 33.7 % (based on docume nted legal sex) 34.0-4 5.0 low Not Available [facility] (Lab) [address] [facility], [place], [address], 06/19/2025 10:20:54 06/18/20 25 06/18/2025 HEMOG LOBIN (HGB) HGB 10.6 g/dL (based on docume nted legal sex) 11.6-1 5.4 low Not Available [facility] (Lab) [address] [place], [address], 06/19/2025 10:20:55 06/18/20 25 06/18/2025 GTT - GESTA GRIFFIN L SCREE N, ACOG OB glucose, 1 hour screen 91 mg/dL 70-135 Not Available [facility] (Lab) [address] [facility], [place], [address], 06/19/2025 10:20:55 06/18/20 25 06/18/2025 HIV 1/2 ANTIG EN/AN TIBOD Y, REFLE X CONFI RMATI ON HIV antigen/anti body Nonrea ctive nonrea ctive HIV-1 antig en and HIV-1 /HIV- 2 antib odies were not detec dada. No labor atory evide nce of HIV infec tion. Not Available [facility] (Lab) [address] [facility], [place], [address], 06/19/2025 10:20:56 06/18/20 25 06/18/2025 RPR SCREE N, REFLE X TITER /CONF IRMAT ION RPR qualitative Nonrea ctive nonrea ctive Not Available [facility] (Lab) [address] [facility], [place], [address], 06/19/2025 10:20:57 02/26/20 25 02/25/2025 US, obste tric, nucha l trans lucen cy No observ ation record ed. [email or web address] [place] [address], [place], [address], 02/25/2025 18:30:50 02/26/20 25 02/25/2025 US, obste tric, nucha l trans lucen cy No observ ation record ed. [email or web address] Manuela [address], [place], [address], 02/28/2025 22:26:06 04/23/20 25 04/23/2025 US, obste tric, 2nd or 3rd trime ster No observ ation record ed. [facility] [address], [place], [address], 04/23/2025 18:34:49 04/23/20 25 04/23/2025 US, obste tric, follo w-up No observ ation record ed. GABRIEL Roy [address], [place], [address], 04/27/2025 11:09:16 06/11/20 25 06/11/2025 non-s tress test No observ ation record ed. [address] [facility], [place], [address], 06/18/2025 09:08:39 06/19/2006/19/2025 non-s tress test No observ ation record ed. [address] [address], [place], [address], 06/23/2025 12:42:23 06/22/20 25 06/22/2025 US, obste tric, limit ed No observ ation record ed. [address] [address], [place], [address], 06/23/2025 12:42:00 07/14/20 25 07/13/2025 US, renal No observ ation record ed. [address] [address], [place], [address], 07/15/2025 15:49:07 07/14/20 25 07/13/2025 US, obste tric, bioph ysica l profi le No observ ation record ed. [address] [address], [place], [address], 07/15/2025 15:49:28 07/20/20 25 07/20/2025 US, obste tric, follo w-up No observ ation record ed. [email or web address] [place] [address], [place], [address], 07/20/2025 18:49:37 07/20/20 25 07/20/2025 US, obste tric, follo w-up No observ ation record ed. [email or web address] [address] [address], [place], [address], 07/21/2025 09:57:43 08/05/20 25 08/05/2025 US, obste tric, follo w-up No observ ation record ed. [email or web address] [facility] [address], [place], [address], 08/06/2025 13:11:50 08/05/20 25 08/05/2025 US, obste tric, trans vagin al No observ ation record ed. [email or web address] [facility] [address] [facility] [address], [place], [address], 08/06/2025 14:04:51 08/05/20 25 10/05/2024 non-s tress test No observ ation record ed. [id number] [facility] [address], [place], [address], 08/17/2025 10:57:27 08/18/20 25 08/18/2025 imagi ng/di agnos tic resul t No observ ation record ed. [email or web address] [facility] [address] [facility] [address] [facility], [place], [address], 08/18/2025 17:13:30 Result Notes None recorded. Problems Name Problem SNOMED Code Status Onset Date Resolution Date Notes Provider Name and Address Organization Details Recorded Time SNOMED CT Concept Completed 201703/15/2021 Encntr for routine child health exam w/o abnormal findings ;Recorde d Elsewher e: No Locat ion: [facility] S ource: EHR Pricing Strategist juan: N Practi ce ID: [email or web address] Pradeep lable Time: 02:15:00 PM Melissa grier [facility] 16:33:[address] Concept Completed 201703/15/2021 Encntr for pattern puncher exam (general ) (routine ) w/o abn findings ;Practic e ID: [id number] Melissa grier [facility] 1 16:33:32 Uses combined oral contrace ption [id number] Completed 201803/15/2021 Encounte r for surveill ance of contrace ptive pills;Re corded Elsewher e: No Locat ion: [facility] S ource: EHR Pricing Strategist juan: N Practi ce ID: [email or web address] Pradeep lable Time: 09:00:00 AM Melissa [facility] 16:33:29 Procedur e by method Completed 201803/15/2021 Encounte r for other general counseli ng and advice on contrace ption;Re corded Elsewher e: No Locat ion: [facility] S ource: EHR Pricing Strategist juan: N Practi ce ID: [email or web address] Pradeep lable Time: 02:30:00 PM Melissa Roy marvel, [facility] 1 16:33:33 Pregnanc y 34172824 Active [address] [facility] 5 16:32:48 Mixed anxiety and depressi ve disorder 696352128 Active 2024 sertrali ne changed to 100mg Chin Boyce MD [address], [place], [address], [facility] 5 16:52:38 Rubella non-immu ne 955749235 Active 2024 PP MMR Liz Hardin [facility], [facility] 5 15:19:23 Problem Notes None recorded. Procedures Surgical History Date Name Laterality Status Provider Name and Address Organization Details Recorded Time 07/11/20 Date of Last Pap Smear completed Dahlia Arauz [facility] 07/11/2024 11:54:49 11/03/19 termination of completed Carina Torres [facility] 11/28/2022 16:45:49 09/17/19 21 [facility] 16:45:26 09/17/19 15 [facility]/28[facility]2022 16:45:14 09/17/19 10 Tonsillectomy completed [facility] 11/28/2022 16:45:37 Imaging Results None [...] Prescrib ed Elsewher e: No Locat ion: [facility] M odify By: funmilayo martinez DateTime [...] Address Organization Details Last Updated DateTime 07/20/2025 303415.07770 g 132/83 mm[Hg] Linn Kruse [facility] 07/20/2025 18:05:06 Social History Question Answer Notes LastModified by Organizat ion Details LastModified Time Tobacco Smoking Status Never Smoker Melissa grier, [facility] 03/16/2021 10:13:21 Do You Have An Advance Directive? No [email or web address] Information n ot available 03/16/2021 How Many Years Have You Consumed Alcohol? 2 Information not available 03/16/2021 Are You Blind Or Do You Have Difficulty Seeing? No Information n ot available 03/16/2021 What Is Your Level Of Caffeine Consumption? Moderate [email or web address] Information not available 03/16/2021 How Much Tobacco Do You Chew? None Information not available 01/22/2025 In The 14 Days Before Symptom Onset, Have You Had Close Contact With A Laboratory-confirm ed COVID-19 While That Case Was Ill? No [email or web address] Information n ot available 03/16/2021 In The 14 Days Before Symptom Onset, Have You Had Close Contact With A Person Who Is Under Investigation For COVID-19 While That Person Was Ill? No [email or web address] Information not available 03/16/2021 Have You Been To An Area Known To Be High Risk For COVID-19? No [email or web address] Information not available 03/16/2021 Are You Deaf Or Do You Have Serious Difficulty Hearing? Yes Information not available 03/16/2021 What Type Of Diet Are You Following? REGULAR Information n ot available 03/16/2021 What Is The Highest Grade Or Level Of School You Have Completed Or The Highest Degree You Have Received? [id number] [email or web address] Information not available 03/16/2021 Are There Any Guns Present In Your Home? Yes [email or web address] Information not available 03/16/2021 Do You Use Protection During Sex? No Information not available 01/22/2025 Do You Use Your Seat Belt Or Car Seat Routinely? Yes [email or web address] Information not available 03/16/2021 Do You Have Smoke And Carbon Monoxide Detectors In Your Home? Yes [email or web address] Information not available 03/16/2021 At What Age Did You Start Smoking Tobacco? 21 Information not available 01/22/2025 How Much Tobacco Do You Smoke? No [email or web address] Information not available 03/16/2021 Do You Use Sunscreen Routinely? No [email or web address] Information not available 03/16/2021 How Many Years Have You Smoked Tobacco? 2 Information not available 01/22/2025 Have You Used IV Drugs? No [email or web address] Information not available 03/16/2021 Sex: Unknown Functional Status Question Answer Note LastModified by Organizat ion Details LastModified Time Do you use any illicit or recreational drugs? No [email or web address] Information not available 03/16/2021 What is your level of alcohol consumption? None Information not available 01/22/2025 Are you able to walk independently without assistance or assistive devices? 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 Occasional Information not available 03/16/2021 Mental Status Question Answer Note LastModified by Organization D etails LastModified Time Do you feel stressed (tense, restless, nervous, or anxious, or unable to sleep at night)? [id number] Information not available 01/22/2025 Family History Relationship [...] ICD10 Code Diagnosis IMO Codes Diagnosis Note [id number] Audrey Matamoros [facility] [address],[place] [address] 07/03/2025 16:18:57 07/03/2025 16:46:16 Gestation period, 33 weeks 59098101 Z3A.33 9222470 [id number] Chin Boyce MD [place] [address],[place] [address] 07/20/2025 16:53:33 07/21/2025 08:21:13 Uterine size for dates discrepancy 113250865 O26.843 Z3A.33 [id number] Chin Boyce MD [place] [address],[place] [address] 07/20/2025 16:54:47 07/21/2025 08:19:34 Health Concerns Section Related Observation LastModified by Organization Detai ls LastModified Time None Recorded Concern Status LastModified by Organization Details LastModified Time None Recorded Payers Encounter Date Sequence Insurance Name Policy Number Policy Meehan Covered Member ID Meehan Member ID Guarantor Name 07/20/2025 1 [place] [id number] Ev Dunn [id number] Ev Dunn Notes Date Note Type Note Provider Name and Address Organization Details Recorded Time 07/20/2025 text/html Generic HPI TemplateReported by Patient Chin Boyce MD [address], [place], [address], [place] [facility] 07/20/2025 18:13:09 OBGyn Episode Ob Episode Information Episode Created Date Number of Fetuses Patient Bloodtype Patient rh Status Prepregnancy Weight lbs Domestic Partner Domestic Partner Phone Father Name Winder Fixer Status 02/26/20 25 1 O Positive [address] OPEN Fetus Data First Name Last Name Admitted to NICU Weight (g) Sex Living Outcome Pediatric Complications Fetus ID Race Codes Race Delivery Type [id number] Problems Problem Notes Problem Name Start Date End Date Resolution Snomed Code Not e Mixed anxiety and depressive disorder 02/25/2025 [id number] sertrali ne changed to 100mg Rubella non-immune 03/03/2025 112769238 PP MMR [place] Calculation Initial [place] Date [...] Weight in lbs Pre/Post Dialysis Refused Weight 197.833142602432 BP Diastolic BP Location Tested BP Systolic [...] Type Weight in lbs Pre/Post Dialysis Refused 198.257444975885 BP Diastolic BP Location Tested BP Systolic [...] Type Weight in lbs Pre/Post Dialysis Refused 204.528272489480 BP Diastolic BP Location Tested BP Systolic [...] Type Weight in lbs Pre/Post Dialysis Refused 210.115226259421 BP Diastolic BP Location Tested BP Systolic [...] Type Weight in lbs Pre/Post Dialysis Refused 217.481525101446 BP Diastolic BP Location Tested BP Systolic [...] Weight in lbs Pre/Post Dialysis Refused Weight 223.087994459854 BP Diastolic BP Location Tested BP Systolic BP Type 67 L arm 108 sitting Fetus Heart Rate Present A 140 Fetus Movement A Yes Comments dr kee as nelsy, plan epid ural, circumcision +FM, reviewed kick [...] Type Weight in lbs Pre/Post Dialysis Refused [id number] BP Diastolic BP Location Tested BP Systolic [...] Type Weight in lbs Pre/Post Dialysis Refused 230.304502103460 BP Diastolic BP Location Tested BP Systolic [...] Type Weight in lbs Pre/Post Dialysis Refused 230.041290014759 BP Diastolic BP Location Tested BP Systolic [...]
--- OUTSIDE RECORDS SUMMARY | 2025-08-18 20:58 | XMS_ITS | Continuity of Care Document ---
Author Organization [facility] [place] Address [address] [place] [address] Care Team Providers Care Transit Driver Name Role Phone HA VELASQUEZ Primary Care [...] Not Available [facility]iss[facility] [address], [place], [address], 03/05/2025 13:46:16 03/05/20 25 03/05/2025 [UNIT Y] ANEUP LOIDY NIPT 22Q11.2 microdeletio n LOW RISK <1 in 10,000 normal Not Available [facility] [address], [place], [address], 03/05/2025 13:46:16 03/05/20 25 03/05/2025 [UNIT Y] ANEUP LOIDY NIPT sex chromosome aneuploidy NOT DETECT ED normal Not Available [facility] [address], [place], [address], 03/05/2025 13:46:16 03/05/20 25 03/05/2025 [UNIT Y] ANEUP LOIDY NIPT monosomy X LOW RISK <1 in 10,000 normal Not Available [facility] [address], [place], [address], 03/05/2025 13:46:16 03/05/20 25 03/05/2025 [UNIT Y] ANEUP LOIDY NIPT trisomy 13 LOW RISK <1 in 10,000 normal Not Available [facility] [address], [place], [address], 03/05/2025 13:46:16 03/05/20 25 03/05/2025 [UNIT Y] ANEUP LOIDY NIPT trisomy 18 LOW RISK <1 in 10,000 normal Not Available [facility] [address], [place], [address], 03/05/2025 13:46:16 03/05/20 25 03/05/2025 [UNIT Y] ANEUP LOIDY NIPT trisomy 21 LOW RISK <1 in 10,000 normal Not Available [facility] [address], [place], [address], 03/05/2025 13:46:16 03/05/20 25 03/05/2025 [UNIT Y] ANEUP LOIDY NIPT sex MALE normal Not Available [facility] [address], [place], [address], 03/05/2025 13:46:16 03/05/20 25 03/05/2025 [UNIT Y] ANEUP LOIDY NIPT gestation SINGLE TON normal Not Available [facility] [address], [place], [address], 03/05/2025 13:46:16 03/05/20 25 03/05/2025 [UNIT Y] ANEUP LOIDY NIPT for detailed report, see pdf See PDF normal Not Available [facility] [address], [place], [address], 03/05/2025 13:46:16 03/06/20 25 03/06/2025 [UNIT Y] SHIKHA Cheung sickle cell disease/beta -thalassemia /hemoglobino pathies carrier screen NEGATI VE normal Not Available [facility] [address], [place], [address], 03/06/2025 20:16:21 03/06/20 25 03/06/2025 [UNIT Y] SHIKHA Cheung alpha-thalas semia carrier screen NEGATI VE normal Not Available [facility] [address], [place], [address], 03/06/2025 20:16:21 03/06/20 25 03/06/2025 [UNIT Y] SHIKHA Cheung cystic fibrosis carrier screen NEGATI VE normal Not Available [facility] [address], [place], [address], 03/06/2025 20:16:21 03/06/20 25 03/06/2025 [UNIT Y] SHIKHA Cheung spinal muscular atrophy carrier screen NEGATI VE 2 SMN1 copies , SNP not presen t normal Not Available [facility] [address], [place], [address], 03/06/2025 20:16:21 03/06/20 25 03/06/2025 [UNIT Y] SHIKHA Cheung for detailed report, see pdf See PDF normal Not Available [facility] [address], [place], [address], 03/06/2025 20:16:21 02/26/20 25 02/25/2025 CBC W/DIF F WBC 13.3 10'3/ uL 3.5-10 .5 high Not Available [facility] (Lab) [address], [place], [address], 02/26/2025 10:19:46 02/26/20 25 02/25/2025 CBC W/DIF F RBC 4.33 10'6/ uL (based on docume nted legal sex) 3.80-5 .20 Not Available [facility] (Lab) [address], [place], [address], 02/26/2025 10:19:46 02/26/20 25 02/25/2025 CBC W/DIF F HGB 13.5 g/dL (based on docume nted legal sex) 11.6-1 5.4 Not Available [facility] (Lab) [address], [place], [address], 02/26/2025 10:19:46 02/26/20 25 02/25/2025 CBC W/DIF F HCT 41.0 % (based on docume nted legal sex) 34.0-4 5.0 Not Available [facility] (Lab) [address], [place], [address], 02/26/2025 10:19:46 02/26/20 25 02/25/2025 CBC W/DIF F MCV 94.7 fL 80.0-9 9.0 Not Available [facility] (Lab) [address] [facility], [place], [address], 02/26/2025 10:19:46 02/26/20 25 02/25/2025 CBC W/DIF F MCH 31.2 pg 27.0-3 4.0 Not Available [facility] (Lab) [address], [place], [address], 02/26/2025 10:19:46 02/26/20 25 02/25/2025 CBC W/DIF F MCHC 32.9 g/dL 32.0-3 5.5 Not Available [facility] (Lab) [address] [facility], [place], [address], 02/26/2025 10:19:46 02/26/20 25 02/25/2025 CBC W/DIF F RDW 13.2 % 11.0-1 5.0 Not Available [facility] (Lab) [address] [facility], [place], [address], 02/26/2025 10:19:46 02/26/20 25 02/25/2025 CBC W/DIF F plt 295 10'3/ uL 150-40 0 Not Available [facility] (Lab) [address], [place], [address], 02/26/2025 10:19:46 02/26/20 25 02/25/2025 CBC W/DIF F MPV 11.2 fL 8.8-12 .1 Not Available [facility] (Lab) [address], [place], [address], 02/26/2025 10:19:46 02/26/20 25 02/25/2025 CBC W/DIF F NRBC's 0.0 % 0.0 Not Available [facility] (Lab) [address], [place], [address], 02/26/2025 10:19:46 02/26/20 25 02/25/2025 CBC W/DIF F absolute NRBCs 0.0 10'3/ uL no refere nce range establ ished Not Available [facility] (Lab) [address], [place], [address], 02/26/2025 10:19:46 02/26/20 25 02/25/2025 CBC W/DIF F neutrophils 68.0 % 34.0-7 3.0 Not Available [facility] (Lab) [address], [place], [address], 02/26/2025 10:19:46 02/26/20 25 02/25/2025 CBC W/DIF F lymphocytes 21.2 % 15.0-5 0.0 Not Available [facility] (Lab) [address], [place], [address], 02/26/2025 10:19:46 02/26/20 25 02/25/2025 CBC W/DIF F monocytes 7.4 % 1.0-15 .0 Not Available [facility] (Lab) [address], [place], [address], 02/26/2025 10:19:46 02/26/20 25 02/25/2025 CBC W/DIF F eosinophils 2.1 % 0.0-8. 0 Not Available [facility] (Lab) [address], [place], [address], 02/26/2025 10:19:46 02/26/20 25 02/25/2025 CBC W/DIF F basophils 0.6 % 0.0-2. 0 Not Available [facility] (Lab) [address] [facility] [address], [place], [address], 02/26/2025 10:19:46 02/26/20 25 02/25/2025 CBC W/DIF [...] separ ately if prese nt. Not Available [facility] (Lab) [address] [place], [address], 02/26/2025 10:19:46 02/26/20 25 02/25/2025 CBC W/DIF F absolute neutrophils 9.1 10'3/ uL 1.5-8. 0 high Not Available [facility] (Lab) [address] [facility], [place], [address], 02/26/2025 10:19:46 02/26/20 25 02/25/2025 CBC W/DIF F absolute lymphocytes 2.8 10'3/ uL 1.0-4. 0 Not Available [facility] (Lab) [address], [place], [address], 02/26/2025 10:19:46 02/26/20 25 02/25/2025 CBC W/DIF F absolute monocytes 1.0 10'3/ uL 0.2-1. 0 Not Available [facility] (Lab) [address], [place], [address], 02/26/2025 10:19:46 02/26/20 25 02/25/2025 CBC W/DIF F absolute eosinophils 0.3 10'3/ uL 0.0-0. 6 Not Available [facility] (Lab) [address], [place], [address], 02/26/2025 10:19:46 02/26/20 25 02/25/2025 CBC W/DIF F absolute basophils 0.1 10'3/ uL 0.0-0. 3 Not Available [facility] (Lab) [address] [facility], [place], [address], 02/26/2025 10:19:46 02/26/20 25 02/25/2025 CBC W/DIF [...] beaulieu book. nm.or g/gen derx Not Available [facility] (Lab) [address], [place], [address], 02/26/2025 10:19:46 02/26/20 25 02/25/2025 HEPAT ITIS C ANTIB WESLEY SCREE N, REFLE X TO CONFI RMATI ON hepatitis C antibody Non-re active non-re active Antib odies to HCV Not Detec dada, does not exclu de the possi bilit y of expos ure to HCV. Not Available [facility] (Lab) [address], [place], [address], 02/26/2025 10:19:46 02/26/20 25 02/25/2025 HIV 1/2 ANTIG EN/AN TIBOD Y, REFLE X CONFI RMATI ON HIV antigen/anti body Nonrea ctive nonrea ctive HIV-1 antig en and HIV-1 /HIV- 2 antib odies were not detec dada. No labor atory evide nce of HIV infec tion. Not Available [facility] (Lab) [address], [place], [address], 02/26/2025 10:19:47 02/26/20 25 02/25/2025 HEPAT ITIS B SURFA CE ANTIG EN hepatitis B surface antigen Non-re active non-re active This assay was perfo rmed using [employer] ratio n reage nts and test kits. Value s obtai tiffany with other assay metho ds or kits canno t be used inter castañeda eably . Not Available [facility] (Lab) [address], [place], [address], 02/26/2025 10:19:47 02/26/20 25 02/25/2025 TYPE/ RH/SC REEN ABO/Rh type O POS Not Available [facility] (Lab) [address], [place], [address], 02/26/2025 10:19:47 02/26/20 25 02/25/2025 TYPE/ RH/SC REEN antibody screen NEG Not Available [facility] (Lab) [address], [place], [address], 02/26/2025 10:19:47 02/26/20 25 02/25/2025 TYPE/ RH/SC REEN exp date 2024 23:59 Not Available [facility] (Lab) [address] [facility] [address], [place], [address], 02/26/2025 10:19:47 02/26/20 25 02/25/2025 RUBEL LA IGG ANTIB WESLEY, QUANT rubella antibodies, IgG Non-Re active reacti ve abnormal Not Available [facility] (Lab) [address] [facility], [place], [address], 02/26/2025 10:19:48 02/26/20 25 02/25/2025 RUBEL LA IGG ANTIB WESLEY, QUANT rubella antibodies, IgG quant <10.0 IU/mL >=10 low Non-r eacti ve (Non- Immun e) <10 IU/mL React myesha (Immu ne) > or = 10 IU/mL Not Available [facility] (Lab) [address], [place], [address], 02/26/2025 10:19:48 02/26/2002/25/2025 HEMOG LOBIN A1C hemoglobin [...] >8.0% Actio n sugge sted Not Available [facility] (Lab) [address], [place], [address], 02/26/2025 10:19:48 02/26/20 25 02/25/2025 RPR SCREE N, REFLE X TITER /CONF IRMAT ION RPR qualitative Nonrea ctive nonrea ctive Not Available [facility] (Lab) [address], [place], [address], 02/26/2025 10:19:48 02/26/20 25 02/25/2025 CULTU RE: URINE result report SEE RESULT S BELOW Test: Cultu re: Urine Speci men Sourc e: Urine Voide d Speci men Type: Urine Speci men Date: 2024 1743 Resul t Date: 20245 Resul t Statu s: Final resul t Abnor mal: No Resul ting Lab: [facility] [address] [facility] [address] Tel: CULTU RE ----- ----- ----- --- Cultu re resul t (>=3 organ isms prese nt) indic ates possi ble conta minat ion. Repea t cultu re if sympt oms indic ate. Not Available [facility] (Lab) [address], [place], [address], 02/27/2025 00:29:16 06/18/2006/18/2025 HEMAT OCRIT (HCT) HCT 33.7 % (based on docume nted legal sex) 34.0-4 5.0 low Not Available [facility] (Lab) [address], [place], [address], 06/19/2025 10:20:54 06/18/20 25 06/18/2025 HEMOG LOBIN (HGB) HGB 10.6 g/dL (based on docume nted legal sex) 11.6-1 5.4 low Not Available [facility] (Lab) [address] [place], [address], 06/19/2025 10:20:55 06/18/20 25 06/18/2025 GTT - GESTA GRIFFIN Flor BLANCO N, ACOG OB glucose, 1 hour screen 91 mg/dL 70-135 Not Available [facility] (Lab) [address], [place], [address], 06/19/2025 10:20:55 06/18/20 25 06/18/2025 HIV 1/2 ANTIG EN/AN TIBOD Y, REFLE X CONFI RMATI ON HIV antigen/anti body Nonrea ctive nonrea ctive HIV-1 antig en and HIV-1 /HIV- 2 antib odies were not detec dada. No labor atory evide nce of HIV infec tion. Not Available [facility] (Lab) [address], [place], [address], 06/19/2025 10:20:56 06/18/20 25 06/18/2025 RPR SCREE N, REFLE X TITER /CONF IRMAT ION RPR qualitative Nonrea ctive nonrea ctive Not Available [facility] (Lab) [address], [place], [address], 06/19/2025 10:20:57 02/26/20 25 02/25/2025 US, obste tric, nucha l trans lucen cy No observ ation record ed. [address], [place], [address], 02/25/2025 18:30:50 02/26/20 25 02/25/2025 US, obste tric, nucha l trans lucen cy No observ ation record ed. [email or web address] Manuela [address], [place], [address], 02/28/2025 22:26:06 04/23/20 25 04/23/2025 US, obste tric, 2nd or 3rd trime ster No observ ation record ed. [facility] [address], [place], [address], 04/23/2025 18:34:49 04/23/20 25 04/23/2025 US, obste tric, follo w-up No observ ation record ed. GABRIEL Manuela [address], [place], [address], 04/27/2025 11:09:16 06/11/2006/11/2025 non-s tress test No observ ation record ed. [email or web address] [facility], [place], [address], 06/18/2025 09:08:39 06/19/2006/19/2025 non-s tress test No observ ation record ed. [address] [facility], [place], [address], 06/23/2025 12:42:23 06/22/2006/22/2025 US, obste tric, limit ed No observ ation record ed. [address] [address], [place], [address], 06/23/2025 12:42:00 07/14/2007/13/2025 US, renal No observ ation record ed. [address] [address], [place], [address], 07/15/2025 15:49:07 07/14/2007/13/2025 US, obste tric, bioph ysica l profi le No observ ation record ed. [address] [facility], [place], [address], 07/15/2025 15:49:28 07/20/20 25 07/20/2025 US, obste tric, follo w-up No observ ation record ed. [email or web address] [place] [address], [place], [address], 07/20/2025 18:49:37 07/20/20 25 07/20/2025 US, obste tric, follo w-up No observ ation record ed. [email or web address] Manuela [address], [place], [address], 07/21/2025 09:57:43 08/05/20 25 08/05/2025 US, obste tric, follo w-up No observ ation record ed. [email or web address] [place] [address] [address], [place], [address], 08/06/2025 13:11:50 08/05/20 25 08/05/2025 US, obste tric, trans vagin al No observ ation record ed. [email or web address] [facility] [address], [place], [address], 08/06/2025 14:04:51 08/05/20 25 10/05/2024 non-s tress test No observ ation [facility] ed. [email or web address] [address] [facility] [address], [place], [address], 08/17/2025 10:57:27 08/18/20 25 08/18/2025 imagi ng/di agnos tic resul t No observ ation record ed. [email or web address] [facility] [address], [place], [address], 08/18/2025 17:13:30 Result Notes None recorded. 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 16:33:[address] Concept Completed 201703/15/2021 Encntr for certified medical transcriptionist exam (general ) (routine ) w/o abn findings ;Practic e ID: [id number] Melissa grier [facility] 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 1 16:33:33 Pregnanc y 79477159 Active 2024 Linn Kruse [facility], [facility] 5 16:32:48 Mixed anxiety and depressi ve disorder 501154836 Active 2024 sertrali ne changed to 100mg Chin Boyce MD [address], [place], [address], [facility] 5 16:52:38 Rubella non-immu ne 326421216 Active 2024 PP MMR Liz Hardin [facility], [facility] 5 15:19:23 Problem Notes None recorded. Procedures Surgical History Date Name Laterality Status Provider Name and Address Organization Details Recorded Time 07/11/20 Date of Last Pap Smear completed Dahlia Arauz [facility] 07/11/2024 11:54:49 11/03/19 termination of completed Carina Torres [facility] 11/28/2022 16:45:49 09/17/19 21 extraction of wisdom tooth completed Carinamateo Torres [facility] 11/28/2022 16:45:26 09/17/19 15 procedure on foot completed Carina [facility] 11/28/2022 16:45:14 09/17/19 10 Tonsillectomy completed [facility] 11/28/2022 16:45:37 Imaging Results None recorded. [...] Prescrib ed Elsewher e: No Locat ion: [facility] M odify By: funmilayo martinez DateTime : [...] Address Organization Details Last Updated DateTime 07/20/2025 877447.05778 g 132/83 mm[Hg] Linn Kruse [facility] 07/20/2025 18:05:06 Social History Question Answer Notes LastModified by Organizat ion Details LastModified Time Tobacco Smoking Status Never Smoker Melissabrigette grier, [facility] 03/16/2021 10:13:21 Do You Have An Advance Directive? No [email or web address] Information n ot available 03/16/2021 How Many Years Have You Consumed Alcohol? 2 [email or web address] Information not available 03/16/2021 Are You Blind Or Do You Have Difficulty Seeing? No [email or web address] Information n ot available 03/16/2021 What Is Your Level Of Caffeine Consumption? Moderate [email or web address] Information not available 03/16/2021 How Much Tobacco Do You Chew? None Information not available 01/22/2025 In The 14 Days Before Symptom Onset, Have You Had Close Contact With A Laboratory-confirm ed COVID-19 While That Case Was Ill? No [email or web address] Information n ot available 03/16/2021 In The 14 Days Before Symptom Onset, Have You Had Close Contact With A Person Who Is Under Investigation For COVID-19 While That Person Was Ill? No [email or web address] Information not available 03/16/2021 Have You Been To An Area Known To Be High Risk For COVID-19? No [email or web address] Information not available 03/16/2021 Are You Deaf Or Do You Have Serious Difficulty Hearing? Yes [email or web address] Information not available 03/16/2021 What Type Of Diet Are You Following? REGULAR [email or web address] Information n ot available 03/16/2021 What Is The Highest Grade Or Level Of School You Have Completed Or The Highest Degree You Have Received? [id number] Information not available 03/16/2021 Are There Any Guns Present In Your Home? Yes [email or web address] Information not available 03/16/2021 Do You Use Protection During Sex? No Information not available 01/22/2025 Do You Use Your Seat Belt Or Car Seat Routinely? Yes Information not available 03/16/2021 Do You Have Smoke And Carbon Monoxide Detectors In Your Home? Yes [email or web address] Information not available 03/16/2021 At What Age Did You Start Smoking Tobacco? 21 Information not available 01/22/2025 How Much Tobacco Do You Smoke? No [email or web address] Information not available 03/16/2021 Do You Use Sunscreen Routinely? No [email or web address] Information not available 03/16/2021 How Many Years Have You Smoked Tobacco? 2 Information not available 01/22/2025 Have You Used IV Drugs? No [email or web address] Information not available 03/16/2021 Sex: Unknown Functional Status Question Answer Note LastModified by Organizat ion Details LastModified Time Do you use any illicit or recreational drugs? No [email or web address] Information not available 03/16/2021 What is your level of alcohol consumption? None Information not available 01/22/2025 Are you able to walk independently without assistance or assistive devices? 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 Occasional Information not available 03/16/2021 Mental Status Question Answer Note LastModified by Organization D etails LastModified Time Do you feel stressed (tense, restless, nervous, or anxious, or unable to sleep at night)? [id number] Information not available 01/22/2025 Family History Relationship [...] ICD10 Code Diagnosis IMO Codes Diagnosis Note [id number] Audrey Matamoros CNM [place] [address],[facility] [place] [address] 07/03/2025 16:18:57 07/03/2025 16:46:16 Gestation period, 33 weeks [id number] Z3A.33 [id number] Chin Boyce MD [place] [address],[facility] [place] [address] 07/20/2025 16:53:33 07/21/2025 08:21:13 Uterine size for dates discrepancy [id number] O26.843 Z3A.33 [id number] Chin Boyce MD [place] [address],[facility] [place] [address] 07/20/2025 16:54:47 07/21/2025 08:19:34 Health Concerns Section Related Observation LastModified by Organization Detai ls LastModified Time None Recorded Concern Status LastModified by Organization Details LastModified Time None Recorded Payers Encounter Date Sequence Insurance Name Policy Number Policy Meehan Covered Member ID Meehan Member ID Guarantor Name 07/20/2025 1 [employer] [id number] Ev Dunn [id number] Ev Dunn Notes Date Note Type Note Provider Name and Address Organization Details Recorded Time 07/20/2025 text/html Generic HPI TemplateReported by Patient Chin Boyce MD [address], [place], [address], [facility] 07/20/2025 18:13:09 OBGyn Episode Ob Episode Information Episode Created Date Number of Fetuses Patient Bloodtype Patient rh Status Prepregnancy Weight lbs Domestic Partner Domestic Partner Phone Father Name Facility Engineer Status 02/26/20 25 1 O Positive [address] OPEN Fetus Data First Name Last Name Admitted to NICU Weight (g) Sex Living Outcome Pediatric Complications Fetus ID Race Codes Race Delivery Type [id number] Problems Problem Notes Problem Name Start Date End Date Resolution Snomed Code Not e Mixed anxiety and depressive disorder 02/25/2025 [id number] sertrali ne changed to 100mg Rubella non-immune 03/03/2025 [id number] PP MMR [place] Calculation Initial [place] Date [...] Weight in lbs Pre/Post Dialysis Refused Weight 197.550876247537 BP Diastolic BP Location Tested BP Systolic [...] Type Weight in lbs Pre/Post Dialysis Refused 198.642124255753 BP Diastolic BP Location Tested BP Systolic [...] Type Weight in lbs Pre/Post Dialysis Refused 204.873564140481 BP Diastolic BP Location Tested BP Systolic [...] Type Weight in lbs Pre/Post Dialysis Refused 210.332477601017 BP Diastolic BP Location Tested BP Systolic [...] Type Weight in lbs Pre/Post Dialysis Refused 217.263789133440 BP Diastolic BP Location Tested BP Systolic [...] Weight in lbs Pre/Post Dialysis Refused Weight 223.265819330940 BP Diastolic BP Location Tested BP Systolic [...] Type Weight in lbs Pre/Post Dialysis Refused 226.067104061649 BP Diastolic BP Location Tested BP Systolic [...] Type Weight in lbs Pre/Post Dialysis Refused 230.729224082367 BP Diastolic BP Location Tested BP Systolic [...] Type Weight in lbs Pre/Post Dialysis Refused 230.700750686571 BP Diastolic BP Location Tested BP Systolic [...]
--- OUTSIDE RECORDS SUMMARY | 2025-08-18 20:58 | XMS_ITS | Data Portability ---
Author Organization [facility] Address [address] [place] [address] [place] [address] Care Team Providers Care Drill Sergeant Name Role Phone HA VELASQUEZ Primary Care Provider Assessment Encounter Date Assessment Date Assessment LastModified by Organization Details LastModified Time 07/03/2025 07/03/2025 Patient is __33_weeks . Discussed plan. [email or web address] Not available 07/03/2025 16:45:07 07/20/2025 07/20/2025 Patient is ___weeks . Discussed plan. Not available 07/20/2025 18:04:39 08/06/2025 08/06/2025 Patient is ___weeks . Discussed plan. Not available 08/06/2025 17:40:53 08/10/2025 08/10/2025 Patient is ___weeks . Discussed plan. Not available 08/10/2025 16:42:13 Plan of Treatment Reminders Order Date Submit [...] US, obstetri c, follow-u p 2024 025 [email or web address] [address], [address], [place], [address], 07/21/2025 08:21:14 Medication Orders None recorded . Patient TargetsNo targets recorded. Patient InstructionsNo instructions recorded. Reason for Referral None Reported. Results Created Date Observation Date Name Description Value Unit Range Abnormal Flag Note LastModifiedBy Organization Detail LastModifiedTime 06/18/2006/18/2025 HEMAT OCRIT (HCT) HCT 33.7 % (based on docume nted legal sex) 34.0-4 5.0 low Not Available [facility] (Lab) [address] [place], [address], 06/19/2025 10:20:54 06/18/20 25 06/18/2025 HEMOG LOBIN (HGB) HGB 10.6 g/dL (based on docume nted legal sex) 11.6-1 5.4 low Not Available [facility] (Lab) [address] [place], [address], 06/19/2025 10:20:55 06/18/20 25 06/18/2025 GTT - GESTA GRIFFIN L FRANCIS Cheung, ACOG OB glucose, 1 hour screen 91 mg/dL 70-135 Not Available [facility] (Lab) [address] [place], [address], 06/19/2025 10:20:55 06/18/20 25 06/18/2025 HIV 1/2 ANTIG EN/AN TIBOD Y, REFLE X CONFI RMATI ON HIV antigen/anti body Nonrea ctive nonrea ctive HIV-1 antig en and HIV-1 /HIV- 2 antib odies were not detec dada. No labor atory evide nce of HIV infec tion. Not Available [facility] (Lab) [address] [place], [address], 06/19/2025 10:20:56 06/18/20 25 06/18/2025 RPR SCREE N, REFLE X TITER /CONF IRMAT ION RPR qualitative Nonrea ctive nonrea ctive Not Available [facility] (Lab) [address] [facility], [place], [address], 06/19/2025 10:20:57 08/07/2008/07/2025 CULTU RE: GROUP B STREP SCREE N, REFLE X SUSCE PTIBI LITY result report SEE RESULT S BELOW Test: Cultu re: Group B Strep , Refle x Susce ptibi lity ([facility]/ [facility] ) Speci men Sourc e: Vagin a/Rec ryan Speci men Type: Vagin al/Re ctal Speci men Date: 08/07 0857 Resul t Date: 08/10 1422 Resul t Statu s: Final resul t Abnor mal: No Resul ting Lab: [facility] [address] [facility] [address] Tel: CULTU RE ----- ----- ----- --- No Group B strep isola dada at 2 days (jacqueline ctive broth enhan cemen t) Not Available [facility] (Lab) [address] [facility], [place], [address], 08/10/2025 15:26:41 06/11/2006/11/2025 non-s tress test No observ ation record ed. [address] [place] [address], [address], 06/18/2025 09:08:39 06/19/2006/19/2025 non-s tress test No observ ation record ed. [address] [place] [address], [address], 06/23/2025 12:42:23 06/22/2006/22/2025 US, obste tric, limit ed No observ ation record ed. [address], [address], 06/23/2025 12:42:00 07/14/2007/13/2025 US, renal No observ ation record ed. [address] [facility], [place], [address], 07/15/2025 15:49:07 07/14/20 25 07/13/2025 US, obste tric, bioph ysica l profi le No observ ation record ed. [address] [facility], [place], [address], 07/15/2025 15:49:28 07/20/20 25 07/20/2025 US, obste tric, follo w-up No observ ation record ed. [email or web address] [address], [place], [address], 07/20/2025 18:49:37 07/20/20 25 07/20/2025 US, obste tric, follo w-up No observ ation record ed. [email or web address] [address]a [address], [place], [address], 07/21/2025 09:57:43 08/05/20 25 08/05/2025 US, obste tric, follo w-up No observ ation record ed. [email or web address] [place] [address] [address] [facility], [place], [address], 08/06/2025 13:11:50 08/05/2008/05/2025 US, obste tric, trans vagin al No observ ation record ed. [address] [facility], [place], [address], 08/06/2025 14:04:51 08/05/20 25 10/05/2024 non-s tress test No observ ation record ed. [email or web address] [facility], [place], [address], 08/17/2025 10:57:27 08/18/20 25 08/18/2025 imagi ng/di agnos tic resul t No observ ation record ed. [email or web address] [facility] [address], [place], [address], 08/18/2025 17:13:30 Result Notes None recorded. Problems Name Problem SNOMED Code Status Onset Date Resolution Date Notes Provider Name and Address Organization Details Recorded Time SNOMED CT Concept Completed 201703/15/2021 Encntr for routine child health exam w/o abnormal findings ;Recorde d Elsewher e: No Locat ion: [facility] S ource: EHR Coordinate Measuring Equipment Operator juan: N Practi ce ID: 0001 Pradeep lable Time: 02:15:00 PM Melissa Roy [facility] 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 16:33:32 Uses combined oral contrace ption [id number] Completed 201803/15/2021 Encounte r for surveill ance of contrace ptive pills;Re corded Elsewher e: No Locat ion: [facility] S ource: EHR Coordinate Measuring Equipment Operator juan: N Practi ce ID: 0001 Pradeep lable Time: 09:00:00 AM Melissa Kirill grier [facility] 16:33:29 Procedur e by method Completed 201803/15/2021 Encounte r for other general counseli ng and advice on contrace ption;Re corded Elsewher e: No Locat ion: [facility] S ource: EHR Coordinate Measuring Equipment Operator juan: N Practi ce ID: 0001 Pradeep lable Time: 02:30:00 PM Melissa Kirill grier [facility] 16:33:33 Pregnanc y 90688209 Active 2024 Linn Kruse [facility] 5 16:32:48 Mixed anxiety and depressi ve disorder 041962431 Active 2024 sertrali ne changed to 100mg Chin Boyce MD [address], [place], [address], [facility] 5 16:52:38 Rubella non-immu ne 180668002 Active 2024 PP MMR Liz Hardin null, [facility] 5 15:19:23 Problem Notes None recorded. Procedures Surgical History Date Name Laterality Status Provider Name and Address Organization Details Recorded Time 07/11/20 23 Date of Last Pap Smear completed Dahlia Regla [facility] 07/11/2024 11:54:49 11/03/19 23 termination of completed [facility] 11/28/2022 16:45:49 09/17/19 21 extraction of wisdom tooth completed [facility] 11/28/2022 16:45:26 09/17/19 15 procedure on foot completed [facility] 11/28/2022 16:45:14 09/17/19 10 Tonsillectomy completed [facility] 11/28/2022 16:45:37 Imaging Results [...] Hernandez e: No Locat ion: Nicholas yost [facility] M odify By: [email or web address] Estrada er DateTime [...] Updated DateTime 07/03/2025 170.18 cm 34.9 kg/m2 071927.1 g 108/67 mm[Hg] [facility] 07/03/2025 16:32:49 Date Recorded Body weight Systolic And Diastolic Provider Name and Address Organization Details Last Updated DateTime 07/20/2025 118847.98755 g 132/83 mm[Hg] [facility] 07/20/2025 18:05:06 Date Recorded Body weight Systolic And Diastolic Provider Name and Address Organization Details Last Updated DateTime 08/06/2025 323448.7507 g 117/78 mm[Hg] [facility] 08/06/2025 17:42:40 Date Recorded Body weight Systolic And Diastolic Provider Name and Address Organization Details Last Updated DateTime 08/10/2025 606124.7563 g 123/81 mm[Hg] [facility] 08/10/2025 16:43:04 Social History Question Answer Notes LastModified by Organizat ion Details LastModified Time Tobacco Smoking Status Never Smoker [facility] 03/16/2021 10:13:21 Do You Have An Advance Directive? No [email or web address] Information n ot available 03/16/2021 How Many Years Have You Consumed Alcohol? 2 [email or web address] Information not available 03/16/2021 Are You Blind Or Do You Have Difficulty Seeing? No [email or web address] Information n ot available 03/16/2021 What Is Your Level Of Caffeine Consumption? Moderate [email or web address] Information not available 03/16/2021 How Much Tobacco Do You Chew? None Information not available 01/22/2025 In The 14 Days Before Symptom Onset, Have You Had Close Contact With A Laboratory-confirm ed COVID-19 While That Case Was Ill? No [email or web address] Information n ot available 03/16/2021 In The 14 Days Before Symptom Onset, Have You Had Close Contact With A Person Who Is Under Investigation For COVID-19 While That Person Was Ill? No [email or web address] Information not available 03/16/2021 Have You Been To An Area Known To Be High Risk For COVID-19? No [email or web address] Information not available 03/16/2021 Are You Deaf Or Do You Have Serious Difficulty Hearing? Yes Information not available 03/16/2021 What Type Of Diet Are You Following? REGULAR [email or web address] Information n ot available 03/16/2021 What Is The Highest Grade Or Level Of School You Have Completed Or The Highest Degree You Have Received? [id number] [email or web address] Information not available 03/16/2021 Are There Any Guns Present In Your Home? Yes [email or web address] Information not available 03/16/2021 Do You Use Protection During Sex? No Information not available 01/22/2025 Do You Use Your Seat Belt Or Car Seat Routinely? Yes [email or web address] Information not available 03/16/2021 Do You Have Smoke And Carbon Monoxide Detectors In Your Home? Yes [email or web address] Information not available 03/16/2021 At What Age Did You Start Smoking Tobacco? 21 Information not available 01/22/2025 How Much Tobacco Do You Smoke? No [email or web address] Information not available 03/16/2021 Do You Use Sunscreen Routinely? No Information not available 03/16/2021 How Many Years Have You Smoked Tobacco? 2 Information not available 01/22/2025 Have You Used IV Drugs? No [email or web address] Information not available 03/16/2021 Sex: Unknown Functional Status Question Answer Note LastModified by Organizat ion Details LastModified Time Do you use any illicit or recreational drugs? No [email or web address] Information not available 03/16/2021 What is your level of alcohol consumption? None Information not available 01/22/2025 Are you able to walk independently without assistance or assistive devices? 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 Occasional [email or web address] Information not available 03/16/2021 Mental Status Question Answer Note LastModified by Organization D etails LastModified Time Do you feel stressed (tense, restless, nervous, or anxious, or unable to sleep at night)? [id number] Information not available 01/22/2025 Family History Relationship [...] available 2019 11:58:40 Medical History Condition Response Other N Blood Transfusion N Dermatologic Disorders N Gestational Diabetes N Anxiety Disorder N Autoimmune disease N Arthritis N Polyps N Infertility N Acid Reflux (GERD) N Cancer N Varicosities N Stroke N Neurologic/Epilepsy N Fibromyalgia N Headaches Y Kidney Disease N Heart Problems N Kidney or Bladder Problems N Eating Disorder N Art (IVF or FET) N Hepatitis/Liver Disease N No Past Medical History N Urinary Tract Infection N Asthma N Trauma/Violence N Thrombophilias N Allergies (Food, seasonal, environmental ) N Breast Cancer N Drug/Latex Allergies/Reactions N Lung Disease N Defects or Inherited Disease N Breast Problem N Hematologic disorders N Anesthesia Complications N History of STI N Deep Vein Thrombosis N Polycystic ovary syndrome N History of abnormal pap N Endometriosis N High Cholesterol N Thyroid Problems N GI Problems N Anemia N Psychiatric Illness N Ovarian Cancer N Diabetes N Pulmonary (TB, Asthma) N Eczema N Abuse/Domestic Violence N Depression/ depression N Heart Disease N Pre-Eclampsia N Hypertension N Osteoporosis N Gynecological History Statement/Question Response Flow Moderate [...] Codes Diagnosis Note [id number] Simona Uribe CNM [address] [address] 02/23/2020 17:41:01 03/10/2020 10:57:26 9120 Simona Uribe CNM [place] [address],[place] [address] 03/09/2020 11:54:11 03/09/2020 12:51:44 Contraception care management 573887432 Z30.9 Pt happy with patch. Cycles regular and light. We did discuss risks of increased BMI with the use of the patch including increased risk of clots and stroke alont with increased risk of unplanned preganncy. Pt verbalized understand ing. [id number] Simona Uribe CNM [address],[place] [address] 03/16/2021 10:03:59 03/16/2021 10:51:05 Contraception care management 131047228 Z30.9 Pt happy with patch. She is trying to get coverage sorted out with insurance. Samples given. Gynecologi c examination 64711836 Z01.419 Take Calcium with Vitamin D 1200mg [...] paper copy of today's plan if desired. [id number] Simona Uribe CNM [address],[place] [address] 11/28/2022 16:14:33 11/29/2022 18:03:52 Elective termination of 86903779 Z33.2 EAB. UPT still positive. HCG to be drawn. Will await results. Pt will continue ocp. Bleeding precaution s given. Emotional support given. [id number] Chin Boyce MD [address],[place] [address] 11/28/2022 17:11:48 11/28/2022 17:48:57 Retained products of conception following induced termination of 761646864 O04.89 Z3A.01 [id number] BRYAN Freed [address],[place] [address] 07/11/2023 17:03:47 07/11/2023 18:05:08 Gynecologic examination 69841564 Z01.419 WWEB - OCPhappy with this method and would [...] 10 years you should obtain one as well.Karlos ssed with patient & provided with informatio [...] plan if desired. Contracept ion care management 414538117 Z30.9 Break-thro ugh bleeding 98792555 N92.1 Tenderness of breast 552 15100 N64.4 Irregular periods 839783 07 N92.6 [id number] Chin Boyce MD [address] [address] 01/22/2025 09:21:03 01/22/2025 09:59:29 Uterine size for dates discrepancy 951476923 O26.841 Z3A.01 4248057 [id number] Chin Boyce MD [facility] [address] [address] 01/22/2025 09:21:26 01/22/2025 10:57:42 Amenorrhea 81424458 N91.2 28860 this patient is an 24-year-ol d female [...] ce. More than 50% was counseling . [id number] MD Jacquelyn Sapp [address],[place] [address] 02/25/2025 15:06:33 02/25/2025 16:17:01 screening 342200708 Z36.82 Z3A.12 799321 [id number] MD Jacquelyn Sapp [address],[place] [address] 02/25/2025 15:08:08 02/25/2025 17:02:59 Nausea 717831678 R11.0 06416 Mixed anxi ety and depressive disorder 051174255 F41.9 F32.A 494936 care status 24 0319976 Z34.82 52793753 [id number] MD Jacquelyn Sapp [address],[place] [address] 03/26/2025 16:54:21 03/26/2025 17:54:15 care status 056042412 Z34.82 61053042 [id number] MD Jacquelyn Sapp [address],[place] [address] 04/23/2025 15:08:03 04/23/2025 17:04:07 Ultrasound scan - obstetric 574129882 Z36.3 Z3A.20 94355 [id number] MD Jacquelyn Sapp [address],[place] [address] 04/23/2025 15:08:47 04/23/2025 17:29:12 care status 726914008 Z34.82 26881572 [id number] MD Jacquelyn Sapp [address],[place] [address] 05/21/2025 15:25:35 05/21/2025 17:17:01 care status 922523877 Z34.82 96248950 [id number] MD Jacquelyn Sapp [address],[place] [address] 06/18/2025 14:04:18 06/18/2025 16:17:06 care status 123304473 Z34.83 65503013 [id number] Audrey Matamoros CNM [facility] [address],[place] [address] 07/03/2025 16:18:57 07/03/2025 16:46:16 Gestation period, 33 weeks 52074805 Z3A.33 9134762 [id number] Chin Boyce MD [facility] [address],[place] [address] 07/20/2025 16:53:33 07/21/2025 08:21:13 Uterine size for dates discrepancy 118321465 O26.843 Z3A.33 7436861 [id number] Chin Boyce MD [facility] [address],[place] [address] 07/20/2025 16:54:47 07/21/2025 08:19:34 [id number] Chin Boyce MD [facility] [address] [address] 08/06/2025 17:07:46 08/08/2025 08:04:09 care status 495518006 Z34.83 07504475 [id number] Chin Boyce MD [facility] [address] [address] 08/10/2025 16:23:54 08/10/2025 17:11:22 Third trimester 05514448 Z34.03 55278572 Health Concerns Section Related Observation LastModified by Organization Detai ls LastModified Time None Recorded Concern Status LastModified by Organization Details LastModified Time None Recorded Advance Directives Directive N: Payers Insurance Date Sequence Insurance Name Policy Number Policy Meehan Covered Member ID Meehan Member ID Guarantor Name 07/03/2025 PAYMENT PLAN Ev Dunn 07/01/2025 PAYMENT PLAN Ev Dunn 07/03/2023 1 [place] Viktor Dunn [id number] Ev Dunn 07/03/2023 1 [place] [id number] Viktor Dunn [id number] Ev Dunn 11/09/2023 1 [place] [facility] PRIOR TO 04/17/2025 (MEDICAID REPLACEMENT - HMO) [id number] E Ev Dunn [id number] Ev Dunn 07/11/2024 1 [place] [id number] E Ev Dunn [id number] Ev Dunn 08/17/2025 1 [place] [id number] Ev Dunn [id number] Ev Dunn Notes Date Note Type Note Provider Name and Address Organization Details Recorded Time 07/03/2025 text/html Generic HPI TemplateReported by Patient Audrey Matamoros CNM [address], [place], [address], [facility] 07/03/2025 16:45:22 07/20/2025 text/html Generic HPI TemplateReported by Patient Chin Boyce MD [address], [place], [address], [facility] 07/20/2025 18:13:09 08/06/2025 text/html Generic HPI TemplateReported by Patient Chin Boyce MD [address], [place], [address], [facility] 08/07/2025 17:42:34 08/10/2025 text/html Generic HPI TemplateReported by Patient Chin Boyce MD [address], [place], [address], [facility] 08/10/2025 17:10:54 OBGyn Episode Ob Episode Information Episode Created Date Number of Fetuses Patient Bloodtype Patient rh Status Prepregnancy Weight lbs Domestic Partner Domestic Partner Phone Father Name [employer] Programmer Status 11/29/19 23 1 CLOSED Fetus Data First Name Last Name Admitted to NICU Weight (g) Sex Living Outcome Pediatric Complications Fetus ID Race Codes Race Delivery Type , Induced [id number] Kol[place] Calculation Initial [place] Date Initial Exam Date Initial Exam Provider Initial Ultrasound Date Last Menstrual Period Date Ultra Sound Weeks Gestation 0 Eighteen To Twenty Week [place] Update Ultra Sound Date Fundal Height At [...] Domestic Partner Domestic Partner Phone Father Name [employer] Programmer Status 02/26/20 25 1 O Positive [address] OPEN Fetus Data First Name Last Name Admitted to NICU Weight (g) Sex Living Outcome Pediatric Complications Fetus ID Race Codes Race Delivery Type [id number] Problems Problem Notes Problem Name Start Date End Date Resolution Snomed Code Not e Mixed anxiety and depressive disorder 02/25/2025 635274710 sertrali ne changed to 100mg Rubella non-immune 03/03/2025 394953136 PP MMR Kolton Calculation Initial [place] Date [...] Weight in lbs Pre/Post Dialysis Refused Weight 197.915946226234 BP Diastolic BP Location Tested BP Systolic [...] Type Weight in lbs Pre/Post Dialysis Refused 198.807578274869 BP Diastolic BP Location Tested BP Systolic [...] Type Weight in lbs Pre/Post Dialysis Refused 204.904772646630 BP Diastolic BP Location Tested BP Systolic [...] Type Weight in lbs Pre/Post Dialysis Refused 210.168688414009 BP Diastolic BP Location Tested BP Systolic [...] Type Weight in lbs Pre/Post Dialysis Refused 217.423296558730 BP Diastolic BP Location Tested BP Systolic [...] Weight in lbs Pre/Post Dialysis Refused Weight 223.672760781452 BP Diastolic BP Location Tested BP Systolic [...] Type Weight in lbs Pre/Post Dialysis Refused 226.735305141244 BP Diastolic BP Location Tested BP Systolic [...] Type Weight in lbs Pre/Post Dialysis Refused 230.764192759685 BP Diastolic BP Location Tested BP Systolic [...] Type Weight in lbs Pre/Post Dialysis Refused 230.074996887446 BP Diastolic BP Location Tested BP Systolic [...]
--- OUTSIDE RECORDS SUMMARY | 2025-08-18 20:58 | XMS_ITS | Continuity of Care Document ---
Author Organization [facility] [place] Address [address] [place] [address] Care Team Providers Care Equipment Superintendent Name Role Phone HA VELASQUEZ Primary Care [...] Not Available [facility] grissom [address], [place], [address], 03/05/2025 13:46:16 03/05/20 25 03/05/2025 [UNIT Y] ANEUP LOIDY NIPT 22Q11.2 microdeletio n LOW RISK <1 in 10,000 normal Not Available [facility]anto[facility]ela e [address], [place], [address], 03/05/2025 13:46:16 03/05/20 25 03/05/2025 [UNIT Y] ANEUP LOIDY NIPT sex chromosome aneuploidy NOT DETECT ED normal Not Available [facility] [address], [place], [address], 03/05/2025 13:46:16 03/05/20 25 03/05/2025 [UNIT Y] ANEUP LOIDY NIPT monosomy X LOW RISK <1 in 10,000 normal Not Available [facility] [address], [place], [address], 03/05/2025 13:46:16 03/05/20 25 03/05/2025 [UNIT Y] ANEUP LOIDY NIPT trisomy 13 LOW RISK <1 in 10,000 normal Not Available [facility] [address], [place], [address], 03/05/2025 13:46:16 03/05/20 25 03/05/2025 [UNIT Y] ANEUP LOIDY NIPT trisomy 18 LOW RISK <1 in 10,000 normal Not Available [facility] [address], [place], [address], 03/05/2025 13:46:16 03/05/20 25 03/05/2025 [UNIT Y] ANEUP LOIDY NIPT trisomy 21 LOW RISK <1 in 10,000 normal Not Available [facility] [address], [place], [address], 03/05/2025 13:46:16 03/05/20 25 03/05/2025 [UNIT Y] ANEUP LOIDY NIPT sex MALE normal Not Available [facility] [address], [place], [address], 03/05/2025 13:46:16 03/05/20 25 03/05/2025 [UNIT Y] ANEUP LOIDY NIPT gestation SINGLE TON normal Not Available [facility] [address], [place], [address], 03/05/2025 13:46:16 03/05/20 25 03/05/2025 [UNIT Y] ANEUP LOIDY NIPT for detailed report, see pdf See PDF normal Not Available [facility] [address], [place], [address], 03/05/2025 13:46:16 03/06/20 25 03/06/2025 [UNIT Y] SHIKHA Cheung sickle cell disease/beta -thalassemia /hemoglobino pathies carrier screen NEGATI VE normal Not Available [facility] [address], [place], [address], 03/06/2025 20:16:21 03/06/20 25 03/06/2025 [UNIT Y] SHIKHA Cheung alpha-thalas semia carrier screen NEGATI VE normal Not Available [facility] [address], [place], [address], 03/06/2025 20:16:21 03/06/20 25 03/06/2025 [UNIT Y] SHIKHA Cheung cystic fibrosis carrier screen NEGATI VE normal Not Available [facility] [address], [place], [address], 03/06/2025 20:16:21 03/06/20 25 03/06/2025 [UNIT Y] SHIKHA Cheung spinal muscular atrophy carrier screen NEGATI VE 2 SMN1 copies , SNP not presen t normal Not Available [facility] [address], [place], [address], 03/06/2025 20:16:21 03/06/20 25 03/06/2025 [UNIT Y] SHIKHA Cheung for detailed report, see pdf See PDF normal Not Available [facility] [address], [place], [address], 03/06/2025 20:16:21 02/26/20 25 02/25/2025 CBC W/DIF F WBC 13.3 10'3/ uL 3.5-10 .5 high Not Available [facility] (Lab) [address], [place], [address], 02/26/2025 10:19:46 02/26/20 25 02/25/2025 CBC W/DIF F RBC 4.33 10'6/ uL (based on docume nted legal sex) 3.80-5 .20 Not Available [facility] (Lab) [address], [place], [address], 02/26/2025 10:19:46 02/26/20 25 02/25/2025 CBC W/DIF F HGB 13.5 g/dL (based on docume nted legal sex) 11.6-1 5.4 Not Available [facility] (Lab) [address], [place], [address], 02/26/2025 10:19:46 02/26/20 25 02/25/2025 CBC W/DIF F HCT 41.0 % (based on docume nted legal sex) 34.0-4 5.0 Not Available [facility] (Lab) [address], [place], [address], 02/26/2025 10:19:46 02/26/20 25 02/25/2025 CBC W/DIF F MCV 94.7 fL 80.0-9 9.0 Not Available [facility] (Lab) [address] [facility], [place], [address], 02/26/2025 10:19:46 02/26/20 25 02/25/2025 CBC W/DIF F MCH 31.2 pg 27.0-3 4.0 Not Available [facility] (Lab) [address], [place], [address], 02/26/2025 10:19:46 02/26/20 25 02/25/2025 CBC W/DIF F MCHC 32.9 g/dL 32.0-3 5.5 Not Available [facility] (Lab) [address] [facility], [place], [address], 02/26/2025 10:19:46 02/26/20 25 02/25/2025 CBC W/DIF F RDW 13.2 % 11.0-1 5.0 Not Available [facility] (Lab) [address] [facility], [place], [address], 02/26/2025 10:19:46 02/26/20 25 02/25/2025 CBC W/DIF F plt 295 10'3/ uL 150-40 0 Not Available [facility] (Lab) [address] [facility], [place], [address], 02/26/2025 10:19:46 02/26/20 25 02/25/2025 CBC W/DIF F MPV 11.2 fL 8.8-12 .1 Not Available [facility] (Lab) [address] [facility], [place], [address], 02/26/2025 10:19:46 02/26/20 25 02/25/2025 CBC W/DIF F NRBC's 0.0 % 0.0 Not Available [facility] (Lab) [address] [facility], [place], [address], 02/26/2025 10:19:46 02/26/20 25 02/25/2025 CBC W/DIF F absolute NRBCs 0.0 10'3/ uL no refere nce range establ ished Not Available [facility] (Lab) [address] [facility], [place], [address], 02/26/2025 10:19:46 02/26/20 25 02/25/2025 CBC W/DIF F neutrophils 68.0 % 34.0-7 3.0 Not Available [facility] (Lab) [address] [facility], [place], [address], 02/26/2025 10:19:46 02/26/20 25 02/25/2025 CBC W/DIF F lymphocytes 21.2 % 15.0-5 0.0 Not Available [facility] (Lab) [address] [facility], [place], [address], 02/26/2025 10:19:46 02/26/20 25 02/25/2025 CBC W/DIF F monocytes 7.4 % 1.0-15 .0 Not Available [facility] (Lab) [address] [facility], [place], [address], 02/26/2025 10:19:46 02/26/20 25 02/25/2025 CBC W/DIF F eosinophils 2.1 % 0.0-8. 0 Not Available [facility] (Lab) [address] [facility], [place], [address], 02/26/2025 10:19:46 02/26/20 25 02/25/2025 CBC W/DIF F basophils 0.6 % 0.0-2. 0 Not Available [facility] (Lab) [address] [facility], [place], [address], 02/26/2025 10:19:46 02/26/20 25 02/25/2025 CBC W/DIF [...] separ ately if prese nt. Not Available [facility] (Lab) [address] [place], [address], 02/26/2025 10:19:46 02/26/20 25 02/25/2025 CBC W/DIF F absolute neutrophils 9.1 10'3/ uL 1.5-8. 0 high Not Available [facility] (Lab) [address] [facility], [place], [address], 02/26/2025 10:19:46 02/26/20 25 02/25/2025 CBC W/DIF F absolute lymphocytes 2.8 10'3/ uL 1.0-4. 0 Not Available [facility] (Lab) [address] [facility], [place], [address], 02/26/2025 10:19:46 02/26/20 25 02/25/2025 CBC W/DIF F absolute monocytes 1.0 10'3/ uL 0.2-1. 0 Not Available [facility] (Lab) [address] [facility], [place], [address], 02/26/2025 10:19:46 02/26/20 25 02/25/2025 CBC W/DIF F absolute eosinophils 0.3 10'3/ uL 0.0-0. 6 Not Available [facility] (Lab) [address] [facility], [place], [address], 02/26/2025 10:19:46 02/26/20 25 02/25/2025 CBC W/DIF F absolute basophils 0.1 10'3/ uL 0.0-0. 3 Not Available [facility] (Lab) [address] [facility], [place], [address], 02/26/2025 10:19:46 02/26/20 25 02/25/2025 CBC W/DIF [...] beaulieu book. nm.or g/gen derx Not Available [facility] (Lab) [address] [facility], [place], [address], 02/26/2025 10:19:46 02/26/20 25 02/25/2025 HEPAT ITIS C ANTIB W[place]LEY SCREE N, REFLE X TO CONFI RMATI ON hepatitis C antibody Non-re active non-re active Antib odies to HCV Not Detec dada, does not exclu de the possi bilit y of expos ure to HCV. Not Available [facility] (Lab) [address], [place], [address], 02/26/2025 10:19:46 02/26/20 25 02/25/2025 HIV 1/2 ANTIG EN/AN TIBOD Y, REFLE X CONFI RMATI ON HIV antigen/anti body Nonrea ctive nonrea ctive HIV-1 antig en and HIV-1 /HIV- 2 antib odies were not detec dada. No labor atory evide nce of HIV infec tion. Not Available [facility] (Lab) [address], [place], [address], 02/26/2025 10:19:47 02/26/20 25 02/25/2025 HEPAT ITIS B SURFA CE ANTIG EN hepatitis B surface antigen Non-re active non-re active This assay was perfo rmed using [employer] ratio n reage nts and test kits. Value s obtai tiffany with other assay metho ds or kits canno t be used inter castañeda eably . Not Available [facility] (Lab) [address], [place], [address], 02/26/2025 10:19:47 02/26/20 25 02/25/2025 TYPE/ RH/SC REEN ABO/Rh type O POS Not Available [facility] (Lab) [address], [place], [address], 02/26/2025 10:19:47 02/26/20 25 02/25/2025 TYPE/ RH/SC REEN antibody screen NEG Not Available [facility] (Lab) [address], [place], [address], 02/26/2025 10:19:47 02/26/20 25 02/25/2025 TYPE/ RH/SC REEN exp date 2024 23:59 Not Available [facility] (Lab) [address] [facility], [place], [address], 02/26/2025 10:19:47 02/26/20 25 02/25/2025 RUBEL LA IGG ANTIB W[place]LEY, QUANT rubella antibodies, IgG Non-Re active reacti ve abnormal Not Available [facility] (Lab) [address] [facility], [place], [address], 02/26/2025 10:19:48 02/26/20 25 02/25/2025 RUBEL LA IGG ANTIB [place], QUANT rubella antibodies, IgG quant <10.0 IU/mL >=10 low Non-r eacti ve (Non- Immun e) <10 IU/mL React myesha (Immu ne) > or = 10 IU/mL Not Available [facility] (Lab) [address] [facility], [place], [address], 02/26/2025 10:19:48 02/26/2002/25/2025 HEMOG LOBIN A1C hemoglobin [...] >8.0% Actio n sugge sted Not Available [facility] (Lab) [address] [facility], [place], [address], 02/26/2025 10:19:48 02/26/20 25 02/25/2025 RPR SCREE N, REFLE X TITER /CONF IRMAT ION RPR qualitative Nonrea ctive nonrea ctive Not Available [facility] (Lab) [address] [facility], [place], [address], 02/26/2025 10:19:48 02/26/20 25 02/25/2025 CULTU RE: URINE result report SEE RESULT S BELOW Test: Cultu re: Urine Speci men Sourc e: Urine Voide d Speci men Type: Urine Speci men Date: 2024 1743 Resul t Date: 2024 2325 Resul t Statu s: Final resul t Abnor mal: No Resul ting Lab: [facility] [address] [facility] [address] Tel: CULTU RE ----- ----- ----- --- Cultu re resul t (>=3 organ isms prese nt) indic ates possi ble conta minat ion. Repea t cultu re if sympt oms indic ate. Not Available [facility] (Lab) [address] [facility], [place], [address], 02/27/2025 00:29:16 02/26/20 25 02/25/2025 US, obste tric, nucha l trans lucen cy No observ ation record ed. [email or web address] [facility] [address], [place], [address], 02/25/2025 18:30:50 02/26/20 25 02/25/2025 US, obste tric, nucha l trans lucen cy No observ ation record ed. [email or web address] Manuela [address], [place], [address], 02/28/2025 22:26:06 04/23/20 25 04/23/2025 US, obste tric, 2nd or 3rd trime ster No observ ation record ed. [email or web address] [address], [place], [address], 04/23/2025 18:34:49 04/23/20 25 04/23/2025 US, obste tric, follo w-up No observ ation record ed. GABRIEL Mckinnone [address], [place], [address], 04/27/2025 11:09:16 06/11/2006/11/2025 non-s tress test No observ ation record ed. [address] [facility], [place], [address], 06/18/2025 09:08:39 06/19/2006/19/2025 non-s tress test No observ ation record ed. [address] [facility], [place], [address], 06/23/2025 12:42:23 06/22/2006/22/2025 US, obste tric, limit ed No observ ation record ed. [address] [facility], [place], [address], 06/23/2025 12:42:00 07/14/2007/13/2025 US, renal No observ ation record ed. [address] [facility], [place], [address], 07/15/2025 15:49:07 07/14/2007/13/2025 US, obste tric, bioph ysica l profi le No observ ation record ed. [address] [facility], [place], [address], 07/15/2025 15:49:28 07/20/20 25 07/20/2025 US, obste tric, follo w-up No observ ation record ed. [email or web address] [facility] [address], [place], [address], 07/20/2025 18:49:37 07/20/2007/20/2025 US, obste tric, follo w-up No observ ation record ed. madeleine Manuela [address], [place], [address], 07/21/2025 09:57:43 08/05/20 25 08/05/2025 US, obste tric, follo w-up No observ ation record ed. [email or web address] [facility] [address], [place], [address], 08/06/2025 13:11:50 08/05/20 25 08/05/2025 US, obste tric, trans vagin al No observ ation record ed. [email or web address] [address] [facility], [place], [address], 08/06/2025 14:04:51 08/05/20 25 10/05/2024 non-s tress test No observ ation record ed. [email or web address] [facility], [place], [address], 08/17/2025 10:57:27 08/18/2008/18/2025 imagi ng/di agnos tic resul t No observ ation record ed. [email or web address] [facility] [address] [facility] [address] [facility], [place], [address], 08/18/2025 17:13:30 Result Notes None recorded. 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 16:33:32 Uses combined oral contrace ption [id number] Completed 201803/15/2021 Encounte r for surveill ance of contrace ptive pills;Re corded Elsewher e: No Locat ion: [facility] S ource: EHR Edger Machine Operator juan: N Sebastianti ce ID: 0001 Pradeep lable Time: 09:00:00 AM Melissa grier, [facility] 16:33:29 Procedur e by method Completed 201803/15/2021 Encounte r for other general counseli ng and advice on contrace ption;Re corded Elsewher e: No Locat ion: [facility] S ource: EHR Edger Machine Operator juan: N [place] ce ID: 0001 Pradeep lable Time: 02:30:00 PM Meilssa grier, [facility] 16:33:33 Pregnanc y 85510668 Active 2024 Linn Kruse [facility], [facility] 5 16:32:48 Mixed anxiety and depressi ve disorder 057819532 Active 2024 sertrali ne changed to 100mg Chin Boyce MD [address], [place], [address], [facility] 5 16:52:38 Rubella non-immu ne 856639478 Active 2024 PP MMR Liz Hardin [facility], [facility] 5 15:19:23 Problem Notes None recorded. Procedures Surgical History Date Name Laterality Status Provider Name and Address Organization Details Recorded Time 07/11/20 Date of Last Pap Smear completed Dahlia Arauz [facility] 07/11/2024 11:54:49 02/17/[address] [facility] 11/28/2022 16:45:49 09/17/19 21 extraction of wisdom tooth completed [facility] 11/28/2022 16:45:26 09/17/19 15 procedure on foot completed [facility] 11/28/2022 16:45:14 09/17/[address] [facility] 11/28/2022 16:45:37 Imaging Results [...] Prescrib ed Elsewher e: No [facility] M odify By: funmilayo martinez DateTime [...] Details Last Updated DateTime 05/21/2025 170.18 cm 87902.3977 g 112/74 mm[Hg] Linn Kruse [facility] 05/21/2025 15:56:14 Social History Question Answer Notes LastModified by Organizat ion Details LastModified Time Tobacco Smoking Status Never Smoker Melissa grier, [facility] 03/16/2021 10:13:21 Do You Have An Advance Directive? No [email or web address] Information n ot available 03/16/2021 How Many Years Have You Consumed Alcohol? 2 [email or web address] Information not available 03/16/2021 Are You Blind Or Do You Have Difficulty Seeing? No [email or web address] Information n ot available 03/16/2021 What Is Your Level Of Caffeine Consumption? Moderate [email or web address] Information not available 03/16/2021 How Much Tobacco Do You Chew? None Information not available 01/22/2025 In The 14 Days Before Symptom Onset, Have You Had Close Contact With A Laboratory-confirm ed COVID-19 While That Case Was Ill? No [email or web address] Information n ot available 03/16/2021 In The 14 Days Before Symptom Onset, Have You Had Close Contact With A Person Who Is Under Investigation For COVID-19 While That Person Was Ill? No [email or web address] Information not available 03/16/2021 Have You Been To An Area Known To Be High Risk For COVID-19? No [email or web address] Information not available 03/16/2021 Are You Deaf Or Do You Have Serious Difficulty Hearing? Yes [email or web address] Information not available 03/16/2021 What Type Of Diet Are You Following? REGULAR [email or web address] Information n ot available 03/16/2021 What Is The Highest Grade Or Level Of School You Have Completed Or The Highest Degree You Have Received? [id number] Information not available 03/16/2021 Are There Any Guns Present In Your Home? Yes [email or web address] Information not available 03/16/2021 Do You Use Protection During Sex? No Information not available 01/22/2025 Do You Use Your Seat Belt Or Car Seat Routinely? Yes [email or web address] Information not available 03/16/2021 Do You Have Smoke And Carbon Monoxide Detectors In Your Home? Yes [email or web address] Information not available 03/16/2021 At What Age Did You Start Smoking Tobacco? 21 Information not available 01/22/2025 How Much Tobacco Do You Smoke? No Information not available 03/16/2021 Do You Use Sunscreen Routinely? No [email or web address] Information not available 03/16/2021 How Many Years Have You Smoked Tobacco? 2 Information not available 01/22/2025 Have You Used IV Drugs? No [email or web address] Information not available 03/16/2021 Sex: Unknown Functional Status Question Answer Note LastModified by Organizat ion Details LastModified Time Do you use any illicit or recreational drugs? No [email or web address] Information not available 03/16/2021 What is your level of alcohol consumption? None Information not available 01/22/2025 Are you able to walk independently without assistance or assistive devices? 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 Occasional [email or web address] Information not available 03/16/2021 Mental Status Question Answer Note LastModified by Organization D etails LastModified Time Do you feel stressed (tense, restless, nervous, or anxious, or unable to sleep at night)? [id number] Information not available 01/22/2025 Family History Relationship [...] ICD10 Code Diagnosis IMO Codes Diagnosis Note [id number] Chin Boyce MD [facility] [address] [address] 04/23/2025 15:08:03 04/23/2025 17:04:07 Ultrasound scan - obstetric 535774863 Z36.3 Z3A.20 [id number] Chin Boyce MD [facility] [address],[place] [address] 04/23/2025 15:08:47 04/23/2025 17:29:12 care status 762041639 Z34.82 [id number] Chin Boyce MD [facility] [address],[place] [address] 05/21/2025 15:25:35 05/21/2025 17:17:01 care status 662489039 Z34.82 [id number] Health Concerns Section Related Observation LastModified by Organization Detai ls LastModified Time None Recorded Concern Status LastModified by Organization Details LastModified Time None Recorded Payers Encounter Date Sequence Insurance Name Policy Number Policy Meehan Covered Member ID Meehan Member ID Guarantor Name 05/21/2025 1 [place] [id number] Ev Dunn [id number] Ev Dunn Notes Date Note Type Note Provider Name and Address Organization Details Recorded Time 05/21/2025 text/html Generic HPI TemplateReported by Patient Chin Boyce MD [address], [place], [address], [facility] 05/21/2025 16:32:43 OBGyn Episode Ob Episode Information Episode Created Date Number of Fetuses Patient Bloodtype Patient rh Status Prepregnancy Weight lbs Domestic Partner Domestic Partner Phone Father Name Biology Tutor Status 02/26/20 25 1 O Positive [address] OPEN Fetus Data First Name Last Name Admitted to NICU Weight (g) Sex Living Outcome Pediatric Complications Fetus ID Race Codes Race Delivery Type [id number] Problems Problem Notes Problem Name Start Date End Date Resolution Snomed Code Not e Mixed anxiety and depressive disorder 02/25/2025 821410715 sertrali ne changed to 100mg Rubella non-immune 03/03/2025 [id number] PP MMR [place] Calculation Initial [place] Date [...] Weight in lbs Pre/Post Dialysis Refused Weight 197.414354004484 BP Diastolic BP Location Tested BP Systolic [...] Type Weight in lbs Pre/Post Dialysis Refused 198.699165787021 BP Diastolic BP Location Tested BP Systolic [...] Type Weight in lbs Pre/Post Dialysis Refused 204.934696096973 BP Diastolic BP Location Tested BP Systolic [...] Type Weight in lbs Pre/Post Dialysis Refused 210.329543468729 BP Diastolic BP Location Tested BP Systolic [...] Type Weight in lbs Pre/Post Dialysis Refused 217.090468708850 BP Diastolic BP Location Tested BP Systolic [...] Weight in lbs Pre/Post Dialysis Refused Weight 223.754689373160 BP Diastolic BP Location Tested BP Systolic [...] Type Weight in lbs Pre/Post Dialysis Refused 226.138756060561 BP Diastolic BP Location Tested BP Systolic [...] Type Weight in lbs Pre/Post Dialysis Refused 230.597115101564 BP Diastolic BP Location Tested BP Systolic [...] Type Weight in lbs Pre/Post Dialysis Refused 230.823951183463 BP Diastolic BP Location Tested BP Systolic [...]
--- OUTSIDE RECORDS SUMMARY | 2025-08-18 20:58 | XMS_ITS | Clinical Summary ---
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 Strabismus surgery to be scheduled. 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 Strabismus surgery to be scheduled. Diplopia 09/26/2023 Hyperopia of both eyes 09/26/2023 Assessment & Plan (10/05/2023 3:34 PM PRODUCTION OFFICER): Over minus in current new spectacles. [...] on file Legal Sex Female 3:27 AM PRODUCTION OFFICER Gender Identity Not on file Sexual [...] topic Varicella Vaccines Completed 06/21/2007, 12/12/2002 Insurance [employer] [facility] [employer] [place] Advance Directives For more information, please contact: [phone] Documents on File Type Date Recorded Patient Mortgage Manager Expl anation ADVANCE DIRECTIVE 07/17/2024 10:52 AM Pow er of Correction Lieutenant-Medical Care Teams Bow Maker Relationship Specialty Start Date End Date Sal Neil MD [address] [place] [address] PCP - General Family Practice 02/08/24
--- OUTSIDE RECORDS SUMMARY | 2025-08-18 20:58 | XMS_ITS | Continuity of Care Document ---
Author Organization [facility] [place] Address [address] [place] [address] Care Team Providers Care Digital Media Director Name Role Phone HA VELASQUEZ Primary Care Provider [phone] Assessment Encounter Date Assessment Date Assessment LastModified [...] Not Available [facility] [address], [place], [id number], 03/05/2025 13:46:16 03/05/20 25 03/05/2025 [UNIT Y] ANEUP LOIDY NIPT 22Q11.2 microdeletio n LOW RISK <1 in 10,000 normal Not Available [facility] [address], [place], [address], 03/05/2025 13:46:16 03/05/20 25 03/05/2025 [UNIT Y] ANEUP LOIDY NIPT sex chromosome aneuploidy NOT DETECT ED normal Not Available [facility] [address], [place], [address], 03/05/2025 13:46:16 03/05/20 25 03/05/2025 [UNIT Y] ANEUP LOIDY NIPT monosomy X LOW RISK <1 in 10,000 normal Not Available [facility] [address], [place], [address], 03/05/2025 13:46:16 03/05/20 25 03/05/2025 [UNIT Y] ANEUP LOIDY NIPT trisomy 13 LOW RISK <1 in 10,000 normal Not Available [facility] [address], [place], [address], 03/05/2025 13:46:16 03/05/20 25 03/05/2025 [UNIT Y] ANEUP LOIDY NIPT trisomy 18 LOW RISK <1 in 10,000 normal Not Available [facility] [address], [place], [address], 03/05/2025 13:46:16 03/05/20 25 03/05/2025 [UNIT Y] ANEUP LOIDY NIPT trisomy 21 LOW RISK <1 in 10,000 normal Not Available [facility] [address], [place], [address], 03/05/2025 13:46:16 03/05/20 25 03/05/2025 [UNIT Y] ANEUP LOIDY NIPT sex MALE normal Not Available [facility] [address], [place], [address], 03/05/2025 13:46:16 03/05/20 25 03/05/2025 [UNIT Y] ANEUP LOIDY NIPT gestation SINGLE TON normal Not Available [facility] [address], [place], [address], 03/05/2025 13:46:16 03/05/20 25 03/05/2025 [UNIT Y] ANEUP LOIDY NIPT for detailed report, see pdf See PDF normal Not Available [facility] [address], [place], [address], 03/05/2025 13:46:16 03/06/20 25 03/06/2025 [UNIT Y] SHIKHA Cheung sickle cell disease/beta -thalassemia /hemoglobino pathies carrier screen NEGATI VE normal Not Available [facility] [address], [place], [address], 03/06/2025 20:16:21 03/06/20 25 03/06/2025 [UNIT Y] SHIKHA Cheung alpha-thalas semia carrier screen NEGATI VE normal Not Available [facility] [address], [place], [address], 03/06/2025 20:16:21 03/06/20 25 03/06/2025 [UNIT Y] SHIKHA Cheung cystic fibrosis carrier screen NEGATI VE normal Not Available [facility] [address], [place], [address], 03/06/2025 20:16:21 03/06/20 25 03/06/2025 [UNIT Y] SHIKHA Cheung spinal muscular atrophy carrier screen NEGATI VE 2 SMN1 copies , SNP not presen t normal Not Available [facility] [address], [place], [address], 03/06/2025 20:16:21 03/06/20 25 03/06/2025 [UNIT Y] SHIKHA Cheung for detailed report, see pdf See PDF normal Not Available [facility] [address], [place], [address], 03/06/2025 20:16:21 02/26/20 25 02/25/2025 CBC W/DIF F WBC 13.3 10'3/ uL 3.5-10 .5 high Not Available [facility] (Lab) [address], [place], [address], 02/26/2025 10:19:46 02/26/20 25 02/25/2025 CBC W/DIF F RBC 4.33 10'6/ uL (based on docume nted legal sex) 3.80-5 .20 Not Available [facility] (Lab) [address], [place], [address], 02/26/2025 10:19:46 02/26/20 25 02/25/2025 CBC W/DIF F HGB 13.5 g/dL (based on docume nted legal sex) 11.6-1 5.4 Not Available [facility] (Lab) [address], [place], [address], 02/26/2025 10:19:46 02/26/20 25 02/25/2025 CBC W/DIF F HCT 41.0 % (based on docume nted legal sex) 34.0-4 5.0 Not Available [facility] (Lab) [address], [place], [address], 02/26/2025 10:19:46 02/26/20 25 02/25/2025 CBC W/DIF F MCV 94.7 fL 80.0-9 9.0 Not Available [facility] (Lab) [address] [facility], [place], [address], 02/26/2025 10:19:46 02/26/20 25 02/25/2025 CBC W/DIF F MCH 31.2 pg 27.0-3 4.0 Not Available [facility] (Lab) [address], [place], [address], 02/26/2025 10:19:46 02/26/20 25 02/25/2025 CBC W/DIF F MCHC 32.9 g/dL 32.0-3 5.5 Not Available [facility] (Lab) [address] [facility], [place], [address], 02/26/2025 10:19:46 02/26/20 25 02/25/2025 CBC W/DIF F RDW 13.2 % 11.0-1 5.0 Not Available [facility] (Lab) [address] [facility], [place], [address], 02/26/2025 10:19:46 02/26/20 25 02/25/2025 CBC W/DIF F plt 295 10'3/ uL 150-40 0 Not Available [facility] (Lab) [address] [facility], [place], [address], 02/26/2025 10:19:46 02/26/20 25 02/25/2025 CBC W/DIF F MPV 11.2 fL 8.8-12 .1 Not Available [facility] (Lab) [address] [facility], [place], [address], 02/26/2025 10:19:46 02/26/20 25 02/25/2025 CBC W/DIF F NRBC's 0.0 % 0.0 Not Available [facility] (Lab) [address] [facility], [place], [address], 02/26/2025 10:19:46 02/26/20 25 02/25/2025 CBC W/DIF F absolute NRBCs 0.0 10'3/ uL no refere nce range establ ished Not Available [facility] (Lab) [address] [facility], [place], [address], 02/26/2025 10:19:46 02/26/20 25 02/25/2025 CBC W/DIF F neutrophils 68.0 % 34.0-7 3.0 Not Available [facility] (Lab) [address] [facility], [place], [address], 02/26/2025 10:19:46 02/26/20 25 02/25/2025 CBC W/DIF F lymphocytes 21.2 % 15.0-5 0.0 Not Available [facility] (Lab) [address] [facility], [place], [address], 02/26/2025 10:19:46 02/26/20 25 02/25/2025 CBC W/DIF F monocytes 7.4 % 1.0-15 .0 Not Available [facility] (Lab) [address] [facility], [place], [address], 02/26/2025 10:19:46 02/26/20 25 02/25/2025 CBC W/DIF F eosinophils 2.1 % 0.0-8. 0 Not Available [facility] (Lab) [address] [facility], [place], [address], 02/26/2025 10:19:46 02/26/20 25 02/25/2025 CBC W/DIF F basophils 0.6 % 0.0-2. 0 Not Available [facility] (Lab) [address] [facility], [place], [address], 02/26/2025 10:19:46 02/26/20 25 02/25/2025 CBC W/DIF [...] separ ately if prese nt. Not Available [facility] (Lab) [address] [place], [address], 02/26/2025 10:19:46 02/26/20 25 02/25/2025 CBC W/DIF F absolute neutrophils 9.1 10'3/ uL 1.5-8. 0 high Not Available [facility] (Lab) [address] [facility], [place], [address], 02/26/2025 10:19:46 02/26/20 25 02/25/2025 CBC W/DIF F absolute lymphocytes 2.8 10'3/ uL 1.0-4. 0 Not Available [facility] (Lab) [address] [facility], [place], [address], 02/26/2025 10:19:46 02/26/20 25 02/25/2025 CBC W/DIF F absolute monocytes 1.0 10'3/ uL 0.2-1. 0 Not Available [facility] (Lab) [address] [facility], [place], [address], 02/26/2025 10:19:46 02/26/20 25 02/25/2025 CBC W/DIF F absolute eosinophils 0.3 10'3/ uL 0.0-0. 6 Not Available [facility] (Lab) [address] [facility], [place], [address], 02/26/2025 10:19:46 02/26/20 25 02/25/2025 CBC W/DIF F absolute basophils 0.1 10'3/ uL 0.0-0. 3 Not Available [facility] (Lab) [address] [facility], [place], [address], 02/26/2025 10:19:46 02/26/20 25 02/25/2025 CBC W/DIF [...] beaulieu book. nm.or g/gen derx Not Available [facility] (Lab) [address] [facility], [place], [address], 02/26/2025 10:19:46 02/26/20 25 02/25/2025 HEPAT ITIS C ANTIB WESLEY SCREE N, REFLE X TO CONFI RMATI ON hepatitis C antibody Non-re active non-re active Antib odies to HCV Not Detec dada, does not exclu de the possi bilit y of expos ure to HCV. Not Available [facility] (Lab) [address], [place], [address], 02/26/2025 10:19:46 02/26/20 25 02/25/2025 HIV 1/2 ANTIG EN/AN TIBOD Y, REFLE X CONFI RMATI ON HIV antigen/anti body Nonrea ctive nonrea ctive HIV-1 antig en and HIV-1 /HIV- 2 antib odies were not detec dada. No labor atory evide nce of HIV infec tion. Not Available [facility] (Lab) [address], [place], [address], 02/26/2025 10:19:47 02/26/20 25 02/25/2025 HEPAT ITIS B SURFA CE ANTIG EN hepatitis B surface antigen Non-re active non-re active This assay was perfo rmed using [employer] ratio n reage nts and test kits. Value s obtai tiffany with other assay metho ds or kits canno t be used inter castañeda eably . Not Available [facility] (Lab) [address], [place], [address], 02/26/2025 10:19:47 02/26/20 25 02/25/2025 TYPE/ RH/SC REEN ABO/Rh type O POS Not Available [facility] (Lab) [address], [place], [address], 02/26/2025 10:19:47 02/26/20 25 02/25/2025 TYPE/ RH/SC REEN antibody screen NEG Not Available [facility] (Lab) [address], [place], [address], 02/26/2025 10:19:47 02/26/20 25 02/25/2025 TYPE/ RH/SC REEN exp date 2024 23:59 Not Available [facility] (Lab) [address] [facility], [place], [address], 02/26/2025 10:19:47 02/26/20 25 02/25/2025 RUBEL LA IGG ANTIB WESLEY, QUANT rubella antibodies, IgG Non-Re active reacti ve abnormal Not Available [facility] (Lab) [address] [facility], [place], [address], 02/26/2025 10:19:48 02/26/20 25 02/25/2025 RUBEL LA IGG ANTIB WESELY, QUANT rubella antibodies, IgG quant <10.0 IU/mL >=10 low Non-r eacti ve (Non- Immun e) <10 IU/mL React myesha (Immu ne) > or = 10 IU/mL Not Available [facility] (Lab) [address] [facility], [place], [address], 02/26/2025 10:19:48 02/26/2002/25/2025 HEMOG LOBIN A1C hemoglobin [...] >8.0% Actio n sugge sted Not Available [facility] (Lab) [address] [facility], [place], [address], 02/26/2025 10:19:48 02/26/20 25 02/25/2025 RPR SCREE N, REFLE X TITER /CONF IRMAT ION RPR qualitative Nonrea ctive nonrea ctive Not Available [facility] (Lab) [address] [facility], [place], [address], 02/26/2025 10:19:48 02/26/20 25 02/25/2025 CULTU RE: URINE result report SEE RESULT S BELOW Test: Cultu re: Urine Speci men Sourc e: Urine Voide d Speci men Type: Urine Speci men Date: 2024 1743 Resul t Date: 20245 Resul t Statu s: Final resul t Abnor mal: No Resul ting Lab: [facility] [address] [facility] [address] Tel: CULTU RE ----- ----- ----- --- Cultu re resul t (>=3 organ isms prese nt) indic ates possi ble conta minat ion. Repea t cultu re if sympt oms indic ate. Not Available [facility] (Lab) [address] [facility], [place], [address], 02/27/2025 00:29:16 06/18/2006/18/2025 HEMAT OCRIT (HCT) HCT 33.7 % (based on docume nted legal sex) 34.0-4 5.0 low Not Available [facility] (Lab) [address] [facility], [place], [address], 06/19/2025 10:20:54 06/18/20 25 06/18/2025 HEMOG LOBIN (HGB) HGB 10.6 g/dL (based on docume nted legal sex) 11.6-1 5.4 low Not Available [facility] (Lab) [address] [place], [address], 06/19/2025 10:20:55 06/18/20 25 06/18/2025 GTT - GESTA GRIFFIN Flor BLANCO N, ACOG OB glucose, 1 hour screen 91 mg/dL 70-135 Not Available [facility] (Lab) [address] [facility], [place], [address], 06/19/2025 10:20:55 06/18/20 25 06/18/2025 HIV 1/2 ANTIG EN/AN TIBOD Y, REFLE X CONFI RMATI ON HIV antigen/anti body Nonrea ctive nonrea ctive HIV-1 antig en and HIV-1 /HIV- 2 antib odies were not detec dada. No labor atory evide nce of HIV infec tion. Not Available [facility] (Lab) [address] [facility], [place], [address], 06/19/2025 10:20:56 06/18/20 25 06/18/2025 RPR SCREE N, REFLE X TITER /CONF IRMAT ION RPR qualitative Nonrea ctive nonrea ctive Not Available [facility] (Lab) [address] [facility], [place], [address], 06/19/2025 10:20:57 02/26/20 25 02/25/2025 US, obste tric, nucha l trans lucen cy No observ ation record ed. [address], [place], [address], 02/25/2025 18:30:50 02/26/20 25 02/25/2025 US, obste tric, nucha l trans lucen cy No observ ation record ed. [email or web address] Manuela [address], [place], [address], 02/28/2025 22:26:06 04/23/20 25 04/23/2025 US, obste tric, 2nd or 3rd trime ster No observ ation record ed. [email or web address] [address], [place], [address], 04/23/2025 18:34:49 04/23/20 25 04/23/2025 US, obste tric, follo w-up No observ ation record ed. GABRIEL Manuela [address], [place], [address], 04/27/2025 11:09:16 06/11/2006/11/2025 non-s tress test No observ ation record ed. [email or web address] [facility], [place], [address], 06/18/2025 09:08:39 06/19/2006/19/2025 non-s tress test No observ ation record ed. [address] [facility], [place], [address], 06/23/2025 12:42:23 06/22/2006/22/2025 US, obste tric, limit ed No observ ation record ed. [address] [address], [place], [address], 06/23/2025 12:42:00 07/14/2007/13/2025 US, renal No observ ation record ed. [address] [address], [place], [address], 07/15/2025 15:49:07 07/14/2007/13/2025 US, obste tric, bioph ysica l profi le No observ ation record ed. [address] [facility], [place], [address], 07/15/2025 15:49:28 07/20/20 25 07/20/2025 US, obste tric, follo w-up No observ ation record ed. [email or web address] [place] [address], [place], [address], 07/20/2025 18:49:37 07/20/20 25 07/20/2025 US, obste tric, follo w-up No observ ation record ed. [email or web address] Manuela [address], [place], [address], 07/21/2025 09:57:43 08/05/20 25 08/05/2025 US, obste tric, follo w-up No observ ation record ed. [email or web address] [place] [address] [address], [place], [address], 08/06/2025 13:11:50 08/05/20 25 08/05/2025 US, obste tric, trans vagin al No observ ation record ed. [email or web address] [facility] [address], [place], [address], 08/06/2025 14:04:51 08/05/20 25 10/05/2024 non-s tress test No observ ation record ed. [email or web address] [address] [facility] [address], [place], [address], 08/17/2025 10:57:27 08/18/20 25 08/18/2025 imagi ng/di agnos tic resul t No observ ation record ed. [email or web address] [facility] [address], [place], [address], 08/18/2025 17:13:30 Result Notes None recorded. Problems Name Problem SNOMED Code Status Onset Date Resolution Date Notes Provider Name and Address Organization Details Recorded Time SNOMED CT Concept Completed 201703/15/2021 Encntr for routine child health exam w/o abnormal findings ;Recorde d Elsewher e: No Locat ion: [facility] S ource: EHR Senior Clinical Consultant juan: N Practi ce ID: 0001 Pradeep lable Time: 02:15:00 PM Melissa grier [facility] 16:33:[address] Concept Completed 201703/15/2021 Encntr for wide load escort exam (general ) (routine ) w/o abn findings ;Practic e ID: [id number] Melissa grier [facility] 06/29/202 1 16:33:32 Uses combined oral contrace ption [id number] Completed 201803/15/2021 Encounte r for surveill ance of contrace ptive pills;Re corded Elsewher e: No Locat ion: [facility] S ource: EHR Senior Clinical Consultant juan: N Practi ce ID: [id number] Pradeep lable Time: 09:00:00 AM Melissa Roy [facility] 1 16:33:29 Procedur e by method Completed 201803/15/2021 Encounte r for other general counseli ng and advice on contrace ption;Re corded Elsewher e: No Locat ion: [facility] S ource: EHR Senior Clinical Consultant juan: N Sebastianti ce ID: [email or web address] Pradeep lable Time: 02:30:00 PM Melissa Roy [facility], [facility] 1 16:33:33 Pregnanc y 16076282 Active 2024 Linn Kruse [facility], [facility] 5 16:32:48 Mixed anxiety and depressi ve disorder 394962202 Active 2024 sertrali ne changed to 100mg Chin Boyce MD [address], [place], [address], , P[facility] 5 16:52:38 Rubella non-immu ne 046975258 Active 2024 PP MMR Liz Hardin [facility], [facility] 5 15:19:23 Problem Notes None recorded. Procedures Surgical History Date Name Laterality Status Provider Name and Address Organization Details Recorded Time 07/11/20 Date of Last Pap Smear completed Dahlia Arauz [facility] 07/11/2024 11:54:49 11/03/19 termination of completed Carina Torres [facility] 11/28/2022 16:45:49 09/17/19 21 extraction of wisdom tooth completed Carinamateo Torres [facility] 11/28/2022 16:45:26 09/17/19 15 procedure on foot [facility] 11/28/2022 16:45:14 09/17/19 10 Tonsillectomy completed [facility] 11/28/2022 16:45:37 Imaging Results [...] Prescrib ed Elsewher e: No Locat ion: [facility] M odify By: funmilayo martinez [...] Address Organization Details Last Updated DateTime 06/18/2025 66856.05840 g 104/71 mm[Hg] Linn Kruse [facility] 06/18/2025 15:57:10 Social History Question Answer Notes LastModified by Organizat ion Details LastModified Time Tobacco Smoking Status Never Smoker Melissa Kirill grier, [facility] 03/16/2021 10:13:21 Do You Have An Advance Directive? No [email or web address] Information n ot available 03/16/2021 How Many Years Have You Consumed Alcohol? 2 [email or web address] Information not available 03/16/2021 Are You Blind Or Do You Have Difficulty Seeing? No [email or web address] Information n ot available 03/16/2021 What Is Your Level Of Caffeine Consumption? Moderate [email or web address] Information not available 03/16/2021 How Much Tobacco Do You Chew? None Information not available 01/22/2025 In The 14 Days Before Symptom Onset, Have You Had Close Contact With A Laboratory-confirm ed COVID-19 While That Case Was Ill? No [email or web address] Information n ot available 03/16/2021 In The 14 Days Before Symptom Onset, Have You Had Close Contact With A Person Who Is Under Investigation For COVID-19 While That Person Was Ill? No [email or web address] Information not available 03/16/2021 Have You Been To An Area Known To Be High Risk For COVID-19? No [email or web address] Information not available 03/16/2021 Are You Deaf Or Do You Have Serious Difficulty Hearing? Yes [email or web address] Information not available 03/16/2021 What Type Of Diet Are You Following? REGULAR [email or web address] Information n ot available 03/16/2021 What Is The Highest Grade Or Level Of School You Have Completed Or The Highest Degree You Have Received? [id number] [email or web address] Information not available 03/16/2021 Are There Any Guns Present In Your Home? Yes Information not available 03/16/2021 Do You Use Protection During Sex? No Information not available 01/22/2025 Do You Use Your Seat Belt Or Car Seat Routinely? Yes [email or web address] Information not available 03/16/2021 Do You Have Smoke And Carbon Monoxide Detectors In Your Home? Yes [email or web address] Information not available 03/16/2021 At What Age Did You Start Smoking Tobacco? 21 Information not available 01/22/2025 How Much Tobacco Do You Smoke? No [email or web address] Information not available 03/16/2021 Do You Use Sunscreen Routinely? No Information not available 03/16/2021 How Many Years Have You Smoked Tobacco? 2 Information not available 01/22/2025 Have You Used IV Drugs? No [email or web address] Information not available 03/16/2021 Sex: Unknown Functional Status Question Answer Note LastModified by Organizat ion Details LastModified Time Do you use any illicit or recreational drugs? No [email or web address] Information not available 03/16/2021 What is your level of alcohol consumption? None Information not available 01/22/2025 Are you able to walk independently without assistance or assistive devices? 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 Occasional Information not available 03/16/2021 Mental Status Question Answer Note LastModified by Organization D etails LastModified Time Do you feel stressed (tense, restless, nervous, or anxious, or unable to sleep at night)? [id number] Information not available 01/22/2025 Family History Relationship [...] ICD10 Code Diagnosis IMO Codes Diagnosis Note [id number] Chin Boyce MD [place] [address] [address] 05/21/2025 15:25:35 05/21/2025 17:17:01 care status [id number] Z34.82 [id number] Chin Boyce MD [place] [address],[facility] [place] [address] 06/18/2025 14:04:18 06/18/2025 16:17:06 care status [id number] Z34.83 [id number] Health Concerns Section Related Observation LastModified by Organization Detai ls LastModified Time None Recorded Concern Status LastModified by Organization Details LastModified Time None Recorded Payers Encounter Date Sequence Insurance Name Policy Number Policy Meehan Covered Member ID Meehan Member ID Guarantor Name 06/18/2025 1 [place] [id number] Ev Dunn [id number] Ev Dunn Notes Date Note Type Note Provider Name and Address Organization Details Recorded Time 06/18/2025 text/html Generic HPI TemplateReported by Patient Chin Boyce MD [address], [place], [address], [facility] 06/18/2025 16:16:23 OBGyn Episode Ob Episode Information Episode Created Date Number of Fetuses Patient Bloodtype Patient rh Status Prepregnancy Weight lbs Domestic Partner Domestic Partner Phone Father Name Supervisor Byproducts Status 02/26/20 25 1 O Positive [address] OPEN Fetus Data First Name Last Name Admitted to NICU Weight (g) Sex Living Outcome Pediatric Complications Fetus ID Race Codes Race Delivery Type [id number] Problems Problem Notes Problem Name Start Date End Date Resolution Snomed Code Not e Mixed anxiety and depressive disorder 02/25/2025 [id number] sertrali ne changed to 100mg Rubella non-immune 03/03/2025 135237564 PP MMR [place] Calculation Initial [place] Date [...] Weight in lbs Pre/Post Dialysis Refused Weight 197.217254936026 BP Diastolic BP Location Tested BP Systolic [...] Type Weight in lbs Pre/Post Dialysis Refused 198.239758166327 BP Diastolic BP Location Tested BP Systolic [...] Type Weight in lbs Pre/Post Dialysis Refused 204.914644372013 BP Diastolic BP Location Tested BP Systolic [...] Type Weight in lbs Pre/Post Dialysis Refused 210.546014542222 BP Diastolic BP Location Tested BP Systolic [...] Type Weight in lbs Pre/Post Dialysis Refused 217.874906808868 BP Diastolic BP Location Tested BP Systolic [...] Weight in lbs Pre/Post Dialysis Refused Weight 223.048582744144 BP Diastolic BP Location Tested BP Systolic [...] Type Weight in lbs Pre/Post Dialysis Refused 226.923884365576 BP Diastolic BP Location Tested BP Systolic [...] Type Weight in lbs Pre/Post Dialysis Refused 230.002413261591 BP Diastolic BP Location Tested BP Systolic [...] Type Weight in lbs Pre/Post Dialysis Refused 230.618789384161 BP Diastolic BP Location Tested BP Systolic [...]
--- OUTSIDE RECORDS SUMMARY | 2025-08-18 20:58 | XMS_ITS | Continuity of Care Document ---
Author Organization [facility] [place] Address [address] [place] [address] Care Team Providers Care Marine Reporter Name Role Phone HA VELASQUEZ Primary Care [...] Not Available [facility] grissom [address], [place], [address], 03/05/2025 13:46:16 03/05/20 25 03/05/2025 [UNIT Y] ANEUP LOIDY NIPT 22Q11.2 microdeletio n LOW RISK <1 in 10,000 normal Not Available Srik[facility] yost [address], [place], [address], 03/05/2025 13:46:16 03/05/20 25 03/05/2025 [UNIT Y] ANEUP LOIDY NIPT sex chromosome aneuploidy NOT DETECT ED normal Not Available [facility] [address], [place], [address], 03/05/2025 13:46:16 03/05/20 25 03/05/2025 [UNIT Y] ANEUP LOIDY NIPT monosomy X LOW RISK <1 in 10,000 normal Not Available [facility] [address], [place], [address], 03/05/2025 13:46:16 03/05/20 25 03/05/2025 [UNIT Y] ANEUP LOIDY NIPT trisomy 13 LOW RISK <1 in 10,000 normal Not Available [facility] [address], [place], [address], 03/05/2025 13:46:16 03/05/20 25 03/05/2025 [UNIT Y] ANEUP LOIDY NIPT trisomy 18 LOW RISK <1 in 10,000 normal Not Available [facility] [address], [place], [address], 03/05/2025 13:46:16 03/05/20 25 03/05/2025 [UNIT Y] ANEUP LOIDY NIPT trisomy 21 LOW RISK <1 in 10,000 normal Not Available [facility] [address], [place], [address], 03/05/2025 13:46:16 03/05/20 25 03/05/2025 [UNIT Y] ANEUP LOIDY NIPT sex MALE normal Not Available [facility] [address], [place], [address], 03/05/2025 13:46:16 03/05/20 25 03/05/2025 [UNIT Y] ANEUP LOIDY NIPT gestation SINGLE TON normal Not Available [facility] [address], [place], [address], 03/05/2025 13:46:16 03/05/20 25 03/05/2025 [UNIT Y] ANEUP LOIDY NIPT for detailed report, see pdf See PDF normal Not Available [facility] [address], [place], [address], 03/05/2025 13:46:16 03/06/20 25 03/06/2025 [UNIT Y] SHIKHA Cheung sickle cell disease/beta -thalassemia /hemoglobino pathies carrier screen NEGATI VE normal Not Available [facility] [address], [place], [address], 03/06/2025 20:16:21 03/06/20 25 03/06/2025 [UNIT Y] SHIKHA Cheung alpha-thalas semia carrier screen NEGATI VE normal Not Available [facility] [address], [place], [address], 03/06/2025 20:16:21 03/06/20 25 03/06/2025 [UNIT Y] HSIKHA Cheung cystic fibrosis carrier screen NEGATI VE normal Not Available [facility] [address], [place], [address], 03/06/2025 20:16:21 03/06/20 25 03/06/2025 [UNIT Y] SHIKHA Cheung spinal muscular atrophy carrier screen NEGATI VE 2 SMN1 copies , SNP not presen t normal Not Available [facility] [address], [place], [address], 03/06/2025 20:16:21 03/06/20 25 03/06/2025 [UNIT Y] SHIKHA Cheung for detailed report, see pdf See PDF normal Not Available [facility] [address], [place], [address], 03/06/2025 20:16:21 02/26/20 25 02/25/2025 CBC W/DIF F WBC 13.3 10'3/ uL 3.5-10 .5 high Not Available [facility] (Lab) [address], [place], [address], 02/26/2025 10:19:46 02/26/20 25 02/25/2025 CBC W/DIF F RBC 4.33 10'6/ uL (based on docume nted legal sex) 3.80-5 .20 Not Available [facility] (Lab) [address], [place], [address], 02/26/2025 10:19:46 02/26/20 25 02/25/2025 CBC W/DIF F HGB 13.5 g/dL (based on docume nted legal sex) 11.6-1 5.4 Not Available [facility] (Lab) [address], [place], [address], 02/26/2025 10:19:46 02/26/20 25 02/25/2025 CBC W/DIF F HCT 41.0 % (based on docume nted legal sex) 34.0-4 5.0 Not Available [facility] (Lab) [address], [place], [address], 02/26/2025 10:19:46 02/26/20 25 02/25/2025 CBC W/DIF F MCV 94.7 fL 80.0-9 9.0 Not Available [facility] (Lab) [address], [place], [address], 02/26/2025 10:19:46 02/26/20 25 02/25/2025 CBC W/DIF F MCH 31.2 pg 27.0-3 4.0 Not Available [facility] (Lab) [address], [place], [address], 02/26/2025 10:19:46 02/26/20 25 02/25/2025 CBC W/DIF F MCHC 32.9 g/dL 32.0-3 5.5 Not Available [facility] (Lab) [address] [address], [place], [address], 02/26/2025 10:19:46 02/26/20 25 02/25/2025 CBC W/DIF F RDW 13.2 % 11.0-1 5.0 Not Available [facility] (Lab) [address] [address], [place], [address], 02/26/2025 10:19:46 02/26/20 25 02/25/2025 CBC W/DIF F plt 295 10'3/ uL 150-40 0 Not Available [facility] (Lab) [address], [place], [address], 02/26/2025 10:19:46 02/26/20 25 02/25/2025 CBC W/DIF F MPV 11.2 fL 8.8-12 .1 Not Available [facility] (Lab) [address] [address], [place], [address], 02/26/2025 10:19:46 02/26/20 25 02/25/2025 CBC W/DIF F NRBC's 0.0 % 0.0 Not Available [facility] (Lab) [address], [place], [address], 02/26/2025 10:19:46 02/26/20 25 02/25/2025 CBC W/DIF F absolute NRBCs 0.0 10'3/ uL no refere nce range establ ished Not Available [facility] (Lab) [address] [address], [place], [address], 02/26/2025 10:19:46 02/26/20 25 02/25/2025 CBC W/DIF F neutrophils 68.0 % 34.0-7 3.0 Not Available [facility] (Lab) [address], [place], [address], 02/26/2025 10:19:46 02/26/20 25 02/25/2025 CBC W/DIF F lymphocytes 21.2 % 15.0-5 0.0 Not Available [facility] (Lab) [address], [place], [address], 02/26/2025 10:19:46 02/26/20 25 02/25/2025 CBC W/DIF F monocytes 7.4 % 1.0-15 .0 Not Available [facility] (Lab) [address], [place], [address], 02/26/2025 10:19:46 02/26/20 25 02/25/2025 CBC W/DIF F eosinophils 2.1 % 0.0-8. 0 Not Available [facility] (Lab) [address] [address], [place], [address], 02/26/2025 10:19:46 02/26/20 25 02/25/2025 CBC W/DIF F basophils 0.6 % 0.0-2. 0 Not Available [facility] (Lab) [address] [address], [place], [address], 02/26/2025 10:19:46 02/26/20 25 02/25/2025 CBC W/DIF [...] separ ately if prese nt. Not Available [facility] (Lab) [address] [place], [address], 02/26/2025 10:19:46 02/26/20 25 02/25/2025 CBC W/DIF F absolute neutrophils 9.1 10'3/ uL 1.5-8. 0 high Not Available [facility] (Lab) [address] [facility], [address], 02/26/2025 10:19:46 02/26/2002/25/2025 CBC W/DIF F absolute lymphocytes 2.8 10'3/ uL 1.0-4. 0 Not Available [facility] (Lab) [address] [address], [place], [address], 02/26/2025 10:19:46 02/26/20 25 02/25/2025 CBC W/DIF F absolute monocytes 1.0 10'3/ uL 0.2-1. 0 Not Available [facility] (Lab) [address] [address], [place], [address], 02/26/2025 10:19:46 02/26/20 25 02/25/2025 CBC W/DIF F absolute eosinophils 0.3 10'3/ uL 0.0-0. 6 Not Available [facility] (Lab) [address] [address], [place], [address], 02/26/2025 10:19:46 02/26/20 25 02/25/2025 CBC W/DIF F absolute basophils 0.1 10'3/ uL 0.0-0. 3 Not Available [facility] (Lab) [address] [address], [place], [address], 02/26/2025 10:19:46 02/26/2002/25/2025 CBC W/DIF F absolute immature granulocytes 0.1 10'3/ uL 0.00-0 .10 Refer ence range s for nonbi nary/ inter sex or unspe cifie d gende r patie nts have not been estab lishe d. Pleran e refer to the guidoo wing table for range s estab lishe d for cisge nder patie nts and evalu ate in the clini june craig xt of the indiv idual patie nt: https ://brenda beaulieu book. nm.or g/gen derx Not Available [facility] (Lab) [address], [place], [address], 02/26/2025 10:19:46 02/26/20 25 02/25/2025 HEPAT ITIS C ANTIB WESLEY SCREE N, REFLE X TO CONFI RMATI ON hepatitis C antibody Non-re active non-re active Antib odies to HCV Not Detec dada, does not exclu de the possi bilit y of expos ure to HCV. Not Available [facility] (Lab) [address], [place], [address], 02/26/2025 10:19:46 02/26/20 25 02/25/2025 HIV 1/2 ANTIG EN/AN TIBOD Y, REFLE X CONFI RMATI ON HIV antigen/anti body Nonrea ctive nonrea ctive HIV-1 antig en and HIV-1 /HIV- 2 antib odies were not detec dada. No labor atory evide nce of HIV infec tion. Not Available [facility] (Lab) [address], [place], [address], 02/26/2025 10:19:47 02/26/20 25 02/25/2025 HEPAT ITIS B SURFA CE ANTIG EN hepatitis B surface antigen Non-re active non-re active This assay was perfo rmed using [employer] ratio n reage nts and test kits. Value s obtai tiffany with other assay metho ds or kits canno t be used inter castañeda eably . Not Available [facility] (Lab) [address], [place], [address], 02/26/2025 10:19:47 02/26/20 25 02/25/2025 TYPE/ RH/SC REEN ABO/Rh type O POS Not Available [facility] (Lab) [address], [place], [address], 02/26/2025 10:19:47 02/26/20 25 02/25/2025 TYPE/ RH/SC REEN antibody screen NEG Not Available [facility] (Lab) [address], [place], [address], 02/26/2025 10:19:47 02/26/20 25 02/25/2025 TYPE/ RH/SC REEN exp date 2024 23:59 Not Available [facility] (Lab) [address] [address], [place], [address], 02/26/2025 10:19:47 02/26/20 25 02/25/2025 RUBEL LA IGG ANTIB WESLEY, QUANT rubella antibodies, IgG Non-Re active reacti ve abnormal Not Available [facility] (Lab) [address] [address], [place], [address], 02/26/2025 10:19:48 02/26/20 25 02/25/2025 RUBEL LA IGG ANTIB WESLEY, QUANT rubella antibodies, IgG quant <10.0 IU/mL >=10 low Non-r eacti ve (Non- Immun e) <10 IU/mL React myesha (Immu ne) > or = 10 IU/mL Not Available [facility] (Lab) [address] [address], [place], [address], 02/26/2025 10:19:48 02/26/2002/25/2025 HEMOG LOBIN A1C hemoglobin [...] >8.0% Actio n sugge sted Not Available [facility] (Lab) [address] [address], [place], [address], 02/26/2025 10:19:48 02/26/20 25 02/25/2025 RPR SCREE N, REFLE X TITER /CONF IRMAT ION RPR qualitative Nonrea ctive nonrea ctive Not Available [facility] (Lab) [address], [place], [address], 02/26/2025 10:19:48 02/26/20 25 02/25/2025 CULTU RE: URINE result report SEE RESULT S BELOW Test: Cultu re: Urine Speci men Sourc e: Urine Voide d Speci men Type: Urine Speci men Date: 2024 1743 Resul t Date: 2024 2325 Resul t Statu s: Final resul t Abnor mal: No Resul ting Lab: [facility] [address] [facility] [address] Tel: CULTU RE ----- ----- ----- --- Cultu re resul t (>=3 organ isms prese nt) indic ates possi ble conta minat ion. Repea t cultu re if sympt oms indic ate. Not Available [facility] (Lab) [address], [place], [address], 02/27/2025 00:29:16 06/18/20 25 06/18/2025 HEMAT OCRIT (HCT) HCT 33.7 % (based on docume nted legal sex) 34.0-4 5.0 low Not Available [facility] (Lab) [address] [address], [place], [address], 06/19/2025 10:20:54 06/18/20 25 06/18/2025 HEMOG LOBIN (HGB) HGB 10.6 g/dL (based on docume nted legal sex) 11.6-1 5.4 low Not Available [facility] (Lab) [address] [address], [place], [address], 06/19/2025 10:20:55 06/18/20 25 06/18/2025 GTT - GESTA GRIFFIN Flor SCREMaritza N, ACOG OB glucose, 1 hour screen 91 mg/dL 70-135 Not Available [facility] (Lab) [address], [place], [address], 06/19/2025 10:20:55 06/18/20 25 06/18/2025 HIV 1/2 ANTIG EN/AN TIBOD Y, REFLE X CONFI RMATI ON HIV antigen/anti body Nonrea ctive nonrea ctive HIV-1 antig en and HIV-1 /HIV- 2 antib odies were not detec dada. No labor atory evide nce of HIV infec tion. Not Available [facility] (Lab) [address] [address], [place], [address], 06/19/2025 10:20:56 06/18/20 25 06/18/2025 RPR SCREE N, REFLE X TITER /CONF IRMAT ION RPR qualitative Nonrea ctive nonrea ctive Not Available [facility] (Lab) [address] [address], [place], [address], 06/19/2025 10:20:57 02/26/20 25 02/25/2025 US, obste tric, nucha l trans lucen cy No observ ation record ed. [address], [place], [address], 02/25/2025 18:30:50 02/26/20 25 02/25/2025 US, obste tric, nucha l trans lucen cy No observ ation record ed. [email or web address] Manuela [address], [place], [address], 02/28/2025 22:26:06 04/23/20 25 04/23/2025 US, obste tric, 2nd or 3rd trime ster No observ ation record ed. [email or web address] [address], [place], [address], 04/23/2025 18:34:49 04/23/20 25 04/23/2025 US, obste tric, follo w-up No observ ation record ed. GABRIEL Manuela [address], [place], [address], 04/27/2025 11:09:16 06/11/2006/11/2025 non-s tress test No observ ation record ed. [email or web address] [facility], [place], [address], 06/18/2025 09:08:39 06/19/2006/19/2025 non-s tress test No observ ation record ed. [address] [facility], [place], [address], 06/23/2025 12:42:23 06/22/2006/22/2025 US, obste tric, limit ed No observ ation record ed. [address] [address], [place], [address], 06/23/2025 12:42:00 07/14/2007/13/2025 US, renal No observ ation record ed. [address] [address], [place], [address], 07/15/2025 15:49:07 07/14/2007/13/2025 US, obste tric, bioph ysica l profi le No observ ation record ed. [address] [facility], [place], [address], 07/15/2025 15:49:28 07/20/20 25 07/20/2025 US, obste tric, follo w-up No observ ation record ed. [email or web address] [place] [address], [place], [address], 07/20/2025 18:49:37 07/20/20 25 07/20/2025 US, obste tric, follo w-up No observ ation record ed. [email or web address] Manuela [address], [place], [address], 07/21/2025 09:57:43 08/05/20 25 08/05/2025 US, obste tric, follo w-up No observ ation record ed. [email or web address] [facility] [address], [place], [address], 08/06/2025 13:11:50 08/05/20 25 08/05/2025 US, obste tric, trans vagin al No observ ation record ed. [email or web address] [facility] [address], [place], [address], 08/06/2025 14:04:51 08/05/20 25 10/05/2024 non-s tress test No observ ation record ed. [email or web address] [address] [facility] [address], [place], [address], 08/17/2025 10:57:27 08/18/20 25 08/18/2025 imagi ng/di agnos tic resul t No observ ation record ed. [email or web address] [facility] [address] [facility], [place], [address], 08/18/2025 17:13:30 Result Notes None recorded. 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 1 16:33:33 Pregnanc y 30941352 Active 2024 Linn Kruse [facility], [facility] 5 16:32:48 Mixed anxiety and depressi ve disorder 447369129 Active 2024 sertrali ne changed to 100mg Chin Boyce MD [address], [place], [address], [facility] 5 16:52:38 Rubella non-immu ne 345628646 Active 2024 PP MMR Liz Hardin [facility], [facility] 5 15:19:23 Problem Notes None recorded. Procedures Surgical History Date Name Laterality Status Provider Name and Address Organization Details Recorded Time 07/11/20 Date of Last Pap Smear completed Dahlia Arauz [facility] 07/11/2024 11:54:49 11/03/19 termination of completed Carina Torres [facility] 11/28/2022 16:45:49 09/17/19 21 extraction of wisdom tooth completed Carinamateo Torres [facility] 11/28/2022 16:45:26 09/17/19 15 procedure on foot completed Carina [facility] 11/28/2022 16:45:14 09/17/19 10 Tonsillectomy completed [facility] 11/28/2022 16:45:37 Imaging [...] Prescrib ed Elsewher e: No Locat ion: [facility] M odify By: funmilayo martinez DateTime [...] Updated DateTime 07/03/2025 170.18 cm 34.9 kg/m2 068339.1 g 108/67 mm[Hg] Linn Kruse [facility] 07/03/2025 16:32:49 Social History Question Answer Notes LastModified by Organizat ion Details LastModified Time Tobacco Smoking Status Never Smoker Melissabrigette grier, [facility] 03/16/2021 10:13:21 Do You Have An Advance Directive? No [email or web address] Information n ot available 03/16/2021 How Many Years Have You Consumed Alcohol? 2 [email or web address] Information not available 03/16/2021 Are You Blind Or Do You Have Difficulty Seeing? No [email or web address] Information n ot available 03/16/2021 What Is Your Level Of Caffeine Consumption? Moderate [email or web address] Information not available 03/16/2021 How Much Tobacco [...] COVID-19 While That Person Was Ill? No [email or web address] Information not available 03/16/2021 Have You Been To An Area Known To Be High Risk For COVID-19? No [email or web address] Information not available 03/16/2021 Are You Deaf Or Do You Have Serious Difficulty Hearing? Yes [email or web address] Information not available 03/16/2021 What Type Of Diet Are You Following? REGULAR Information n ot available 03/16/2021 What Is The Highest Grade Or Level Of School You Have Completed Or The Highest Degree You Have Received? MO54269-1 [email or web address] Information not available 03/16/2021 Are There Any Guns Present In Your Home? Yes [email or web address] Information not available 03/16/2021 Do You Use Protection During Sex? No Information not available 01/22/2025 Do You Use Your Seat Belt Or Car Seat Routinely? Yes Information not available 03/16/2021 Do You Have Smoke And Carbon Monoxide Detectors In Your Home? Yes [email or web address] Information not available 03/16/2021 At What Age Did You Start Smoking Tobacco? 21 Information not available 01/22/2025 How Much Tobacco Do You Smoke? No [email or web address] Information not available 03/16/2021 Do You Use Sunscreen Routinely? No Information not available 03/16/2021 How Many Years Have You Smoked Tobacco? 2 Information not available 01/22/2025 Have You Used IV Drugs? No [email or web address] Information not available 03/16/2021 Sex: Unknown Functional Status Question Answer Note LastModified by Organizat ion Details LastModified Time Do you use any illicit or recreational drugs? No [email or web address] Information not available 03/16/2021 What is your level of alcohol consumption? None Information not available 01/22/2025 Are you able to walk independently without assistance or assistive devices? 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 Occasional marvin Information not available 03/16/2021 Mental Status Question Answer Note LastModified by Organization D etails LastModified Time Do you feel stressed (tense, restless, nervous, or anxious, or unable to sleep at night)? [id number] Information not available 01/22/2025 Family History Relationship [...] ICD10 Code Diagnosis IMO Codes Diagnosis Note [id number] Chin Boyce MD [place] [address] [place] [address] 06/18/2025 14:04:18 06/18/2025 16:17:06 care status [id number] Z34.83 [id number] Audrey Matamoros CNM [place] [address],[facility] [place] [address] 07/03/2025 16:18:57 07/03/2025 16:46:16 Gestation period, 33 weeks 85951270 Z3A.33 [id number] Health Concerns Section Related Observation LastModified by Organization Detai ls LastModified Time None Recorded Concern Status LastModified by Organization Details LastModified Time None Recorded Payers Encounter Date Sequence Insurance Name Policy Number Policy Meehan Covered Member ID Meehan Member ID Guarantor Name 07/03/2025 1 [place] [id number] Ev Dunn [id number] Ev Dunn Notes Date Note Type Note Provider Name and Address Organization Details Recorded Time 07/03/2025 text/html Generic HPI TemplateReported by Patient Audrey Matamoros CNM [address], [place], [address], [facility] 07/03/2025 16:45:22 OBGyn Episode Ob Episode Information Episode Created Date Number of Fetuses Patient Bloodtype Patient rh Status Prepregnancy Weight lbs Domestic Partner Domestic Partner Phone Father Name Pantry Worker Status 02/26/20 25 1 O Positive [address] OPEN Fetus Data First Name Last Name Admitted to NICU Weight (g) Sex Living Outcome Pediatric Complications Fetus ID Race Codes Race Delivery Type [id number] Problems Problem Notes Problem Name Start Date End Date Resolution Snomed Code Not e Mixed anxiety and depressive disorder 02/25/2025 [id number] sertrali ne changed to 100mg Rubella non-immune 03/03/2025 949245118 PP MMR [place] Calculation Initial [place] Date [...] Weight in lbs Pre/Post Dialysis Refused Weight 197.766785084557 BP Diastolic BP Location Tested BP Systolic [...] Type Weight in lbs Pre/Post Dialysis Refused 198.629934482472 BP Diastolic BP Location Tested BP Systolic [...] Type Weight in lbs Pre/Post Dialysis Refused 204.993730711604 BP Diastolic BP Location Tested BP Systolic [...] Type Weight in lbs Pre/Post Dialysis Refused 210.065280056085 BP Diastolic BP Location Tested BP Systolic [...] Type Weight in lbs Pre/Post Dialysis Refused 217.562840972467 BP Diastolic BP Location Tested BP Systolic [...] Weight in lbs Pre/Post Dialysis Refused Weight 223.894803850771 BP Diastolic BP Location Tested BP Systolic [...] Type Weight in lbs Pre/Post Dialysis Refused 226.468391386159 BP Diastolic BP Location Tested BP Systolic [...] Type Weight in lbs Pre/Post Dialysis Refused 230.736590244378 BP Diastolic BP Location Tested BP Systolic [...] Type Weight in lbs Pre/Post Dialysis Refused 230.391250331206 BP Diastolic BP Location Tested BP Systolic [...]
--- OUTSIDE RECORDS SUMMARY | 2025-08-18 20:58 | XMS_ITS | Clinical Summary ---
Author Organization [employer] [facility] Address [address] [place] [address] Care Team Providers Care Community Education Specialist Name Role Phone Krista Cheney MD Primary Care Provider Source Comments [facility],non-owned Affiliates and Associated Physician Practices is amultiple site organization consisting of ambulatory clinics and hospital sitesin [place], [place], [place] and [place]. This disclosure is being madepursuant to the Care Everywhere program and may not contain all information available regarding this patient. 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 Gender Identity Not on file Sexual Orientation Not on file Last Filed Vital Signs Vital Sign Reading Time Taken Comments Blood Pressure 98/60 11/04/2015 8:24 AM STAKING ENGINEER Pulse 68 11/04/2015 8:24 AM STAKING ENGINEER Temperature 36.2 C (97.2 F) 11/04/2015 8:24 AM STAKING ENGINEER Respiratory Rate 18 11/04/2015 8:24 AM STAKING ENGINEER Oxygen Saturation 97% 10/22/2015 9:00 AM STAKING ENGINEER Inhaled Oxygen Concentration 100% 10/22/2015 8 :15 AM STAKING ENGINEER Weight 72.3 kg (159 lb 6.3 oz) 11/04/2015 8:24 A M STAKING ENGINEER Height 163.7 cm (5' 4.45) 11/04/2015 8:24 AM CS T Body Mass Index 26.98 11/04/2015 8:24 AM STAKING ENGINEER Plan of Treatment Health Maintenance Due Date [...] this topic Medical Devices Explanted Type Area Principal Consultant Device Identifier Shelf Expiration Date Model / Serial / Lot Scrw Trip Canc 4.0mm X 40mm Implanted:Qty : 1 on 03/02/2015 by Nancy Lloyd MD at [facility] Explanted:Qty : 1 on 10/22/2015 by Nancy Lloyd MD at [facility] Left: Ankle [employer] [id number] / / Kwire W/Trcr Pt 1.25mm X 150mm Explanted:Qty : 1 on 10/22/2015 by Nancy Lloyd MD at [facility] Left: Ankle [employer] [id number] / / Insurance ANTHEM * Guarantor: PRIYANKA MCKEON Account Type Relation to Patient Date of Phone Billing Address Personal/Family [address] [facility] [place] [address] Care Teams Community Education Specialist Relationship Specialty Start Date End Date Krista Cheney MD [address] [place] [id number] PCP - General 01/16/22
--- NOTE | 2025-08-18 22:33 | PC.NURSE ---
Dr. Boyce notified of pts c/o back pain. RN notified MD of reactive FHT, SVE 2//-3 and rechecked 1 hour later pt was unchanged. No contractions were felt per toco or per palpation. Orders received to discharge pt to home. Pt to see Dr. Boyce in office tomorrow for a scheduled appointment (on 08/19/25).
--- NOTE | 2025-08-18 22:38 | OBADM ---
This patient, Priyanka Dunn, admitted to the OB room Labor/Delivery/Recovery 105 for observation. Patient/family oriented to hospital policies and general routines including ID bracelet, bed and alarms, visiting hours, pain management, procedures, bathroom and other care routines, personal items, smoking policy, room service/diet, and visiting hours. Patient/Family are encouraged to report perceived risks to care and to ask questions if they do not understand what they are told or what they should do.
--- NOTE | 2025-09-06 12:21 | PM.OBTRLD ---
OB - Triage/Final Diagnosis Visit Information Comments/Additional reasons for admission: I have assessed the risk for this patient, Priyanka Dunn, and determined that she would benefit from observation care. Final Diagnosis (1) Antepartum hemorrhage from placenta previa in third trimester: Code(s): O44.13 - Complete placenta previa with hemorrhage, third trimester Status: Acute
== END 2025-08-18 22:50 | disposition home or self-care (01) ==
PROVIDERS: Admitting Provider Obstetrics & Gynecology; PCP Family Medicine; Visit Provider Obstetrics & Gynecology
DX: O44.13 Complete placenta previa with hemorrhage, third trimester (principal); Z3A.37 37 weeks gestation of pregnancy
CPT/HCPCS: 59025; G0378; G0379

== ENCOUNTER 2025-08-28 04:54 | Inpatient (IN) | payer BC, SELFPAY ==
[2025-08-28] VITALS (196 sets, daily range): BP systolic 69–141; BP diastolic 44–101; PULSE 30–263; TEMP 36.3–36.8; O2SAT 78–100; BMI 37.5
--- NOTE | 2025-08-28 05:39 | LDADM ---
This patient, Priyanka Dunn, was admitted to Labor/Delivery/Recovery 105 on 08/28/25 at 04:54. Plans for labor, pain management and were discussed with patient. Patient/family oriented to hospital policies and general routines including ID bracelet, bed and alarms, visiting hours, pain management, procedures, bathroom and other care routines, personal items, smoking policy, room service/diet and guest tray routines, security routines, and visiting hours. Patient/Family are encouraged to report perceived risks to care and to ask questions if they do not understand what they are told or what they should do. See OBIX for further documentation.
[2025-08-28 05:44] LABS: Hematocrit 31.7 % (37.0-47.0); Hemoglobin 10.0 g/dL (12.0-15.0); Immature Granulocyte Percent A 2.1 % (0-0.5); Lymphocytes Absolute Auto 3.10 K/mm3 (0.9-3.2); Mean Corpuscular HGB Conc 31.5 g/dl (32-36); Mean Corpuscular Hemoglobin 28.3 pg (26-34); Mean Corpuscular Volume 89.8 fl (80-100); Nucleated Red Blood Cells Absolute Auto 0.000 K/mm3 (0.0-0.012); Nucleated Red Blood Cells Perc 0.0 % (0.0-0.2); Platelet Count Result 232 k/mm3 (150-375); Red Blood Count 3.53 M/mm3 (4.2-5.4); White Blood Count 11.8 K/mm3 (4.5-10.0)
[2025-08-28 06:33] LABS: Syphilis IgG/IgM Antibody Non-Reactive (Nonreactive)
[2025-08-28] MEDS: OXYTOCIN 30 UNITS/NS 500 ML 30 UNITS/500 ML BAG 6 UNITS IV CONT (06:50)
[2025-08-28] MEDS: LACTATED RINGERS 1,000 ML 125 ML IV CONT ×2 (06:51→18:30)
--- NOTE | 2025-08-28 08:07 | WPDHPUPDATE1 ---
History and Physical Update Update Date/Time: 08/28/25 08:07 This patient is a 24 year primiparous female presents for elective induction of labor. Her cervix is 3 cm/50%/-2. Artificial rupture membranes-clear fluid. Active management of labor with Pitocin. External monitoring. Reassuring heart tones. History and Physical has been reviewed, including an updated exam of the patient. There are NO changes in the patient's condition. Risks, benefits, and alternatives have been discussed and questions answered. Patient agrees to proceed with procedure.
[2025-08-28] MEDS: AZITHROMYCIN 500 MG TABLET PO (19:26)
[2025-08-28] MEDS: FLUTICASONE PROPIONATE 0.05% NA SPR 16 GM BTL (*BKC) 1 SPRAY NASAL (19:26)
[2025-08-29] VITALS (49 sets, daily range): BP systolic 110–136; BP diastolic 57–109; PULSE 74–154; RESP 16–18; TEMP 36.6–37; O2SAT 96–100
[2025-08-29] MEDS: OXYTOCIN 30 UNITS/NS 500 ML 30 UNITS/500 ML BAG 125 UNITS IV CONT (01:30)
[2025-08-29] MEDS: fentaNYL CITRATE INJ (*CRX) 100 MCG/2 ML VIAL 50 MCG IV PUSH (02:14)
--- NOTE | 2025-08-29 02:27 | PM.OBPRVD ---
OB - Vaginal Delivery Note Procedure Delivery date: 08/29/25 Intrapartal Events: Arrest of Descent Induction method: AROM and Per Pitocin Protocol Delivery monitor: External FHT and Internal Uterine Route of delivery: vacuum extraction Indication for instrumentation: other (Failure to descend, poor expulsive effort) Episiotomy description: Midline Laceration Description: None Delivery repair: vicryl Quantitative Blood Loss (ml): 100 Anesthesia type: Epidural Disposition: Floor Complications: No immediate complications Narrative: Kiwi vacuum extraction, +3 station, initially direct OP was rotated to direct OA, 3 pulls over 3 contractions totaling about 3 minutes no pop offs, adequate anesthesia-epidural, midline episiotomy
[2025-08-29] MEDS: IBUPROFEN 600 MG TABLET PO ×3 (03:48→17:28)
[2025-08-29] MEDS: BENZOCAINE 20% AER SPR (*SP) 56 GM CAN 1 SPRAY TOPICAL (03:49)
[2025-08-29] MEDS: WITCH HAZEL 40 PADS 1 PAD TOPICAL (03:49)
--- NOTE | 2025-08-29 03:56 | OBPPTRN ---
Patient transferred to post room #290 via w/c. Support person present. Oriented to unit, room, information board, rooming in, admission packet and security measures. Patient verbalizes understanding.
[2025-08-29] MEDS: DOCUSATE SODIUM 100 MG CAPSULE PO ×2 (07:45→17:28)
[2025-08-29] MEDS: ACETAMINOPHEN 325 MG TABLET 650 MG PO ×2 (07:45→15:48)
[2025-08-29] MEDS: FLUTICASONE PROPIONATE 0.05% NA SPR 16 GM BTL (*BKC) 1 SPRAY NASAL ×2 (12:00→20:59)
[2025-08-29] MEDS: AZITHROMYCIN 500 MG TABLET PO (12:00)
--- NOTE | 2025-08-29 16:18 | WPDANLDPN2 ---
Anes-Prog Note L&D Date/Time: 08/29/25 16:18 Comfortable throughout: labor and delivery Neuraxial method: epidural Epidural/Spinal procedure site: clean & non-tender Neuro status: Neuro function grossly intact. Cardiovascular status: normal Respiratory status: normal Airway patency: baseline Mental status: baseline Post-Op hydration status: normal Vital Signs: Last Vital Signs Temp 98.0 F 08/29/25 16:07 Pulse 83 08/29/25 16:07 Resp 16 08/29/25 16:07 BP 130/78 08/29/25 16:07 Pulse Ox 98 08/29/25 16:07 O2 Del Method Room Air 08/29/25 15:50 Pain score (VAS): 0 I/O: Intake & Output 08/29/25 08/29/25 08/29/25 07:59 15:59 23:59 Intake Total 240 Output Total 445 Balance -445 240 Post-procedural complaints: none Patient feedback: Patient satisfied with anesthetic care.
[2025-08-29] MEDS: SERTRALINE HCL 50 MG TABLET PO (20:57)
[2025-08-30 01:30] VITALS: BP 136/86; PULSE 87; RESP 16; TEMP 36.6; O2SAT 99
[2025-08-30] MEDS: ACETAMINOPHEN 325 MG TABLET 650 MG PO ×4 (01:36→21:58)
[2025-08-30] MEDS: IBUPROFEN 600 MG TABLET PO ×4 (01:37→21:57)
[2025-08-30 05:27] LABS: Hematocrit 30.5 % (37.0-47.0); Hemoglobin 9.5 g/dL (12.0-15.0)
[2025-08-30 09:50] VITALS: BP 130/78; PULSE 71; RESP 18; TEMP 36.6; O2SAT 96
[2025-08-30] MEDS: AZITHROMYCIN 500 MG TABLET PO (09:50)
[2025-08-30] MEDS: FLUTICASONE PROPIONATE 0.05% NA SPR 16 GM BTL (*BKC) 1 SPRAY NASAL (09:50)
--- NOTE | 2025-08-30 13:17 | P.PNOB_ITS ---
OB - PN: Subj Subjective Date/time seen: 08/30/25 13:17 Patient comments: no complaints, pain well controlled, incisional pain, tolerating diet and flatus present OB - PN: Obj Data Labs 08/30/25 05:20 Labs: Laboratory Results - last 24 hr 08/30/25 05:20 Hgb 9.5 L Hct 30.5 L OB - PN A/P Plan day: 1 Plan: routine care Comments: No problems, routine care Time Spent With Patient Time: Total time spent is greater than 50% in coordination of care (as documented) at patient's floor/unit and/or counseling patient: Exam 2 Const: General: comfortable, no acute distress and alert Resp: Effort & Inspection: normal respiratory effort Auscultation: no crackles, no rales and no rhonchi Cardio: Rate: regular rate Heart sounds: no click, no murmurs and no rubs GI: Inspection: non-distended GI Palp: No Tenderness to palpation present (GI) Auscultation: normal bowel sounds Other: Incision - CDI Extrem: General: normal to inspection, no pedal edema and no calf tenderness
[2025-08-30 19:15] VITALS: BP 133/86; PULSE 72; RESP 16; TEMP 36.8; O2SAT 98
[2025-08-30] MEDS: SERTRALINE HCL 50 MG TABLET PO (21:27)
[2025-08-30] MEDS: MULTIVIT/MIN/PREN/FOL AC/IRON TABLET 1 TAB PO (21:38)
[2025-08-30] MEDS: DOCUSATE SODIUM 100 MG CAPSULE PO (21:38)
[2025-08-31 07:30] VITALS: BP 128/79; PULSE 77; RESP 16; TEMP 36.9; O2SAT 100
--- NOTE | 2025-08-31 07:50 | P.PNOB_ITS ---
OB - PN: Subj Subjective Date/time seen: 08/31/25 07:50 Interval history: pp day 2 no complaints OB - PN: Obj Data Labs 08/30/25 05:20 OB - PN A/P Plan day: 2 Plan: routine care and discharge home Time Spent With Patient Time: Total time spent is greater than 50% in coordination of care (as documented) at patient's floor/unit and/or counseling patient: Review of Systems 2 Review of Systems: All systems reviewed & are unremarkable except as noted in HPI and below Exam 2 Const: General: cooperative and healthy appearing Chest: Chest palpation & inspection: normal inspection of the chest Resp: Effort & Inspection: normal respiratory effort Cardio: Rate: regular rate Back/Spine/Pelvis: Back: no CVA tenderness Skin: General skin exam: normal color
--- NOTE | 2025-08-31 07:51 | P.DS_ITS ---
DS: Admitting Diagnosis Discharge Date 08/31/25 Admitting Diagnosis iol DS: Discharge Diagnosis Discharge Diagnosis (1) Vaginal delivery: Code(s): O80 - Encounter for full-term uncomplicated delivery Status: Acute OB - DS: Summary OB Procedures : None OB Procedures Intrapartum: Spontaneous Vag Delivery OB Procedures: : None Peripartum Data Laceration Description: None Episiotomy description: Midline Time Spent with Patient Time attestation: Total time spent providing and/or coordinating discharge services: Discharge Plan Discharge Attending physician on discharge: Chin Boyce Discharging Clinician: Audrey Matamoros Patient Disposition: Home Activity: pelvic rest Diet: regular Patient Instructions: Antibiotic Form Patient Language: [place] Citizen Stand Alone Forms: General Discharge Information Follow-up/Referrals: Chin Boyce MD [Physician, B[facility] DAY ARTIST] - 4 Weeks Discharge Medications: Continued DHA 200 mg capsule 200 mg PO DAILY sertraline 50 mg tablet 50 mg PO DAILY Qty: 90 0RF Rx Instructions: LAST FILL,NEEDS APPOINTMENT Date of admission: 08/28/25 04:54 Primary Care Provider: Sabra Neil Admitting Provider: Chin Boyce Attending physician on admission: Chin Boyce Condition: Stable
[2025-08-31] MEDS: MULTIVIT/MIN/PREN/FOL AC/IRON TABLET 1 TAB PO (08:46)
[2025-08-31] MEDS: AZITHROMYCIN 500 MG TABLET PO (08:47)
[2025-08-31] MEDS: IBUPROFEN 600 MG TABLET PO (08:47)
[2025-08-31] MEDS: DOCUSATE SODIUM 100 MG CAPSULE PO (08:47)
[2025-08-31] MEDS: FLUTICASONE PROPIONATE 0.05% NA SPR 16 GM BTL (*BKC) 1 SPRAY NASAL (08:48)
[2025-08-31] MEDS: MEASLES,MUMPS,RUBELLA VACCINE 0.5 ML VIAL SUB-Q (10:26)
--- NOTE | 2025-08-31 10:44 | PC.NURSE ---
Patient viewed the discharge video Mother & Baby Care, The First Two Weeks. Patient was given the opportunity and encouraged to ask questions. Patient verbalized understanding of information shared and has been given the mother/baby guide for home reference.
[2025-09-01 05:08] LABS: Measles Antibodies, IgG <13.5 AU/mL (Immune >16.4); Rubella Antibodies, IgG <0.90 index (Immune >0.99)
[2025-09-01 10:55] VITALS: BP 125/77; PULSE 67; RESP 18; TEMP 37.1; O2SAT 100
== END 2025-08-31 12:17 | disposition home or self-care (01) | DRG 807 ==
LOC: ANHLDR 05:00 → ANHOB2 08-29 03:59
PROVIDERS: Admitting Provider Obstetrics & Gynecology; PCP Family Medicine; Visit Provider Obstetrics & Gynecology
DX: O62.1 Secondary uterine inertia (principal); Z37.0 Single live birth; Z3A.39 39 weeks gestation of pregnancy
CPT/HCPCS: 36415; 85014; 85018; 85025; 86593; 86735; 86762; 86765; 86850; 86900; 86901; 90710; A9270; J1200; J2590; J2795; J3010; J7120